=== PATIENT | male | born 1950 | race African-American/Black ===

== ENCOUNTER 2016-11-26 15:14 | Inpatient (IN) | payer MEDICARE, MEDICAID ==
[2016-11-25] MEDS: Metoprolol Tartrate 50mg tab ORAL SCH (20:54)
[~2016-11-26] VITALS: Ht 182.9 cm; Wt 86.2 kg
[2016-11-26 15:30] VITALS: BP 132/90
--- NOTE | 2016-11-26 15:38 | Emergency Room Report ---
History of Present Illness General Chief Complaint: Syncope Source: Patient, Medical Record, EMS, PMD Present Illness HPI 66YOM with ?syncope during PT at SNF in [place]. Patient allegedly stood up from sitting in wheelchair, then fell back into wheelchair, "hitting right elbow" on chair No LOC Didnt hit head Denies precipitating chest pain, SOB, palpitations, headache Feels well otherwise Per SNF, patient A&Ox2 at baseline. Is at baseline Multiple medical problems including COPD, CAD, pacemaker Scheduled for pacemaker "check" tomorrow Allergies: Coded Allergies: No Known Allergies (Unverified , 11/26/16) Patient History Past Medical History: other - see hpi Past Surgical History: pacemaker Pertinent Family History: none Social History: Denies: smoking, alcohol use, drug use Immunizations: UTD Reviewed Nursing Documentation: PMH: Agreed, PSxH: Agreed Nursing Documentation-PMH Past Medical History: No History, Except For Hx Cardiac Problems: Yes - AFIB Hx Hypertension: Yes Hx Asthma: No - LEFT HEARING LOSS Hx COPD: Yes Hx Diabetes: Yes Hx Gastrointestinal Problems: Yes - GERD Review of Systems All Other Systems: negative except mentioned in HPI Physical Exam Vital Signs Date Time Temp Pulse Resp B/P (MAP) Pulse Ox O2 Delivery O2 Flow Rate FiO2 11/26/16 15:04 97.2 83 20 150/125 98 Room Air Sp02 EP Interpretation: reviewed, normal General Appearance: normal inspection, well appearing, no apparent distress, alert, GCS 15, non-toxic, obese Head: normocephalic, atraumatic Eyes: bilateral eye PERRL, bilateral eye EOMI ENT: normal ENT inspection, hearing grossly normal, normal voice Neck: normal inspection, full range of motion, supple, no bony tend Respiratory: normal inspection, lungs clear, normal breath sounds, no respiratory distress, no retraction, no wheezing Cardiovascular #1: regular rate, rhythm, no edema Gastrointestinal: normal inspection, normal bowel sounds, non tender, soft, no guarding, no hernia Genitourinary: no CVA tenderness Musculoskeletal: normal inspection, back normal, normal range of motion, Chavo' s Sign negative, other - Full ROM of right shoulder/elbow/wrist/hand. No obvious trauma. Mild ttp to right elbow Neurologic: normal inspection, alert, oriented x3, responsive, drafter apprentice III-XII nml as tested, speech normal Psychiatric: normal inspection, judgement/insight normal, mood/affect normal Skin: normal inspection, normal color, no rash Medical Decision Making Medicare Attestation I Itzel Barton MD hereby attest that the medical record entry for date of service, 11/26/16 accurately reflects signatures/notations that I made in my capacity as MD when I treated/diagnosed the above listed Medicare beneficiary. I attest that this information is true, accurate and complete to the best of my knowledge. I understand that any falsification, omission, or concealment of material fact may subject me to administrative, civil, or criminal liability. This patient warrants hospital admission for extreme of age and has a condition that cannot be treated as outpatient. Diagnostic Impression: Primary Impression: Syncope Qualified Codes: R55 - Syncope and collapse Additional Impression: CKD (chronic kidney disease) Qualified Codes: N18.5 - Chronic kidney disease, stage 5 ER Course 66YOF with ?syncope during PT VSS. Afebrile Known atrial fib. Not in RVR CXR normal CT head negative Right elbow xray negative Labs significant only for serumCr elevaed. Known CKD Endorsed to Dr Barreto for syncope admit Tele bed 507pm EKG Diagnostic Results Rhythm: other - Atrial fib ST Segments: no acute changes ASA given to the pt in ED: No Rhythm Strip Diag. Results EP Interpretation: yes Rate: 84 Rhythm: NSR, no PVC's, no ectopy Chest X-Ray Diagnostic Results Chest X-Ray Diagnostic Results : Chest X-Ray Ordered: Yes # of Views/Limited/Complete: 1 View Indication: Other - syncope EP Interpretation: Yes Interpretation: no consolidation, no effusion, no pneumothorax, other - + cardiomegaly Impression: No acute disease Electronically Signed by: Dr Itzel Barton MD Last Vital Signs Date Time Temp Pulse Resp B/P (MAP) Pulse Ox O2 Delivery O2 Flow Rate FiO2 11/26/16 15:04 97.2 83 20 150/125 98 Room Air Disposition: ADMITTED INPATIENT Condition: Serious ITZEL BARTON M.D. Nov 26, 2016 15:38
--- NOTE | 2016-11-26 15:56 | Diagnostic Imaging Report ---
Indication: SYNCOPE Technique: One view of the chest Comparison: none Findings: The heart is enlarged. The lung bases are clear. There is a right chest unifocal pacemaker Impression: Cardiomegaly. No acute process
--- NOTE | 2016-11-26 15:56 | Diagnostic Imaging Report ---
Indications:PAIN Technique: Three or 4 views of the right elbow Comparison: None Findings:No acute fractures. No dislocations. No effusion Impression:Negative
[2016-11-26 16:11] LABS: MEAN CORPUSCULAR HEMOGLOBIN 32.2 PG (27.0-31.0); MEAN CORPUSCULAR HGB CONC 34.1 G/DL (32.0-36.0); MEAN CORPUSCULAR VOLUME 94 FL (80-99); MEAN PLATELET VOLUME 11.5 FL (6.5-10.1); PLATELET COUNT 106 K/UL (150-450); RED BLOOD COUNT 4.75 M/UL (4.70-6.10); RED CELL DISTRIBUTION WIDTH 13.8 % (11.6-14.8); WHITE BLOOD COUNT 5.8 K/UL (4.8-10.8)
[2016-11-26 16:47] LABS: ALANINE AMINOTRANSFERASE 33 U/L (12-78); ALBUMIN/GLOBULIN RATIO 0.8 (1.0-2.7); ANION GAP 8 mmol/L (5-15); ASPARTATE AMINO TRANSFERASE 12 U/L (15-37); CALCIUM 9.5 MG/DL (8.5-10.1); CARBON DIOXIDE 28 MMOL/L (21-32); CHLORIDE 99 MMOL/L (98-107); CKMB 1.8 NG/ML (0.0-3.6); CREATININE 2.5 MG/DL (0.55-1.30); GLOMERULAR FILTRATION RATE 31.5 mL/min (>60); POTASSIUM 4.5 MMOL/L (3.5-5.1); SODIUM 135 MMOL/L (136-145); TOTAL PROTEIN 6.7 G/DL (6.4-8.2)
--- NOTE | 2016-11-26 16:54 | Diagnostic Imaging Report ---
Indications: Altered mental status Technique: Spiral acquisitions obtained through the brain. Angled axial and coronal 5 x 5 mm slices were reconstructed. Total dose length product 132 mGycm. CTDI vol(s) 70 mGy. Dose reduction achieved using automated exposure control Comparison: None Findings: There is age-related enlargement of ventricles and extra axial CSF spaces. No acute intracranial hemorrhage or edema, mass effect, nor midline shift. There is some image degradation due to motion artifact. Intact calvarium. Visualized orbits and sinuses are unremarkable. Impression: Age-related volume loss. Negative for acute intracranial bleed or mass effect The CT scanner at [facility] is accredited by the [employer] and the scans are performed using protocols designed to limit radiation exposure to as low as reasonably achievable to attain images of sufficient resolution adequate for diagnostic evaluation.
[2016-11-26] MEDS ORDERED: NITROGLYCERIN0.4 MG SL (17:40)
[2016-11-26] MEDS ORDERED: ELIQUIS5 MG PO (17:40)
[2016-11-26] MEDS ORDERED: SENNA8.6 M2 PO (17:40)
[2016-11-26] MEDS ORDERED: AMLODIPINE BESY10 MG ORAL (17:40)
[2016-11-26] MEDS ORDERED: METOPROLOL TART25 MG ORAL (17:40)
[2016-11-26] MEDS ORDERED: COLACE100 MG ORAL (17:40)
[2016-11-26] MEDS ORDERED: ASPIR 8181 MG ORAL (17:40)
[2016-11-26] MEDS ORDERED: PREDNISONE20 MG ORAL (17:40)
[2016-11-26] MEDS ORDERED: LIPITOR20 MG ORAL (17:40)
[2016-11-26] MEDS ORDERED: JANUVIA25 MG ORAL (17:40)
[2016-11-26 18:42] VITALS: BP 142/95
[2016-11-26 18:44] LABS: ANISOCYTOSIS 1+; BAND NEUTROPHILS % (MANUAL) 0 % (0-8); BASOPHILS % (MANUAL) 0 % (0-2); EOSINOPHILS % (MANUAL) 0 % (0-3); LYMPHOCYTES % (MANUAL) 19 % (20-45); NEUTROPHILS % (MANUAL) 76 % (45-75); PLATELET ESTIMATE DECREASED; PLATELET MORPHOLOGY NORMAL; TOTAL CELLS COUNTED 100
[2016-11-26] MEDS ORDERED: Mylanta II UD 30ml ORAL PRN (23:45)
[2016-11-26] MEDS ORDERED: Morphine Sulfate 2mg/ml Inj IVP PRN (23:45)
[2016-11-26] MEDS ORDERED: Albuterol/Ipratropium 3ml neb HHN PRN (23:45)
[2016-11-26] MEDS ORDERED: LORazepam Inj 2mg/ml 1ml IV PRN (23:45)
[2016-11-26] MEDS ORDERED: Miralax 17gm pkt ORAL PRN (23:45)
[2016-11-26] MEDS ORDERED: Nitroglycerin Subl 0.4mg tab SL PRN (23:45)
[2016-11-27] VITALS (10 sets, daily range): BP systolic 127–155; BP diastolic 78–91
[2016-11-27] MEDS: NovoLOG Insulin Flexpen SUBQ SCH ×2 (07:10→12:02)
[2016-11-27 08:05] LABS: MEAN CORPUSCULAR HEMOGLOBIN 32.3 PG (27.0-31.0); MEAN CORPUSCULAR HGB CONC 34.4 G/DL (32.0-36.0); MEAN CORPUSCULAR VOLUME 94 FL (80-99); MEAN PLATELET VOLUME 10.3 FL (6.5-10.1); PLATELET COUNT 97 K/UL (150-450); RED BLOOD COUNT 4.69 M/UL (4.70-6.10); RED CELL DISTRIBUTION WIDTH 13.7 % (11.6-14.8); WHITE BLOOD COUNT 7.8 K/UL (4.8-10.8)
[2016-11-27 08:17] LABS: INR 1.1 (0.9-1.1); PROTHROMBIN TIME 11.7 SEC (9.30-11.50)
[2016-11-27 08:50] LABS: ALANINE AMINOTRANSFERASE 28 U/L (12-78); ALBUMIN/GLOBULIN RATIO 0.7 (1.0-2.7); ANION GAP 9 mmol/L (5-15); ASPARTATE AMINO TRANSFERASE 13 U/L (15-37); CALCIUM 9.4 MG/DL (8.5-10.1); CARBON DIOXIDE 28 MMOL/L (21-32); CHLORIDE 100 MMOL/L (98-107); CHOLESTEROL 363 MG/DL (< 200); CREATININE 2.3 MG/DL (0.55-1.30); GLOMERULAR FILTRATION RATE 34.7 mL/min (>60); POTASSIUM 4.3 MMOL/L (3.5-5.1); SODIUM 137 MMOL/L (136-145); THYROID STIMULATING HORMONE 0.579 uiU/mL (0.360-3.740); TOTAL PROTEIN 6.6 G/DL (6.4-8.2)
[2016-11-27 08:51] LABS: BILIRUBIN,DIRECT 0.2 MG/DL (0.0-0.3)
[2016-11-27] MEDS ORDERED: sitaGLIPtin 25mg tab ORAL SCH (09:00)
[2016-11-27] MEDS ORDERED: Atorvastatin 20mg tab ORAL SCH (09:00)
[2016-11-27] MEDS ORDERED: Heparin 5000 units/ml inj SUBQ SCH ×3 (09:00→21:00)
[2016-11-27 09:55] LABS: BAND NEUTROPHILS % (MANUAL) 0 % (0-8); BASOPHILS % (MANUAL) 0 % (0-2); EOSINOPHILS % (MANUAL) 0 % (0-3); LYMPHOCYTES % (MANUAL) 12 % (20-45); NEUTROPHILS % (MANUAL) 81 % (45-75); PLATELET ESTIMATE DECREASED; PLATELET MORPHOLOGY NORMAL; TOTAL CELLS COUNTED 100
--- NOTE | 2016-11-27 11:09 | General Progress Note ---
Progress Note Progress Note [id number] full note dictated JEN MICHELLE Nov 27, 2016 11:09
--- NOTE | 2016-11-27 12:24 | Neurology Progress Note ---
Objective Physical Exam Last Vital Signs Date Time Temp Pulse Resp B/P (MAP) Pulse Ox O2 Delivery O2 Flow Rate FiO2 11/27/16 11:22 97.7 72 20 155/87 97 Room Air 11/27/16 07:43 21 Laboratory Tests Test 11/26/16 15:45 11/26/16 15:47 11/27/16 07:10 Sodium Level 135 MMOL/L (136-145) L 137 MMOL/L (136-145) Potassium Level 4.5 MMOL/L (3.5-5.1) 4.3 MMOL/L (3.5-5.1) Chloride Level 99 MMOL/L (98-107) 100 MMOL/L (98-107) Carbon Dioxide Level 28 MMOL/L (21-32) 28 MMOL/L (21-32) Anion Gap 8 mmol/L (5-15) 9 mmol/L (5-15) Blood Urea Nitrogen 43 mg/dL (7-18) H 40 mg/dL (7-18) H Creatinine 2.5 MG/DL (0.55-1.30) H 2.3 MG/DL (0.55-1.30) H Estimat Glomerular Filtration Rate 31.5 mL/min (>60) 34.7 mL/min (>60) Glucose Level 215 MG/DL (74-106) H 191 MG/DL (74-106) H Calcium Level 9.5 MG/DL (8.5-10.1) 9.4 MG/DL (8.5-10.1) Total Bilirubin 1.0 MG/DL (0.2-1.0) 1.2 MG/DL (0.2-1.0) H Aspartate Amino Transf (AST/SGOT) 12 U/L (15-37) L 13 U/L (15-37) L Alanine Aminotransferase (ALT/SGPT) 33 U/L (12-78) 28 U/L (12-78) Alkaline Phosphatase 64 U/L (46-116) 59 U/L (46-116) Total Creatine Kinase 51 U/L (26-308) Creatine Kinase MB 1.8 NG/ML (0.0-3.6) Creatine Kinase MB Relative Index 3.5 Troponin I 0.016 ng/mL (0.000-0.056) Total Protein 6.7 G/DL (6.4-8.2) 6.6 G/DL (6.4-8.2) Albumin 2.9 G/DL (3.4-5.0) L 2.8 G/DL (3.4-5.0) L Globulin 3.8 g/dL 3.8 g/dL Albumin/Globulin Ratio 0.8 (1.0-2.7) L 0.7 (1.0-2.7) L White Blood Count 5.8 K/UL (4.8-10.8) 7.8 K/UL (4.8-10.8) Red Blood Count 4.75 M/UL (4.70-6.10) 4.69 M/UL (4.70-6.10) L Hemoglobin 15.3 G/DL (14.2-18.0) 15.2 G/DL (14.2-18.0) Hematocrit 44.7 % (42.0-52.0) 44.1 % (42.0-52.0) Mean Corpuscular Volume 94 FL (80-99) 94 FL (80-99) Mean Corpuscular Hemoglobin 32.2 PG (27.0-31.0) H 32.3 PG (27.0-31.0) H Mean Corpuscular Hemoglobin Concent 34.1 G/DL (32.0-36.0) 34.4 G/DL (32.0-36.0) Red Cell Distribution Width 13.8 % (11.6-14.8) 13.7 % (11.6-14.8) Platelet Count 106 K/UL (150-450) L 97 K/UL (150-450) L Mean Platelet Volume 11.5 FL (6.5-10.1) H 10.3 FL (6.5-10.1) H Neutrophils (%) (Auto) % (45.0-75.0) % (45.0-75.0) Lymphocytes (%) (Auto) % (20.0-45.0) % (20.0-45.0) Monocytes (%) (Auto) % (1.0-10.0) % (1.0-10.0) Eosinophils (%) (Auto) % (0.0-3.0) % (0.0-3.0) Basophils (%) (Auto) % (0.0-2.0) % (0.0-2.0) Differential Total Cells Counted 100 100 Neutrophils % (Manual) 76 % (45-75) H 81 % (45-75) H Lymphocytes % (Manual) 19 % (20-45) L 12 % (20-45) L Monocytes % (Manual) 5 % (1-10) 7 % (1-10) Eosinophils % (Manual) 0 % (0-3) 0 % (0-3) Basophils % (Manual) 0 % (0-2) 0 % (0-2) Band Neutrophils 0 % (0-8) 0 % (0-8) Platelet Estimate Decreased L Decreased L Platelet Morphology Normal Normal Anisocytosis 1+ Red Blood Cell Morphology Normal Prothrombin Time 11.7 SEC (9.30-11.50) H Prothromb Time International Ratio 1.1 (0.9-1.1) Activated Partial Thromboplast Time 29 SEC (23-33) Direct Bilirubin 0.2 MG/DL (0.0-0.3) Triglycerides Level 140 MG/DL (0-200) Cholesterol Level 363 MG/DL (< 200) H LDL Cholesterol 281 mg/dL (<100) H HDL Cholesterol 73 MG/DL (40-60) H Cholesterol/HDL Ratio 5.0 (3.3-4.4) H Thyroid Stimulating Hormone (TSH) 0.579 uiU/mL (0.360-3.740) Impression/Recommendations Recommendations # [id number] ДМИТРИЙ WEISS Nov 27, 2016 12:24
[2016-11-27] MEDS ORDERED: Amiodarone 900 MG in D5W 500ml 482 ML IV SCH (15:30)
--- NOTE | 2016-11-27 15:50 | Consultation ---
History of Present Illness General Date patient seen: Nov 26, 2016 Chief Complaint: Syncope Reason for Consultation: inpatient management Present Illness HPI 66 year old male with medical hx including COPD, CAD, pacemaker presented to ER with CC of syncope during PT at SNF Patient allegedly stood up from sitting in wheelchair, then fell back into wheelchair, "hitting right elbow" on chair Denies precipitating chest pain, SOB, palpitations, headache. He is admitted to telemetry for further work up. Allergies: Coded Allergies: No Known Allergies (Unverified , 11/26/16) Medication History Scheduled Amlodipine Besylate* (Amlodipine Besylate*), 10 MG ORAL DAILY, (Reported) Aspirin* (Aspir 81*), 81 MG ORAL DAILY, (Reported) Atorvastatin Calcium* (Lipitor*), 20 MG ORAL DAILY, (Reported) Docusate Sodium* (Colace*), 100 MG ORAL DAILY, (Reported) Metoprolol Tartrate* (Metoprolol Tartrate*), 25 MG ORAL DAILY, (Reported) Prednisone* (Prednisone*), 40 MG ORAL DAILY, (Reported) Sitagliptin* (Januvia*), 50 MG ORAL DAILY, (Reported) Miscellaneous Medications Apixaban (Eliquis), 5 MG PO, (Reported) Nitroglycerin (Nitroglycerin), 0.4 MG SL, (Reported) Sennosides (Senna), 8.6 MG PO, (Reported) Patient History Healthcare decision maker Resuscitation status Full Code Advanced Directive on File No Past Medical/Surgical History Past Medical/Surgical History: (1) Pacemaker (2) HTN (hypertension) (3) Atrial fibrillation Review of Systems All Other Systems: negative except mentioned in HPI Physical Exam General Appearance: WD/WN Lines, tubes and drains: peripheral HEENT: normocephalic, atraumatic Neck: non-tender, supple Respiratory/Chest: chest wall non-tender, normal breath sounds Breasts: no masses Cardiovascular/Chest: normal peripheral pulses Abdomen: normal bowel sounds Genitourinary/Rectal: normal genital exam, normal prostate exam Last 24 Hour Vital Signs Date Time Temp Pulse Resp B/P (MAP) Pulse Ox O2 Delivery O2 Flow Rate FiO2 11/27/16 12:00 116 11/27/16 11:22 97.7 72 20 155/87 97 Room Air 10/19/17 09:44 67 142/86 11/27/16 08:16 98.1 67 20 142/86 99 Room Air 11/27/16 08:00 120 11/27/16 07:43 77 16 Room Air 21 11/27/16 04:01 98.0 78 20 127/81 98 Room Air 11/27/16 04:00 81 11/27/16 00:00 98.0 68 20 145/80 98 Room Air 11/27/16 00:00 85 11/26/16 23:46 82 16 Room Air 21 11/26/16 19:50 97.2 87 13 142/95 98 Room Air 11/26/16 18:42 97.2 87 13 142/95 98 Room Air Intake and Output 11/27/16 11/28/16 19:00 07:00 Intake Total 200 ml Balance 200 ml Intake Oral 200 ml # Voids 1 Laboratory Tests Test 11/26/16 15:45 11/26/16 15:47 11/27/16 07:10 Sodium Level 135 MMOL/L (136-145) L 137 MMOL/L (136-145) Potassium Level 4.5 MMOL/L (3.5-5.1) 4.3 MMOL/L (3.5-5.1) Chloride Level 99 MMOL/L (98-107) 100 MMOL/L (98-107) Carbon Dioxide Level 28 MMOL/L (21-32) 28 MMOL/L (21-32) Anion Gap 8 mmol/L (5-15) 9 mmol/L (5-15) Blood Urea Nitrogen 43 mg/dL (7-18) H 40 mg/dL (7-18) H Creatinine 2.5 MG/DL (0.55-1.30) H 2.3 MG/DL (0.55-1.30) H Estimat Glomerular Filtration Rate 31.5 mL/min (>60) 34.7 mL/min (>60) Glucose Level 215 MG/DL (74-106) H 191 MG/DL (74-106) H Calcium Level 9.5 MG/DL (8.5-10.1) 9.4 MG/DL (8.5-10.1) Total Bilirubin 1.0 MG/DL (0.2-1.0) 1.2 MG/DL (0.2-1.0) H Aspartate Amino Transf (AST/SGOT) 12 U/L (15-37) L 13 U/L (15-37) L Alanine Aminotransferase (ALT/SGPT) 33 U/L (12-78) 28 U/L (12-78) Alkaline Phosphatase 64 U/L (46-116) 59 U/L (46-116) Total Creatine Kinase 51 U/L (26-308) Creatine Kinase MB 1.8 NG/ML (0.0-3.6) Creatine Kinase MB Relative Index 3.5 Troponin I 0.016 ng/mL (0.000-0.056) Total Protein 6.7 G/DL (6.4-8.2) 6.6 G/DL (6.4-8.2) Albumin 2.9 G/DL (3.4-5.0) L 2.8 G/DL (3.4-5.0) L Globulin 3.8 g/dL 3.8 g/dL Albumin/Globulin Ratio 0.8 (1.0-2.7) L 0.7 (1.0-2.7) L White Blood Count 5.8 K/UL (4.8-10.8) 7.8 K/UL (4.8-10.8) Red Blood Count 4.75 M/UL (4.70-6.10) 4.69 M/UL (4.70-6.10) L Hemoglobin 15.3 G/DL (14.2-18.0) 15.2 G/DL (14.2-18.0) Hematocrit 44.7 % (42.0-52.0) 44.1 % (42.0-52.0) Mean Corpuscular Volume 94 FL (80-99) 94 FL (80-99) Mean Corpuscular Hemoglobin 32.2 PG (27.0-31.0) H 32.3 PG (27.0-31.0) H Mean Corpuscular Hemoglobin Concent 34.1 G/DL (32.0-36.0) 34.4 G/DL (32.0-36.0) Red Cell Distribution Width 13.8 % (11.6-14.8) 13.7 % (11.6-14.8) Platelet Count 106 K/UL (150-450) L 97 K/UL (150-450) L Mean Platelet Volume 11.5 FL (6.5-10.1) H 10.3 FL (6.5-10.1) H Neutrophils (%) (Auto) % (45.0-75.0) % (45.0-75.0) Lymphocytes (%) (Auto) % (20.0-45.0) % (20.0-45.0) Monocytes (%) (Auto) % (1.0-10.0) % (1.0-10.0) Eosinophils (%) (Auto) % (0.0-3.0) % (0.0-3.0) Basophils (%) (Auto) % (0.0-2.0) % (0.0-2.0) Differential Total Cells Counted 100 100 Neutrophils % (Manual) 76 % (45-75) H 81 % (45-75) H Lymphocytes % (Manual) 19 % (20-45) L 12 % (20-45) L Monocytes % (Manual) 5 % (1-10) 7 % (1-10) Eosinophils % (Manual) 0 % (0-3) 0 % (0-3) Basophils % (Manual) 0 % (0-2) 0 % (0-2) Band Neutrophils 0 % (0-8) 0 % (0-8) Platelet Estimate Decreased L Decreased L Platelet Morphology Normal Normal Anisocytosis 1+ Red Blood Cell Morphology Normal Prothrombin Time 11.7 SEC (9.30-11.50) H Prothromb Time International Ratio 1.1 (0.9-1.1) Activated Partial Thromboplast Time 29 SEC (23-33) Direct Bilirubin 0.2 MG/DL (0.0-0.3) Triglycerides Level 140 MG/DL (0-200) Cholesterol Level 363 MG/DL (< 200) H LDL Cholesterol 281 mg/dL (<100) H HDL Cholesterol 73 MG/DL (40-60) H Cholesterol/HDL Ratio 5.0 (3.3-4.4) H Thyroid Stimulating Hormone (TSH) 0.579 uiU/mL (0.360-3.740) Height (Feet): 6 Height (Inches): 0.00 Weight (Pounds): 190 Medications Current Medications Medications (Trade) Dose Ordered Sig/Anahi Route PRN Reason Start Time Stop Time Status Last Admin Dose Admin Acetaminophen (Tylenol) 650 mg Q4H PRN ORAL fever 11/26/16 23:45 12/26/16 23:44 Al Hydroxide/Mg Hydroxide (Mylanta II) 30 ml Q6H PRN ORAL dyspepsia 11/26/16 23:45 12/26/16 23:44 Albuterol/ Ipratropium (DuoNeb 0.5-3(2.5)mg/3ml) 3 ml Q4H PRN HHN Shortness of Breath 11/26/16 23:45 12/01/16 23:44 Amiodarone HCl 900 mg/Dextrose 500 ml @ 0 mls/hr Q24H IV 11/27/16 15:30 11/28/16 15:29 Amlodipine Besylate (Norvasc) 10 mg DAILY ORAL 11/27/16 09:00 12/27/16 08:59 11/27/16 09:44 Atorvastatin Calcium (Lipitor) 20 mg DAILY ORAL 11/27/16 09:00 12/27/16 08:59 11/27/16 09:44 Clonidine HCl (Catapres) 0.1 mg Q4H PRN ORAL For High Blood Pressure 11/26/16 23:45 12/26/16 23:44 Dextrose (Dextrose 50%) STAT PRN IV Hypoglycemia 11/26/16 23:45 12/26/16 23:44 Heparin Sodium (Porcine) (Heparin 5000 units/ml) 5,000 units EVERY 12 HOURS SUBQ 11/27/16 21:00 12/27/16 20:59 Insulin Aspart (NovoLOG) BEFORE MEALS AND HS SUBQ 11/27/16 06:30 12/27/16 06:29 11/27/16 12:02 Lorazepam (Ativan 2mg/ml 1ml) 0.5 mg Q4H PRN IV For Anxiety 11/26/16 23:45 12/03/16 23:44 Morphine Sulfate (Morphine Sulfate) 1 mg Q4H PRN IVP For Pain 7-10 11/26/16 23:45 12/03/16 23:44 Nitroglycerin (Ntg) 0.4 mg Q5M X 3 DOSES PRN SL Prn Chest Pain 11/26/16 23:45 12/26/16 23:44 Ondansetron HCl (Zofran) 4 mg Q6H PRN IVP Nausea & Vomiting 11/26/16 23:45 12/26/16 23:44 Polyethylene Glycol (Miralax) 17 gm HSPRN PRN ORAL Constipation 11/26/16 23:45 12/26/16 23:44 Prednisone (predniSONE) 40 mg DAILY ORAL 11/27/16 09:00 12/27/16 08:59 11/27/16 09:44 Sitagliptin Phosphate (Januvia) 50 mg DAILY ORAL 11/27/16 09:00 12/27/16 08:59 11/27/16 09:44 Sodium Chloride 1,000 ml @ 50 mls/hr Q20H IV 11/27/16 11:15 12/27/16 11:14 11/27/16 11:46 Temazepam (Restoril) 15 mg HSPRN PRN ORAL Insomnia 11/26/16 23:45 12/03/16 23:44 Assessment/Plan Problem List: (1) Syncope ICD Codes: R55 - Syncope and collapse SNOMED: 086735562 Qualifiers: Qualified Codes: R55 - Syncope and collapse (2) CKD (chronic kidney disease) ICD Codes: N18.9 - Chronic kidney disease, unspecified SNOMED: 347064535 Qualifiers: Qualified Codes: N18.5 - Chronic kidney disease, stage 5 (3) Pacemaker ICD Codes: Z95.0 - Presence of cardiac pacemaker SNOMED: 361611826, [id number] (4) Atrial fibrillation ICD Codes: I48.91 - Unspecified atrial fibrillation SNOMED: 47299902 Assessment/Plan telemetry monitoring rate control sliding scale diabetic diet cardiology evaluation SATHYA MEIER Nov 27, 2016 15:50
--- NOTE | 2016-11-27 15:52 | Pulmonolgy Critical Care Note ---
Critical Care - Asmt/Plan Problems: (1) Atrial fibrillation (2) Syncope (3) HTN (hypertension) (4) Pacemaker (5) CKD (chronic kidney disease) Respiratory: monitor respiratory rate, adjust FIO2 Cardiac: continue to monitor HR/BP Renal: F/U I&O, check electrolytes Infectious Disease: check cultures Gastrointestinal: continue feedings/current rate Endocrine: monitor blood sugar Hematologic: monitor H/H, transfuse if hgb<8.5 Neurologic: PRN Ativan, PRN Morphine, keep patient comfortable Prophylaxis: Protonix Notes Reviewed: operating room registered nurse, cardio Discussed with: nurses, consultants, trimming caserapplication architect manager - Objective Last 24 Hour Vital Signs Date Time Temp Pulse Resp B/P (MAP) Pulse Ox O2 Delivery O2 Flow Rate FiO2 11/27/16 12:00 116 11/27/16 11:22 97.7 72 20 155/87 97 Room Air 11/27/16 09:44 67 142/86 11/27/16 08:16 98.1 67 20 142/86 99 Room Air 11/27/16 08:00 120 11/27/16 07:43 77 16 Room Air 21 11/27/16 04:01 98.0 78 20 127/81 98 Room Air 11/27/16 04:00 81 11/27/16 00:00 98.0 68 20 145/80 98 Room Air 11/27/16 00:00 85 11/26/16 23:46 82 16 Room Air 21 11/26/16 19:50 97.2 87 13 142/95 98 Room Air 11/26/16 18:42 97.2 87 13 142/95 98 Room Air Status: awake Condition: critical HEENT: atraumatic Lungs: clear Heart: HR/BP stable Abdomen: soft, non-tender Extremities: no C/C/E Accucheck: 278 Critical Care - Subjective ROS Limited/Unobtainable: No Interval Events: transferred to ICU b/o rapid heart rate. FI02: 21 I&O: Intake and Output 11/27/16 11/28/16 19:00 07:00 Intake Total 200 ml Balance 200 ml Intake Oral 200 ml # Voids 1 CXR: MITRA Labs: Laboratory Tests Test 11/27/16 07:10 White Blood Count 7.8 K/UL (4.8-10.8) Red Blood Count 4.69 M/UL (4.70-6.10) L Hemoglobin 15.2 G/DL (14.2-18.0) Hematocrit 44.1 % (42.0-52.0) Mean Corpuscular Volume 94 FL (80-99) Mean Corpuscular Hemoglobin 32.3 PG (27.0-31.0) H Mean Corpuscular Hemoglobin Concent 34.4 G/DL (32.0-36.0) Red Cell Distribution Width 13.7 % (11.6-14.8) Platelet Count 97 K/UL (150-450) L Mean Platelet Volume 10.3 FL (6.5-10.1) H Neutrophils (%) (Auto) % (45.0-75.0) Lymphocytes (%) (Auto) % (20.0-45.0) Monocytes (%) (Auto) % (1.0-10.0) Eosinophils (%) (Auto) % (0.0-3.0) Basophils (%) (Auto) % (0.0-2.0) Differential Total Cells Counted 100 Neutrophils % (Manual) 81 % (45-75) H Lymphocytes % (Manual) 12 % (20-45) L Monocytes % (Manual) 7 % (1-10) Eosinophils % (Manual) 0 % (0-3) Basophils % (Manual) 0 % (0-2) Band Neutrophils 0 % (0-8) Platelet Estimate Decreased L Platelet Morphology Normal Red Blood Cell Morphology Normal Prothrombin Time 11.7 SEC (9.30-11.50) H Prothromb Time International Ratio 1.1 (0.9-1.1) Activated Partial Thromboplast Time 29 SEC (23-33) Sodium Level 137 MMOL/L (136-145) Potassium Level 4.3 MMOL/L (3.5-5.1) Chloride Level 100 MMOL/L (98-107) Carbon Dioxide Level 28 MMOL/L (21-32) Anion Gap 9 mmol/L (5-15) Blood Urea Nitrogen 40 mg/dL (7-18) H Creatinine 2.3 MG/DL (0.55-1.30) H Estimat Glomerular Filtration Rate 34.7 mL/min (>60) Glucose Level 191 MG/DL (74-106) H Calcium Level 9.4 MG/DL (8.5-10.1) Total Bilirubin 1.2 MG/DL (0.2-1.0) H Direct Bilirubin 0.2 MG/DL (0.0-0.3) Aspartate Amino Transf (AST/SGOT) 13 U/L (15-37) L Alanine Aminotransferase (ALT/SGPT) 28 U/L (12-78) Alkaline Phosphatase 59 U/L (46-116) Total Protein 6.6 G/DL (6.4-8.2) Albumin 2.8 G/DL (3.4-5.0) L Globulin 3.8 g/dL Albumin/Globulin Ratio 0.7 (1.0-2.7) L Triglycerides Level 140 MG/DL (0-200) Cholesterol Level 363 MG/DL (< 200) H LDL Cholesterol 281 mg/dL (<100) H HDL Cholesterol 73 MG/DL (40-60) H Cholesterol/HDL Ratio 5.0 (3.3-4.4) H Thyroid Stimulating Hormone (TSH) 0.579 uiU/mL (0.360-3.740) SATHYA MEIER Nov 27, 2016 15:52
[2016-11-27] MEDS ORDERED: Morphine Sulfate 4mg/ml Inj IVP PRN ×2 (16:00→17:30)
[2016-11-27] MEDS ORDERED: Nitroglycerin Subl 0.4mg tab SL PRN (17:30)
[2016-11-27] MEDS ORDERED: Miralax 17gm pkt ORAL PRN (17:30)
[2016-11-27] MEDS ORDERED: Albuterol/Ipratropium 3ml neb HHN PRN (17:30)
[2016-11-27] MEDS ORDERED: Mylanta II UD 30ml ORAL PRN (17:30)
[2016-11-27] MEDS ORDERED: LORazepam Inj 2mg/ml 1ml IV PRN (17:30)
--- NOTE | 2016-11-27 17:45 | Consultation ---
DATE OF CONSULTATION: 11/27/2016 NEPHROLOGY CONSULTATION REFERRING PHYSICIAN: Pako Barreto M.D. REASON FOR CONSULTATION: Acute versus chronic renal failure. HISTORY OF PRESENT ILLNESS: The patient is a 66-year-old male with past medical history significant for a history of hypertension, history of COPD, history of pacemaker placement, history of dyslipidemia and history of hypertension, who was originally transferred from [facility] to [facility] after he had an episode of fall. Apparently, the patient was sitting on his wheelchair. He fell and hit his left elbow. He came to the ER with a diagnosis of syncopal episode. Upon arrival in the ER for evaluation, the patient was found to have been in atrial fibrillation with rapid ventricular response. The patient consequently was admitted in the hospital. I was called for management of renal disease and electrolyte imbalance. PAST MEDICAL HISTORY: 1. Per chart, the patient has a chronic kidney disease, the baseline creatinine is unknown. 2. History of pacemaker placement. 3. Hypertension. 4. History of atrial fibrillation. 5. History of GERD. 6. History of COPD. 7. History of osteoarthritis. 8. History of diabetes. PAST SURGICAL HISTORY: History of pacemaker placement. MEDICATIONS: 1. Zyprexa 7.5 mg p.o. daily. 2. Depakote 500 mg one tablet daily. 3. Amlodipine 10 mg p.o. daily. 4. Aspirin 81 mg p.o. daily. 5. Colace 100 mg p.o. daily. 6. Eliquis 5 mg p.o. daily. 7. Metoprolol 25 mg p.o. daily. 8. Prednisone 40 mg p.o. daily. 9. Lipitor 20 mg p.o. at bedtime. 10. Januvia 50 mg p.o. daily. 11. Tylenol 650 mg q.6 h. p.r.n. pain. 12. Nitroglycerin 0.4 p.r.n. chest pain. 13. Senna 8.6 mg daily. ALLERGIES: No known drug allergies. SOCIAL HISTORY: There is no current history of tobacco, alcohol or drug use. FAMILY HISTORY: Noncontributory. REVIEW OF SYSTEMS: GENERAL: He complained of generalized weakness. Denied any fever, any chills, or night sweats. HEAD AND NECK: Denies any dysphagia, odynophagia, blurry vision, headache, or neck stiffness. PULMONARY: Denies any shortness of breath. No cough or sputum. CARDIOVASCULAR: Denies any chest pain or palpitations. GASTROINTESTINAL: No nausea. No vomiting. GENITOURINARY: Denies any dysuria, frequency, or hematuria. PHYSICAL EXAMINATION: VITAL SIGNS: The patient has temperature of 97 degrees, blood pressure 160/100, pulse rate of 120, and respiratory rate of 18. HEAD AND NECK: No JVP. No LAD. No thyromegaly. Extraocular movement intact. Pupils are reactive to light and accommodation. LUNGS: Clear to auscultation. CARDIAC: Regular rate and rhythm. S1 and S2. No murmur. No rub. ABDOMEN: Soft, nontender, and nondistended. EXTREMITIES: Trace edema. No clubbing. No cyanosis. LABORATORY AND DIAGNOSTIC DATA: On admission, WBC count of 7.8, hemoglobin 15.2, hematocrit of 44, and platelet count of 97. Chemistry reveals sodium 137, potassium 4.3, chloride 100, bicarbonate 28, BUN of 40, creatinine of 2.3, and glucose of 191. Calcium of 9.4. Total bilirubin of 1.2. AST of 13 and ALT of 28. Total protein of 6.6. Albumin of 2.8. Cholesterol of 363. LDL of 283. There is no UA. ASSESSMENT: 1. Acute renal failure. The etiology of acute renal failure including acute tubular necrosis due to unstable hemodynamics. Rule out obstructive uropathy versus rhabdomyolysis as a result of falls. 2. 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 3. Atrial fibrillation with rapid ventricular response. 4. Severe dyslipidemia. 5. Low albumin. 6. Hypertension, which is uncontrolled at this time. 7. Diabetes. PLAN: For the patient, to obtain a random urine protein creatinine ratio to calculate the proteinuria. Check the urine sodium and creatinine to calculate fractional excretion of sodium. Ultrasound of the kidney to evaluate the kidney size and scan the bladder. I will check a hemoglobin A1c, recommended for this patient to be 6-7. Increase the Zocor to 80 mg based on the lipid profile. I would check a CK-MB. I would obtain a regular UA. Again, I would like to thank Dr. Barreto for allowing me to participate in the care of this patient. Nuvia Pelletier M.D. DR: BAYRON JOB#: [id number] CC:
--- NOTE | 2016-11-27 19:15 | Consultation ---
DATE OF CONSULTATION: 11/27/2016 NEUROLOGICAL CONSULTATION CONSULTING PHYSICIAN: Murray Chi M.D. REQUESTING PHYSICIAN: Pako Barreto D.O. HISTORY OF PRESENT ILLNESS: This is a [id number] man seen in neurological consultation to evaluate recurrent falls, now presenting with the episode when he apparently stood up from his wheelchair, lost balance, and fell down. He is unable to recall if he had any brief loss of consciousness. He fell. He injured his right elbow. He was brought to this facility for further assessment and treatment. On admission, he had a CT scan of the brain and it revealed age-related ventricles, but no evidence of acute intracranial abnormalities. X-ray of the elbow revealed no fracture, no dislocation. His chest x-ray, signs of cardiomegaly, pacemaker in place. Laboratory work included CBC study unremarkable except low platelets of 106,000. His coagulation panel with PT of 11.7. His chemistry panel is abnormal with elevated BUN of 43, creatinine 2.5, blood sugar 215, and sodium 135. Elevated cholesterol of 363 with LDL of 231 with normal TSH and troponin. Since admission until present, there was no further paroxysmal event. PAST MEDICAL HISTORY: The patient has a history of baseline mild dementia, history of atrial fibrillation, now on pacemaker, hypertension, history of chronic psychiatric disorder, schizoaffective with paranoia, depression and anxiety, decreased hearing on the right, history of GERD, thyrotoxicosis, diabetes type 2, COPD, and atherosclerotic heart disease. MEDICATIONS: His treatment on admission included amlodipine, Eliquis, aspirin, atorvastatin, metoprolol, [place], prednisone 40 mg daily, senna, and Januvia. ALLERGIES: None reported. SOCIAL HISTORY: Resident of nursing facility. He is single. Denies alcohol or drug abuse. FAMILY HISTORY: Unavailable. REVIEW OF SYSTEMS: The patient admits having tremors in his both upper extremities for several years. He admits having difficulties in ambulation. So he is using only at times walker, but predominantly sitting in a wheelchair, mild headaches, but no vertigo episodes. Slight hearing loss. Denies chest pain. denies palpitation. Denies abdominal pain or discomfort. No urine or bowel incontinence. PHYSICAL EXAMINATION: GENERAL: A well-developed, well-nourished man, found to be lying in bed, somewhat drowsy, but arousable. VITAL SIGNS: Included blood pressure 155/87, heart rate of 72, afebrile. HEENT: Head normocephalic. There is no evidence of trauma. Eyes, ears, and throat are clear. NECK: Supple. No meningeal signs. MUSCULOSKELETAL: No deformities noted. EXTREMITIES: Upper and lower extremities without clubbing, cyanosis, or edema. Peripheral pulses 1+ and symmetric. MENTAL STATUS: The patient is alert and oriented to his name, but stated his age is 61, now is [age]. He was able to follow simple commands. Response is delayed. Appears to be in depressed mood. CRANIAL NERVE II: Pupils both responding to light and accommodation. Extraocular movements full range. CRANIAL NERVE V: Normal corneal responses. CRANIAL NERVE VII: Slight facial asymmetry. CRANIAL NERVE VIII: Decreased hearing. CRANIAL NERVES IX THROUGH XII: Tongue is in the midline. MOTOR EXAMINATION: There is slight rigidity, both upper, but predominantly lower extremities. There is resting and action tremor of both hands and both lower extremities. Bradykinesia. Deep tendon reflexes depressed bilaterally. Plantar response is mute. No pathological responses noted. SENSORY EXAMINATION: Withdrawing to pin stimulation. GAIT: The patient was hesitant to sit or stand up, being afraid that he can fall down. IMPRESSION: 1. This 66-year-old man with an abnormal gait, generalized rigidity, action tremor, now presenting with recurrent mechanical falls, rule out syncope, rule out parkinsonian syndrome. 2. Cognitive loss, rule out vascular dementia. 3. Atrial fibrillation, on Eliquis. 4. Chronic obstructive pulmonary disease. 5. Renal insufficiency. 6. Diabetes type 2. 7. Atherosclerotic heart disease. 8. Hypertension. 9. History of thyrotoxicosis. RECOMMENDATION: 1. The patient to start on a Sinemet trial 25/100 mg half a tablet t.i.d. 2. Get PT/OT for mobility protocol assessment. 3. Continue with the current treatment, avoiding oversedation. 4. Reassess the need for high dose of prednisone. Thank you for allowing me to see this interesting patient in neurological consultation. Murray Chi M.D. DR: Gurdeep JOB#: [id number] CC:
--- NOTE | 2016-11-27 19:25 | Cardiology Progress Note ---
Assessment/Plan Assessment/Plan The patient is seen and examined, full consult note will be dictated. Objective Last 24 Hour Vital Signs Date Time Temp Pulse Resp B/P (MAP) Pulse Ox O2 Delivery O2 Flow Rate FiO2 11/27/16 19:00 97.8 89 14 132/78 100 Room Air 11/27/16 16:00 117 11/27/16 16:00 97.6 82 18 136/82 100 Room Air 11/27/16 12:00 116 11/27/16 11:22 97.7 72 20 155/87 97 Room Air 11/27/16 09:44 67 142/86 11/27/16 08:16 98.1 67 20 142/86 99 Room Air 11/27/16 08:00 120 11/27/16 07:43 77 16 Room Air 21 11/27/16 04:01 98.0 78 20 127/81 98 Room Air 11/27/16 04:00 81 11/27/16 00:00 98.0 68 20 145/80 98 Room Air 11/27/16 00:00 85 11/26/16 23:46 82 16 Room Air 21 11/26/16 19:50 97.2 87 13 142/95 98 Room Air Intake and Output 11/27/16 11/28/16 19:00 07:00 Intake Total 371 ml Balance 371 ml Intake Oral 320 ml IV Total 51 ml # Voids 2 # Bowel Movements 1 Laboratory Tests Test 11/27/16 07:10 White Blood Count 7.8 K/UL (4.8-10.8) Red Blood Count 4.69 M/UL (4.70-6.10) L Hemoglobin 15.2 G/DL (14.2-18.0) Hematocrit 44.1 % (42.0-52.0) Mean Corpuscular Volume 94 FL (80-99) Mean Corpuscular Hemoglobin 32.3 PG (27.0-31.0) H Mean Corpuscular Hemoglobin Concent 34.4 G/DL (32.0-36.0) Red Cell Distribution Width 13.7 % (11.6-14.8) Platelet Count 97 K/UL (150-450) L Mean Platelet Volume 10.3 FL (6.5-10.1) H Neutrophils (%) (Auto) % (45.0-75.0) Lymphocytes (%) (Auto) % (20.0-45.0) Monocytes (%) (Auto) % (1.0-10.0) Eosinophils (%) (Auto) % (0.0-3.0) Basophils (%) (Auto) % (0.0-2.0) Differential Total Cells Counted 100 Neutrophils % (Manual) 81 % (45-75) H Lymphocytes % (Manual) 12 % (20-45) L Monocytes % (Manual) 7 % (1-10) Eosinophils % (Manual) 0 % (0-3) Basophils % (Manual) 0 % (0-2) Band Neutrophils 0 % (0-8) Platelet Estimate Decreased L Platelet Morphology Normal Red Blood Cell Morphology Normal Prothrombin Time 11.7 SEC (9.30-11.50) H Prothromb Time International Ratio 1.1 (0.9-1.1) Activated Partial Thromboplast Time 29 SEC (23-33) Sodium Level 137 MMOL/L (136-145) Potassium Level 4.3 MMOL/L (3.5-5.1) Chloride Level 100 MMOL/L (98-107) Carbon Dioxide Level 28 MMOL/L (21-32) Anion Gap 9 mmol/L (5-15) Blood Urea Nitrogen 40 mg/dL (7-18) H Creatinine 2.3 MG/DL (0.55-1.30) H Estimat Glomerular Filtration Rate 34.7 mL/min (>60) Glucose Level 191 MG/DL (74-106) H Calcium Level 9.4 MG/DL (8.5-10.1) Total Bilirubin 1.2 MG/DL (0.2-1.0) H Direct Bilirubin 0.2 MG/DL (0.0-0.3) Aspartate Amino Transf (AST/SGOT) 13 U/L (15-37) L Alanine Aminotransferase (ALT/SGPT) 28 U/L (12-78) Alkaline Phosphatase 59 U/L (46-116) Total Protein 6.6 G/DL (6.4-8.2) Albumin 2.8 G/DL (3.4-5.0) L Globulin 3.8 g/dL Albumin/Globulin Ratio 0.7 (1.0-2.7) L Triglycerides Level 140 MG/DL (0-200) Cholesterol Level 363 MG/DL (< 200) H LDL Cholesterol 281 mg/dL (<100) H HDL Cholesterol 73 MG/DL (40-60) H Cholesterol/HDL Ratio 5.0 (3.3-4.4) H Thyroid Stimulating Hormone (TSH) 0.579 uiU/mL (0.360-3.740) EVAN GILES Nov 27, 2016 19:25
[2016-11-27] MEDS: Metoprolol Tartrate 50mg tab ORAL SCH (20:51)
[2016-11-27] MEDS ORDERED: NovoLOG Insulin Flexpen SUBQ SCH (21:00)
[2016-11-27] MEDS ORDERED: Digoxin 0.5mg/2ml Inj IVP ONE (22:00)
[2016-11-28] VITALS (11 sets, daily range): BP systolic 113–158; BP diastolic 67–104
--- NOTE | 2016-11-28 02:01 | Consultation ---
DATE OF CONSULTATION: 11/27/2016 HEMATOLOGY/ONCOLOGY CONSULTATION CONSULTING PHYSICIAN: Enrique Ferraro M.D. REQUESTING PHYSICIAN: Pako Barreto D.O. REASON FOR CONSULTATION: Evaluation of thrombocytopenia. IDENTIFICATION DATA: Dear Dr. Pako Barreto, The patient is a very pleasant 66-year-old male with a past medical history significant for hypertension, COPD, and pacemaker placement, transferred from senior care to [facility] for an episode of fall. He came to the ER and diagnosed with syncopal episode. Upon arrival to the ER, the patient was found to have atrial fibrillation with RVR. Cardiology Service was consulted for evaluation and treatment as well as Neurology Service, Dr. Murray Chi. A Hematology Service was consulted for evaluation of the patient's thrombocytopenia. PAST MEDICAL HISTORY: Dementia, atrial fibrillation, pacemaker, hypertension, history of chronic psychiatric disorder, GERD, thyrotoxicosis, diabetes mellitus type 2, COPD, and atherosclerotic heart disease. MEDICATIONS: Amlodipine, Elavil, Lipitor, metoprolol, [place], prednisone, and losartan. ALLERGIES: No known drug allergies. FAMILY HISTORY: Unavailable. SOCIAL HISTORY: He lives in a senior care. He is single. He denies any alcohol, illicit drug use, or tobacco. REVIEW OF SYSTEMS: CONSTITUTIONAL: The patient admits to tremors in both bilateral upper extremities. SKIN: No rashes, bumps, or itching. HEENT: No headache, hearing or vision changes. BREASTS: No lumps, pain, or discharge. PULMONARY: No cough, sputum, or shortness of breath. GASTROINTESTINAL: No nausea, vomiting, or diarrhea. GENITOURINARY: No dysuria, frequency, or urgency. MUSCULOSKELETAL: No joint swelling, muscle pain, or trauma. PHYSICAL EXAMINATION: GENERAL: The patient is in no acute distress. VITAL SIGNS: Temperature 98 degrees Fahrenheit, pulse of 82, respiratory rate 12, and blood pressure 134/87. PULMONARY: Decreased breath sounds. CARDIOVASCULAR: Regular rate. No S3 or S4. ABDOMEN: Soft, nontender, and nondistended. EXTREMITIES: There is 1+ edema. LABORATORY DATA: WBC 7.8, hemoglobin 13.2, and platelet count 97,000. INR 1.1. IMAGING: Head CT on 11/26/2016 shows age-related volume loss. ASSESSMENT AND RECOMMENDATIONS: 1. Thrombocytopenia potentially secondary to medications versus underlying infection. Continue to closely monitor. Medications have been reviewed. Also, hepatitis and HIV panel sent as well as ultrasound of the abdomen. 2. Anemia secondary to chronic disease. 3. Coagulopathy, it is mild, potentially secondary to decreased p.o. intake. 4. Hypertension. 5. Atrial fibrillation. 6. Syncope. 7. Chronic kidney disease. 8. Bilateral tremors of upper extremities. I appreciate the consultation. Enrique Ferraro M.D. DR: MARY CARMEN JOB#: [id number] CC:
[2016-11-28] MEDS ORDERED: Nitroglycerin Subl 0.4mg tab SL PRN (05:30)
[2016-11-28] MEDS ORDERED: Mylanta II UD 30ml ORAL PRN (05:30)
[2016-11-28] MEDS ORDERED: LORazepam Inj 2mg/ml 1ml IV PRN (05:30)
[2016-11-28] MEDS ORDERED: Albuterol/Ipratropium 3ml neb HHN PRN (05:30)
[2016-11-28] MEDS ORDERED: Morphine Sulfate 4mg/ml Inj IVP PRN (05:30)
[2016-11-28 05:32] LABS: MEAN CORPUSCULAR HEMOGLOBIN 32.7 PG (27.0-31.0); MEAN CORPUSCULAR HGB CONC 34.6 G/DL (32.0-36.0); MEAN CORPUSCULAR VOLUME 95 FL (80-99); MEAN PLATELET VOLUME 10.4 FL (6.5-10.1); PLATELET COUNT 92 K/UL (150-450); RED BLOOD COUNT 4.37 M/UL (4.70-6.10); RED CELL DISTRIBUTION WIDTH 13.9 % (11.6-14.8); WHITE BLOOD COUNT 7.3 K/UL (4.8-10.8)
[2016-11-28 05:56] LABS: ANION GAP 8 mmol/L (5-15); CALCIUM 9.8 MG/DL (8.5-10.1); CARBON DIOXIDE 28 MMOL/L (21-32); CHLORIDE 102 MMOL/L (98-107); CREATININE 2.4 MG/DL (0.55-1.30); POTASSIUM 4.1 MMOL/L (3.5-5.1); SODIUM 138 MMOL/L (136-145)
[2016-11-28] MEDS: NovoLOG Insulin Flexpen SUBQ SCH ×4 (07:10→21:06)
[2016-11-28] MEDS: Metoprolol Tartrate 50mg tab ORAL SCH ×2 (08:12→21:08)
[2016-11-28] MEDS: sitaGLIPtin 25mg tab ORAL SCH (08:12)
[2016-11-28] MEDS: Heparin 5000 units/ml inj SUBQ SCH ×2 (08:16→21:00)
--- NOTE | 2016-11-28 08:30 | History and Physical Report ---
DATE OF ADMISSION: 11/26/2016 TIME SEEN: 11/27/2016, 3 p.m. ATTENDING PHYSICIAN: Pako Barreto D.O. CONSULTANTS: 1. Nuvia Pelletier M.D. 2. Charlie Auguste M.D. 3. Murray Chi M.D. 4. Josee Guevara M.D. 5. Karen Pettit M.D. CHIEF COMPLAINT: Syncope, tachycardia, atrial fibrillation, and CKD. BRIEF HISTORY: The patient is a 66-year-old male from [place] , presented with the above-mentioned diagnoses. He was tachycardic, found to be atrial fibrillation, admitted to the telemetry for further care. Currently calm in bed, slightly confused, not talking much. PAST MEDICAL HISTORY: Includes CKD and encephalopathy. PAST SURGICAL HISTORY: Pacer. MEDICATIONS: Include heparin, amiodarone, Norvasc, Lipitor, prednisone, Januvia, DuoNeb, Tylenol, and morphine. ALLERGIES: Denies. SOCIAL HISTORY: No smoking. No alcohol. No intravenous drug use. FAMILY HISTORY: Noncontributory. REVIEW OF SYSTEMS: No chest pain or shortness of breath. No nausea, vomiting, or diarrhea. PHYSICAL EXAMINATION: GENERAL: Calm in bed, oriented x2, in no acute distress. VITAL SIGNS: Temperature is 97 degrees, pulse 116, respirations 20, and blood pressure 155/87. CARDIOVASCULAR: No murmur. LUNGS: Poor exchange. ABDOMEN: Bowel sounds positive. Nontender and nondistended. EXTREMITIES: No cyanosis, clubbing, or edema. LABORATORY AND DIAGNOSTIC DATA: Labs at this time show CBC with platelets of 97, otherwise, normal. BMP showed BUN and creatinine 40/2.3. Albumin 3.8. INR is 1.1. ASSESSMENT: 1. Syncope. 2. Tachycardia. 3. Atrial fibrillation. 4. Chronic kidney disease. 5. Encephalopathy. 6. Thrombocytopenia. 7. Malnutrition. PLAN: 1. Continue premedications. 2. OT, PT, and dietary followup. 3. Cardiology followup. 4. Nephrology followup. 5. CBC and BMP in the morning. 6. Dr. Pelletier, Dr. Auguste, Dr. Chi, Dr. Guevara, Dr. Pettit, and Dr. Ferraro to consult. Pako Barreto D.O. DR: GONZALO JOB#: [id number] CC:
[2016-11-28 08:52] LABS: BAND NEUTROPHILS % (MANUAL) 0 % (0-8); BASOPHILS % (MANUAL) 0 % (0-2); EOSINOPHILS % (MANUAL) 0 % (0-3); LYMPHOCYTES % (MANUAL) 15 % (20-45); NEUTROPHILS % (MANUAL) 79 % (45-75); PLATELET ESTIMATE DECREASED; PLATELET MORPHOLOGY NORMAL; TOTAL CELLS COUNTED 100
[2016-11-28] MEDS ORDERED: sitaGLIPtin 25mg tab ORAL SCH (09:00)
--- NOTE | 2016-11-28 09:09 | Infectious Diseases Prog Note ---
Assessment/Plan Problems: (1) Syncope Assessment & Plan: Rule-out underlying sepsis. Check UA and BCx. Hold off on empiric antibiotics. (2) Pacemaker (3) CKD (chronic kidney disease) Subjective Allergies: Coded Allergies: No Known Allergies (Unverified , 11/26/16) Objective Vital Signs Last 24 Hour Vital Signs Date Time Temp Pulse Resp B/P (MAP) Pulse Ox O2 Delivery O2 Flow Rate FiO2 11/28/16 08:13 160 155/104 11/28/16 08:12 160 155/104 11/28/16 08:00 97.1 114 20 145/101 98 Room Air 11/28/16 05:20 96.3 98 14 155/104 99 11/28/16 05:00 97.5 88 18 158/95 98 Room Air 11/28/16 04:00 97.5 85 18 158/95 99 Room Air 11/28/16 04:00 100 11/28/16 03:00 77 17 113/67 99 Room Air 11/28/16 02:00 102 16 130/92 100 Room Air 11/28/16 01:00 76 16 119/81 99 Nasal Cannula 2.0 11/28/16 00:00 64 11/28/16 00:00 97.8 89 15 119/81 99 Nasal Cannula 2.0 11/27/16 23:00 83 16 151/91 100 Nasal Cannula 2.0 11/27/16 22:21 94 11/27/16 22:00 85 15 135/81 100 Nasal Cannula 2.0 11/27/16 21:00 88 15 131/82 100 Nasal Cannula 2.0 11/27/16 20:51 102 127/88 11/27/16 20:00 86 11/27/16 20:00 97.9 86 18 127/88 100 Nasal Cannula 2.0 11/27/16 19:40 88 17 Room Air 11/27/16 19:00 97.8 89 14 132/78 100 Room Air 11/27/16 16:00 117 11/27/16 16:00 97.6 82 18 136/82 100 Room Air 11/27/16 12:00 116 11/27/16 11:22 97.7 72 20 155/87 97 Room Air 11/27/16 09:44 67 142/86 Height (Feet): 6 Height (Inches): 0.00 Weight (Pounds): 190 Laboratory Tests Test 11/27/16 21:05 11/28/16 05:15 Glucose Level 527 MG/DL (74-106) #*H 119 MG/DL (74-106) #H White Blood Count 7.3 K/UL (4.8-10.8) Red Blood Count 4.37 M/UL (4.70-6.10) L Hemoglobin 14.3 G/DL (14.2-18.0) Hematocrit 41.3 % (42.0-52.0) L Mean Corpuscular Volume 95 FL (80-99) Mean Corpuscular Hemoglobin 32.7 PG (27.0-31.0) H Mean Corpuscular Hemoglobin Concent 34.6 G/DL (32.0-36.0) Red Cell Distribution Width 13.9 % (11.6-14.8) Platelet Count 92 K/UL (150-450) L Mean Platelet Volume 10.4 FL (6.5-10.1) H Neutrophils (%) (Auto) % (45.0-75.0) Lymphocytes (%) (Auto) % (20.0-45.0) Monocytes (%) (Auto) % (1.0-10.0) Eosinophils (%) (Auto) % (0.0-3.0) Basophils (%) (Auto) % (0.0-2.0) Differential Total Cells Counted 100 Neutrophils % (Manual) 79 % (45-75) H Lymphocytes % (Manual) 15 % (20-45) L Monocytes % (Manual) 6 % (1-10) Eosinophils % (Manual) 0 % (0-3) Basophils % (Manual) 0 % (0-2) Band Neutrophils 0 % (0-8) Platelet Estimate Decreased L Platelet Morphology Normal Red Blood Cell Morphology Normal Sodium Level 138 MMOL/L (136-145) Potassium Level 4.1 MMOL/L (3.5-5.1) Chloride Level 102 MMOL/L (98-107) Carbon Dioxide Level 28 MMOL/L (21-32) Anion Gap 8 mmol/L (5-15) Blood Urea Nitrogen 41 mg/dL (7-18) H Creatinine 2.4 MG/DL (0.55-1.30) H Estimat Glomerular Filtration Rate 33.0 mL/min (>60) Calcium Level 9.8 MG/DL (8.5-10.1) Hepatitis A IgM Antibody Pending Hepatitis B Surface Antigen Pending Hepatitis B Core IgM Antibody Pending Hepatitis C Antibody Pending HIV (1&2) Antibody Rapid Negative (NEGATIVE) Current Medications Medications (Trade) Dose Ordered Sig/Anahi Route PRN Reason Start Time Stop Time Status Last Admin Dose Admin Acetaminophen (Tylenol) 650 mg Q4H PRN ORAL fever 11/28/16 05:30 12/26/16 17:29 Al Hydroxide/Mg Hydroxide (Mylanta II) 30 ml Q6H PRN ORAL dyspepsia 11/28/16 05:30 12/26/16 17:29 Albuterol/ Ipratropium (DuoNeb 0.5-3(2.5)mg/3ml) 3 ml Q4H PRN HHN Shortness of Breath 11/28/16 05:30 12/01/16 17:29 Amlodipine Besylate (Norvasc) 10 mg DAILY ORAL 11/28/16 09:00 12/27/16 08:59 11/28/16 08:13 Atorvastatin Calcium (Lipitor) 20 mg QHS ORAL 11/28/16 21:00 12/28/16 20:59 Clonidine HCl (Catapres) 0.1 mg Q4H PRN ORAL SBP > 160 11/28/16 05:30 12/26/16 17:29 Dextrose (Dextrose 50%) STAT PRN IV Hypoglycemia 11/28/16 17:30 12/26/16 17:29 Heparin Sodium (Porcine) (Heparin 5000 units/ml) 5,000 units EVERY 12 HOURS SUBQ 11/28/16 09:00 12/27/16 20:59 Insulin Aspart (NovoLOG) BEFORE MEALS AND HS SUBQ 11/28/16 06:30 12/27/16 06:29 11/28/16 07:10 Lorazepam (Ativan 2mg/ml 1ml) 0.5 mg Q4H PRN IV For Anxiety 11/28/16 05:30 12/03/16 17:29 Metoprolol Tartrate (Lopressor) 50 mg Q12HR ORAL 11/28/16 09:00 12/27/16 20:59 11/28/16 08:12 Morphine Sulfate (Morphine Sulfate) 1 mg Q4H PRN IVP For Pain 7-10 11/28/16 05:30 12/04/16 17:29 Nitroglycerin (Ntg) 0.4 mg Q5M X 3 DOSES PRN SL Prn Chest Pain 11/28/16 05:30 12/26/16 17:29 Ondansetron HCl (Zofran) 4 mg Q6H PRN IVP Nausea & Vomiting 11/28/16 05:30 12/26/16 17:29 Polyethylene Glycol (Miralax) 17 gm HSPRN PRN ORAL Constipation 11/28/16 17:30 12/26/16 17:29 Prednisone (predniSONE) 40 mg DAILY ORAL 11/28/16 09:00 12/27/16 08:59 11/28/16 08:14 Sitagliptin Phosphate (Januvia) 50 mg DAILY ORAL 11/28/16 09:00 12/27/16 08:59 11/28/16 08:12 Sodium Chloride 1,000 ml @ 50 mls/hr Q20H IV 11/28/16 05:30 12/27/16 17:29 11/28/16 06:44 Temazepam (Restoril) 15 mg HSPRN PRN ORAL Insomnia 11/28/16 17:30 12/03/16 17:29 MANNY RODRIGUEZ Nov 28, 2016 09:09
--- NOTE | 2016-11-28 11:24 | Nephrology Progress Note ---
Assessment/Plan Assessment 1. Acute renal failure. 2. 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 3. Atrial fibrillation with rapid ventricular response. 4. Severe dyslipidemia. 5. Low albumin. 6. Hypertension, which is uncontrolled at this time. 7. Diabetes. Plan plan to continue current meds monitoring renal function replace electrolyte as need it avoid nsaid fallow u with urine study fallow up with us of kidney Subjective Constitutional: Reports: no symptoms HEENT: Reports: no symptoms Genitourinary: Reports: no symptoms Neurologic/Psychiatric: Reports: no symptoms Subjective alert and awake no complaints Objective Objective Last 24 Hour Vital Signs Date Time Temp Pulse Resp B/P (MAP) Pulse Ox O2 Delivery O2 Flow Rate FiO2 11/28/16 08:13 160 155/104 11/28/16 08:12 160 155/104 11/28/16 08:10 113 18 Room Air 11/28/16 08:00 151 11/28/16 08:00 97.1 114 20 145/101 98 Room Air 11/28/16 05:20 96.3 98 14 155/104 99 11/28/16 05:00 97.5 88 18 158/95 98 Room Air 11/28/16 04:00 97.5 85 18 158/95 99 Room Air 11/28/16 04:00 100 11/28/16 03:00 77 17 113/67 99 Room Air 11/28/16 02:00 102 16 130/92 100 Room Air 11/28/16 01:00 76 16 119/81 99 Nasal Cannula 2.0 11/28/16 00:00 64 11/28/16 00:00 97.8 89 15 119/81 99 Nasal Cannula 2.0 11/27/16 23:00 83 16 151/91 100 Nasal Cannula 2.0 11/27/16 22:21 94 11/27/16 22:00 85 15 135/81 100 Nasal Cannula 2.0 11/27/16 21:00 88 15 131/82 100 Nasal Cannula 2.0 11/27/16 20:51 102 127/88 11/27/16 20:00 86 11/27/16 20:00 97.9 86 18 127/88 100 Nasal Cannula 2.0 11/27/16 19:40 88 17 Room Air 11/27/16 19:00 97.8 89 14 132/78 100 Room Air 11/27/16 16:00 117 11/27/16 16:00 97.6 82 18 136/82 100 Room Air 11/27/16 12:00 116 11/27/16 11:22 97.7 72 20 155/87 97 Room Air Laboratory Tests 11/27/16 21:05: Glucose Level 527#*H 11/28/16 05:15: Glucose Level 119#H, White Blood Count 7.3, Red Blood Count 4.37L, Hemoglobin 14.3, Hematocrit 41.3L, Mean Corpuscular Volume 95, Mean Corpuscular Hemoglobin 32.7H, Mean Corpuscular Hemoglobin Concent 34.6, Red Cell Distribution Width 13.9, Platelet Count 92L, Mean Platelet Volume 10.4H, Neutrophils (%) (Auto) , Lymphocytes (%) (Auto) , Monocytes (%) (Auto) , Eosinophils (%) (Auto) , Basophils (%) (Auto) , Differential Total Cells Counted 100, Neutrophils % ( Manual) 79H, Lymphocytes % (Manual) 15L, Monocytes % (Manual) 6, Eosinophils % ( Manual) 0, Basophils % (Manual) 0, Band Neutrophils 0, Platelet Estimate DecreasedL, Platelet Morphology Normal, Red Blood Cell Morphology Normal, Sodium Level 138, Potassium Level 4.1, Chloride Level 102, Carbon Dioxide Level 28, Anion Gap 8, Blood Urea Nitrogen 41H, Creatinine 2.4H, Estimat Glomerular Filtration Rate 33.0, Calcium Level 9.8, Hepatitis A IgM Antibody [Pending], Hepatitis B Surface Antigen [Pending], Hepatitis B Core IgM Antibody [Pending], Hepatitis C Antibody [Pending], HIV (1&2) Antibody Rapid Negative Height (Feet): 6 Height (Inches): 0.00 Weight (Pounds): 190 Genitourinary/Rectal: normal rectal tone Objective HEAD AND NECK: No JVP. No LAD. No thyromegaly. Extraocular movement intact. Pupils are reactive to light and accommodation. LUNGS: Clear to auscultation. CARDIAC: Regular rate and rhythm. S1 and S2. No murmur. No rub. ABDOMEN: Soft, nontender, and nondistended. EXTREMITIES: Trace edema. No clubbing. No cyanosis. JEN MICHELLE Nov 28, 2016 11:24
--- NOTE | 2016-11-28 13:25 | General Progress Note ---
Assessment/Plan Problem List: (1) CKD (chronic kidney disease) ICD Codes: N18.9 - Chronic kidney disease, unspecified SNOMED: 157683510 Qualifiers: Qualified Codes: N18.5 - Chronic kidney disease, stage 5 (2) Pacemaker ICD Codes: Z95.0 - Presence of cardiac pacemaker SNOMED: 537063546, 357997072 (3) Atrial fibrillation ICD Codes: I48.91 - Unspecified atrial fibrillation SNOMED: 84879581 (4) HTN (hypertension) ICD Codes: I10 - Essential (primary) hypertension SNOMED: 31358607 (5) Syncope ICD Codes: R55 - Syncope and collapse SNOMED: 434408791 Qualifiers: Qualified Codes: R55 - Syncope and collapse (6) Diabetes mellitus ICD Codes: E11.9 - Type 2 diabetes mellitus without complications SNOMED: 65259876 (7) Diabetic foot ulcer ICD Codes: E11.621 - Type 2 diabetes mellitus with foot ulcer; L97.509 - Non- pressure chronic ulcer of other part of unspecified foot with unspecified severity SNOMED: 40343343, 215438899 Status: stable, progressing, tolerating diet Assessment/Plan ot pt diet cardio f/u cbc bmp am Subjective Constitutional: Reports: weakness Allergies: Coded Allergies: No Known Allergies (Unverified , 11/26/16) All Systems: reviewed and negative except above Subjective calm in bed Objective Last 24 Hour Vital Signs Date Time Temp Pulse Resp B/P (MAP) Pulse Ox O2 Delivery O2 Flow Rate FiO2 11/28/16 12:07 98.8 66 20 139/80 96 Room Air 11/28/16 08:13 160 155/104 11/28/16 08:12 160 155/104 11/28/16 08:10 113 18 Room Air 11/28/16 08:00 151 11/28/16 08:00 97.1 114 20 145/101 98 Room Air 11/28/16 05:20 96.3 98 14 155/104 99 11/28/16 05:00 97.5 88 18 158/95 98 Room Air 11/28/16 04:00 97.5 85 18 158/95 99 Room Air 11/28/16 04:00 100 11/28/16 03:00 77 17 113/67 99 Room Air 11/28/16 02:00 102 16 130/92 100 Room Air 11/28/16 01:00 76 16 119/81 99 Nasal Cannula 2.0 11/28/16 00:00 64 11/28/16 00:00 97.8 89 15 119/81 99 Nasal Cannula 2.0 11/27/16 23:00 83 16 151/91 100 Nasal Cannula 2.0 11/27/16 22:21 94 11/27/16 22:00 85 15 135/81 100 Nasal Cannula 2.0 11/27/16 21:00 88 15 131/82 100 Nasal Cannula 2.0 11/27/16 20:51 102 127/88 11/27/16 20:00 86 11/27/16 20:00 97.9 86 18 127/88 100 Nasal Cannula 2.0 11/27/16 19:40 88 17 Room Air 11/27/16 19:00 97.8 89 14 132/78 100 Room Air 11/27/16 16:00 117 11/27/16 16:00 97.6 82 18 136/82 100 Room Air Intake and Output 11/28/16 11/29/16 19:00 07:00 Intake Total 240 ml Balance 240 ml Intake Oral 240 ml # Voids 1 Laboratory Tests 11/27/16 21:05: Glucose Level 527#*H 11/28/16 05:15: Glucose Level 119#H, White Blood Count 7.3, Red Blood Count 4.37L, Hemoglobin 14.3, Hematocrit 41.3L, Mean Corpuscular Volume 95, Mean Corpuscular Hemoglobin 32.7H, Mean Corpuscular Hemoglobin Concent 34.6, Red Cell Distribution Width 13.9, Platelet Count 92L, Mean Platelet Volume 10.4H, Neutrophils (%) (Auto) , Lymphocytes (%) (Auto) , Monocytes (%) (Auto) , Eosinophils (%) (Auto) , Basophils (%) (Auto) , Differential Total Cells Counted 100, Neutrophils % ( Manual) 79H, Lymphocytes % (Manual) 15L, Monocytes % (Manual) 6, Eosinophils % ( Manual) 0, Basophils % (Manual) 0, Band Neutrophils 0, Platelet Estimate DecreasedL, Platelet Morphology Normal, Red Blood Cell Morphology Normal, Sodium Level 138, Potassium Level 4.1, Chloride Level 102, Carbon Dioxide Level 28, Anion Gap 8, Blood Urea Nitrogen 41H, Creatinine 2.4H, Estimat Glomerular Filtration Rate 33.0, Calcium Level 9.8, Hepatitis A IgM Antibody [Pending], Hepatitis B Surface Antigen [Pending], Hepatitis B Core IgM Antibody [Pending], Hepatitis C Antibody [Pending], HIV (1&2) Antibody Rapid Negative Height (Feet): 6 Height (Inches): 0.00 Weight (Pounds): 190 General Appearance: lethargic EENT: normal ENT inspection Neck: normal alignment Cardiovascular: normal peripheral pulses, normal rate, regular rhythm Respiratory/Chest: chest wall non-tender, lungs clear, normal breath sounds Abdomen: normal bowel sounds, non tender, soft Extremities: normal inspection Edema: no edema noted Arm (L), no edema noted Arm (R), no edema noted Leg (L), no edema noted Leg (R), no edema noted Pedal (L), no edema noted Pedal (R), no edema noted Generalized Neurologic: motor weakness Skin: normal pigmentation, warm/dry CLARITA TEMPLETON Nov 28, 2016 13:25
--- NOTE | 2016-11-28 16:41 | Diagnostic Imaging Report ---
Indication: Abnormal renal function tests Technique: Grayscale and duplex images of the kidneys, retroperitoneum, and bladder were obtained. Comparison: Findings: Right kidney measures 10.6 cm in length. Left kidney measures 10.2 cm in length. Both kidneys demonstrate normal echogenicity. No hydronephrosis. There is a 12 mm left renal cyst. Normal inferior vena cava. Bladder is normal. Impression: Negative for hydronephrosis Incidental finding 12 mm left renal cyst.
--- NOTE | 2016-11-28 17:13 | General Progress Note ---
Assessment/Plan Assessment/Plan ASSESSMENT AND RECOMMENDATIONS: 1. Thrombocytopenia potentially secondary to medications versus underlying infection. Hep panel pending, hiv negative. abd us pending. 3. Coagulopathy, it is mild, potentially secondary to decreased p.o. intake. 4. Hypertension. 5. Atrial fibrillation. 6. Syncope. 7. Chronic kidney disease. 8. Bilateral tremors of upper extremities. Subjective ROS Limited/Unobtainable: Yes Allergies: Coded Allergies: No Known Allergies (Unverified , 11/26/16) Subjective sleepy Objective Last 24 Hour Vital Signs Date Time Temp Pulse Resp B/P (MAP) Pulse Ox O2 Delivery O2 Flow Rate FiO2 11/28/16 12:07 98.8 66 20 139/80 96 Room Air 11/28/16 12:00 76 11/28/16 08:13 160 155/104 11/28/16 08:12 160 155/104 11/28/16 08:10 113 18 Room Air 11/28/16 08:00 151 11/28/16 08:00 97.1 114 20 145/101 98 Room Air 11/28/16 05:20 96.3 98 14 155/104 99 11/28/16 05:00 97.5 88 18 158/95 98 Room Air 11/28/16 04:00 97.5 85 18 158/95 99 Room Air 11/28/16 04:00 100 11/28/16 03:00 77 17 113/67 99 Room Air 11/28/16 02:00 102 16 130/92 100 Room Air 11/28/16 01:00 76 16 119/81 99 Nasal Cannula 2.0 11/28/16 00:00 64 11/28/16 00:00 97.8 89 15 119/81 99 Nasal Cannula 2.0 11/27/16 23:00 83 16 151/91 100 Nasal Cannula 2.0 11/27/16 22:21 94 11/27/16 22:00 85 15 135/81 100 Nasal Cannula 2.0 11/27/16 21:00 88 15 131/82 100 Nasal Cannula 2.0 11/27/16 20:51 102 127/88 11/27/16 20:00 86 11/27/16 20:00 97.9 86 18 127/88 100 Nasal Cannula 2.0 11/27/16 19:40 88 17 Room Air 11/27/16 19:00 97.8 89 14 132/78 100 Room Air Intake and Output 11/28/16 11/29/16 19:00 07:00 Intake Total 480 ml Output Total 500 ml Balance -20 ml Intake Oral 480 ml Output Urine Total 500 ml # Voids 1 Laboratory Tests 11/27/16 21:05: Glucose Level 527#*H 11/28/16 05:15: Glucose Level 119#H, White Blood Count 7.3, Red Blood Count 4.37L, Hemoglobin 14.3, Hematocrit 41.3L, Mean Corpuscular Volume 95, Mean Corpuscular Hemoglobin 32.7H, Mean Corpuscular Hemoglobin Concent 34.6, Red Cell Distribution Width 13.9, Platelet Count 92L, Mean Platelet Volume 10.4H, Neutrophils (%) (Auto) , Lymphocytes (%) (Auto) , Monocytes (%) (Auto) , Eosinophils (%) (Auto) , Basophils (%) (Auto) , Differential Total Cells Counted 100, Neutrophils % ( Manual) 79H, Lymphocytes % (Manual) 15L, Monocytes % (Manual) 6, Eosinophils % ( Manual) 0, Basophils % (Manual) 0, Band Neutrophils 0, Platelet Estimate DecreasedL, Platelet Morphology Normal, Red Blood Cell Morphology Normal, Sodium Level 138, Potassium Level 4.1, Chloride Level 102, Carbon Dioxide Level 28, Anion Gap 8, Blood Urea Nitrogen 41H, Creatinine 2.4H, Estimat Glomerular Filtration Rate 33.0, Calcium Level 9.8, Hepatitis A IgM Antibody [Pending], Hepatitis B Surface Antigen [Pending], Hepatitis B Core IgM Antibody [Pending], Hepatitis C Antibody [Pending], HIV (1&2) Antibody Rapid Negative Height (Feet): 6 Height (Inches): 0.00 Weight (Pounds): 190 General Appearance: no apparent distress EENT: normal ENT inspection Neck: normal alignment Cardiovascular: regular rhythm Abdomen: tender 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
[2016-11-28] MEDS ORDERED: Amiodarone 900 MG in D5W 500ml 482 ML IV SCH (17:15)
[2016-11-28] MEDS ORDERED: Miralax 17gm pkt ORAL PRN (17:30)
[2016-11-28] MEDS ORDERED: Atorvastatin 20mg tab ORAL SCH (21:00)
[2016-11-28] MEDS: Atorvastatin 20mg tab ORAL SCH (21:08)
--- NOTE | 2016-11-28 23:47 | Cardiology Progress Note ---
Assessment/Plan Assessment/Plan 1. Permanent atrial fibrillation, continue rate control, anti-coag therapy. 2. Hx of SSS, s/p single chamber pacemaker implantation. 3. HTN. 4. DM 5. Hx of prior syncope. Subjective Subjective Atrial fibrillation at 98. Transferred back to telemetry. Objective Last 24 Hour Vital Signs Date Time Temp Pulse Resp B/P (MAP) Pulse Ox O2 Delivery O2 Flow Rate FiO2 11/28/16 21:08 98 155/101 11/28/16 20:00 97.3 20 155/101 88 Room Air 11/28/16 19:17 98 12 Room Air 11/28/16 16:00 67 11/28/16 16:00 97.7 80 20 119/76 97 Room Air 11/28/16 12:07 98.8 66 20 139/80 96 Room Air 11/28/16 12:00 76 11/28/16 08:13 160 155/104 11/28/16 08:12 160 155/104 11/28/16 08:10 113 18 Room Air 11/28/16 08:00 151 11/28/16 08:00 97.1 114 20 145/101 98 Room Air 11/28/16 05:20 96.3 98 14 155/104 99 11/28/16 05:00 97.5 88 18 158/95 98 Room Air 11/28/16 04:00 97.5 85 18 158/95 99 Room Air 11/28/16 04:00 100 11/28/16 03:00 77 17 113/67 99 Room Air 11/28/16 02:00 102 16 130/92 100 Room Air 11/28/16 01:00 76 16 119/81 99 Nasal Cannula 2.0 11/28/16 00:00 64 11/28/16 00:00 97.8 89 15 119/81 99 Nasal Cannula 2.0 Intake and Output 11/28/16 11/29/16 19:00 07:00 Intake Total 720 ml Output Total 900 ml Balance -180 ml Intake Oral 720 ml Output Urine Total 900 ml # Voids 1 2D Echo: EF 60%, Mod LVH, Mild LAE, Mild MR, RVSP 35 mmHg Laboratory Tests Test 11/28/16 05:15 White Blood Count 7.3 K/UL (4.8-10.8) Red Blood Count 4.37 M/UL (4.70-6.10) L Hemoglobin 14.3 G/DL (14.2-18.0) Hematocrit 41.3 % (42.0-52.0) L Mean Corpuscular Volume 95 FL (80-99) Mean Corpuscular Hemoglobin 32.7 PG (27.0-31.0) H Mean Corpuscular Hemoglobin Concent 34.6 G/DL (32.0-36.0) Red Cell Distribution Width 13.9 % (11.6-14.8) Platelet Count 92 K/UL (150-450) L Mean Platelet Volume 10.4 FL (6.5-10.1) H Neutrophils (%) (Auto) % (45.0-75.0) Lymphocytes (%) (Auto) % (20.0-45.0) Monocytes (%) (Auto) % (1.0-10.0) Eosinophils (%) (Auto) % (0.0-3.0) Basophils (%) (Auto) % (0.0-2.0) Differential Total Cells Counted 100 Neutrophils % (Manual) 79 % (45-75) H Lymphocytes % (Manual) 15 % (20-45) L Monocytes % (Manual) 6 % (1-10) Eosinophils % (Manual) 0 % (0-3) Basophils % (Manual) 0 % (0-2) Band Neutrophils 0 % (0-8) Platelet Estimate Decreased L Platelet Morphology Normal Red Blood Cell Morphology Normal Sodium Level 138 MMOL/L (136-145) Potassium Level 4.1 MMOL/L (3.5-5.1) Chloride Level 102 MMOL/L (98-107) Carbon Dioxide Level 28 MMOL/L (21-32) Anion Gap 8 mmol/L (5-15) Blood Urea Nitrogen 41 mg/dL (7-18) H Creatinine 2.4 MG/DL (0.55-1.30) H Estimat Glomerular Filtration Rate 33.0 mL/min (>60) Glucose Level 119 MG/DL (74-106) #H Calcium Level 9.8 MG/DL (8.5-10.1) Hepatitis A IgM Antibody Pending Hepatitis B Surface Antigen Pending Hepatitis B Core IgM Antibody Pending Hepatitis C Antibody Pending HIV (1&2) Antibody Rapid Negative (NEGATIVE) Objective HEENT: Atraumatic, normocephalic, Extraocular movement intact. Pupils are reactive to light and accommodation. NECK: JVD is negative, no carotid bruit, carotid upstroke 2+ B/L LUNGS: Clear to auscultation. CARDIAC: Regular rate and rhythm. S1 and S2. No murmur, gallops or rub. ABDOMEN: Soft, nontender, and nondistended, positive BS, no HSM. EXTREMITIES: Trace edema. No clubbing or cyanosis. EVAN GILES Nov 28, 2016 23:47
[2016-11-29] VITALS: BP 130/78
[2016-11-29 04:00] VITALS: BP 140/89
[2016-11-29] MEDS: NovoLOG Insulin Flexpen SUBQ SCH ×7 (06:51→21:31)
[2016-11-29 07:28] LABS: BASOPHILS % (AUTO) 1.4 % (0.0-2.0); LYMPHOCYTES % (AUTO) 12.4 % (20.0-45.0); MEAN CORPUSCULAR HEMOGLOBIN 32.3 PG (27.0-31.0); MEAN CORPUSCULAR HGB CONC 34.1 G/DL (32.0-36.0); MEAN CORPUSCULAR VOLUME 95 FL (80-99); MEAN PLATELET VOLUME 11.6 FL (6.5-10.1); NEUTROPHILS % (AUTO) 77.2 % (45.0-75.0); PLATELET COUNT 112 K/UL (150-450); RED CELL DISTRIBUTION WIDTH 13.9 % (11.6-14.8); WHITE BLOOD COUNT 8.3 K/UL (4.8-10.8)
[2016-11-29 07:48] LABS: ANION GAP 7 mmol/L (5-15); CALCIUM 9.3 MG/DL (8.5-10.1); CARBON DIOXIDE 30 MMOL/L (21-32); CHLORIDE 100 MMOL/L (98-107); CREATININE 2.5 MG/DL (0.55-1.30); GLOMERULAR FILTRATION RATE 31.5 mL/min (>60); POTASSIUM 4.3 MMOL/L (3.5-5.1); SODIUM 136 MMOL/L (136-145)
[2016-11-29 08:18] VITALS: BP 153/99
[2016-11-29] MEDS: Levemir Flexpen SUBQ SCH (09:00)
[2016-11-29] MEDS: sitaGLIPtin 25mg tab ORAL SCH (09:15)
[2016-11-29] MEDS: Metoprolol Tartrate 50mg tab ORAL SCH ×2 (09:15→21:32)
[2016-11-29] MEDS: Heparin 5000 units/ml inj SUBQ SCH ×2 (09:17→21:30)
[2016-11-29] MEDS ORDERED: 1/2 NS 1000ml IV ONE (09:30)
--- NOTE | 2016-11-29 11:35 | General Progress Note ---
Assessment/Plan Problem List: (1) CKD (chronic kidney disease) ICD Codes: N18.9 - Chronic kidney disease, unspecified SNOMED: 283292307 Qualifiers: Qualified Codes: N18.5 - Chronic kidney disease, stage 5 (2) Pacemaker ICD Codes: Z95.0 - Presence of cardiac pacemaker SNOMED: 323605476, 664939326 (3) Atrial fibrillation ICD Codes: I48.91 - Unspecified atrial fibrillation SNOMED: 99552826 (4) HTN (hypertension) ICD Codes: I10 - Essential (primary) hypertension SNOMED: 78985580 (5) Syncope ICD Codes: R55 - Syncope and collapse SNOMED: 079103534 Qualifiers: Qualified Codes: R55 - Syncope and collapse (6) Diabetes mellitus ICD Codes: E11.9 - Type 2 diabetes mellitus without complications SNOMED: 89516452 (7) Diabetic foot ulcer ICD Codes: E11.621 - Type 2 diabetes mellitus with foot ulcer; L97.509 - Non- pressure chronic ulcer of other part of unspecified foot with unspecified severity SNOMED: 50011084, 432661151 Status: stable, progressing, tolerating diet Assessment/Plan ot pt diet cardio f/u cbc bmp am dc plan Subjective Constitutional: Reports: weakness Allergies: Coded Allergies: No Known Allergies (Unverified , 11/26/16) All Systems: reviewed and negative except above Subjective calm in bed Objective Last 24 Hour Vital Signs Date Time Temp Pulse Resp B/P (MAP) Pulse Ox O2 Delivery O2 Flow Rate FiO2 11/29/16 09:16 76 153/99 11/29/16 09:15 76 153/99 11/29/16 08:18 98.4 76 18 153/99 99 Room Air 11/29/16 08:00 75 11/29/16 08:00 92 14 Room Air 11/29/16 04:00 97.2 69 20 140/89 98 Room Air 11/29/16 04:00 77 11/29/16 00:00 78 11/29/16 00:00 97.7 75 20 130/78 96 Room Air 11/28/16 21:08 98 155/101 11/28/16 20:00 74 11/28/16 20:00 97.3 20 155/101 88 Room Air 11/28/16 19:17 98 12 Room Air 11/28/16 16:00 67 11/28/16 16:00 97.7 80 20 119/76 97 Room Air 11/28/16 12:07 98.8 66 20 139/80 96 Room Air 11/28/16 12:00 76 Laboratory Tests 11/29/16 05:20: White Blood Count 8.3, Red Blood Count 4.60L, Hemoglobin 14.9, Hematocrit 43.6, Mean Corpuscular Volume 95, Mean Corpuscular Hemoglobin 32.3H, Mean Corpuscular Hemoglobin Concent 34.1, Red Cell Distribution Width 13.9, Platelet Count 112L, Mean Platelet Volume 11.6H, Neutrophils (%) (Auto) 77.2H, Lymphocytes (%) (Auto ) 12.4L, Monocytes (%) (Auto) 9.0, Eosinophils (%) (Auto) 0.0, Basophils (%) ( Auto) 1.4, Sodium Level 136, Potassium Level 4.3, Chloride Level 100, Carbon Dioxide Level 30, Anion Gap 7, Blood Urea Nitrogen 44H, Creatinine 2.5H, Estimat Glomerular Filtration Rate 31.5, Glucose Level 230#H, Hemoglobin A1c 11.6H, Calcium Level 9.3 Height (Feet): 6 Height (Inches): 0.00 Weight (Pounds): 190 General Appearance: lethargic EENT: normal ENT inspection Neck: normal alignment Cardiovascular: normal peripheral pulses, normal rate, regular rhythm Respiratory/Chest: chest wall non-tender, lungs clear, normal breath sounds Abdomen: normal bowel sounds, non tender, soft Extremities: normal inspection Edema: no edema noted Arm (L), no edema noted Arm (R), no edema noted Leg (L), no edema noted Leg (R), no edema noted Pedal (L), no edema noted Pedal (R), no edema noted Generalized Neurologic: motor weakness Skin: normal pigmentation, warm/dry CLARITA TEMPLETON Nov 29, 2016 11:34
[2016-11-29 12:00] VITALS: BP 158/83
[2016-11-29 16:00] VITALS: BP 136/88
--- NOTE | 2016-11-29 16:14 | Pulmonology Progress Note ---
Assessment/Plan Problems: (1) Atrial fibrillation (2) Syncope (3) CKD (chronic kidney disease) (4) Pacemaker Assessment/Plan rate control telemetry f/u electrolytes symptomatic treatment f/u cardio recommendations Subjective ROS Limited/Unobtainable: No Interval Events: late note for 11/28:no new complains Allergies: Coded Allergies: No Known Allergies (Unverified , 11/26/16) Objective Last 24 Hour Vital Signs Date Time Temp Pulse Resp B/P (MAP) Pulse Ox O2 Delivery O2 Flow Rate FiO2 11/29/16 12:00 97.9 70 20 158/83 99 Room Air 11/29/16 12:00 74 11/29/16 09:16 76 153/99 11/29/16 09:15 76 153/99 11/29/16 08:18 98.4 76 18 153/99 99 Room Air 11/29/16 08:00 75 11/29/16 08:00 92 14 Room Air 11/29/16 04:00 97.2 69 20 140/89 98 Room Air 11/29/16 04:00 77 11/29/16 00:00 78 11/29/16 00:00 97.7 75 20 130/78 96 Room Air 11/28/16 21:08 98 155/101 11/28/16 20:00 74 11/28/16 20:00 97.3 20 155/101 88 Room Air 11/28/16 19:17 98 12 Room Air Intake and Output 11/29/16 11/30/16 19:00 07:00 Intake Total 600 ml Output Total 900 ml Balance -300 ml Intake Oral 600 ml Output Urine Total 900 ml General Appearance: WD/WN, no acute distress HEENT: atraumatic Respiratory/Chest: chest wall non-tender, lungs clear Cardiovascular: normal peripheral pulses, normal rate Abdomen: normal bowel sounds, soft, non tender Genitourinary: normal external genitalia Skin: no rash 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 Complete Laboratory Tests 11/29/16 05:20: White Blood Count 8.3, Red Blood Count 4.60L, Hemoglobin 14.9, Hematocrit 43.6, Mean Corpuscular Volume 95, Mean Corpuscular Hemoglobin 32.3H, Mean Corpuscular Hemoglobin Concent 34.1, Red Cell Distribution Width 13.9, Platelet Count 112L, Mean Platelet Volume 11.6H, Neutrophils (%) (Auto) 77.2H, Lymphocytes (%) (Auto ) 12.4L, Monocytes (%) (Auto) 9.0, Eosinophils (%) (Auto) 0.0, Basophils (%) ( Auto) 1.4, Sodium Level 136, Potassium Level 4.3, Chloride Level 100, Carbon Dioxide Level 30, Anion Gap 7, Blood Urea Nitrogen 44H, Creatinine 2.5H, Estimat Glomerular Filtration Rate 31.5, Glucose Level 230#H, Hemoglobin A1c 11.6H, Calcium Level 9.3 Current Medications Medications (Trade) Dose Ordered Sig/Anahi Route PRN Reason Start Time Stop Time Status Last Admin Dose Admin Acetaminophen (Tylenol) 650 mg Q4H PRN ORAL fever 11/28/16 05:30 12/26/16 17:29 Al Hydroxide/Mg Hydroxide (Mylanta II) 30 ml Q6H PRN ORAL dyspepsia 11/28/16 05:30 12/26/16 17:29 Albuterol/ Ipratropium (DuoNeb 0.5-3(2.5)mg/3ml) 3 ml Q4H PRN HHN Shortness of Breath 11/28/16 05:30 12/01/16 17:29 Amlodipine Besylate (Norvasc) 10 mg DAILY ORAL 11/28/16 09:00 12/27/16 08:59 11/29/16 09:16 Atorvastatin Calcium (Lipitor) 20 mg QHS ORAL 11/28/16 21:00 12/28/16 20:59 11/28/16 21:08 Clonidine HCl (Catapres) 0.1 mg Q4H PRN ORAL SBP > 160 11/28/16 05:30 12/26/16 17:29 Dextrose (Dextrose 50%) STAT PRN IV Hypoglycemia 11/29/16 07:15 12/29/16 07:14 Heparin Sodium (Porcine) (Heparin 5000 units/ml) 5,000 units EVERY 12 HOURS SUBQ 11/28/16 09:00 12/27/16 20:59 11/29/16 09:17 Insulin Aspart (NovoLOG) BEFORE MEALS AND HS SUBQ 11/28/16 06:30 12/27/16 06:29 11/29/16 12:04 Insulin Aspart (NovoLOG) 5 units NOVOTIAC SUBQ 11/29/16 07:15 12/29/16 07:14 11/29/16 12:05 Insulin Detemir (Levemir) 15 units DAILY SUBQ 11/29/16 09:00 12/29/16 08:59 Lorazepam (Ativan 2mg/ml 1ml) 0.5 mg Q4H PRN IV For Anxiety 11/28/16 05:30 12/03/16 17:29 Memantine (Namenda) 5 mg BID ORAL 11/29/16 18:00 12/29/16 17:59 Metoprolol Tartrate (Lopressor) 50 mg Q12HR ORAL 11/28/16 09:00 12/27/16 20:59 11/29/16 09:15 Morphine Sulfate (Morphine Sulfate) 1 mg Q4H PRN IVP For Pain 7-10 11/28/16 05:30 12/04/16 17:29 Nitroglycerin (Ntg) 0.4 mg Q5M X 3 DOSES PRN SL Prn Chest Pain 11/28/16 05:30 12/26/16 17:29 Ondansetron HCl (Zofran) 4 mg Q6H PRN IVP Nausea & Vomiting 11/28/16 05:30 12/26/16 17:29 Polyethylene Glycol (Miralax) 17 gm HSPRN PRN ORAL Constipation 11/28/16 17:30 12/26/16 17:29 Prednisone (predniSONE) 40 mg DAILY ORAL 11/28/16 09:00 12/27/16 08:59 11/29/16 09:16 Sitagliptin Phosphate (Januvia) 50 mg DAILY ORAL 11/28/16 09:00 12/27/16 08:59 11/29/16 09:15 Sodium Chloride 1,000 ml @ 50 mls/hr Q20H IV 11/28/16 05:30 12/27/16 17:29 11/29/16 01:50 Temazepam (Restoril) 15 mg HSPRN PRN ORAL Insomnia 11/28/16 17:30 12/03/16 17:29 SATHYA MEIER Nov 29, 2016 16:14
--- NOTE | 2016-11-29 16:15 | Pulmonology Progress Note ---
Assessment/Plan Problems: (1) Atrial fibrillation (2) Syncope (3) CKD (chronic kidney disease) (4) Pacemaker Assessment/Plan rate control telemetry f/u electrolytes symptomatic treatment f/u cardio recommendations dvt prophylaxis Subjective ROS Limited/Unobtainable: No Constitutional: Reports: no symptoms HEENT: Repors: no symptoms Allergies: Coded Allergies: No Known Allergies (Unverified , 11/26/16) Objective Last 24 Hour Vital Signs Date Time Temp Pulse Resp B/P (MAP) Pulse Ox O2 Delivery O2 Flow Rate FiO2 11/29/16 12:00 97.9 70 20 158/83 99 Room Air 11/29/16 12:00 74 11/29/16 09:16 76 153/99 11/29/16 09:15 76 153/99 11/29/16 08:18 98.4 76 18 153/99 99 Room Air 11/29/16 08:00 75 11/29/16 08:00 92 14 Room Air 11/29/16 04:00 97.2 69 20 140/89 98 Room Air 11/29/16 04:00 77 11/29/16 00:00 78 11/29/16 00:00 97.7 75 20 130/78 96 Room Air 11/28/16 21:08 98 155/101 11/28/16 20:00 74 11/28/16 20:00 97.3 20 155/101 88 Room Air 11/28/16 19:17 98 12 Room Air Intake and Output 11/29/16 11/30/16 19:00 07:00 Intake Total 600 ml Output Total 900 ml Balance -300 ml Intake Oral 600 ml Output Urine Total 900 ml General Appearance: WD/WN, no acute distress HEENT: normocephalic Respiratory/Chest: chest wall non-tender, normal breath sounds Cardiovascular: normal peripheral pulses, normal rate Abdomen: no organomegaly Extremities: no cyanosis Neurologic/Psychiatric: 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 Complete Laboratory Tests 11/29/16 05:20: White Blood Count 8.3, Red Blood Count 4.60L, Hemoglobin 14.9, Hematocrit 43.6, Mean Corpuscular Volume 95, Mean Corpuscular Hemoglobin 32.3H, Mean Corpuscular Hemoglobin Concent 34.1, Red Cell Distribution Width 13.9, Platelet Count 112L, Mean Platelet Volume 11.6H, Neutrophils (%) (Auto) 77.2H, Lymphocytes (%) (Auto ) 12.4L, Monocytes (%) (Auto) 9.0, Eosinophils (%) (Auto) 0.0, Basophils (%) ( Auto) 1.4, Sodium Level 136, Potassium Level 4.3, Chloride Level 100, Carbon Dioxide Level 30, Anion Gap 7, Blood Urea Nitrogen 44H, Creatinine 2.5H, Estimat Glomerular Filtration Rate 31.5, Glucose Level 230#H, Hemoglobin A1c 11.6H, Calcium Level 9.3 Current Medications Medications (Trade) Dose Ordered Sig/Anahi Route PRN Reason Start Time Stop Time Status Last Admin Dose Admin Acetaminophen (Tylenol) 650 mg Q4H PRN ORAL fever 11/28/16 05:30 12/26/16 17:29 Al Hydroxide/Mg Hydroxide (Mylanta II) 30 ml Q6H PRN ORAL dyspepsia 11/28/16 05:30 12/26/16 17:29 Albuterol/ Ipratropium (DuoNeb 0.5-3(2.5)mg/3ml) 3 ml Q4H PRN HHN Shortness of Breath 11/28/16 05:30 12/01/16 17:29 Amlodipine Besylate (Norvasc) 10 mg DAILY ORAL 11/28/16 09:00 12/27/16 08:59 11/29/16 09:16 Atorvastatin Calcium (Lipitor) 20 mg QHS ORAL 11/28/16 21:00 12/28/16 20:59 11/28/16 21:08 Clonidine HCl (Catapres) 0.1 mg Q4H PRN ORAL SBP > 160 11/28/16 05:30 12/26/16 17:29 Dextrose (Dextrose 50%) STAT PRN IV Hypoglycemia 11/29/16 07:15 12/29/16 07:14 Heparin Sodium (Porcine) (Heparin 5000 units/ml) 5,000 units EVERY 12 HOURS SUBQ 11/28/16 09:00 12/27/16 20:59 11/29/16 09:17 Insulin Aspart (NovoLOG) BEFORE MEALS AND HS SUBQ 11/28/16 06:30 12/27/16 06:29 11/29/16 12:04 Insulin Aspart (NovoLOG) 5 units NOVOTIAC SUBQ 11/29/16 07:15 12/29/16 07:14 11/29/16 12:05 Insulin Detemir (Levemir) 15 units DAILY SUBQ 11/29/16 09:00 12/29/16 08:59 Lorazepam (Ativan 2mg/ml 1ml) 0.5 mg Q4H PRN IV For Anxiety 11/28/16 05:30 12/03/16 17:29 Memantine (Namenda) 5 mg BID ORAL 11/29/16 18:00 12/29/16 17:59 Metoprolol Tartrate (Lopressor) 50 mg Q12HR ORAL 11/28/16 09:00 12/27/16 20:59 11/29/16 09:15 Morphine Sulfate (Morphine Sulfate) 1 mg Q4H PRN IVP For Pain 7-10 11/28/16 05:30 12/04/16 17:29 Nitroglycerin (Ntg) 0.4 mg Q5M X 3 DOSES PRN SL Prn Chest Pain 11/28/16 05:30 12/26/16 17:29 Ondansetron HCl (Zofran) 4 mg Q6H PRN IVP Nausea & Vomiting 11/28/16 05:30 12/26/16 17:29 Polyethylene Glycol (Miralax) 17 gm HSPRN PRN ORAL Constipation 11/28/16 17:30 12/26/16 17:29 Prednisone (predniSONE) 40 mg DAILY ORAL 11/28/16 09:00 12/27/16 08:59 11/29/16 09:16 Sitagliptin Phosphate (Januvia) 50 mg DAILY ORAL 11/28/16 09:00 12/27/16 08:59 11/29/16 09:15 Sodium Chloride 1,000 ml @ 50 mls/hr Q20H IV 11/28/16 05:30 12/27/16 17:29 11/29/16 01:50 Temazepam (Restoril) 15 mg HSPRN PRN ORAL Insomnia 11/28/16 17:30 12/03/16 17:29 SATHYA MEIER Nov 29, 2016 16:15
[2016-11-29] MEDS: Memantine 5 MG TAB ORAL SCH (17:47)
[2016-11-29 20:05] VITALS: BP 144/86
--- NOTE | 2016-11-29 20:29 | Nephrology Progress Note ---
Assessment/Plan Assessment 1. Acute renal failure. 2. 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 3. Atrial fibrillation with rapid ventricular response. 4. Severe dyslipidemia. 5. Low albumin. 6. Hypertension, which is uncontrolled at this time. 7. Diabetes. Plan plan to continue current meds monitoring renal function replace electrolyte as need it avoid nsaid fallow u with urine study fallow up with us of kidney Subjective Constitutional: Reports: no symptoms HEENT: Reports: no symptoms Genitourinary: Reports: no symptoms Neurologic/Psychiatric: Reports: no symptoms Subjective alert and awake no complaints Objective Objective Last 24 Hour Vital Signs Date Time Temp Pulse Resp B/P (MAP) Pulse Ox O2 Delivery O2 Flow Rate FiO2 11/29/16 20:05 97.7 97 20 144/86 97 Room Air 11/29/16 16:00 86 11/29/16 16:00 98.5 76 18 136/88 97 Room Air 11/29/16 12:00 97.9 70 20 158/83 99 Room Air 11/29/16 12:00 74 11/29/16 09:16 76 153/99 11/29/16 09:15 76 153/99 11/29/16 08:18 98.4 76 18 153/99 99 Room Air 11/29/16 08:00 75 11/29/16 08:00 92 14 Room Air 11/29/16 04:00 97.2 69 20 140/89 98 Room Air 11/29/16 04:00 77 11/29/16 00:00 78 11/29/16 00:00 97.7 75 20 130/78 96 Room Air 11/28/16 21:08 98 155/101 Intake and Output 11/29/16 11/30/16 19:00 07:00 Intake Total 600 ml Output Total 900 ml Balance -300 ml Intake Oral 600 ml Output Urine Total 900 ml Laboratory Tests 11/29/16 05:20: White Blood Count 8.3, Red Blood Count 4.60L, Hemoglobin 14.9, Hematocrit 43.6, Mean Corpuscular Volume 95, Mean Corpuscular Hemoglobin 32.3H, Mean Corpuscular Hemoglobin Concent 34.1, Red Cell Distribution Width 13.9, Platelet Count 112L, Mean Platelet Volume 11.6H, Neutrophils (%) (Auto) 77.2H, Lymphocytes (%) (Auto ) 12.4L, Monocytes (%) (Auto) 9.0, Eosinophils (%) (Auto) 0.0, Basophils (%) ( Auto) 1.4, Sodium Level 136, Potassium Level 4.3, Chloride Level 100, Carbon Dioxide Level 30, Anion Gap 7, Blood Urea Nitrogen 44H, Creatinine 2.5H, Estimat Glomerular Filtration Rate 31.5, Glucose Level 230#H, Hemoglobin A1c 11.6H, Calcium Level 9.3 Height (Feet): 6 Height (Inches): 0.00 Weight (Pounds): 190 Objective HEAD AND NECK: No JVP. No LAD. No thyromegaly. Extraocular movement intact. Pupils are reactive to light and accommodation. LUNGS: Clear to auscultation. CARDIAC: Regular rate and rhythm. S1 and S2. No murmur. No rub. ABDOMEN: Soft, nontender, and nondistended. EXTREMITIES: Trace edema. No clubbing. No cyanosis. JEN MICHELLE Nov 29, 2016 20:29
[2016-11-29] MEDS: Atorvastatin 20mg tab ORAL SCH (21:26)
--- NOTE | 2016-11-29 22:57 | Infectious Diseases Prog Note ---
Assessment/Plan Problems: (1) Syncope Assessment & Plan: Rule-out underlying sepsis. Follow-up UA and BCx. Hold off on empiric antibiotics. (2) Pacemaker (3) CKD (chronic kidney disease) Subjective Allergies: Coded Allergies: No Known Allergies (Unverified , 11/26/16) Objective Vital Signs Last 24 Hour Vital Signs Date Time Temp Pulse Resp B/P (MAP) Pulse Ox O2 Delivery O2 Flow Rate FiO2 11/29/16 21:32 78 158/74 11/29/16 20:33 69 18 Room Air 11/29/16 20:05 97.7 97 20 144/86 97 Room Air 11/29/16 16:00 86 11/29/16 16:00 98.5 76 18 136/88 97 Room Air 11/29/16 12:00 97.9 70 20 158/83 99 Room Air 11/29/16 12:00 74 11/29/16 09:16 76 153/99 11/29/16 09:15 76 153/99 11/29/16 08:18 98.4 76 18 153/99 99 Room Air 11/29/16 08:00 75 11/29/16 08:00 92 14 Room Air 11/29/16 04:00 97.2 69 20 140/89 98 Room Air 11/29/16 04:00 77 11/29/16 00:00 78 11/29/16 00:00 97.7 75 20 130/78 96 Room Air Height (Feet): 6 Height (Inches): 0.00 Weight (Pounds): 190 Microbiology Date/Time Source Procedure Growth Status 11/27/16 02:41 Nasal Nares MRSA Culture - Final NO METHICILLIN RESISTANT STAPH AUREUS... Complete Laboratory Tests Test 11/29/16 05:20 White Blood Count 8.3 K/UL (4.8-10.8) Red Blood Count 4.60 M/UL (4.70-6.10) L Hemoglobin 14.9 G/DL (14.2-18.0) Hematocrit 43.6 % (42.0-52.0) Mean Corpuscular Volume 95 FL (80-99) Mean Corpuscular Hemoglobin 32.3 PG (27.0-31.0) H Mean Corpuscular Hemoglobin Concent 34.1 G/DL (32.0-36.0) Red Cell Distribution Width 13.9 % (11.6-14.8) Platelet Count 112 K/UL (150-450) L Mean Platelet Volume 11.6 FL (6.5-10.1) H Neutrophils (%) (Auto) 77.2 % (45.0-75.0) H Lymphocytes (%) (Auto) 12.4 % (20.0-45.0) L Monocytes (%) (Auto) 9.0 % (1.0-10.0) Eosinophils (%) (Auto) 0.0 % (0.0-3.0) Basophils (%) (Auto) 1.4 % (0.0-2.0) Sodium Level 136 MMOL/L (136-145) Potassium Level 4.3 MMOL/L (3.5-5.1) Chloride Level 100 MMOL/L (98-107) Carbon Dioxide Level 30 MMOL/L (21-32) Anion Gap 7 mmol/L (5-15) Blood Urea Nitrogen 44 mg/dL (7-18) H Creatinine 2.5 MG/DL (0.55-1.30) H Estimat Glomerular Filtration Rate 31.5 mL/min (>60) Glucose Level 230 MG/DL (74-106) #H Hemoglobin A1c 11.6 % (4.3-6.0) H Calcium Level 9.3 MG/DL (8.5-10.1) Current Medications Medications (Trade) Dose Ordered Sig/Anahi Route PRN Reason Start Time Stop Time Status Last Admin Dose Admin Acetaminophen (Tylenol) 650 mg Q4H PRN ORAL fever 11/28/16 05:30 12/26/16 17:29 Al Hydroxide/Mg Hydroxide (Mylanta II) 30 ml Q6H PRN ORAL dyspepsia 11/28/16 05:30 12/26/16 17:29 Albuterol/ Ipratropium (DuoNeb 0.5-3(2.5)mg/3ml) 3 ml Q4H PRN HHN Shortness of Breath 11/28/16 05:30 12/01/16 17:29 Amlodipine Besylate (Norvasc) 10 mg DAILY ORAL 11/28/16 09:00 12/27/16 08:59 11/29/16 09:16 Atorvastatin Calcium (Lipitor) 20 mg QHS ORAL 11/28/16 21:00 11/19/17 20:59 11/29/16 21:26 Clonidine HCl (Catapres) 0.1 mg Q4H PRN ORAL SBP > 160 11/28/16 05:30 12/26/16 17:29 Dextrose (Dextrose 50%) STAT PRN IV Hypoglycemia 11/29/16 07:15 12/29/16 07:14 Heparin Sodium (Porcine) (Heparin 5000 units/ml) 5,000 units EVERY 12 HOURS SUBQ 11/28/16 09:00 12/27/16 20:59 11/29/16 21:30 Insulin Aspart (NovoLOG) BEFORE MEALS AND HS SUBQ 11/28/16 06:30 12/27/16 06:29 11/29/16 21:31 Insulin Aspart (NovoLOG) 5 units NOVOTIAC SUBQ 11/29/16 07:15 12/29/16 07:14 11/29/16 17:00 Insulin Detemir (Levemir) 15 units DAILY SUBQ 11/29/16 09:00 12/29/16 08:59 Lorazepam (Ativan 2mg/ml 1ml) 0.5 mg Q4H PRN IV For Anxiety 11/28/16 05:30 12/03/16 17:29 Memantine (Namenda) 5 mg BID ORAL 11/29/16 18:00 12/29/16 17:59 11/29/16 17:47 Metoprolol Tartrate (Lopressor) 50 mg Q12HR ORAL 11/28/16 09:00 12/27/16 20:59 11/29/16 21:32 Morphine Sulfate (Morphine Sulfate) 1 mg Q4H PRN IVP For Pain 7-10 11/28/16 05:30 12/04/16 17:29 Nitroglycerin (Ntg) 0.4 mg Q5M X 3 DOSES PRN SL Prn Chest Pain 11/28/16 05:30 12/26/16 17:29 Ondansetron HCl (Zofran) 4 mg Q6H PRN IVP Nausea & Vomiting 11/28/16 05:30 12/26/16 17:29 Polyethylene Glycol (Miralax) 17 gm HSPRN PRN ORAL Constipation 11/28/16 17:30 12/26/16 17:29 Prednisone (predniSONE) 40 mg DAILY ORAL 11/28/16 09:00 12/27/16 08:59 11/29/16 09:16 Sitagliptin Phosphate (Januvia) 50 mg DAILY ORAL 11/28/16 09:00 12/27/16 08:59 11/29/16 09:15 Sodium Chloride 1,000 ml @ 50 mls/hr Q20H IV 11/28/16 05:30 12/27/16 17:29 11/29/16 21:38 Temazepam (Restoril) 15 mg HSPRN PRN ORAL Insomnia 11/28/16 17:30 12/03/16 17:29 MANNY RODRIGUEZ Nov 29, 2016 22:57
[2016-11-30] VITALS: BP 143/106
[2016-11-30 04:00] VITALS: BP 138/74
[2016-11-30] MEDS: NovoLOG Insulin Flexpen SUBQ SCH ×2 (06:38→06:40)
--- NOTE | 2016-11-30 07:45 | General Progress Note ---
Assessment/Plan Assessment/Plan ASSESSMENT AND RECOMMENDATIONS: 1. Thrombocytopenia potentially secondary to medications versus underlying infection. Hep panel negative, hiv negative --> abd us pending. no cirrhosis hsm noted 3. Coagulopathy, it is mild, potentially secondary to decreased p.o. intake. Currently stable 4. Hypertension. 5. Atrial fibrillation. 6. Syncope. 7. Chronic kidney disease. 8. Bilateral tremors of upper extremities. Subjective Date patient seen: Nov 29, 2016 Constitutional: Denies: no symptoms, chills, diaphoresis, fever, malaise, weakness, other HEENT: Denies: no symptoms, eye pain, blurred vision, tearing, double vision, ear pain, ear discharge, nose pain, nose congestion, throat pain, throat swelling, mouth pain, mouth swelling, other Cardiovascular: Denies: no symptoms, chest pain, edema, irregular heart rate, lightheadedness, palpitations, syncope, other Respiratory: Denies: no symptoms, cough, orthopnea, shortness of breath, SOB with excertion, SOB at rest, sputum, stridor, wheezing, other Gastrointestinal/Abdominal: Denies: no symptoms, abdomen distended, abdominal pain, black stools, tarry stools, blood in stool, constipated, diarrhea, difficulty swallowing, nausea, poor appetite, poor fluid intake, rectal bleeding , vomiting, other Genitourinary: Denies: no symptoms, burning, discharge, frequency, flank pain, hematuria, incontinence, pain, urgency, other Neurologic/Psychiatric: Denies: no symptoms, anxiety, depressed, emotional problems, headache, numbness, paresthesia, pre-existing deficit, seizure, tingling, tremors, weakness, other Endocrine: Denies: no symptoms, excessive sweating, flushing, intolerance to cold, intolerance to heat, increased hunger, increased thirst, increased urine, unexplained weight gain, unexplained weight loss, other Allergies: Coded Allergies: No Known Allergies (Unverified , 11/26/16) Subjective no f/c, counts stable Objective Last 24 Hour Vital Signs Date Time Temp Pulse Resp B/P (MAP) Pulse Ox O2 Delivery O2 Flow Rate FiO2 11/30/16 04:00 97.4 87 18 138/74 97 Room Air 2.0 21 11/30/16 04:00 84 11/30/16 00:00 77 11/30/16 00:00 97.2 84 18 143/106 97 Room Air 2.0 21 11/29/16 21:32 78 158/74 11/29/16 20:33 69 18 Room Air 11/29/16 20:05 97.7 97 20 144/86 97 Room Air 11/29/16 20:00 66 11/29/16 16:00 86 11/29/16 16:00 98.5 76 18 136/88 97 Room Air 11/29/16 12:00 97.9 70 20 158/83 99 Room Air 11/29/16 12:00 74 11/29/16 09:16 76 153/99 11/29/16 09:15 76 153/99 11/29/16 08:18 98.4 76 18 153/99 99 Room Air 11/29/16 08:00 75 11/29/16 08:00 92 14 Room Air Laboratory Tests 11/30/16 06:15: White Blood Count [Pending], Red Blood Count [Pending], Hemoglobin [Pending], Hematocrit [Pending], Mean Corpuscular Volume [Pending], Mean Corpuscular Hemoglobin [Pending], Mean Corpuscular Hemoglobin Concent [Pending], Red Cell Distribution Width [Pending], Platelet Count [Pending], Mean Platelet Volume [ Pending], Neutrophils (%) (Auto) [Pending], Lymphocytes (%) (Auto) [Pending], Monocytes (%) (Auto) [Pending], Eosinophils (%) (Auto) [Pending], Basophils (%) (Auto) [Pending], Sodium Level [Pending], Potassium Level [Pending], Chloride Level [Pending], Carbon Dioxide Level [Pending], Blood Urea Nitrogen [Pending], Creatinine [Pending], Estimat Glomerular Filtration Rate [Pending], Glucose Level [Pending], Calcium Level [Pending] Height (Feet): 6 Height (Inches): 0.00 Weight (Pounds): 190 General Appearance: no apparent distress EENT: TMs normal Neck: normal inspection Cardiovascular: regular rhythm Respiratory/Chest: no respiratory distress Abdomen: non tender Neurologic: no motor/sensory deficits Skin: normal pigmentation AARON HAYS Nov 30, 2016 07:45
[2016-11-30 07:55] LABS: BASOPHILS % (AUTO) 0.7 % (0.0-2.0); LYMPHOCYTES % (AUTO) 13.1 % (20.0-45.0); MEAN CORPUSCULAR HEMOGLOBIN 32.2 PG (27.0-31.0); MEAN CORPUSCULAR HGB CONC 34.2 G/DL (32.0-36.0); MEAN CORPUSCULAR VOLUME 94 FL (80-99); MEAN PLATELET VOLUME 11.1 FL (6.5-10.1); MONOCYTES % (AUTO) 9.2 % (1.0-10.0); NEUTROPHILS % (AUTO) 76.9 % (45.0-75.0); PLATELET COUNT 125 K/UL (150-450); RED BLOOD COUNT 4.86 M/UL (4.70-6.10); RED CELL DISTRIBUTION WIDTH 14.1 % (11.6-14.8); WHITE BLOOD COUNT 8.9 K/UL (4.8-10.8)
[2016-11-30 08:00] VITALS: BP 162/102
[2016-11-30 08:07] LABS: ANION GAP 6 mmol/L (5-15); CALCIUM 9.6 MG/DL (8.5-10.1); CARBON DIOXIDE 29 MMOL/L (21-32); CHLORIDE 102 MMOL/L (98-107); CREATININE 2.3 MG/DL (0.55-1.30); GLOMERULAR FILTRATION RATE 34.7 mL/min (>60); POTASSIUM 4.2 MMOL/L (3.5-5.1); SODIUM 137 MMOL/L (136-145)
[2016-11-30] MEDS: sitaGLIPtin 25mg tab ORAL SCH (09:00)
[2016-11-30] MEDS: Levemir Flexpen SUBQ SCH (09:00)
[2016-11-30] MEDS: Heparin 5000 units/ml inj SUBQ SCH (09:00)
[2016-11-30] MEDS: Metoprolol Tartrate 50mg tab ORAL SCH (09:00)
[2016-11-30] MEDS: Memantine 5 MG TAB ORAL SCH (09:00)
[2016-11-30] MEDS ORDERED: 1/2 NS 1000ml IV ONE (09:44)
--- NOTE | 2016-11-30 09:47 | Diagnostic Imaging Report ---
APPROVED REPORT CPT Code: 94247 Vascular Symptoms CVA/TIA: Doppler Spectral Velocity Analysis RightLeft BILATERAL: CCA/BULB - Imaging reveals irregular, minimal plaque in both carotid bulbs. arteries. The Doppler spectral flow analysis is within normal limits throughout the internal and external carotid arteries. VERTEBRAL- The right vertebral artery is patent, without evidence of stenosis or steal. VERTEBRAL- The left vertebral artery was not well visualized.
--- NOTE | 2016-11-30 09:52 | General Progress Note ---
Assessment/Plan Problem List: (1) CKD (chronic kidney disease) ICD Codes: N18.9 - Chronic kidney disease, unspecified SNOMED: 428690186 Qualifiers: Qualified Codes: N18.5 - Chronic kidney disease, stage 5 (2) Pacemaker ICD Codes: Z95.0 - Presence of cardiac pacemaker SNOMED: 802090227, 114635513 (3) Atrial fibrillation ICD Codes: I48.91 - Unspecified atrial fibrillation SNOMED: 46565071 (4) HTN (hypertension) ICD Codes: I10 - Essential (primary) hypertension SNOMED: 41888052 (5) Syncope ICD Codes: R55 - Syncope and collapse SNOMED: 547381940 Qualifiers: Qualified Codes: R55 - Syncope and collapse (6) Diabetes mellitus ICD Codes: E11.9 - Type 2 diabetes mellitus without complications SNOMED: 06075608 (7) Diabetic foot ulcer ICD Codes: E11.621 - Type 2 diabetes mellitus with foot ulcer; L97.509 - Non- pressure chronic ulcer of other part of unspecified foot with unspecified severity SNOMED: 67833741, 102157208 Status: stable, progressing, tolerating diet Assessment/Plan ot pt diet cardio f/u cbc bmp am dc plan Subjective Constitutional: Reports: weakness Allergies: Coded Allergies: No Known Allergies (Unverified , 11/26/16) All Systems: reviewed and negative except above Subjective calm in bed Objective Last 24 Hour Vital Signs Date Time Temp Pulse Resp B/P (MAP) Pulse Ox O2 Delivery O2 Flow Rate FiO2 11/30/16 08:00 96.4 82 20 162/102 96 Room Air 11/30/16 07:55 87 18 Room Air 11/30/16 04:00 97.4 87 18 138/74 97 Room Air 2.0 21 11/30/16 04:00 84 11/30/16 00:00 77 11/30/16 00:00 97.2 84 18 143/106 97 Room Air 2.0 21 11/29/16 21:32 78 158/74 11/29/16 20:33 69 18 Room Air 11/29/16 20:05 97.7 97 20 144/86 97 Room Air 11/29/16 20:00 66 11/29/16 16:00 86 11/29/16 16:00 98.5 76 18 136/88 97 Room Air 11/29/16 12:00 97.9 70 20 158/83 99 Room Air 11/29/16 12:00 74 Laboratory Tests 11/30/16 06:15: White Blood Count 8.9, Red Blood Count 4.86, Hemoglobin 15.6, Hematocrit 45.7, Mean Corpuscular Volume 94, Mean Corpuscular Hemoglobin 32.2H, Mean Corpuscular Hemoglobin Concent 34.2, Red Cell Distribution Width 14.1, Platelet Count 125L, Mean Platelet Volume 11.1H, Neutrophils (%) (Auto) 76.9H, Lymphocytes (%) (Auto ) 13.1L, Monocytes (%) (Auto) 9.2, Eosinophils (%) (Auto) 0.0, Basophils (%) ( Auto) 0.7, Sodium Level 137, Potassium Level 4.2, Chloride Level 102, Carbon Dioxide Level 29, Anion Gap 6, Blood Urea Nitrogen 39H, Creatinine 2.3H, Estimat Glomerular Filtration Rate 34.7, Glucose Level 176H, Calcium Level 9.6 Height (Feet): 6 Height (Inches): 0.00 Weight (Pounds): 190 General Appearance: lethargic EENT: normal ENT inspection Neck: normal alignment Cardiovascular: normal peripheral pulses, normal rate, regular rhythm Respiratory/Chest: chest wall non-tender, lungs clear, normal breath sounds Abdomen: normal bowel sounds, non tender, soft Extremities: normal inspection Edema: no edema noted Arm (L), no edema noted Arm (R), no edema noted Leg (L), no edema noted Leg (R), no edema noted Pedal (L), no edema noted Pedal (R), no edema noted Generalized Neurologic: motor weakness Skin: normal pigmentation, warm/dry CLARITA TEMPLETON Nov 30, 2016 09:52
--- NOTE | 2016-11-30 11:17 | Nephrology Progress Note ---
Assessment/Plan Assessment 1. Acute renal failure. improving 2. 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 3. Atrial fibrillation with rapid ventricular response. 4. Severe dyslipidemia. 5. Low albumin. 6. Hypertension, which is uncontrolled at this time. 7. Diabetes. Plan plan to continue current meds monitoring renal function replace electrolyte as need it avoid nsaid fallow u with urine study fallow up with us of kidney Subjective Constitutional: Reports: no symptoms HEENT: Reports: no symptoms Genitourinary: Reports: no symptoms Neurologic/Psychiatric: Reports: no symptoms Subjective alert and awake no complaints wants to go home Objective Objective Last 24 Hour Vital Signs Date Time Temp Pulse Resp B/P (MAP) Pulse Ox O2 Delivery O2 Flow Rate FiO2 11/30/16 08:00 96.4 82 20 162/102 96 Room Air 11/30/16 07:55 87 18 Room Air 11/30/16 04:00 97.4 87 18 138/74 97 Room Air 2.0 21 11/30/16 04:00 84 11/30/16 00:00 77 11/30/16 00:00 97.2 84 18 143/106 97 Room Air 2.0 21 11/29/16 21:32 78 158/74 11/29/16 20:33 69 18 Room Air 11/29/16 20:05 97.7 97 20 144/86 97 Room Air 11/29/16 20:00 66 11/29/16 16:00 86 11/29/16 16:00 98.5 76 18 136/88 97 Room Air 11/29/16 12:00 97.9 70 20 158/83 99 Room Air 11/29/16 12:00 74 Laboratory Tests 11/30/16 06:15: White Blood Count 8.9, Red Blood Count 4.86, Hemoglobin 15.6, Hematocrit 45.7, Mean Corpuscular Volume 94, Mean Corpuscular Hemoglobin 32.2H, Mean Corpuscular Hemoglobin Concent 34.2, Red Cell Distribution Width 14.1, Platelet Count 125L, Mean Platelet Volume 11.1H, Neutrophils (%) (Auto) 76.9H, Lymphocytes (%) (Auto ) 13.1L, Monocytes (%) (Auto) 9.2, Eosinophils (%) (Auto) 0.0, Basophils (%) ( Auto) 0.7, Sodium Level 137, Potassium Level 4.2, Chloride Level 102, Carbon Dioxide Level 29, Anion Gap 6, Blood Urea Nitrogen 39H, Creatinine 2.3H, Estimat Glomerular Filtration Rate 34.7, Glucose Level 176H, Calcium Level 9.6 Height (Feet): 6 Height (Inches): 0.00 Weight (Pounds): 190 Objective HEAD AND NECK: No JVP. No LAD. No thyromegaly. Extraocular movement intact. Pupils are reactive to light and accommodation. LUNGS: Clear to auscultation. CARDIAC: Regular rate and rhythm. S1 and S2. No murmur. No rub. ABDOMEN: Soft, nontender, and nondistended. EXTREMITIES: Trace edema. No clubbing. No cyanosis. JEN MICHELLE Nov 30, 2016 11:17
[2016-11-30 12:00] VITALS: BP 124/92
--- NOTE | 2016-11-30 20:44 | Cardiology Progress Note ---
Assessment/Plan Assessment/Plan 1. Permanent atrial fibrillation, continue rate control, anti-coag therapy. 2. Hx of SSS, s/p single chamber pacemaker implantation. 3. HTN. 4. DM 5. Hx of prior syncope. Subjective Subjective Atrial fibrillation at 81. No cardiac events. Objective Last 24 Hour Vital Signs Date Time Temp Pulse Resp B/P (MAP) Pulse Ox O2 Delivery O2 Flow Rate FiO2 11/30/16 12:00 98.6 81 18 124/92 97 Room Air 11/30/16 08:00 96.4 82 20 162/102 96 Room Air 11/30/16 07:55 87 18 Room Air 11/30/16 04:00 97.4 87 18 138/74 97 Room Air 2.0 21 11/30/16 04:00 84 11/30/16 00:00 77 11/30/16 00:00 97.2 84 18 143/106 97 Room Air 2.0 21 11/29/16 21:32 78 158/74 2D Echo: EF 60%, Mod LVH, Mild LAE, Mild MR, RVSP 35 mmHg Laboratory Tests Test 11/30/16 06:15 White Blood Count 8.9 K/UL (4.8-10.8) Red Blood Count 4.86 M/UL (4.70-6.10) Hemoglobin 15.6 G/DL (14.2-18.0) Hematocrit 45.7 % (42.0-52.0) Mean Corpuscular Volume 94 FL (80-99) Mean Corpuscular Hemoglobin 32.2 PG (27.0-31.0) H Mean Corpuscular Hemoglobin Concent 34.2 G/DL (32.0-36.0) Red Cell Distribution Width 14.1 % (11.6-14.8) Platelet Count 125 K/UL (150-450) L Mean Platelet Volume 11.1 FL (6.5-10.1) H Neutrophils (%) (Auto) 76.9 % (45.0-75.0) H Lymphocytes (%) (Auto) 13.1 % (20.0-45.0) L Monocytes (%) (Auto) 9.2 % (1.0-10.0) Eosinophils (%) (Auto) 0.0 % (0.0-3.0) Basophils (%) (Auto) 0.7 % (0.0-2.0) Sodium Level 137 MMOL/L (136-145) Potassium Level 4.2 MMOL/L (3.5-5.1) Chloride Level 102 MMOL/L (98-107) Carbon Dioxide Level 29 MMOL/L (21-32) Anion Gap 6 mmol/L (5-15) Blood Urea Nitrogen 39 mg/dL (7-18) H Creatinine 2.3 MG/DL (0.55-1.30) H Estimat Glomerular Filtration Rate 34.7 mL/min (>60) Glucose Level 176 MG/DL (74-106) H Calcium Level 9.6 MG/DL (8.5-10.1) Microbiology Date/Time Source Procedure Growth Status 11/28/16 14:00 Blood Blood Culture - Preliminary NO GROWTH AFTER 24 HOURS Resulted 11/28/16 13:55 Blood Blood Culture - Preliminary NO GROWTH AFTER 24 HOURS Resulted Objective HEENT: Atraumatic, normocephalic, Extraocular movement intact. Pupils are reactive to light and accommodation. NECK: JVD is negative, no carotid bruit, carotid upstroke 2+ B/L LUNGS: Clear to auscultation. CARDIAC: irregularly irregular rhythm. S1 and S2. No murmur, gallops or rub. ABDOMEN: Soft, nontender, and nondistended, positive BS, no HSM. EXTREMITIES: Trace edema. No clubbing or cyanosis. EVAN GILES Nov 30, 2016 20:44
--- NOTE | 2016-11-30 22:41 | General Progress Note ---
Assessment/Plan Assessment/Plan ASSESSMENT AND RECOMMENDATIONS: 1. Thrombocytopenia potentially secondary to medications versus underlying infection. Hep panel negative, hiv negative --> abd us pending. no cirrhosis hsm noted --> improved 3. Coagulopathy, it is mild, potentially secondary to decreased p.o. intake. Currently stable 4. Hypertension. 5. Atrial fibrillation. 6. Syncope. 7. Chronic kidney disease. 8. Bilateral tremors of upper extremities. Subjective Constitutional: Reports: no symptoms HEENT: Reports: no symptoms Cardiovascular: Reports: no symptoms Respiratory: Reports: no symptoms Gastrointestinal/Abdominal: Reports: no symptoms Genitourinary: Reports: no symptoms Neurologic/Psychiatric: Reports: no symptoms Endocrine: Reports: no symptoms Hematologic/Lymphatic: Reports: anemia Allergies: Coded Allergies: No Known Allergies (Unverified , 11/26/16) Subjective no f/c Objective Last 24 Hour Vital Signs Date Time Temp Pulse Resp B/P (MAP) Pulse Ox O2 Delivery O2 Flow Rate FiO2 11/30/16 12:00 98.6 81 18 124/92 97 Room Air 11/30/16 08:00 96.4 82 20 162/102 96 Room Air 11/30/16 07:55 87 18 Room Air 11/30/16 04:00 97.4 87 18 138/74 97 Room Air 2.0 21 11/30/16 04:00 84 11/30/16 00:00 77 11/30/16 00:00 97.2 84 18 143/106 97 Room Air 2.0 21 Laboratory Tests 11/30/16 06:15: White Blood Count 8.9, Red Blood Count 4.86, Hemoglobin 15.6, Hematocrit 45.7, Mean Corpuscular Volume 94, Mean Corpuscular Hemoglobin 32.2H, Mean Corpuscular Hemoglobin Concent 34.2, Red Cell Distribution Width 14.1, Platelet Count 125L, Mean Platelet Volume 11.1H, Neutrophils (%) (Auto) 76.9H, Lymphocytes (%) (Auto ) 13.1L, Monocytes (%) (Auto) 9.2, Eosinophils (%) (Auto) 0.0, Basophils (%) ( Auto) 0.7, Sodium Level 137, Potassium Level 4.2, Chloride Level 102, Carbon Dioxide Level 29, Anion Gap 6, Blood Urea Nitrogen 39H, Creatinine 2.3H, Estimat Glomerular Filtration Rate 34.7, Glucose Level 176H, Calcium Level 9.6 Height (Feet): 6 Height (Inches): 0.00 Weight (Pounds): 190 General Appearance: no apparent distress EENT: normal ENT inspection Neck: normal alignment Cardiovascular: no gallop/murmur Respiratory/Chest: no accessory muscle use Abdomen: no organomegaly, no mass Edema: mild edema AARON HAYS Nov 30, 2016 22:41
--- NOTE | 2016-12-01 04:15 | Consultation ---
DATE OF CONSULTATION: 11/27/2016 CARDIOLOGY CONSULTATION CONSULTING PHYSICIAN: Charlie Auguste M.D. REFERRING PHYSICIAN: Pako Barreto D.O. REASON FOR CONSULTATION: Management of atrial fibrillation. HISTORY OF PRESENT ILLNESS: The patient is a very unfortunate 66-year-old gentleman who had apparently a possible syncopal event during physical therapy at the [facility] in [place]. Apparently, the patient was standing up from a sitting position in his wheelchair and fell back into the wheelchair and hitting his right elbow on the chair. According to him, there was no loss of consciousness. He hit his head against the wheelchair and he did not have any chest pain, shortness of breath, or palpitations. He presents to the emergency department from the [facility] for evaluation and management of his condition. At the time of evaluation by [facility], he was found to be alert and oriented x2. It appears that the patient's baseline in mental status is somewhat diminished. On arrival to the emergency department, initial blood pressure was 150/125 mmHg with heart rate of 83. His 12-lead electrocardiogram was significant for atrial fibrillation with controlled ventricular response. Cardiology consultation was made at request of Dr. Barreto for management of atrial fibrillation. PAST MEDICAL HISTORY: 1. History of single chamber pacemaker implantation. 2. History of permanent atrial fibrillation. 3. History of left hearing loss. 4. History of hypertension. 5. History of chronic obstructive pulmonary disease. 6. History of diabetes mellitus. 7. History of gastrointestinal problems. PAST SURGICAL HISTORY: Single-chamber pacemaker implantation. ALLERGIES: No known drug allergies. MEDICATIONS: List of medications in the nursing facility include amlodipine 10 mg p.o. daily, Eliquis 5 mg p.o. twice daily, aspirin 81 mg p.o. daily, Lipitor 20 mg p.o. at bedtime, Colace 100 mg p.o. daily, metoprolol 25 mg p.o. daily, nitroglycerin 0.4 mg sublingual p.r.n. chest pain every 5 minutes, prednisone 40 mg p.o. daily, Senna 8.6 mg p.o. daily, and Januvia 50 mg p.o. daily. FAMILY HISTORY: No premature coronary artery disease in first-degree relatives. SOCIAL HISTORY: Denies any tobacco, alcohol, or illicit drug use. REVIEW OF SYSTEMS: HEENT: Denies any headache, diplopia, or blurred vision. CONSTITUTIONAL: Denies any fever, chills, night sweats, or weight loss. CARDIOVASCULAR: Denies any chest pain, shortness of breath, PND, orthopnea, leg swelling, palpitations, or loss of consciousness. PULMONARY: Denies any cough, hemoptysis, or wheezing. GASTROINTESTINAL: Denies any nausea, vomiting, diarrhea, constipation, abdominal pain, or GI bleed. GENITOURINARY: Denies any hematuria, dysuria, or incontinence. NEUROLOGIC: Denies any motor dysfunction, sensory deficit, or altered speech. A possible presyncopal event. MUSCULOSKELETAL: He is wheelchair bound. PHYSICAL EXAMINATION: VITAL SIGNS: At time of arrival to the emergency department, blood pressure was 150/125 mmHg, pulse of 83, respirations 20, temperature 97.3 degrees Fahrenheit, and O2 saturation 98% on room air. GENERAL: The patient is a very unfortunate 66-year-old gentleman, in no apparent respiratory distress. Alert and oriented x4. HEENT: Atraumatic and normocephalic. Anicteric. Pupils are equal, round, and reactive to light and accommodation. Extraocular muscles are intact. NECK: JVP is less than 5 cm. No carotid bruit. Carotid upstroke is 2+ bilaterally. CARDIOVASCULAR: Normal S1 and S2. Irregularly irregular rhythm. A 2/6 mid systolic murmur at left sternal border. PMI is at fourth intercostal space at the midclavicular line. LUNGS: Clear to auscultation bilaterally. ABDOMEN: Soft, nontender, and nondistended. No hepatosplenomegaly. Positive bowel sounds. EXTREMITIES: No evidence of edema, clubbing, or cyanosis. There was no obvious trauma over the upper or lower limb. LABORATORY AND DIAGNOSTIC DATA: A 12-lead electrocardiogram showed atrial fibrillation at a rate of [address] and T-wave abnormalities. Chest x-ray revealed no acute cardiopulmonary disease although, heart is enlarged. There is presence of a single-chamber pacemaker in the right pectoral area. CT of head showed age related volume loss. Negative for acute intracranial bleed or mass effect. Laboratory findings WBC is 5.8, hemoglobin 15.3, hematocrit of 44.7, and platelet counts was 106. Sodium 135, potassium 4.5, chloride 99, bicarbonate 28, BUN 43, creatinine 2.5, and glucose is 215. Calcium is 9.5. Troponin I less than 0.06. INR is 1.1. ASSESSMENT AND PLAN: The patient is a very unfortunate 66-year-old gentleman, who is seen in Cardiology consultation at request of Dr. Barreto. 1. Permanent atrial fibrillation. We will continue with rate control and anticoagulation therapy with Eliquis. The patient is rate controlled with metoprolol, which will be continued. A 2D echocardiography will be done to assess left ventricular systolic and diastolic function. 2. History of sick sinus syndrome status post single-chamber pacemaker implantation. Currently, the patient has permanent atrial fibrillation. 3. History of hypertension. We will continue to monitor blood pressure during this admission. 4. Diabetes mellitus. I will continue the patient on statins may not use aspirin as the patient is already on Eliquis. 5. Possible presyncope/syncope. We will continue to monitor the patient during this admission. We will ensure adequate hydration and Neurology evaluation. A carotid artery ultrasound will be done to rule out carotid artery obstruction. I would like to thank, Dr. Barreto, for allowing me to participate in the care of this patient. Charlie Auguste M.D. DR: PATSY JOB#: [id number] CC:
--- NOTE | 2016-12-01 10:31 | Consultation ---
DATE OF CONSULTATION: 11/29/2016 ENDOCRINOLOGY CONSULTATION CONSULTING PHYSICIAN: Conner Kamara M.D. REFERRING PHYSICIAN: Pako Barreto D.O. REASON FOR CONSULTATION: Diabetes management. HISTORY OF PRESENT ILLNESS: The patient is a 66-year-old male with past medical history of diabetes, hypertension, COPD, pacemaker placement, dyslipidemia, and hypertension, who resides in a [facility] facility, admitted to the hospital with syncope during PT at [facility] facility. The patient was admitted to the hospital with chronic arrhythmia, admitted to the ICU for amiodarone drip and then transferred out. Diabetes has been out of control. The patient is on prednisone, so therefore, Endocrinology was consulted and patient was noted to have hyperglycemia. The patient is also thrombocytopenic. PAST MEDICAL HISTORY: 1. Dementia. 2. Atrial fibrillation. 3. Pacemaker placement. 4. Hypertension. 5. Psychiatric illness, unsecured. 6. Thyroid disease. 7. Type 2 diabetes. 8. COPD. 9. Atherosclerotic heart disease. MEDICATIONS: Medications reviewed and reconciled. ALLERGIES TO MEDICATIONS: None. SOCIAL HISTORY: Lives in a [facility] facility. No smoking, alcohol, or drug abuse. FAMILY HISTORY: Noncontributory. REVIEW OF SYSTEMS: As per history of present illness. PHYSICAL EXAMINATION: VITAL SIGNS: Blood pressure is 130/82, pulse of 80, temperature 98.2, and respiratory rate 18. HEENT: Pupils are equal and reactive to light and accommodation. Sclerae are anicteric. NECK: No JVD. No thyromegaly. No bruits. LUNGS: Clear. HEART: Irregular. ABDOMEN: Positive bowel sounds. Soft. EXTREMITIES: No clubbing, cyanosis, or edema. LABORATORY DATA: Sodium 138, potassium 4.1, chloride 102, bicarbonate 28, BUN 41, creatinine 2.4, glucose of 119, TSH 0.5. DIAGNOSES: 1. Diabetes exacerbated by steroids. 2. History of thyroid disease. TSH is normal. There is no thyroid medication listed on the preadmission medications. 3. Thrombocytopenia. PLAN: 1. Start Levemir 15 units daily. 2. Start NovoLog 5 units before each meal. 3. Sliding scale insulin has been ordered. 4. Further adjustment according to blood glucose values. 5. The patient is euthyroid without any need of any thyroid medications. Thank you, Dr. Barreto, for the courtesy of this consultation. Conner Kamara M.D. DR: SACHIN JOB#: [id number] CC: ALYSIA
--- NOTE | 2016-12-01 10:31 | Consultation ---
DATE OF CONSULTATION: 11/29/2016 HISTORY: This is a 66-year-old male patient who came in complaints of . PAST MEDICAL HISTORY: . SOCIAL HISTORY: He lives alone. He is financially supported by [employer] and Medicare. ALLERGIES: No known drug allergies. SUBSTANCE ABUSE HISTORY: No history of drug or alcohol use. MENTAL STATUS EXAMINATION: This is a 66-year-old male with psychomotor retardation. Mood is depressed. Affect guarded and restricted. Thought process disorganized and illogical. PLAN: The patient was started on Namenda 5 mg twice a day to prevent any further decline in his cognition. Continued to be followed by Psychiatry throughout the hospital course. Chart reviewed and discussed with the staff. The patient was seen and assessed at the bedside. Karen Pettit M.D. DR: MARJORIE JOB#: [id number] CC:
--- NOTE | 2016-12-01 10:31 | Consultation ---
DATE OF CONSULTATION: 11/28/2016 PSYCHOTHERAPY CONSULTATION PROGRESS NOTE TREATING ATTENDING PHYSICIAN: Pako Barreto D.O. HISTORY OF PRESENT ILLNESS: The patient is a 66-year-old male patient with a history of syncope returned to the hospital due to syncope. The patient has a history of schizophrenia and confused, disorganization. Patient was also admitted due to atrial fibrillation and confusion . This clinician assessed the patient. He is confused, disorganized, and altered mental status. Thought process currently denies current condition. suicidal or homicidal thoughts of ideation for this patient. PAST MEDICAL HISTORY: History of encephalopathy and CKD. ALLERGIES: The patient has no known drug allergies. SUBSTANCE ABUSE HISTORY: There is no indication of alcohol use, illicit substance use, or smoking cigarettes. PSYCHIATRIC HISTORY: The patient has a history of paranoid schizophrenia. The patient has had treatment with psychotropic medications in the past. SOCIAL HISTORY: The patient is a 66-year-old male patient . Financially sustained through [email or web address]. MENTAL STATUS EXAMINATION: The patient is alert and oriented x2, person and place. Mood is disoriented. Affect is congruent. Thought process is disorganized. Thought content, confused. The patient has poor attention and concentration. Poor insight, judgment, and impulse control. DIAGNOSES: AXIS I Paranoid schizophrenia. AXIS II Deferred. AXIS III Per History and Physical. PLAN: This clinician assessed this patient. Assessed the patient's mental status. Provided the patient with reality orientation and supportive psychotherapy. Encouraging the patient to participate in treatment milieu. Continue with medication management and behavioral management. This clinician has reviewed the patient's chart and discussed the treatment with the treatment team . Arya Caceres PsyD. DR: JR JOB#: [id number] CC:
--- NOTE | 2016-12-01 12:14 | Cardiology Report ---
APPROVED REPORT EKG Measurement Heart [id number] Atrial fibrillation with a competing junctional pacemaker Anteroseptal infarct, age undetermined Abnormal ECG
--- NOTE | 2016-12-01 13:59 | Cardiology Report ---
APPROVED REPORT EXAM: Two-dimensional and M-mode echocardiogram with Doppler and color Doppler. INDICATION LV function M-Mode DIMENSIONS IVSd1.4 (0.7-1.1cm)Left Atrium (MM)3.2 (1.6-4.0cm) LVDd3.7 (3.5-5.6cm)Aortic Root3.5 (2.0-3.7cm) PWd1.2 (0.7-1.1cm)Aortic Cusp Exc.2.1 (1.5-2.0cm) LVDs2.3 (2.5-4.0cm) PWs2.2 cm Normal left ventricular chamber size, systolic function and wall motion. Left ventricular ejection fraction estimated to be 60 %. Moderate left ventricular hypertrophy. Anterior Echo-free space, may be due to pericardial fat or effusion. Mild left atrial enlargement. Right atrial size at upper limits of normal. Right ventricular chamber size is within normal limits. Focal aortic valve sclerosis with adequate cusp excursion. Thickened mitral valve leaflets with normal excursion. Mitral annulus and aortic root calcification. Pulmonic valve not well visualized. Normal tricuspid valve structure. IVC at normal size with physiologic collapse. Pacemaker wire present in the right side chambers. A color flow and spectral Doppler study was performed and revealed: Mild mitral regurgitation. Can not determine left ventricular diastolic function by mitral diastolic velocities due to atrial fibrillation. Mild tricuspid regurgitation. Tricuspid systolic velocities suggests peak right ventricular systolic pressure of 35 mmHg, consistent with borderline mild pulmonary hypertension.
--- NOTE | 2016-12-02 08:35 | Discharge Summary ---
Discharge Summary Hospital Course Date of Admission Nov 26, 2016 at 16:20 Date of Discharge Nov 30, 2016 at 13:45 Admitting Diagnosis SYNCOPE HPI Rafiq Cox is a 66 year old male who was admitted on Nov 26, 2016 at 16: 20 for Syncope Hospital Course dc summary #[id number] Discharge Condition Upon Discharge: stable Discharge Disposition Patient was discharged to SNF Discharge Diagnoses: Discharge Instructions Discharge Instructions Special Instructions I have been assigned to complete a D/C Summary on this account. I was not involved in the patient management Gerda Sanabria NP ([place]te[place]) Dec 02, 2016 08:35
--- NOTE | 2016-12-03 04:30 | Discharge Summary 2 SIG ---
DATE OF ADMISSION: 11/26/2016 DATE OF DISCHARGE: 11/30/2016 REASON FOR ADMISSION: 66-year-old male with a history of chronic obstructive pulmonary disease, coronary artery disease, pacemaker, and atrial fibrillation, presented to emergency department after syncopal episode during physical therapy at [facility]. The patient apparently stood up from sitting in the wheelchair and then fell back in the wheelchair hitting his right elbow. He denied precipitating chest pain, shortness of breath, palpitations, or headache. He was admitted for workup for syncope as well as acute renal failure on chronic kidney disease, atrial fibrillation, diabetes, and encephalopathy. HOSPITAL COURSE: The patient was admitted. Cardiology consult was requested along with Neurology consult. CT of the head revealed no acute intracranial pathology. No bleeding. No mass effect. Right elbow x-ray was negative for evidence of acute injury. Chest x-ray was negative. The patient was started on the IV hydration. Nephrology was consulted. Renal ultrasound revealed no hydronephrosis. Normal echogenicity of bilateral kidneys. The patient continuously demonstrated atrial fibrillation. Per yarn wrapper, permanent atrial fibrillation. The patient developed atrial fibrillation with rapid ventricular response and rate was controlled with beta-jammie and calcium channel jammie. Anticoagulation with Eliquis started. Rate was eventually controlled. The patient with a pacemaker secondary to history of sick sinus syndrome. After rate was controlled, the patient remained in the atrial fibrillation with a controlled rate. Lipid panel revealed elevated LDL- 281 and total cholesterol -363. Continue statin. Blood pressure was managed with a current medication regimen and was stable. Blood sugar was managed with the long acting Levemir and pre-meal insulin as per Endocrinology recommendation. Hemoglobin A1c -11.6, not at goal. The patient needs optimization of anti-glycemic regimen as outpatient. Troponin was negative. Echocardiogram revealed ejection fraction of 50%, moderate left ventricular hypertrophy, and right ventricular systolic pressure of 35 consistent with mild pulmonary hypertension. The patient remained hemodynamically stable. Neurologist seen and evaluated the patient. Per neurologist, the patient had abnormal gait, generalized rigidity, action tremor, and recurrent mechanical falls. Per Neurologist likely syncopal episode, questionable parkinsonian syndrome. The patient also had a cognitive loss, likely vascular dementia. He recommended IV fluids, and started trial of the Sinemet. CT head was negative for any evidence of acute intracranial pathology. The patient was working with physical and occupational therapists. Fall precautions were maintained. Oversedation was avoided. The patient was eventually stabilized. Syncope, if real, was likely vasovagal per neurologist, since no cardiac or neuro symptoms were found to account for it. Renal parameters and electrolytes were closely monitored, electrolytes replaced as needed. Econometrics Professor closely followed. Nephrotoxics were avoided. According to computer systems auditor, chronic kidney disease was likely due to the diabetic nephropathy versus hypertensive nephrosclerosis, while etiology of acute renal failure was likely acute tubular necrosis. Renal ultrasound revealed no evidence of hydronephrosis , normal echogenicity of kidneys bilaterally. Urinalysis was negative. Blood culture negative. Supplemental oxygen and pulmonary toilet provided as needed. Pulse oximetry remained stable on the room air. Chest x-ray revealed no acute cardiopulmonary pathology. Noted low platelet count. Hematology consulted. Hepatitis panel negative. HIV negative. Low platelets count was likely secondary to medication , improving. The lowest platelets count- 92,000, up to 125,000 on discharge. The patient was stable for transfer to the [facility] facility. FINAL DIAGNOSES: 1. Syncope, likely vasovagal 2. Acute renal failure on chronic kidney disease. 3. Possibly acuter tubular necrosis 4. Chronic kidney disease stage 5, likely secondary to diabetic nephropathy versus hypertensive nephrosclerosis. 5. Permanent atrial fibrillation. 6. Atrial fibrillation with rapid ventricular response. 7. Diabetes mellitus, out of control. 8. Pacemaker secondary to history of sick sinus syndrome. 9. Hypertension. 10. Dyslipidemia. 11. Thrombocytopenia. 12. Encephalopathy. DISCHARGE MEDICATIONS: List of medication was sent to admitting facility. DISCHARGE INSTRUCTIONS: The patient was discharged to [facility] facility. FOLLOWUP: Follow up with medical doctor at the facility. Pako Barreto D.O. I have been assigned to dictate discharge summary on this account and I was not involved in the patient's management. Gerda Packeryn N.P. DR: KELSEY JOB#: [id number] CC: ALYSIA
== END 2016-11-30 13:45 | DRG 682 ==
LOC: EDBD 15:14 → EMR 15:30 → 2E 16:20 → EDBEDREQ 19:02 → ICU 11-27 16:17 → 2E 11-28 05:01
DX: N17.0 Acute kidney failure with tubular necrosis (principal); G93.40 Encephalopathy, unspecified; E11.21 Type 2 diabetes mellitus with diabetic nephropathy; I12.0 Hypertensive chronic kidney disease with stage 5 chronic kidney disease or end stage renal disease; D68.9 Coagulation defect, unspecified; E11.621 Type 2 diabetes mellitus with foot ulcer; E11.22 Type 2 diabetes mellitus with diabetic chronic kidney disease; F20.0 Paranoid schizophrenia; D69.6 Thrombocytopenia, unspecified; J44.9 Chronic obstructive pulmonary disease, unspecified; R55 Syncope and collapse; Z95.0 Presence of cardiac pacemaker; E78.5 Hyperlipidemia, unspecified; N18.5 Chronic kidney disease, stage 5; K21.9 Gastro-esophageal reflux disease without esophagitis; I25.10 Atherosclerotic heart disease of native coronary artery without angina pectoris; F01.50 Vascular dementia, unspecified severity, without behavioral disturbance, psychotic disturbance, mood disturbance, and anxiety; I48.2 Chronic atrial fibrillation; E11.65 Type 2 diabetes mellitus with hyperglycemia; Z91.81 History of falling; Z79.01 Long term (current) use of anticoagulants; M19.90 Unspecified osteoarthritis, unspecified site; R26.9 Unspecified abnormalities of gait and mobility; R25.1 Tremor, unspecified
CPT/HCPCS: 36415; 70450; 71010; 76775; 80048; 80053; 80061; 82248; 82550; 82553; 82947; 82962; 83036; 84443; 84484; 85007; 85025; 85610; 85730; 86703; 86705; 86709; 86803; 87040; 87081; 87340; 93005; 93306; 93880; 94664; 99285; J0282; J1815; S5561

== ENCOUNTER 2017-02-11 14:02 | Inpatient (IN) | payer MEDICARE, MEDICAID ==
[~2017-02-11] VITALS: Ht 177.8 cm; Wt 102.5 kg
[~2017-02-11 14:02] MED LIST: AMLODIPINE BESY10 MG ORAL; ASPIR 8181 MG ORAL; COLACE100 MG ORAL; ELIQUIS5 MG PO; JANUVIA25 MG ORAL; LIPITOR20 MG ORAL; METOPROLOL TART25 MG ORAL; NITROGLYCERIN0.4 MG SL; PREDNISONE20 MG ORAL; SENNA8.6 M2 PO
--- NOTE | 2017-02-11 14:46 | Emergency Room Report ---
History of Present Illness General Source: Patient, EMS Present Illness HPI 66-year-old male, coming from [facility], COPD on 24-hour oxygen, 2 L,, dementia, COPD, hypertension, diabetes, presenting with left toe ulcer/ infection. Patient is oriented x2, not able to provide history, EMS states that he started treatment for the toe 4 days ago, not getting better, suprapubic toe to the second toe. Became very dark/black Patient currently only complaining of pain to toe. No other complaints Allergies: Coded Allergies: No Known Allergies (Unverified , 11/26/16) Patient History Past Medical History: see triage record Past Surgical History: none Pertinent Family History: none Reviewed Nursing Documentation: PMH: Agreed, PSxH: Agreed Nursing Documentation-PMH Hx Cardiac Problems: Yes - AFIB Hx Hypertension: Yes Hx Asthma: No - LEFT HEARING LOSS Hx COPD: Yes Hx Diabetes: Yes Hx Cancer: No Hx Gastrointestinal Problems: Yes - GERD Hx Neurological Problems: No Review of Systems All Other Systems: negative except mentioned in HPI Physical Exam Sp02 EP Interpretation: reviewed, normal General Appearance: other - tired middle aged male, nontoxic Head: normocephalic, atraumatic Eyes: bilateral eye normal inspection, bilateral eye PERRL, bilateral eye EOMI ENT: normal ENT inspection, normal pharynx, normal voice, moist mucus membranes Neck: normal inspection, full range of motion, supple Respiratory: normal inspection, lungs clear, normal breath sounds, no respiratory distress, no retraction, no wheezing, speaking full sentences, chest symmetrical Cardiovascular #1: no edema, normal capillary refill, tachycardia, irregularly irregular Cardiovascular #2: 2+ radial (R), 2+ radial (L) Gastrointestinal: normal inspection, non tender, soft, non-distended, no guarding Genitourinary: no CVA tenderness Musculoskeletal: other - Left the toe, with dark discoloration, 3 x 3 mm ulcer in the medial aspect, no current purulent drainage, also left second toe, discoloration with 2 cm ulceration. No purulent drainage Neurologic: other - aox3, confused, moving spont Psychiatric: normal inspection, judgement/insight normal, memory normal Skin: normal inspection, normal color, no rash, warm/dry, well hydrated, normal turgor Procedures Critical Care Time Critical Care Time 40 minutes of CC time 66-year-old male, left toe infection, in atrial fibrillation with RVR VS: Tachycardic Airway patent. Not hypoxic. PLAN: IV access, labs, lactate, troponin, Blood/Urine Cx, Abx, IVF Anticipate admission to Tele vs. KATY CC time also includes review of labs, review of EMR, discussion with family and paperwork from SNF, d/w hospitalist CC could include dosing of pressors, additional Abx CC time does not include procedures Medical Decision Making Diagnostic Impression: Primary Impression: Diabetic foot ulcers Additional Impressions: Atrial fibrillation Gangrenous toe ER Course 66-year-old male, with left toe ulceration DDX: Diabetic ulcer, osteomyelitis, cellulitis Plan: Obtain labs, ua, EKG, CXR Left foot x-ray Antibiotics ER course: Patient found to be in atrial fibrillation, rate about 120-140s cardizem given +gangrene of toes - podiatry eval'ed patient vancomycin given / zosyn given IVF given Disposition: Patient is to be admitted to telemetry D/W hospitalist Dr Barreto Please note that this Emergency Department Report was dictated using [employer] of collections technology software, occasionally this can lead to erroneous entry secondary to interpretation by the dictation equipment. EKG Diagnostic Results EP Interpretation: Yes Rate: Tachycardic Rhythm: Atrial fibrillation ST Segments: No acute changes , PVCs ASA given to patient: No Rhythm Strip EP Interpretation: Yes Rate: 120 Rhythm: Atrial fibrillation Chest X-ray CXR: Ordered: Yes 1 view Indication: Pain EP interpretation: Yes Interpretation: Cardiomegaly, mild pulmonary vascular infiltrate, pacemaker noted in right-sided chest Impression: Cardiomegaly, mild pulmonary vascular infiltrate, pacemaker noted in right-sided chest Electronically signed by Kaveh Lucero MD Xray: Left foot Complete Indication: Pain EP Interpretation: Yes Findings: No acute fractures. No dislocations. Bones are osteoporotic. The joint spaces are preserved. There are vascular calcifications. There is a small plantar spur. Impression: No acute bony traumA Osteoporosis Degenerative changes Electronically signed by Kaveh Lucero MD Laboratory Tests Test 02/11/17 14:30 02/11/17 18:10 White Blood Count 9.7 K/UL (4.8-10.8) Red Blood Count 3.55 M/UL (4.70-6.10) L Hemoglobin 11.2 G/DL (14.2-18.0) L Hematocrit 36.3 % (42.0-52.0) L Mean Corpuscular Volume 102 FL (80-99) H Mean Corpuscular Hemoglobin 31.5 PG (27.0-31.0) H Mean Corpuscular Hemoglobin Concent 30.9 G/DL (32.0-36.0) L Red Cell Distribution Width 13.9 % (11.6-14.8) Platelet Count 134 K/UL (150-450) L Mean Platelet Volume 7.3 FL (6.5-10.1) Neutrophils (%) (Auto) 89.4 % (45.0-75.0) H Lymphocytes (%) (Auto) 5.9 % (20.0-45.0) L Monocytes (%) (Auto) 4.3 % (1.0-10.0) Eosinophils (%) (Auto) 0.0 % (0.0-3.0) Basophils (%) (Auto) 0.4 % (0.0-2.0) Sodium Level 140 MMOL/L (136-145) Potassium Level 4.4 MMOL/L (3.5-5.1) Chloride Level 104 MMOL/L (98-107) Carbon Dioxide Level 27 MMOL/L (21-32) Anion Gap 9 mmol/L (5-15) Blood Urea Nitrogen 36 mg/dL (7-18) H Creatinine 2.3 MG/DL (0.55-1.30) H Estimate Glomerular Filtration Rate 34.7 mL/min (>60) Glucose Level 354 MG/DL (74-106) H Lactic Acid Level 2.30 mmol/L (0.66-2.22) H Calcium Level 8.2 MG/DL (8.5-10.1) L Total Bilirubin 0.6 MG/DL (0.2-1.0) Aspartate Amino Transferase (AST) 16 U/L (15-37) Alanine Aminotransferase (ALT) 20 U/L (12-78) Alkaline Phosphatase 85 U/L (46-116) Total Protein 6.7 G/DL (6.4-8.2) Albumin 2.3 G/DL (3.4-5.0) L Globulin 4.4 g/dL Albumin/Globulin Ratio 0.5 (1.0-2.7) L Urine Color Yellow Urine Appearance Clear Urine pH 5 (4.5-8.0) Urine Specific [place] 1.020 (1.005-1.035) Urine Protein 3+ (NEGATIVE) H Urine Glucose (UA) 4+ (NEGATIVE) H Urine Ketones 1+ (NEGATIVE) H Urine Occult Blood 2+ (NEGATIVE) H Urine Nitrite Negative (NEGATIVE) Urine Bilirubin Negative (NEGATIVE) Urine Urobilinogen Normal MG/DL (0.0-1.0) Urine Leukocyte Esterase Negative (NEGATIVE) Urine RBC 2-4 /HPF (0 - 0) H Urine WBC 0-2 /HPF (0 - 0) Urine Squamous Epithelial Cells None /LPF (NONE/OCC) Urine Bacteria Occasional /HPF (NONE) Disposition: ADMITTED INPATIENT Condition: Serious Kaveh Lucero M.D. Feb 11, 2017 14:46
[2017-02-11] MEDS ORDERED: Vancomycin 1.5gm/D5W 250ml 250 ML IVPB ONE (15:00)
[2017-02-11 15:06] VITALS: BP 130/80
[2017-02-11 15:16] LABS: HEMATOCRIT 36.3 % (42.0-52.0); HEMOGLOBIN 11.2 G/DL (14.2-18.0); MEAN CORPUSCULAR VOLUME 102 FL (80-99); PLATELET COUNT 134 K/UL (150-450); RED BLOOD COUNT 3.55 M/UL (4.70-6.10); RED CELL DISTRIBUTION WIDTH 13.9 % (11.6-14.8); WHITE BLOOD COUNT 9.7 K/UL (4.8-10.8)
[2017-02-11 15:18] LABS: BASOPHILS % (AUTO) 0.4 % (0.0-2.0); LYMPHOCYTES % (AUTO) 5.9 % (20.0-45.0); MONOCYTES % (AUTO) 4.3 % (1.0-10.0); NEUTROPHILS % (AUTO) 89.4 % (45.0-75.0)
[2017-02-11 15:25] LABS: ANION GAP 9 mmol/L (5-15); BLOOD UREA NITROGEN 36 mg/dL (7-18); CALCIUM 8.2 MG/DL (8.5-10.1); CARBON DIOXIDE 27 MMOL/L (21-32); CHLORIDE 104 MMOL/L (98-107); CREATININE 2.3 MG/DL (0.55-1.30); POTASSIUM 4.4 MMOL/L (3.5-5.1); SODIUM 140 MMOL/L (136-145)
[2017-02-11 15:30] VITALS: BP 114/76
[2017-02-11 15:30] LABS: ALANINE AMINOTRANSFERASE 20 U/L (12-78); ALBUMIN 2.3 G/DL (3.4-5.0); ALBUMIN/GLOBULIN RATIO 0.5 (1.0-2.7); ALKALINE PHOSPHATASE 85 U/L (46-116); ASPARTATE AMINO TRANSFERASE 16 U/L (15-37); BILIRUBIN,TOTAL 0.6 MG/DL (0.2-1.0)
--- NOTE | 2017-02-11 15:41 | Diagnostic Imaging Report ---
Indication: Pain/trauma Technique: 3 views left foot Comparison: none Findings: No acute fractures. No dislocations. Bones are osteoporotic. The joint spaces are preserved. There are vascular calcifications. There is a small plantar spur. Impression: No acute bony trauma Osteoporosis Degenerative changes
--- NOTE | 2017-02-11 15:42 | Diagnostic Imaging Report ---
Indication: Shortness of breath Technique: One view of the chest Comparison: 11/26/2016 Findings: The heart remains enlarged. There is questionable mild interstitial congestion. No focal airspace consolidation or effusions. Right chest unifocal pacemaker again demonstrated Impression: Cardiomegaly Equivocal minimal interstitial congestion-correlate with clinical findings
[2017-02-11 16:30] VITALS: BP 119/82
[2017-02-11] MEDS ORDERED: dilTIAZem HCl 25mg/5ml Inj IVP ONE ×4 (17:15→22:45)
[2017-02-11] MEDS ORDERED: Miralax 17gm pkt ORAL PRN (17:30)
[2017-02-11] MEDS ORDERED: Albuterol/Ipratropium 3ml neb HHN PRN (17:30)
[2017-02-11] MEDS ORDERED: Nitroglycerin Subl 0.4mg tab SL PRN (17:30)
[2017-02-11] MEDS ORDERED: Morphine Sulfate 2mg/ml Inj IVP PRN (17:30)
--- NOTE | 2017-02-11 17:59 | Consultation ---
Consult Note Assessment/Plan A/ 1) Gangrene left foot 2) PAD 3) DM foot ulcer 4) DM P/ 1) X-rays reviewed and no gas noted. 2) Cont Vanco/Zosyn 3) STAT arterial duplex bilateral LE. Recommend vascular consult. 4) Will follow Thank you Kasi Ibanez DPM Feb 11, 2017 17:59
[2017-02-11] MEDS ORDERED: Piperacillin/Tazobactam 3.375 GM in NS 55 ML IV ONE (18:15)
[2017-02-11 18:20] LABS: APPEARANCE,URINE CLEAR; BILIRUBIN, URINE NEGATIVE (NEGATIVE); GLUCOSE, URINE (UA) 4+ (NEGATIVE); KETONES,URINE 1+ (NEGATIVE); LEUKOCYTE ESTERASE ,URINE NEGATIVE (NEGATIVE); NITRITE,URINE NEGATIVE (NEGATIVE); PH,URINE 5 (4.5-8.0); PROTEIN,URINE 3+ (NEGATIVE); UROBILINOGEN,URINE NORMAL MG/DL (0.0-1.0)
[2017-02-11 18:21] LABS: COLOR,URINE YELLOW
[2017-02-11 18:30] VITALS: BP 101/72
[2017-02-11] MEDS ORDERED: Zosyn 3.375gm inj ONE (18:41)
--- NOTE | 2017-02-11 18:45 | Consultation ---
DATE OF CONSULTATION: 02/11/2017 CONSULTING PHYSICIAN: Kasi Perea D.P.M. REQUESTING PHYSICIAN: Pako Barreto D.O. REASON FOR CONSULTATION: Diabetic foot ulcer, nonhealing. HISTORY OF PRESENT ILLNESS: The patient is a 66-year-old male who was admitted to [facility] on 02/11/2017 for ulcer of the left foot. The patient states that his condition started about a week ago. He has difficulty providing history, but denies any fevers, chills, nausea or vomiting. He states that he lives at home, although the medical record shows that he came from [place] post acute. PAST MEDICAL HISTORY: Significant for COPD, dementia, hypertension, diabetes mellitus, and nonhealing left toe ulceration. MEDICATIONS: Per MAR include vancomycin and Zosyn. ALLERGIES: No known drug allergies. SOCIAL HISTORY: The patient resides in a senior living facility. FAMILY HISTORY: Noncontributory. REVIEW OF SYSTEMS: Unobtainable due to patient's current state and his level of dementia. PHYSICAL EXAMINATION: VITAL SIGNS: Temperature is 98.5 degrees, pulse is 124, respiration rate 16, blood pressure is 114/76 and he is saturating 98% on two liters of nasal cannula. EXTREMITIES: Lower extremity physical exam, vascular, nonpalpable pedal pulses noted bilaterally. Left foot is cold to touch. Right foot is warm. There is no edema noted. There is no cyanosis noted of the left hallux and second toe. No cyanosis is noted on the right. DERMATOLOGICAL: There is ulcerations noted on the lower left hallux and left second toe. No purulence or drainage is noted from these sites. No malodor is noted. No bone or tendon is exposed. Remaining dermatological exam is unremarkable. MUSCULOSKELETAL: No gross deformities are noted. NEUROLOGICAL: Protective thresholds intact. LABORATORY AND DIAGNOSTIC DATA: Lower extremity imaging, foot x-ray taken in the emergency room on this admission shows no acute bony trauma. No gas is noted. BUN is 36, creatinine is 2.3 and glucose is 354. Albumin is 2.3. Lactic acid is 2.30. White blood cell count is 9.7, hemoglobin and hematocrit of 11.2 and 36.3, and platelet count is 134. ASSESSMENT: 1. Gangrene left foot. 2. Peripheral arterial disease. 3. Diabetic foot ulcer. 4. Diabetes mellitus, uncontrolled. PLAN: 1. X-rays of the left foot were reviewed and reveal no gas. 2. Discussed the case with Dr. Lucero and the emergency room will continue vancomycin and Zosyn. 3. We will order a stat arterial duplex of bilateral lower extremities. I also recommend a Vascular consult. 4. We will follow. Thank you for the courtesy of this consultation. Kasi Perea D.P.M. DR: BEBO JOB#: [id number] CC:
[2017-02-11] MEDS ORDERED: Digoxin 0.5mg/2ml Inj IVP ONE (20:15)
[2017-02-11] MEDS ORDERED: dilTIAZem HCl 125mg/25ml Inj IVPB ONE (21:20)
[2017-02-11] MEDS ORDERED: dilTIAZem HCl 60mg tab ORAL ONE (22:00)
[2017-02-11] MEDS ORDERED: dilTIAZem HCl 30mg tab ONE (22:12)
[2017-02-11] MEDS ORDERED: LORazepam Inj 2mg/ml 1ml ONE (22:39)
--- NOTE | 2017-02-11 22:41 | Consultation ---
History of Present Illness General Date patient seen: Feb 10, 2017 Chief Complaint: General Complaint Present Illness HPI 66-year-old male wit hx of COPD on oxygen, 2 L,, dementia, hypertension, diabetes, presenting with left toe ulcer/infection. Patient is oriented x2, not able to provide history, EMS states that he started treatment for the toe 4 days ago, not getting better, suprapubic toe to the second toe. Pt had a rapid Afib was started on cardizem and admitted to telemetry. Allergies: Coded Allergies: No Known Allergies (Unverified , 11/26/16) Medication History Scheduled Amlodipine Besylate* (Amlodipine Besylate*), 10 MG ORAL DAILY, (Reported) Atorvastatin Calcium* (Lipitor*), 20 MG ORAL DAILY, (Reported) Clonidine Hcl (Clonidine Hcl), 0.1 MG PO EVERY 6 HOURS, (Reported) Divalproex Sodium* (Depakote Er*), 500 MG ORAL EVERY 12 HOURS, (Reported) Docusate Sodium* (Colace*), 100 MG ORAL DAILY, (Reported) Insulin Aspart (Novolog), UNITS SUBQ AC+HS, (Reported) Lorazepam* (Ativan*), 1 MG ORAL EVERY 6 HOURS, (Reported) Memantine Hcl* (Namenda*), 5 MG ORAL TWICE A DAY, (Reported) Metoprolol Tartrate* (Metoprolol Tartrate*), 50 MG ORAL EVERY 12 HOURS, ( Reported) Olanzapine (Zyprexa), 7.5 MG ORAL DAILY, (Reported) Prednisone* (Prednisone*), 40 MG ORAL DAILY, (Reported) [Sitagliptin*], 100 MG PO DAILY, (Reported) Scheduled PRN Acetaminophen* (Acetaminophen 325MG Tablet*), 650 MG ORAL Q6H PRN for Fever/ Headache/Mild Pain, (Reported) Ipratropium/Albuterol Sulfate (DuoNeb 0.5-3(2.5)mg/3ml), 3 ML HHN EVERY 4 HOURS PRN for Shortness of Breath, (Reported) Polyethylene Glycol 3350* (Miralax*), 17 GM ORAL QHS PRN for Constipation, ( Reported) [mylanta], 30 ML ORAL Q6HR PRN for To Patient Comfort, (Reported) Discontinued Medications Apixaban (Eliquis), 5 MG PO, (Reported) Discontinued Reason: MD discontinued med Aspirin* (Aspir 81*), 81 MG ORAL DAILY, (Reported) Discontinued Reason: MD discontinued med Metoprolol Tartrate* (Metoprolol Tartrate*), 25 MG ORAL DAILY, (Reported) Discontinued Reason: Prescription changed Nitroglycerin (Nitroglycerin), 0.4 MG SL, (Reported) Discontinued Reason: MD discontinued med Sennosides (Senna), 8.6 MG PO, (Reported) Discontinued Reason: MD discontinued med Sitagliptin* (Januvia*), 50 MG ORAL DAILY, (Reported) Discontinued Reason: Prescription changed Patient History Healthcare decision maker Resuscitation status Advanced Directive on File Past Medical/Surgical History Past Medical/Surgical History: (1) Diabetic foot ulcers (2) Gangrenous toe (3) Diabetes mellitus (4) HTN (hypertension) Review of Systems Constitutional: Reports: no symptoms Eye: Reports: no symptoms ENT: Reports: no symptoms Physical Exam General Appearance: WD/WN Lines, tubes and drains: peripheral, PICC HEENT: normocephalic, anicteric Neck: normal alignment Respiratory/Chest: chest wall non-tender, lungs clear Abdomen: normal bowel sounds, non tender Genitourinary/Rectal: normal genital exam Extremities: other - cold feet Last 24 Hour Vital Signs Date Time Temp Pulse Resp B/P (MAP) Pulse Ox O2 Delivery O2 Flow Rate FiO2 02/11/17 22:15 140 153/101 02/11/17 22:06 140 153/101 02/11/17 21:15 140 96/63 02/11/17 20:15 140 02/11/17 19:14 125 96/63 02/11/17 18:30 98.2 120 21 101/72 96 Nasal Cannula 2.0 02/11/17 17:49 144 133/101 02/11/17 17:37 98.5 02/11/17 16:30 98.6 133 20 119/82 98 Nasal Cannula 2.0 02/11/17 15:30 124 16 114/76 98 02/11/17 15:06 98.0 120 16 130/80 98 Nasal Cannula 2.0 02/11/17 14:59 97.9 120 16 130/80 98 Nasal Cannula Laboratory Tests Test 02/11/17 14:30 02/11/17 18:10 White Blood Count 9.7 K/UL (4.8-10.8) Red Blood Count 3.55 M/UL (4.70-6.10) L Hemoglobin 11.2 G/DL (14.2-18.0) L Hematocrit 36.3 % (42.0-52.0) L Mean Corpuscular Volume 102 FL (80-99) H Mean Corpuscular Hemoglobin 31.5 PG (27.0-31.0) H Mean Corpuscular Hemoglobin Concent 30.9 G/DL (32.0-36.0) L Red Cell Distribution Width 13.9 % (11.6-14.8) Platelet Count 134 K/UL (150-450) L Mean Platelet Volume 7.3 FL (6.5-10.1) Neutrophils (%) (Auto) 89.4 % (45.0-75.0) H Lymphocytes (%) (Auto) 5.9 % (20.0-45.0) L Monocytes (%) (Auto) 4.3 % (1.0-10.0) Eosinophils (%) (Auto) 0.0 % (0.0-3.0) Basophils (%) (Auto) 0.4 % (0.0-2.0) Sodium Level 140 MMOL/L (136-145) Potassium Level 4.4 MMOL/L (3.5-5.1) Chloride Level 104 MMOL/L (98-107) Carbon Dioxide Level 27 MMOL/L (21-32) Anion Gap 9 mmol/L (5-15) Blood Urea Nitrogen 36 mg/dL (7-18) H Creatinine 2.3 MG/DL (0.55-1.30) H Estimat Glomerular Filtration Rate 34.7 mL/min (>60) Glucose Level 354 MG/DL (74-106) H Lactic Acid Level 2.30 mmol/L (0.66-2.22) H Calcium Level 8.2 MG/DL (8.5-10.1) L Total Bilirubin 0.6 MG/DL (0.2-1.0) Aspartate Amino Transf (AST/SGOT) 16 U/L (15-37) Alanine Aminotransferase (ALT/SGPT) 20 U/L (12-78) Alkaline Phosphatase 85 U/L (46-116) Total Protein 6.7 G/DL (6.4-8.2) Albumin 2.3 G/DL (3.4-5.0) L Globulin 4.4 g/dL Albumin/Globulin Ratio 0.5 (1.0-2.7) L Urine Color Yellow Urine Appearance Clear Urine pH 5 (4.5-8.0) Urine Specific [place] 1.020 (1.005-1.035) Urine Protein 3+ (NEGATIVE) H Urine Glucose (UA) 4+ (NEGATIVE) H Urine Ketones 1+ (NEGATIVE) H Urine Occult Blood 2+ (NEGATIVE) H Urine Nitrite Negative (NEGATIVE) Urine Bilirubin Negative (NEGATIVE) Urine Urobilinogen Normal MG/DL (0.0-1.0) Urine Leukocyte Esterase Negative (NEGATIVE) Urine RBC 2-4 /HPF (0 - 0) H Urine WBC 0-2 /HPF (0 - 0) Urine Squamous Epithelial Cells None /LPF (NONE/OCC) Urine Bacteria Occasional /HPF (NONE) Height (Feet): 5 Height (Inches): 10.00 Weight (Pounds): 190 Medications Current Medications Medications (Trade) Dose Ordered Sig/Anahi Route PRN Reason Start Time Stop Time Status Last Admin Dose Admin Acetaminophen (Tylenol) 650 mg Q4H PRN ORAL fever (temp>100.5F) 02/11/17 17:30 03/13/17 17:29 Albuterol/ Ipratropium (Albuterol/ Ipratropium) 3 ml Q4H PRN HHN Shortness of Breath 02/11/17 17:30 02/16/17 17:29 Amlodipine Besylate (Norvasc) 10 mg DAILY ORAL 02/12/17 09:00 03/14/17 08:59 Aspirin (Ecotrin) 81 mg DAILY ORAL 02/12/17 09:00 03/14/17 08:59 Atorvastatin Calcium (Lipitor) 20 mg DAILY ORAL 02/12/17 09:00 03/14/17 08:59 UNV Cefepime HCl 2 gm/ Dextrose 110 ml @ 220 mls/hr EVERY 12 HOURS IV 02/11/17 21:00 02/18/17 20:59 UNV Dextrose (Dextrose 50%) STAT PRN IV Hypoglycemia 02/11/17 17:30 03/13/17 17:29 Diltiazem HCl (Cardizem) 30 mg ONCE ONCE IVP 02/11/17 22:45 02/11/17 22:46 Heparin Sodium (Porcine) (Heparin 5000 units/ml) 5,000 units EVERY 12 HOURS SUBQ 02/11/17 22:00 03/13/17 21:59 Metoprolol Tartrate (Lopressor) 25 mg DAILY ORAL 02/12/17 09:00 03/14/17 08:59 UNV Morphine Sulfate (Morphine Sulfate) 2 mg Q4H PRN IVP Moderate Pain (Pain Scale 4-6) 02/11/17 17:30 02/18/17 17:29 Nitroglycerin (Ntg) 0.4 mg Q5M PRN SL Prn Chest Pain 02/11/17 17:30 03/13/17 17:29 Ondansetron HCl (Zofran) 4 mg Q6H PRN IVP Nausea & Vomiting 02/11/17 17:30 03/13/17 17:29 Polyethylene Glycol (Miralax) 17 gm DAILYPRN PRN ORAL Constipation 02/11/17 17:30 03/13/17 17:29 Sitagliptin Phosphate (Januvia) 50 mg DAILY ORAL 02/12/17 09:00 03/14/17 08:59 UNV Temazepam (Restoril) 15 mg HSPRN PRN ORAL Insomnia 02/11/17 17:30 02/18/17 17:29 Vancomycin HCl (Vanco rx to dose) 1 ea DAILY PRN MISC PER RX PROTOCOL 02/11/17 22:00 03/13/17 21:59 Assessment/Plan Problem List: (1) Gangrenous toe ICD Codes: I96 - Gangrene, not elsewhere classified SNOMED: 605835787 (2) Rapid atrial fibrillation ICD Codes: I48.91 - Unspecified atrial fibrillation SNOMED: 789559275 (3) HTN (hypertension) ICD Codes: I10 - Essential (primary) hypertension SNOMED: 55085904 (4) Diabetes mellitus ICD Codes: E11.9 - Type 2 diabetes mellitus without complications SNOMED: 00879652 (5) Pacemaker ICD Codes: Z95.0 - Presence of cardiac pacemaker SNOMED: 125203989, 168780316 (6) Diabetic foot ulcers ICD Codes: E11.621 - Type 2 diabetes mellitus with foot ulcer; L97.509 - Non- pressure chronic ulcer of other part of unspecified foot with unspecified severity SNOMED: 498955609, 05436298 Assessment/Plan titrate Cardizem wound care IV abx check cultures respiratory treatment SATHYA MEIER Feb 11, 2017 22:41
[2017-02-11] MEDS ORDERED: dilTIAZem HCl 50mg/10ml Inj IVP ONE (22:44)
[2017-02-11 23:13] VITALS: BP 138/99
[2017-02-11] MEDS ORDERED: Cefepime 2gm ONE (23:54)
[2017-02-12] VITALS: BP 134/73
[2017-02-12] MEDS: Cefepime HCl 2 GM in D5W 110 ML IV SCH ×3 (00:02→21:05)
[2017-02-12] MEDS: Heparin 5000 units/ml inj SUBQ SCH ×2 (00:05→09:00)
[2017-02-12] MEDS ORDERED: Vancomycin 1 GM in D5W 275 ML IV SCH (00:30)
[2017-02-12] MEDS ORDERED: CLONIDINE HCL0.1 MG PO (01:03)
[2017-02-12] MEDS ORDERED: MIRALAX17 G2 ORAL (01:03)
[2017-02-12] MEDS ORDERED: ZYPREXA7.5 MG ORAL (01:03)
[2017-02-12] MEDS ORDERED: DUONEB 0.5-3(2.53 ML HHN (01:03)
[2017-02-12] MEDS ORDERED: NAMENDA5 MG ORAL (01:03)
[2017-02-12] MEDS ORDERED: DEPAKOTE ER500 MG ORAL (01:03)
[2017-02-12] MEDS ORDERED: ATIVAN1 MG ORAL (01:03)
[2017-02-12] MEDS ORDERED: NOVOLOG100 UNIT/5 SUBQ (01:03)
[2017-02-12] MEDS ORDERED: mylanta ORAL (01:03)
[2017-02-12] MEDS ORDERED: ACETAMINOPHEN325 M1 ORAL (01:03)
[2017-02-12] MEDS ORDERED: SITAGLIPTIN PO (01:04)
[2017-02-12] MEDS ORDERED: METOPROLOL TART50 M1 ORAL (01:04)
[2017-02-12 04:00] VITALS: BP 141/103
[2017-02-12 07:36] LABS: HEMATOCRIT 35.5 % (42.0-52.0); MEAN CORPUSCULAR VOLUME 102 FL (80-99); PLATELET COUNT 137 K/UL (150-450); RED BLOOD COUNT 3.47 M/UL (4.70-6.10); RED CELL DISTRIBUTION WIDTH 13.6 % (11.6-14.8); WHITE BLOOD COUNT 10.5 K/UL (4.8-10.8)
[2017-02-12] MEDS ORDERED: dilTIAZem HCl 25mg/5ml Inj IVP PRN (07:45)
[2017-02-12 08:00] VITALS: BP 151/105
[2017-02-12 08:18] LABS: ALANINE AMINOTRANSFERASE 23 U/L (12-78); ALBUMIN 2.6 G/DL (3.4-5.0); ALBUMIN/GLOBULIN RATIO 0.6 (1.0-2.7); ALKALINE PHOSPHATASE 89 U/L (46-116); ANION GAP 11 mmol/L (5-15); ASPARTATE AMINO TRANSFERASE 14 U/L (15-37); BILIRUBIN,TOTAL 0.8 MG/DL (0.2-1.0); BLOOD UREA NITROGEN 38 mg/dL (7-18); CALCIUM 8.5 MG/DL (8.5-10.1); CARBON DIOXIDE 26 MMOL/L (21-32); CHLORIDE 104 MMOL/L (98-107); CREATININE 2.2 MG/DL (0.55-1.30); SODIUM 141 MMOL/L (136-145)
[2017-02-12] MEDS ORDERED: Metoprolol 25mg tab ORAL SCH (09:00)
[2017-02-12] MEDS ORDERED: dilTIAZem HCl 60mg tab ORAL SCH (09:15)
[2017-02-12] MEDS ORDERED: Heparin 25,000u/D5W 500ml 500 ML IV SCH (09:15)
--- NOTE | 2017-02-12 09:43 | Consultation ---
Consult Note Consult Note Asked to eval for renal failure 66-year-old male, [place], COPD on 24-hour oxygen, 2 L,, dementia, COPD, hypertension, diabetes, presenting with left toe ulcer/ infection. Patient is oriented x2, not able to provide history, EMS states that he started treatment for the toe 4 days ago, not getting better, suprapubic toe to the second toe. Became very dark/black Patient currently only complaining of pain to toe. No other complaints Hx Cardiac Problems: Yes - AFIB Hx Hypertension: Yes Hx Asthma: No - LEFT HEARING LOSS Hx COPD: Yes Hx Diabetes: Yes Hx Gastrointestinal Problems: Yes - GERD examined- data reviewed poor historian Assessment/Plan Renal failure - Likely chronic with superimposed acute Hypo Albuminemia Anemia DM, Nephropathy Diabetic foot ulcer / gang toes Atrial fibrillation Urine studies keep BP and BS and HR in check monitor renal parameters anemia falk avoid nephrotoxics per orders BHAVANI VACA Feb 12, 2017 09:43
[2017-02-12] MEDS: Aspirin EC 81mg tab ORAL SCH (09:51)
[2017-02-12] MEDS: sitaGLIPtin 25mg tab ORAL SCH (09:51)
[2017-02-12] MEDS: NovoLOG Insulin Flexpen SUBQ SCH ×4 (09:58→21:20)
[2017-02-12 10:21] LABS: HEMOGLOBIN 11.3 G/DL (14.2-18.0); MEAN CORPUSCULAR VOLUME 102 FL (80-99); PLATELET COUNT 129 K/UL (150-450); RED BLOOD COUNT 3.53 M/UL (4.70-6.10); RED CELL DISTRIBUTION WIDTH 13.7 % (11.6-14.8); WHITE BLOOD COUNT 9.3 K/UL (4.8-10.8)
[2017-02-12] MEDS: Heparin 25,000u/D5W 500ml 500 ML IV SCH ×2 (11:33→19:19)
[2017-02-12 12:00] VITALS: BP 142/89
[2017-02-12] MEDS ORDERED: Metoprolol Tartrate 12.5mg TAB ORAL ONE (13:30)
[2017-02-12] MEDS ORDERED: guaiFENesin w/Codeine 5ml Liq ud ORAL PRN (14:30)
[2017-02-12] MEDS ORDERED: Metoprolol 5mg/5ml Inj IVP ONE (15:00)
--- NOTE | 2017-02-12 15:02 | Cardiology Progress Note ---
Assessment/Plan Assessment/Plan cardizm iv and po bb dc betaagonist inhler check tft echo serial enzymes abx anticoagulation of note neg trop depsite tachy overnite is a god sign agianst myocardial ischemia [id number] Objective Last 24 Hour Vital Signs Date Time Temp Pulse Resp B/P (MAP) Pulse Ox O2 Delivery O2 Flow Rate FiO2 02/12/17 11:02 103 24 Nasal Cannula 3.0 32 02/12/17 09:51 138 151/105 02/12/17 08:00 142 02/12/17 08:00 97.7 137 20 151/105 95 Room Air 02/12/17 04:00 128 02/12/17 04:00 97.5 99 20 141/103 96 Room Air 02/12/17 00:00 97.0 73 20 134/73 98 Room Air 02/12/17 00:00 140 02/11/17 23:49 98.2 120 21 138/99 96 Nasal Cannula 2.0 111 02/11/17 23:13 98.2 111 21 138/99 96 Nasal Cannula 2.0 02/11/17 22:50 140 153/101 02/11/17 22:15 140 153/101 02/11/17 22:06 140 153/101 02/11/17 21:15 140 96/63 02/11/17 20:15 140 02/11/17 19:14 125 96/63 02/11/17 18:30 98.2 120 21 101/72 96 Nasal Cannula 2.0 02/11/17 17:49 144 133/101 02/11/17 17:37 98.5 02/11/17 16:30 98.6 133 20 119/82 98 Nasal Cannula 2.0 02/11/17 15:30 124 16 114/76 98 02/11/17 15:06 98.0 120 16 130/80 98 Nasal Cannula 2.0 Intake and Output 02/11/17 02/12/17 19:00 07:00 Intake Total 230 ml Balance 230 ml Intake Oral 120 ml IV Total 110 ml # Voids 1 2 Laboratory Tests Test 02/11/17 18:10 02/12/17 05:00 02/12/17 10:00 Urine Color Yellow Urine Appearance Clear Urine pH 5 (4.5-8.0) Urine Specific [place] 1.020 (1.005-1.035) Urine Protein 3+ (NEGATIVE) H Urine Glucose (UA) 4+ (NEGATIVE) H Urine Ketones 1+ (NEGATIVE) H Urine Occult Blood 2+ (NEGATIVE) H Urine Nitrite Negative (NEGATIVE) Urine Bilirubin Negative (NEGATIVE) Urine Urobilinogen Normal MG/DL (0.0-1.0) Urine Leukocyte Esterase Negative (NEGATIVE) Urine RBC 2-4 /HPF (0 - 0) H Urine WBC 0-2 /HPF (0 - 0) Urine Squamous Epithelial Cells None /LPF (NONE/OCC) Urine Bacteria Occasional /HPF (NONE) White Blood Count 10.5 K/UL (4.8-10.8) 9.3 K/UL (4.8-10.8) Red Blood Count 3.47 M/UL (4.70-6.10) L 3.53 M/UL (4.70-6.10) L Hemoglobin 12.0 G/DL (14.2-18.0) L 11.3 G/DL (14.2-18.0) L Hematocrit 35.5 % (42.0-52.0) L 36.0 % (42.0-52.0) L Mean Corpuscular Volume 102 FL (80-99) H 102 FL (80-99) H Mean Corpuscular Hemoglobin 34.6 PG (27.0-31.0) H 32.0 PG (27.0-31.0) H Mean Corpuscular Hemoglobin Concent 33.8 G/DL (32.0-36.0) 31.3 G/DL (32.0-36.0) L Red Cell Distribution Width 13.6 % (11.6-14.8) 13.7 % (11.6-14.8) Platelet Count 137 K/UL (150-450) L 129 K/UL (150-450) L Mean Platelet Volume 7.4 FL (6.5-10.1) 7.3 FL (6.5-10.1) Neutrophils (%) (Auto) % (45.0-75.0) % (45.0-75.0) Lymphocytes (%) (Auto) % (20.0-45.0) % (20.0-45.0) Monocytes (%) (Auto) % (1.0-10.0) % (1.0-10.0) Eosinophils (%) (Auto) % (0.0-3.0) % (0.0-3.0) Basophils (%) (Auto) % (0.0-2.0) % (0.0-2.0) Differential Total Cells Counted 100 100 Neutrophils % (Manual) 91 % (45-75) H 80 % (45-75) H Lymphocytes % (Manual) 3 % (20-45) L 11 % (20-45) L Monocytes % (Manual) 6 % (1-10) 9 % (1-10) Eosinophils % (Manual) 0 % (0-3) 0 % (0-3) Basophils % (Manual) 0 % (0-2) 0 % (0-2) Band Neutrophils 0 % (0-8) 0 % (0-8) Platelet Estimate Decreased L Decreased L Platelet Morphology Normal Normal Macrocytosis 1+ 1+ Sodium Level 141 MMOL/L (136-145) Potassium Level 4.0 MMOL/L (3.5-5.1) Chloride Level 104 MMOL/L (98-107) Carbon Dioxide Level 26 MMOL/L (21-32) Anion Gap 11 mmol/L (5-15) Blood Urea Nitrogen 38 mg/dL (7-18) H Creatinine 2.2 MG/DL (0.55-1.30) H Estimat Glomerular Filtration Rate 36.5 mL/min (>60) Glucose Level 324 MG/DL (74-106) H Calcium Level 8.5 MG/DL (8.5-10.1) Total Bilirubin 0.8 MG/DL (0.2-1.0) Aspartate Amino Transf (AST/SGOT) 14 U/L (15-37) L Alanine Aminotransferase (ALT/SGPT) 23 U/L (12-78) Alkaline Phosphatase 89 U/L (46-116) Total Protein 7.3 G/DL (6.4-8.2) Albumin 2.6 G/DL (3.4-5.0) L Globulin 4.7 g/dL Albumin/Globulin Ratio 0.6 (1.0-2.7) L Random Vancomycin Level 9.9 ug/mL Activated Partial Thromboplast Time 29 SEC (23-33) Troponin I 0.027 ng/mL (0.000-0.056) BOBBY BURNETTE Feb 12, 2017 15:02
[2017-02-12] MEDS: Metoprolol 5mg/5ml Inj IVP SCH ×3 (15:39→16:05)
[2017-02-12] MEDS: dilTIAZem HCl 60mg tab ORAL SCH ×2 (15:39→21:40)
[2017-02-12] MEDS: Docusate 100mg cap ORAL SCH ×2 (15:39→21:05)
[2017-02-12 16:00] VITALS: BP 139/109
--- NOTE | 2017-02-12 16:13 | Pulmonology Progress Note ---
Assessment/Plan Problems: (1) Gangrenous toe (2) Rapid atrial fibrillation (3) HTN (hypertension) (4) Diabetes mellitus (5) Pacemaker (6) Diabetic foot ulcers Assessment/Plan heart rate better continue abx respiratory treatment titrate fio2 awaiting surgical evalution Subjective ROS Limited/Unobtainable: No Constitutional: Reports: no symptoms HEENT: Repors: no symptoms Allergies: Coded Allergies: No Known Allergies (Unverified , 11/26/16) Objective Last 24 Hour Vital Signs Date Time Temp Pulse Resp B/P (MAP) Pulse Ox O2 Delivery O2 Flow Rate FiO2 02/12/17 15:53 138 142/89 02/12/17 15:39 148 142/89 02/12/17 15:39 148 142/89 02/12/17 12:00 97.9 110 20 142/89 94 Room Air 02/12/17 11:02 103 24 Nasal Cannula 3.0 32 02/12/17 09:51 138 151/105 02/12/17 08:00 142 02/12/17 08:00 97.7 137 20 151/105 95 Room Air 02/12/17 04:00 128 02/12/17 04:00 97.5 99 20 141/103 96 Room Air 02/12/17 00:00 97.0 73 20 134/73 98 Room Air 02/12/17 00:00 140 02/11/17 23:49 98.2 120 21 138/99 96 Nasal Cannula 2.0 111 02/11/17 23:13 98.2 111 21 138/99 96 Nasal Cannula 2.0 02/11/17 22:50 140 153/101 02/11/17 22:15 140 153/101 02/11/17 22:06 140 153/101 02/11/17 21:15 140 96/63 02/11/17 20:15 140 02/11/17 19:14 125 96/63 02/11/17 18:30 98.2 120 21 101/72 96 Nasal Cannula 2.0 02/11/17 17:49 144 133/101 02/11/17 17:37 98.5 02/11/17 16:30 98.6 133 20 119/82 98 Nasal Cannula 2.0 Intake and Output 02/11/17 02/12/17 19:00 07:00 Intake Total 230 ml Balance 230 ml Intake Oral 120 ml IV Total 110 ml # Voids 1 2 Objective General Appearance: WD/WN Lines, tubes and drains: peripheral, PICC HEENT: normocephalic, anicteric Neck: normal alignment Respiratory/Chest: chest wall non-tender, lungs clear Abdomen: normal bowel sounds, non tender Genitourinary/Rectal: normal genital exam Extremities: other - cold feet Laboratory Tests 02/11/17 18:10: Urine Color Yellow, Urine Appearance Clear, Urine pH 5, Urine Specific [place] 1.020, Urine Protein 3+H, Urine Glucose (UA) 4+H, Urine Ketones 1+H, Urine Occult Blood 2+H, Urine Nitrite Negative, Urine Bilirubin Negative, Urine Urobilinogen Normal, Urine Leukocyte Esterase Negative, Urine RBC 2-4H, Urine WBC 0-2, Urine Squamous Epithelial Cells None, Urine Bacteria Occasional 02/12/17 05:00: White Blood Count 10.5, Red Blood Count 3.47L, Hemoglobin 12.0L, Hematocrit 35.5L, Mean Corpuscular Volume 102H, Mean Corpuscular Hemoglobin 34.6H, Mean Corpuscular Hemoglobin Concent 33.8, Red Cell Distribution Width 13.6, Platelet Count 137L, Mean Platelet Volume 7.4, Neutrophils (%) (Auto) , Lymphocytes (%) ( Auto) , Monocytes (%) (Auto) , Eosinophils (%) (Auto) , Basophils (%) (Auto) , Differential Total Cells Counted 100, Neutrophils % (Manual) 91H, Lymphocytes % (Manual) 3L, Monocytes % (Manual) 6, Eosinophils % (Manual) 0, Basophils % ( Manual) 0, Band Neutrophils 0, Platelet Estimate DecreasedL, Platelet Morphology Normal, Macrocytosis 1+, Sodium Level 141, Potassium Level 4.0, Chloride Level 104, Carbon Dioxide Level 26, Anion Gap 11, Blood Urea Nitrogen 38H, Creatinine 2.2H, Estimat Glomerular Filtration Rate 36.5, Glucose Level 324H, Calcium Level 8.5, Total Bilirubin 0.8, Aspartate Amino Transf (AST/SGOT) 14L, Alanine Aminotransferase (ALT/SGPT) 23, Alkaline Phosphatase 89, Total Protein 7.3, Albumin 2.6L, Globulin 4.7, Albumin/Globulin Ratio 0.6L, Random Vancomycin Level 9.9 02/12/17 10:00: White Blood Count 9.3, Red Blood Count 3.53L, Hemoglobin 11.3L, Hematocrit 36.0L , Mean Corpuscular Volume 102H, Mean Corpuscular Hemoglobin 32.0H, Mean Corpuscular Hemoglobin Concent 31.3L, Red Cell Distribution Width 13.7, Platelet Count 129L, Mean Platelet Volume 7.3, Neutrophils (%) (Auto) , Lymphocytes (%) (Auto) , Monocytes (%) (Auto) , Eosinophils (%) (Auto) , Basophils (%) (Auto) , Differential Total Cells Counted 100, Neutrophils % ( Manual) 80H, Lymphocytes % (Manual) 11L, Monocytes % (Manual) 9, Eosinophils % ( Manual) 0, Basophils % (Manual) 0, Band Neutrophils 0, Platelet Estimate DecreasedL, Platelet Morphology Normal, Macrocytosis 1+, Activated Partial Thromboplast Time 29, Troponin I 0.027 Current Medications Medications (Trade) Dose Ordered Sig/Anahi Route PRN Reason Start Time Stop Time Status Last Admin Dose Admin Acetaminophen (Tylenol) 650 mg Q4H PRN ORAL fever (temp>100.5F) 02/11/17 17:30 03/13/17 17:29 Albuterol/ Ipratropium (Albuterol/ Ipratropium) 3 ml Q4H PRN HHN Shortness of Breath 02/11/17 17:30 02/16/17 17:29 Aspirin (Ecotrin) 81 mg DAILY ORAL 02/12/17 09:00 03/14/17 08:59 02/12/17 09:51 Atorvastatin Calcium (Lipitor) 20 mg BEDTIME ORAL 02/12/17 21:00 03/14/17 20:59 Cefepime HCl 2 gm/ Dextrose 110 ml @ 220 mls/hr EVERY 12 HOURS IV 02/11/17 21:00 02/18/17 20:59 02/12/17 09:51 Dextrose (Dextrose 50%) STAT PRN IV Hypoglycemia 02/12/17 07:15 03/14/17 07:14 Diltiazem HCl (Cardizem) 20 mg Q1H PRN IVP HR > 120 02/12/17 07:45 03/14/17 07:44 Diltiazem HCl (Cardizem) 90 mg Q8HR ORAL 02/12/17 14:00 03/14/17 09:14 02/12/17 15:39 Divalproex Sodium (Depakote ER) 500 mg EVERY 12 HOURS ORAL 02/12/17 21:00 03/14/17 20:59 Docusate Sodium (Colace) 100 mg TID ORAL 02/12/17 13:45 03/14/17 13:44 02/12/17 15:39 Guaifenesin/ Codeine Phosphate (Robitussin with codeine) 5 ml Q6H PRN ORAL For Cough 02/12/17 14:30 03/14/17 14:29 Heparin Sodium/ Dextrose 500 ml @ 37.26 mls/ hr adjust per protocol IV 02/12/17 10:30 03/14/17 10:29 02/12/17 11:33 Insulin Aspart (NovoLOG) BEFORE MEALS AND HS SUBQ 02/12/17 07:15 03/14/17 07:14 02/12/17 09:58 Linezolid (Zyvox) 600 mg Q12HR@0600,1800 ORAL 02/12/17 15:00 02/17/17 14:59 Metoprolol Tartrate (Lopressor) 5 mg Q5MIN X 3 IVP 02/12/17 15:00 02/12/17 15:53 Metoprolol Tartrate (Lopressor) 50 mg Q12HR ORAL 02/12/17 21:00 03/14/17 20:59 Morphine Sulfate (Morphine Sulfate) 2 mg Q4H PRN IVP Moderate Pain (Pain Scale 4-6) 02/11/17 17:30 02/18/17 17:29 Nitroglycerin (Ntg) 0.4 mg Q5M PRN SL Prn Chest Pain 02/11/17 17:30 03/13/17 17:29 Ondansetron HCl (Zofran) 4 mg Q6H PRN IVP Nausea & Vomiting 02/11/17 17:30 03/13/17 17:29 Polyethylene Glycol (Miralax) 17 gm DAILYPRN PRN ORAL Constipation 02/11/17 17:30 03/13/17 17:29 Sitagliptin Phosphate (Januvia) 50 mg DAILY ORAL 02/12/17 09:00 03/14/17 08:59 02/12/17 09:51 Temazepam (Restoril) 15 mg HSPRN PRN ORAL Insomnia 02/11/17 17:30 02/18/17 17:29 SATHYA MEIER Feb 12, 2017 16:13
--- NOTE | 2017-02-12 16:30 | Consultation ---
DATE OF CONSULTATION: 02/12/2017 INFECTIOUS DISEASES CONSULTATION CONSULTING PHYSICIAN: Lis Diaz M.D. REFERRING PHYSICIAN: Pako Barreto D.O. This consultation has been done on behalf of Dr. Jose Arroyo. REASON FOR CONSULTATION: Left foot ulcer and cellulitis. HISTORY OF PRESENTING ILLNESS: This is a 66-year-old gentleman with history of hypertension, COPD, dementia, and diabetes who came in with a left foot nonhealing ulcer. An Infectious Diseases consultation has been obtained for left foot ulcer and cellulitis. PAST MEDICAL HISTORY: 1. History of COPD. 2. Dementia. 3. Hypertension. 4. Diabetes. 5. Nonhealing left toe ulcers. MEDICATIONS: As an inpatient, the patient is on atorvastatin, metoprolol, heparin, diltiazem, aspirin, Januvia, IV vancomycin, cefepime, nitroglycerin, Restoril, Zofran, MiraLAX, morphine, Tylenol, ipratropium and albuterol. ALLERGIES: No known drug allergies. SOCIAL HISTORY: He is a resident of a nursing home facility. Rest of the history is unknown. FAMILY HISTORY: Unknown. REVIEW OF SYSTEMS: Unable to obtain currently. PHYSICAL EXAMINATION: VITAL SIGNS: Temperature of 97.7, T-max of 98.6, pulse of 103, respiratory rate 24, blood pressure 151/105, and O2 saturation of 95%. HEENT: Pupils equally reactive to light and accommodation. Mouth appears clean without thrush. NECK: Supple. No adenopathy. No JVD. CARDIOVASCULAR: Regular rate and rhythm. No murmurs. LUNGS: Clear to auscultation bilaterally. No crackles. No wheezes. ABDOMEN: Soft and nontender. No organomegaly. EXTREMITIES: No cyanosis, no clubbing, and no edema. Left foot first and second toe ulcers noted with erythema of the dorsum of the foot. LABORATORY AND DIAGNOSTIC DATA: White count 9.3, hemoglobin 11.3, hematocrit 36, MCV 102, and platelet count of 129. Sodium 141, potassium 4, chloride 104, bicarbonate 26, BUN 38, creatinine 2.2, and glucose 324. Calcium 8.5. Total bilirubin 0.8. AST 14, ALT 23, and alkaline phosphatase 89. Troponin 0.027. Total protein 7.3. Albumin 2.6. UA showing 0 to 2 white cells. Left foot x-ray showing no acute bony trauma. Osteoporosis noted. Chest x-ray showing interstitial congestion. ASSESSMENT: 1. This is a 66-year-old gentleman with history of diabetes and hypertension who comes in with left toe ulcers and left foot cellulitis with the concern regarding underlying osteomyelitis. 2. Renal failure. 3. Diabetes. 4. Hypertension. PLAN: 1. Discontinue vancomycin. 2. Continue cefepime. 3. We will start the patient on linezolid. 4. We will order wound cultures from the left foot. 5. We will order an MRI of the left foot. 6. Plan as per Vascular Surgery. I would like to thank Dr. Pako Barreto for this consultation. Lis Diaz M.D. DR: AMANUEL JOB#: [id number] CC: Pako Barreto D.O.
--- NOTE | 2017-02-12 18:18 | Wound Care Consultation ---
Wound Assessment Wound Assessment : Wound Number: 1 Wound Present on Admission: Yes New Wound: No Status Change of Wound: No Wound Location Body Site Modif: left Wound Location Body Site: foot Wound Type: other - gangrene Ama Test: Does not Ama Wound Thickness: Full Thickness Wound Drainage Amount: None Wound Drainage Odor: None/Absent Tissue Surrounding Wound: Indurated Wound Comment #1 Left foot gangrene, under the care of institutional aide Dr Perea. Recommendation -Please f/u with recommendation and treatment order from NGHIA ESQUIVEL RN Feb 12, 2017 18:18
[2017-02-12 20:00] VITALS: BP 146/111
--- NOTE | 2017-02-12 20:30 | Consultation ---
DATE OF CONSULTATION: 02/12/2017 CARDIOLOGY CONSULTATION CONSULTING PHYSICIAN: Matheus Laws M.D. REFERRING PHYSICIAN: Pako Barreto D.O. REASON FOR REFERRAL: Tachycardia and atrial fibrillation. HISTORY OF PRESENT ILLNESS: This is an elderly gentleman, who is seen in cardiac consultation at the request of Dr. Barreto. The patient apparently is admitted to the hospital with the gangrene and possibly requiring amputation and was noted to be tachycardic. Therefore, this consultation was requested. The patient is somewhat of a poor historian, but is able to provide information. The patient denies any chest pain at the present time. He has shortness of breath intermittently, but not at the present time. There is no PND or orthopnea. I does not really feel palpitations and does not have any dizziness or lightheadedness. PAST MEDICAL HISTORY: Positive for history of recent hospitalization in November of 2016 here with history of syncope, felt to be likely vasovagal, history acute on chronic renal failure, acute tubular necrosis, chronic kidney disease stage 5, secondary to diabetic nephropathy versus hypertensive nephrosclerosis, permanent atrial fibrillation, tachycardia, diabetes mellitus out of control, pacemaker secondary to sick sinus syndrome, history of hypertension, hyperlipidemia, thrombocytopenia, and encephalopathy. His pacemaker is apparently a single-chamber. He has previously been on Eliquis for his atrial fibrillation and his rate control with metoprolol was apparently adequate previously. He has history of systemic hypertension and diabetes mellitus as well. The chart indicates history of chronic obstructive pulmonary disease as well, but not completely clear. ALLERGIES: None per records. SOCIAL HISTORY: He lives in a convalescent facility. No smoking or alcohol or drug use at this time. REVIEW OF SYSTEMS: GASTROINTESTINAL: Denies any nausea or vomiting. No diarrhea or constipation. GENITOURINARY: Denies any discomfort on urination. PULMONARY SYSTEM: He does have cough occasionally. CONSTITUTIONAL: No fevers, chills, or night sweats. NEUROLOGIC: He denies. PHYSICAL EXAMINATION: GENERAL: Shows to be elderly gentleman, in no respiratory distress, although appears somewhat confused. NECK: Supple. No jugular venous distention. LUNGS: Relatively clear to auscultation and percussion. CARDIAC: Irregularly irregular. Tachycardic. No heaves or thrills noted. ABDOMEN: Soft and nontender. Positive bowel sounds. EXTREMITIES: He has no edema distally. NEUROLOGICAL: He is awake, responsive, communicative, but not oriented. LABORATORY AND DIAGNOSTIC DATA: White count of 9.2 with hemoglobin 11.3 and a platelet count of 129,000. His sodium is 141, potassium 4.0, chloride 104, bicarb 26, BUN 38, creatinine of 2.2, and a glucose of 324. His lactic acid was 2.3 at the time of admission. His troponin was 0.027 that was at 10 o'clock this morning despite the fact that he had been tachycardiac throughout the night. His albumin is 2.6. Coagulations were not done. PTT of 28. Urinalysis shows 2 to 4 RBCs and 0 to 2 WBCs. He did have a x-ray done of his chest that shows cardiomegaly equivocal and minimal interstitial congestive changes. A duplex study of upper extremity shows minimal plaque in both carotid bulbs. Doppler flow velocity is within normal limits throughout the internal and external carotid arteries and renal artery. Vertebral artery on the right is patent. The left was not fully visualized. His electrocardiogram shows atrial fibrillation with ventricular response to be rapid in the 130s and some nonspecific T-wave changes, otherwise unremarkable. Of note, he had an echocardiogram in November of last year that showed ejection fraction of 60%. No other significant pathology was noted at that time. X-rays of his foot showed osteoporosis and no acute bony trauma. ASSESSMENT: 1. Tachycardia. 2. Atrial fibrillation, permanent. 3. History of sick sinus syndrome, status post single-chamber permanent pacemaker implantation. 4. History of hypertension. 5. Diabetes mellitus. 6. Gangrene, left foot. 7. Peripheral vascular disease. 8. Diabetic foot ulcers. PLAN: Dr. Barreto, this patient was seen in cardiac consultation. The patient has had permanent atrial fibrillation. I have started him back on anticoagulation at the present time because of his gangrene and because of his atrial fibrillation. The etiology of the gangrene in the foot is not yet clear to me. He apparently has been on Eliquis at some point previously, but not known to me if prior to admission he had been on anticoagulation. Nevertheless, that will be continued if problem with heart rate controlled. I would discontinue the use of Norvasc and start him on some Cardizem, short-acting four times a day. The beta-blockers were administered. Discontinue the use of beta-agonist inhalers if possible. Intravenous beta-blockers will be administered if the patient continues to be tachycardic despite the Cardizem. Beta-blockers really have not been initiated as ordered earlier. Cardiac enzymes were negative. Repeat set will be ordered. An echocardiogram will be ordered as well. Anticoagulation for stroke prevention and of course for the gangrene, was already initiated as mentioned. Further recommendations depending on the results of his response to the above. Matheus Laws M.D. DR: ABIEL JOB#: [id number] CC:
--- NOTE | 2017-02-12 20:30 | History and Physical Report ---
DATE OF ADMISSION: 02/11/2017 TIME SEEN: 02/12/2017 at 2 p.m. ATTENDING PHYSICIAN: Pako Barreto D.O. CONSULTANTS: 1. Josee Guevara M.D. 2. Dr. Sevilla. 3. Kasi Perea D.P.M. 4. Matheus Laws M.D. 5. Davin Hensley M.D. 6. Karen Pettit M.D. 7. Murray Chi M.D. CHIEF COMPLAINT: Left toe ulcer, atrial fibrillation, weakness, and tremor. BRIEF HISTORY: The patient is a 66-year-old male from [facility], presented with foot wound that is getting worse, diagnosed with left toe ulcer and also atrial fibrillation, admitted to [facility] for further care. Currently confused in bed, not talking much. PAST MEDICAL HISTORY: Includes encephalopathy, hypertension, asthma, and diabetes. PAST SURGICAL HISTORY: Unknown. MEDICATIONS: Include Lipitor, Lopressor, Depakote, Zyvox, Robitussin, Cardizem, Colace, NovoLog, Cardizem, and Ecotrin. ALLERGIES: Denies. SOCIAL HISTORY: Unable to obtain. REVIEW OF SYSTEMS: Unavailable. PHYSICAL EXAMINATION: GENERAL: Calm in bed and nonverbal. VITAL SIGNS: Temperature is 97, pulse 103, respirations 24, and blood pressure 151/105. CARDIOVASCULAR: No murmur. LUNGS: Poor air exchange. ABDOMEN: Bowel sounds positive, distant. EXTREMITIES: No cyanosis, clubbing, or edema. Left toe, disheveled. Some wound noted, possible gangrene. Wound dressing clean and dry. NEUROLOGIC: The patient is unable to be assessed. The patient moves all extremities, but slightly weak. LABORATORY DATA: Labs at this time show hemoglobin 11.3 and platelet 129,000, otherwise, CBC is normal. BUN and creatinine are 30/2.2. Glucose 324. PTT is 29. Urinalysis 4+ glucose, otherwise, normal. ASSESSMENT: 1. Left toe ulcer. 2. Anemia. 3. Renal insufficiency. 4. Atrial fibrillation. 5. Encephalopathy. 6. Hypertension. 7. Asthma. 8. Diabetes. 9. Weakness. 10. Tremor. PLAN: 1. Continue premedications. 2. Wound care. 3. Antibiotics per Infectious Disease. 4. Blood pressure and blood sugar control. 5. Dietary followup. 6. Pain control. 7. Dr. Guevara, Dr. Sevilla, Dr. Perea, Dr. Laws, Dr. Hensley, Dr. Pettit, Dr. Chi, and Dr. Pelletier to consult. We will continue to follow this patient medically. Pako Barreto D.O. DR: DEREK JOB#: [id number] CC:
[2017-02-12] MEDS ORDERED: Metoprolol Tartrate 50mg tab ORAL SCH (21:00)
[2017-02-12] MEDS ORDERED: Metoprolol Tartrate 12.5mg TAB ORAL SCH (21:00)
[2017-02-12] MEDS: Depakote ER 500mg tab ORAL SCH (21:04)
[2017-02-12] MEDS: Metoprolol Tartrate 50mg tab ORAL SCH (21:04)
--- NOTE | 2017-02-12 23:30 | Consultation ---
DATE OF CONSULTATION: 02/12/2017 VASCULAR SURGERY CONSULTATION SURGEON: Davin Hensley M.D. REQUESTING PHYSICIAN: 1. Kasi Perea M.D. 2. Pako Barreto D.O. REASON FOR EVALUATION: Left toe gangrene and ischemia. HISTORY PRESENT ILLNESS: This is a 66-year-old male who was admitted through the emergency room with left toe infected gangrene. The patient is a poor historian, has dementia, disoriented, resides in the [facility]. Vascular Surgery is consulted for further evaluation. PAST MEDICAL HISTORY: As above. Per reviewing of records, he has extensive history of dementia, COPD, hypertension, diabetes mellitus, and peripheral vascular arterial occlusive disease. MEDICATIONS: See attached MAR. ALLERGIES: None known drug allergies. SOCIAL HISTORY: [facility] facility. Otherwise, unknown history of smoking, drugs or alcohol abuse. FAMILY HISTORY: Unobtainable due to altered mental status. PHYSICAL EXAMINATION: VITAL SIGNS: The patient is afebrile at 98, heart rate is 130, blood pressure 120/70, respirations 16, and 98% on 2 liters. GENERAL: He is alert, but confused, disoriented to time, person, and place. He has palpable radial pulses. LUNGS: Clear to auscultation. HEART: He has tachycardia. ABDOMEN: Soft and nontender. EXTREMITIES: He has a weakly palpable femoral pulses. Absent popliteal pulses. Absent pedal pulses bilaterally. He has an area of skin stasis dermatitis. He has left first toe gangrene with necrosis. LABORATORY AND DIAGNOSTIC DATA: Laboratory revealed BUN of 36, creatinine 2.3, and glucose 364. Albumin 2.3. WBC is 9.7, hemoglobin 11.2, and platelet count 134. IMPRESSION: Ischemic gangrenous infected left first toe with significant multi-level bilateral calcific arterial occlusive disease. Dementia, COPD, HTN, Tacchyarrythmia, Diabetes mellitus with renal failure RECOMMENDATIONS: Abx per ID Cardiology eval re his arrhythmia and anticoagulation Podiatry for infected toe and need for open amputation Once medically cleared optimized; will need selective left leg angiogram to assess for limb salvage revascularization d/w pt's nurse at length at bedside d/w PMD and podiatry Davin Licha Hensley DR: FOREST JOB#: [id number] CC: ALYSIA
[2017-02-13] VITALS: BP 151/100
[2017-02-13] MEDS ORDERED: Heparin 25,000u/D5W 500ml 500 ML IV SCH (01:45)
[2017-02-13 04:00] VITALS: BP 146/112
[2017-02-13] MEDS: dilTIAZem HCl 60mg tab ORAL SCH ×4 (05:24→23:52)
[2017-02-13] MEDS: NovoLOG Insulin Flexpen SUBQ SCH ×4 (06:43→21:31)
[2017-02-13 08:00] VITALS: BP 132/83
[2017-02-13 08:36] LABS: BASOPHILS % (AUTO) 0.8 % (0.0-2.0); EOSINOPHILS % (AUTO) 0.5 % (0.0-3.0); HEMATOCRIT 39.6 % (42.0-52.0); HEMOGLOBIN 12.8 G/DL (14.2-18.0); LYMPHOCYTES % (AUTO) 12.3 % (20.0-45.0); MEAN CORPUSCULAR VOLUME 100 FL (80-99); MONOCYTES % (AUTO) 5.5 % (1.0-10.0); NEUTROPHILS % (AUTO) 80.9 % (45.0-75.0); PLATELET COUNT 162 K/UL (150-450); RED BLOOD COUNT 3.96 M/UL (4.70-6.10); RED CELL DISTRIBUTION WIDTH 13.8 % (11.6-14.8); WHITE BLOOD COUNT 8.9 K/UL (4.8-10.8)
[2017-02-13] MEDS: Metoprolol Tartrate 50mg tab ORAL SCH ×2 (09:00→09:40)
[2017-02-13] MEDS ORDERED: Metoprolol 25mg tab ORAL SCH (09:00)
[2017-02-13 09:31] LABS: ALANINE AMINOTRANSFERASE 20 U/L (12-78); ALBUMIN 2.2 G/DL (3.4-5.0); ALBUMIN/GLOBULIN RATIO 0.4 (1.0-2.7); ALKALINE PHOSPHATASE 82 U/L (46-116); ANION GAP 9 mmol/L (5-15); ASPARTATE AMINO TRANSFERASE 19 U/L (15-37); BILIRUBIN,TOTAL 0.9 MG/DL (0.2-1.0); BLOOD UREA NITROGEN 26 mg/dL (7-18); CALCIUM 8.2 MG/DL (8.5-10.1); CARBON DIOXIDE 28 MMOL/L (21-32); CHLORIDE 104 MMOL/L (98-107); CHOLESTEROL 164 MG/DL (< 200); CREATINE KINASE 62 U/L (26-308); CREATININE 2.1 MG/DL (0.55-1.30); FERRITIN 1404 NG/ML (8-388); GAMMA GLUTAMYL TRANSPEPTIDASE 108 U/L (5-85); HDL CHOLESTEROL 56 MG/DL (40-60); PHOSPHORUS 2.8 MG/DL (2.5-4.9); POTASSIUM 3.2 MMOL/L (3.5-5.1); SODIUM 141 MMOL/L (136-145); TRIGLYCERIDES 86 MG/DL (30-150)
[2017-02-13] MEDS: Depakote ER 500mg tab ORAL SCH ×2 (10:01→21:24)
[2017-02-13] MEDS: Metoprolol 25mg tab ORAL SCH ×2 (10:01→21:28)
[2017-02-13] MEDS: Docusate 100mg cap ORAL SCH ×3 (10:01→17:06)
[2017-02-13] MEDS: sitaGLIPtin 25mg tab ORAL SCH (10:02)
[2017-02-13] MEDS: Aspirin EC 81mg tab ORAL SCH (10:02)
[2017-02-13] MEDS: Cefepime HCl 2 GM in D5W 110 ML IV SCH ×2 (10:10→21:23)
[2017-02-13 10:30] LABS: % IRON SATURATION 20 % (15-50); IRON 29 ug/dL (50-175); TOTAL IRON BINDING CAPACITY 146 ug/dL (250-450)
[2017-02-13] MEDS: Heparin 25,000u/D5W 500ml 500 ML IV SCH ×2 (11:21→18:23)
[2017-02-13 12:00] VITALS: BP 135/66
--- NOTE | 2017-02-13 12:31 | Infectious Diseases Prog Note ---
Assessment/Plan Assessment/Plan A: left foot cellulitis/ gangrene DM PVD CKD Atrial fibrillation, permanent anemia P: Continue Zyvox & Cefepime Will f/u cultures Subjective ROS Limited/Unobtainable: Yes Constitutional: Reports: fever, other - Fnxx=[id number] Musculoskeletal: Reports: pain, other - in left foot Allergies: Coded Allergies: No Known Allergies (Unverified , 11/26/16) Objective Vital Signs Last 24 Hour Vital Signs Date Time Temp Pulse Resp B/P (MAP) Pulse Ox O2 Delivery O2 Flow Rate FiO2 02/13/17 11:28 148 132/83 02/13/17 10:01 143 132/83 02/13/17 08:00 97.0 102 20 132/83 95 Nasal Cannula 2.0 02/13/17 08:00 136 02/13/17 07:06 112 20 Nasal Cannula 3.0 32 02/13/17 07:06 Nasal Cannula 2.0 28 02/13/17 07:06 97 Nasal Cannula 2.0 28 02/13/17 05:30 98.5 02/13/17 05:24 130 122/99 02/13/17 04:00 101.8 114 18 146/112 95 02/13/17 04:00 Nasal Cannula 2.0 02/13/17 04:00 136 02/13/17 01:57 99.9 02/13/17 00:00 112 02/13/17 00:00 Nasal Cannula 2.0 02/13/17 00:00 100.8 107 22 151/100 93 02/12/17 21:40 142 142/89 02/12/17 21:08 95 Nasal Cannula 3.0 32 02/12/17 21:08 Nasal Cannula 3.0 32 02/12/17 21:07 142 20 Nasal Cannula 3.0 32 02/12/17 21:04 142 142/89 02/12/17 20:00 132 02/12/17 20:00 Nasal Cannula 2.0 02/12/17 20:00 98.2 125 18 146/111 93 02/12/17 16:05 142 142/89 02/12/17 16:00 135 02/12/17 16:00 98.2 108 20 139/109 95 Room Air 02/12/17 15:53 138 142/89 02/12/17 15:39 148 142/89 02/12/17 15:39 148 142/89 Height (Feet): 5 Height (Inches): 10.00 Weight (Pounds): 225 General Appearance: no acute distress HEENT: mucous membranes moist Respiratory/Chest: lungs clear Cardiovascular: tachycardia, pacemaker/AICD Abdomen: soft, non tender Extremities: no edema, other Skin: ulcers, other - left foot first & second toes Microbiology Date/Time Source Procedure Growth Status 02/11/17 14:45 Blood Blood Culture - Preliminary NO GROWTH AFTER 24 HOURS Resulted 02/11/17 14:30 Blood Blood Culture - Preliminary NO GROWTH AFTER 24 HOURS Resulted 02/12/17 00:00 Wound Gram Stain - Final Resulted 02/12/17 00:00 Wound Culture - Preliminary Gram Negative Bacillus 1 Resulted Laboratory Tests Test 02/12/17 17:28 02/13/17 01:00 02/13/17 02:00 02/13/17 08:10 Activated Partial Thromboplast Time 127 SEC (23-33) H 97 SEC (23-33) H > 150 SEC (23-33) *H Urine Eosinophils None seen Urine Random Sodium 127 MEQ/L (20-110) H White Blood Count 8.9 K/UL (4.8-10.8) Red Blood Count 3.96 M/UL (4.70-6.10) L Hemoglobin 12.8 G/DL (14.2-18.0) L Hematocrit 39.6 % (42.0-52.0) L Mean Corpuscular Volume 100 FL (80-99) H Mean Corpuscular Hemoglobin 32.3 PG (27.0-31.0) H Mean Corpuscular Hemoglobin Concent 32.3 G/DL (32.0-36.0) Red Cell Distribution Width 13.8 % (11.6-14.8) Platelet Count 162 K/UL (150-450) Mean Platelet Volume 7.8 FL (6.5-10.1) Neutrophils (%) (Auto) 80.9 % (45.0-75.0) H Lymphocytes (%) (Auto) 12.3 % (20.0-45.0) L Monocytes (%) (Auto) 5.5 % (1.0-10.0) Eosinophils (%) (Auto) 0.5 % (0.0-3.0) Basophils (%) (Auto) 0.8 % (0.0-2.0) Sodium Level 141 MMOL/L (136-145) Potassium Level 3.2 MMOL/L (3.5-5.1) L Chloride Level 104 MMOL/L (98-107) Carbon Dioxide Level 28 MMOL/L (21-32) Anion Gap 9 mmol/L (5-15) Blood Urea Nitrogen 26 mg/dL (7-18) H Creatinine 2.1 MG/DL (0.55-1.30) H Estimat Glomerular Filtration Rate 38.5 mL/min (>60) Glucose Level 135 MG/DL (74-106) #H Hemoglobin A1c 8.2 % (4.3-6.0) H Uric Acid 8.1 MG/DL (2.6-7.2) H Calcium Level 8.2 MG/DL (8.5-10.1) L Phosphorus Level 2.8 MG/DL (2.5-4.9) Magnesium Level 1.6 MG/DL (1.8-2.4) L Iron Level 29 ug/dL (50-175) L Total Iron Binding Capacity 146 ug/dL (250-450) L Percent Iron Saturation 20 % (15-50) Unsaturated Iron Binding 117 ug/dL (112-346) Ferritin 1404 NG/ML (8-388) H Total Bilirubin 0.9 MG/DL (0.2-1.0) Gamma Glutamyl Transpeptidase 108 U/L (5-85) H Aspartate Amino Transf (AST/SGOT) 19 U/L (15-37) Alanine Aminotransferase (ALT/SGPT) 20 U/L (12-78) Alkaline Phosphatase 82 U/L (46-116) Total Creatine Kinase 62 U/L (26-308) Troponin I 0.056 ng/mL (0.000-0.056) C-Reactive Protein, Quantitative 12.3 mg/dL (0.00-0.90) H Pro-B-Type Natriuretic Peptide 5149 pg/mL (0-125) H Total Protein 7.1 G/DL (6.4-8.2) Albumin 2.2 G/DL (3.4-5.0) L Globulin 4.9 g/dL Albumin/Globulin Ratio 0.4 (1.0-2.7) L Triglycerides Level 86 MG/DL (30-150) Cholesterol Level 164 MG/DL (< 200) LDL Cholesterol 97 mg/dL (<100) HDL Cholesterol 56 MG/DL (40-60) Cholesterol/HDL Ratio 2.9 (3.3-4.4) L Vitamin B12 Level 1900 PG/ML (193-986) H Folate 11.7 NG/ML (8.6-58.9) Thyroid Stimulating Hormone (TSH) 0.663 uiU/mL (0.358-3.740) Current Medications Medications (Trade) Dose Ordered Sig/Anahi Route PRN Reason Start Time Stop Time Status Last Admin Dose Admin Acetaminophen (Tylenol) 650 mg Q4H PRN ORAL fever (temp>100.5F) 02/11/17 17:30 03/13/17 17:29 02/13/17 00:58 Albuterol/ Ipratropium (Albuterol/ Ipratropium) 3 ml Q4H PRN HHN Shortness of Breath 02/11/17 17:30 02/16/17 17:29 Aspirin (Ecotrin) 81 mg DAILY ORAL 02/12/17 09:00 03/14/17 08:59 02/13/17 10:02 Atorvastatin Calcium (Lipitor) 20 mg BEDTIME ORAL 02/12/17 21:00 03/14/17 20:59 02/12/17 21:04 Cefepime HCl 2 gm/ Dextrose 110 ml @ 220 mls/hr EVERY 12 HOURS IV 02/11/17 21:00 02/18/17 20:59 02/13/17 10:10 Dextrose (Dextrose 50%) STAT PRN IV Hypoglycemia 02/12/17 07:15 03/14/17 07:14 Diltiazem HCl (Cardizem) 20 mg Q1H PRN IVP HR > 120 02/12/17 07:45 03/14/17 07:44 Diltiazem HCl (Cardizem) 90 mg Q6HR ORAL 02/13/17 11:00 03/15/17 10:59 02/13/17 11:28 Divalproex Sodium (Depakote ER) 500 mg EVERY 12 HOURS ORAL 02/12/17 21:00 03/14/17 20:59 02/13/17 10:01 Docusate Sodium (Colace) 100 mg TID ORAL 02/12/17 13:45 03/14/17 13:44 02/13/17 10:01 Guaifenesin/ Codeine Phosphate (Robitussin with codeine) 5 ml Q6H PRN ORAL For Cough 02/12/17 14:30 03/14/17 14:29 02/12/17 16:04 Heparin Sodium/ Dextrose 500 ml @ 18.36 mls/ hr adjust per protocol IV 02/13/17 10:20 03/15/17 10:19 02/13/17 11:21 Insulin Aspart (NovoLOG) BEFORE MEALS AND HS SUBQ 02/12/17 07:15 03/14/17 07:14 02/13/17 06:43 Linezolid (Zyvox) 600 mg Q12HR@0600,1800 ORAL 02/12/17 15:00 02/17/17 14:59 02/13/17 05:28 Metoprolol Tartrate (Lopressor) 75 mg Q12HR ORAL 02/13/17 09:45 03/15/17 09:44 02/13/17 10:01 Morphine Sulfate (Morphine Sulfate) 2 mg Q4H PRN IVP Moderate Pain (Pain Scale 4-6) 02/11/17 17:30 02/18/17 17:29 Nitroglycerin (Ntg) 0.4 mg Q5M PRN SL Prn Chest Pain 02/11/17 17:30 03/13/17 17:29 Ondansetron HCl (Zofran) 4 mg Q6H PRN IVP Nausea & Vomiting 02/11/17 17:30 03/13/17 17:29 Polyethylene Glycol (Miralax) 17 gm DAILYPRN PRN ORAL Constipation 02/11/17 17:30 03/13/17 17:29 Sitagliptin Phosphate (Januvia) 50 mg DAILY ORAL 02/12/17 09:00 03/14/17 08:59 02/13/17 10:02 Temazepam (Restoril) 15 mg HSPRN PRN ORAL Insomnia 02/11/17 17:30 02/18/17 17:29 MARYLIN WOOD Feb 13, 2017 12:31
--- NOTE | 2017-02-13 13:43 | Nephrology Progress Note ---
Assessment/Plan Problem List: (1) Diabetic foot ulcer (2) Atrial fibrillation (3) Pacemaker (4) Acute on chronic renal failure (5) Diabetic nephropathy Assessment Renal failure - Likely chronic with superimposed acute Hypo Albuminemia Anemia DM, Nephropathy Diabetic foot ulcer / gang toes Atrial fibrillation Plan Urine studies K and Mag supplement keep BP and BS and HR in check monitor renal parameters anemia falk avoid nephrotoxics per orders Subjective ROS Limited/Unobtainable: No Constitutional: Reports: malaise Objective Objective Last 24 Hour Vital Signs Date Time Temp Pulse Resp B/P (MAP) Pulse Ox O2 Delivery O2 Flow Rate FiO2 02/13/17 12:00 97.5 111 20 135/66 97 Nasal Cannula 2.0 02/13/17 12:00 119 02/13/17 11:28 148 132/83 02/13/17 10:01 143 132/83 02/13/17 08:00 97.0 102 20 132/83 95 Nasal Cannula 2.0 02/13/17 08:00 136 02/13/17 07:06 112 20 Nasal Cannula 3.0 32 02/13/17 07:06 Nasal Cannula 2.0 28 02/13/17 07:06 97 Nasal Cannula 2.0 28 02/13/17 05:30 98.5 02/13/17 05:24 130 122/99 02/13/17 04:00 101.8 114 18 146/112 95 02/13/17 04:00 Nasal Cannula 2.0 02/13/17 04:00 136 02/13/17 01:57 99.9 02/13/17 00:00 112 02/13/17 00:00 Nasal Cannula 2.0 02/13/17 00:00 100.8 107 22 151/100 93 02/12/17 21:40 142 142/89 02/12/17 21:08 95 Nasal Cannula 3.0 32 02/12/17 21:08 Nasal Cannula 3.0 32 02/12/17 21:07 142 20 Nasal Cannula 3.0 32 02/12/17 21:04 142 142/89 02/12/17 20:00 132 02/12/17 20:00 Nasal Cannula 2.0 02/12/17 20:00 98.2 125 18 146/111 93 02/12/17 16:05 142 142/89 02/12/17 16:00 135 02/12/17 16:00 98.2 108 20 139/109 95 Room Air 02/12/17 15:53 138 142/89 02/12/17 15:39 148 142/89 02/12/17 15:39 148 142/89 Intake and Output 02/12/17 02/13/17 19:00 07:00 Intake Total 730.82 ml 563.27 ml Output Total 250 ml 1500 ml Balance 480.82 ml -936.73 ml Intake Oral 360 ml 120 ml IV Total 370.82 ml 443.27 ml Output Urine Total 250 ml 1500 ml # Voids 3 # Bowel Movements 1 Laboratory Tests 02/12/17 17:28: Activated Partial Thromboplast Time 127H 02/13/17 01:00: Activated Partial Thromboplast Time 97H 02/13/17 02:00: Urine Eosinophils None seen, Urine Random Sodium 127H 02/13/17 08:10: Activated Partial Thromboplast Time > 150*H, White Blood Count 8.9, Red Blood Count 3.96L, Hemoglobin 12.8L, Hematocrit 39.6L, Mean Corpuscular Volume 100H, Mean Corpuscular Hemoglobin 32.3H, Mean Corpuscular Hemoglobin Concent 32.3, Red Cell Distribution Width 13.8, Platelet Count 162, Mean Platelet Volume 7.8, Neutrophils (%) (Auto) 80.9H, Lymphocytes (%) (Auto) 12.3L, Monocytes (%) (Auto ) 5.5, Eosinophils (%) (Auto) 0.5, Basophils (%) (Auto) 0.8, Sodium Level 141, Potassium Level 3.2L, Chloride Level 104, Carbon Dioxide Level 28, Anion Gap 9, Blood Urea Nitrogen 26H, Creatinine 2.1H, Estimat Glomerular Filtration Rate 38.5, Glucose Level 135#H, Hemoglobin A1c 8.2H, Uric Acid 8.1H, Calcium Level 8.2L, Phosphorus Level 2.8, Magnesium Level 1.6L, Iron Level 29L, Total Iron Binding Capacity 146L, Percent Iron Saturation 20, Unsaturated Iron Binding 117 , Ferritin 1404H, Total Bilirubin 0.9, Gamma Glutamyl Transpeptidase 108H, Aspartate Amino Transf (AST/SGOT) 19, Alanine Aminotransferase (ALT/SGPT) 20, Alkaline Phosphatase 82, Total Creatine Kinase 62, Troponin I 0.056, C-Reactive Protein, Quantitative 12.3H, Pro-B-Type Natriuretic Peptide 5149H, Total Protein 7.1, Albumin 2.2L, Globulin 4.9, Albumin/Globulin Ratio 0.4L, Triglycerides Level 86, Cholesterol Level 164, LDL Cholesterol 97, HDL Cholesterol 56, Cholesterol/HDL Ratio 2.9L, Vitamin B12 Level 1900H, Folate 11.7 , Thyroid Stimulating Hormone (TSH) 0.663 Height (Feet): 5 Height (Inches): 10.00 Weight (Pounds): 225 General Appearance: no apparent distress Cardiovascular: arrhythmia Respiratory/Chest: decreased breath sounds Abdomen: distended BHAVANI VACA Feb 13, 2017 13:43
--- NOTE | 2017-02-13 14:38 | General Progress Note ---
Assessment/Plan Problem List: (1) HTN (hypertension) ICD Codes: I10 - Essential (primary) hypertension SNOMED: 21612738 (2) Diabetes mellitus ICD Codes: E11.9 - Type 2 diabetes mellitus without complications SNOMED: 23890848 (3) Diabetic foot ulcers ICD Codes: E11.621 - Type 2 diabetes mellitus with foot ulcer; L97.509 - Non- pressure chronic ulcer of other part of unspecified foot with unspecified severity SNOMED: 637156573, 79702421 (4) Atrial fibrillation ICD Codes: I48.91 - Unspecified atrial fibrillation SNOMED: 21497619 (5) Gangrenous toe ICD Codes: I96 - Gangrene, not elsewhere classified SNOMED: 524032461 (6) Rapid atrial fibrillation ICD Codes: I48.91 - Unspecified atrial fibrillation SNOMED: 260062800 (7) Acute on chronic renal failure ICD Codes: N17.9 - Acute kidney failure, unspecified; N18.9 - Chronic kidney disease, unspecified SNOMED: 917260418 Status: stable, progressing, tolerating diet Assessment/Plan ot pt diet wound care cardio f/u cbc bmp am Subjective Constitutional: Reports: weakness Allergies: Coded Allergies: No Known Allergies (Unverified , 11/26/16) All Systems: reviewed and negative except above Subjective sleepy confused Objective Last 24 Hour Vital Signs Date Time Temp Pulse Resp B/P (MAP) Pulse Ox O2 Delivery O2 Flow Rate FiO2 02/13/17 12:00 97.5 111 20 135/66 97 Nasal Cannula 2.0 02/13/17 12:00 119 02/13/17 11:28 148 132/83 02/13/17 10:01 143 132/83 02/13/17 08:00 97.0 102 20 132/83 95 Nasal Cannula 2.0 02/13/17 08:00 136 02/13/17 07:06 112 20 Nasal Cannula 3.0 32 02/13/17 07:06 Nasal Cannula 2.0 28 02/13/17 07:06 97 Nasal Cannula 2.0 28 02/13/17 05:30 98.5 02/13/17 05:24 130 122/99 02/13/17 04:00 101.8 114 18 146/112 95 02/13/17 04:00 Nasal Cannula 2.0 02/13/17 04:00 136 02/13/17 01:57 99.9 02/13/17 00:00 112 02/13/17 00:00 Nasal Cannula 2.0 02/13/17 00:00 100.8 107 22 151/100 93 02/12/17 21:40 142 142/89 02/12/17 21:08 95 Nasal Cannula 3.0 32 02/12/17 21:08 Nasal Cannula 3.0 32 02/12/17 21:07 142 20 Nasal Cannula 3.0 32 02/12/17 21:04 142 142/89 02/12/17 20:00 132 02/12/17 20:00 Nasal Cannula 2.0 02/12/17 20:00 98.2 125 18 146/111 93 02/12/17 16:05 142 142/89 02/12/17 16:00 135 02/12/17 16:00 98.2 108 20 139/109 95 Room Air 02/12/17 15:53 138 142/89 02/12/17 15:39 148 142/89 02/12/17 15:39 148 142/89 Intake and Output 02/12/17 02/13/17 19:00 07:00 Intake Total 730.82 ml 563.27 ml Output Total 250 ml 1500 ml Balance 480.82 ml -936.73 ml Intake Oral 360 ml 120 ml IV Total 370.82 ml 443.27 ml Output Urine Total 250 ml 1500 ml # Voids 3 # Bowel Movements 1 Laboratory Tests 02/12/17 17:28: Activated Partial Thromboplast Time 127H 02/13/17 01:00: Activated Partial Thromboplast Time 97H 02/13/17 02:00: Urine Eosinophils None seen, Urine Random Sodium 127H 02/13/17 08:10: Activated Partial Thromboplast Time > 150*H, White Blood Count 8.9, Red Blood Count 3.96L, Hemoglobin 12.8L, Hematocrit 39.6L, Mean Corpuscular Volume 100H, Mean Corpuscular Hemoglobin 32.3H, Mean Corpuscular Hemoglobin Concent 32.3, Red Cell Distribution Width 13.8, Platelet Count 162, Mean Platelet Volume 7.8, Neutrophils (%) (Auto) 80.9H, Lymphocytes (%) (Auto) 12.3L, Monocytes (%) (Auto ) 5.5, Eosinophils (%) (Auto) 0.5, Basophils (%) (Auto) 0.8, Sodium Level 141, Potassium Level 3.2L, Chloride Level 104, Carbon Dioxide Level 28, Anion Gap 9, Blood Urea Nitrogen 26H, Creatinine 2.1H, Estimat Glomerular Filtration Rate 38.5, Glucose Level 135#H, Hemoglobin A1c 8.2H, Uric Acid 8.1H, Calcium Level 8.2L, Phosphorus Level 2.8, Magnesium Level 1.6L, Iron Level 29L, Total Iron Binding Capacity 146L, Percent Iron Saturation 20, Unsaturated Iron Binding 117 , Ferritin 1404H, Total Bilirubin 0.9, Gamma Glutamyl Transpeptidase 108H, Aspartate Amino Transf (AST/SGOT) 19, Alanine Aminotransferase (ALT/SGPT) 20, Alkaline Phosphatase 82, Total Creatine Kinase 62, Troponin I 0.056, C-Reactive Protein, Quantitative 12.3H, Pro-B-Type Natriuretic Peptide 5149H, Total Protein 7.1, Albumin 2.2L, Globulin 4.9, Albumin/Globulin Ratio 0.4L, Triglycerides Level 86, Cholesterol Level 164, LDL Cholesterol 97, HDL Cholesterol 56, Cholesterol/HDL Ratio 2.9L, Vitamin B12 Level 1900H, Folate 11.7 , Thyroid Stimulating Hormone (TSH) 0.663 Height (Feet): 5 Height (Inches): 10.00 Weight (Pounds): 225 General Appearance: lethargic EENT: normal ENT inspection Neck: normal alignment Cardiovascular: normal peripheral pulses, normal rate, regular rhythm Respiratory/Chest: chest wall non-tender, lungs clear, normal breath sounds Abdomen: normal bowel sounds, non tender, soft Extremities: normal inspection Edema: no edema noted Arm (L), no edema noted Arm (R), no edema noted Leg (L), no edema noted Leg (R), no edema noted Pedal (L), no edema noted Pedal (R), no edema noted Generalized Neurologic: motor weakness Skin: normal pigmentation, warm/dry CLARITA TEMPLETON Feb 13, 2017 14:38
[2017-02-13 15:49] VITALS: BP 134/102
--- NOTE | 2017-02-13 16:14 | Pulmonology Progress Note ---
Assessment/Plan Problems: (1) Gangrenous toe (2) Rapid atrial fibrillation (3) HTN (hypertension) (4) Diabetes mellitus (5) Pacemaker (6) Diabetic foot ulcers Assessment/Plan heart rate better continue abx respiratory treatment titrate fio2 awaiting surgical evalution psych evaluation. Subjective Interval Events: agitated at times, better now Allergies: Coded Allergies: No Known Allergies (Unverified , 11/26/16) Objective Last 24 Hour Vital Signs Date Time Temp Pulse Resp B/P (MAP) Pulse Ox O2 Delivery O2 Flow Rate FiO2 02/13/17 15:49 98.6 117 22 134/102 96 02/13/17 12:00 97.5 111 20 135/66 97 Nasal Cannula 2.0 02/13/17 12:00 119 02/13/17 11:28 148 132/83 02/13/17 10:01 143 132/83 02/13/17 08:00 97.0 102 20 132/83 95 Nasal Cannula 2.0 02/13/17 08:00 136 02/13/17 07:06 112 20 Nasal Cannula 3.0 32 02/13/17 07:06 Nasal Cannula 2.0 28 02/13/17 07:06 97 Nasal Cannula 2.0 28 02/13/17 05:30 98.5 02/13/17 05:24 130 122/99 02/13/17 04:00 101.8 114 18 146/112 95 02/13/17 04:00 Nasal Cannula 2.0 02/13/17 04:00 136 02/13/17 01:57 99.9 02/13/17 00:00 112 02/13/17 00:00 Nasal Cannula 2.0 02/13/17 00:00 100.8 107 22 151/100 93 02/12/17 21:40 142 142/89 02/12/17 21:08 95 Nasal Cannula 3.0 32 02/12/17 21:08 Nasal Cannula 3.0 32 02/12/17 21:07 142 20 Nasal Cannula 3.0 32 02/12/17 21:04 142 142/89 02/12/17 20:00 132 02/12/17 20:00 Nasal Cannula 2.0 02/12/17 20:00 98.2 125 18 146/111 93 Intake and Output 02/12/17 02/13/17 19:00 07:00 Intake Total 730.82 ml 563.27 ml Output Total 250 ml 1500 ml Balance 480.82 ml -936.73 ml Intake Oral 360 ml 120 ml IV Total 370.82 ml 443.27 ml Output Urine Total 250 ml 1500 ml # Voids 3 # Bowel Movements 1 Objective General Appearance: WD/WN Lines, tubes and drains: peripheral, PICC HEENT: normocephalic, anicteric Neck: normal alignment Respiratory/Chest: chest wall non-tender, lungs clear Abdomen: normal bowel sounds, non tender Genitourinary/Rectal: normal genital exam Extremities: other - cold feet Microbiology Date/Time Source Procedure Growth Status 02/11/17 14:45 Blood Blood Culture - Preliminary NO GROWTH AFTER 24 HOURS Resulted 02/11/17 14:30 Blood Blood Culture - Preliminary NO GROWTH AFTER 24 HOURS Resulted 02/12/17 00:00 Wound Gram Stain - Final Resulted 02/12/17 00:00 Wound Culture - Preliminary Gram Negative Bacillus 1 Resulted Laboratory Tests 02/12/17 17:28: Activated Partial Thromboplast Time 127H 02/13/17 01:00: Activated Partial Thromboplast Time 97H 02/13/17 02:00: Urine Eosinophils None seen, Urine Random Sodium 127H 02/13/17 08:10: Activated Partial Thromboplast Time > 150*H, White Blood Count 8.9, Red Blood Count 3.96L, Hemoglobin 12.8L, Hematocrit 39.6L, Mean Corpuscular Volume 100H, Mean Corpuscular Hemoglobin 32.3H, Mean Corpuscular Hemoglobin Concent 32.3, Red Cell Distribution Width 13.8, Platelet Count 162, Mean Platelet Volume 7.8, Neutrophils (%) (Auto) 80.9H, Lymphocytes (%) (Auto) 12.3L, Monocytes (%) (Auto ) 5.5, Eosinophils (%) (Auto) 0.5, Basophils (%) (Auto) 0.8, Sodium Level 141, Potassium Level 3.2L, Chloride Level 104, Carbon Dioxide Level 28, Anion Gap 9, Blood Urea Nitrogen 26H, Creatinine 2.1H, Estimat Glomerular Filtration Rate 38.5, Glucose Level 135#H, Hemoglobin A1c 8.2H, Uric Acid 8.1H, Calcium Level 8.2L, Phosphorus Level 2.8, Magnesium Level 1.6L, Iron Level 29L, Total Iron Binding Capacity 146L, Percent Iron Saturation 20, Unsaturated Iron Binding 117 , Ferritin 1404H, Total Bilirubin 0.9, Gamma Glutamyl Transpeptidase 108H, Aspartate Amino Transf (AST/SGOT) 19, Alanine Aminotransferase (ALT/SGPT) 20, Alkaline Phosphatase 82, Total Creatine Kinase 62, Troponin I 0.056, C-Reactive Protein, Quantitative 12.3H, Pro-B-Type Natriuretic Peptide 5149H, Total Protein 7.1, Albumin 2.2L, Globulin 4.9, Albumin/Globulin Ratio 0.4L, Triglycerides Level 86, Cholesterol Level 164, LDL Cholesterol 97, HDL Cholesterol 56, Cholesterol/HDL Ratio 2.9L, Vitamin B12 Level 1900H, Folate 11.7 , Thyroid Stimulating Hormone (TSH) 0.663 Current Medications Medications (Trade) Dose Ordered Sig/Anahi Route PRN Reason Start Time Stop Time Status Last Admin Dose Admin Acetaminophen (Tylenol) 650 mg Q4H PRN ORAL fever (temp>100.5F) 02/11/17 17:30 03/13/17 17:29 02/13/17 00:58 Albuterol/ Ipratropium (Albuterol/ Ipratropium) 3 ml Q4H PRN HHN Shortness of Breath 02/11/17 17:30 02/16/17 17:29 Aspirin (Ecotrin) 81 mg DAILY ORAL 02/12/17 09:00 03/14/17 08:59 02/13/17 10:02 Atorvastatin Calcium (Lipitor) 20 mg BEDTIME ORAL 02/12/17 21:00 03/14/17 20:59 02/12/17 21:04 Cefepime HCl 2 gm/ Dextrose 110 ml @ 220 mls/hr EVERY 12 HOURS IV 02/11/17 21:00 02/18/17 20:59 02/13/17 10:10 Dextrose (Dextrose 50%) STAT PRN IV Hypoglycemia 02/12/17 07:15 03/14/17 07:14 Diltiazem HCl (Cardizem) 20 mg Q1H PRN IVP HR > 120 02/12/17 07:45 03/14/17 07:44 Diltiazem HCl (Cardizem) 90 mg Q6HR ORAL 02/13/17 11:00 03/15/17 10:59 02/13/17 11:28 Divalproex Sodium (Depakote ER) 500 mg EVERY 12 HOURS ORAL 02/12/17 21:00 03/14/17 20:59 02/13/17 10:01 Docusate Sodium (Colace) 100 mg TID ORAL 02/12/17 13:45 03/14/17 13:44 02/13/17 10:01 Guaifenesin/ Codeine Phosphate (Robitussin with codeine) 5 ml Q6H PRN ORAL For Cough 02/12/17 14:30 03/14/17 14:29 02/12/17 16:04 Heparin Sodium/ Dextrose 500 ml @ 18.36 mls/ hr adjust per protocol IV 02/13/17 10:20 03/15/17 10:19 02/13/17 11:21 Insulin Aspart (NovoLOG) BEFORE MEALS AND HS SUBQ 02/12/17 07:15 03/14/17 07:14 02/13/17 06:43 Linezolid (Zyvox) 600 mg Q12HR@0600,1800 ORAL 02/12/17 15:00 02/17/17 14:59 02/13/17 05:28 Magnesium Sulfate 100 ml @ 100 mls/hr Q1H IVPB 02/13/17 14:30 02/13/17 16:29 02/13/17 15:38 Metoprolol Tartrate (Lopressor) 75 mg Q12HR ORAL 02/13/17 09:45 03/15/17 09:44 02/13/17 10:01 Morphine Sulfate (Morphine Sulfate) 2 mg Q4H PRN IVP Moderate Pain (Pain Scale 4-6) 02/11/17 17:30 02/18/17 17:29 Nitroglycerin (Ntg) 0.4 mg Q5M PRN SL Prn Chest Pain 02/11/17 17:30 03/13/17 17:29 Ondansetron HCl (Zofran) 4 mg Q6H PRN IVP Nausea & Vomiting 02/11/17 17:30 03/13/17 17:29 Polyethylene Glycol (Miralax) 17 gm DAILYPRN PRN ORAL Constipation 02/11/17 17:30 03/13/17 17:29 Potassium Chloride (K-Dur) 40 meq DAILY ORAL 02/13/17 14:30 2/4/18 14:29 02/13/17 15:38 Sitagliptin Phosphate (Januvia) 50 mg DAILY ORAL 02/12/17 09:00 03/14/17 08:59 02/13/17 10:02 Temazepam (Restoril) 15 mg HSPRN PRN ORAL Insomnia 02/11/17 17:30 02/18/17 17:29 SATHYA MEIER Feb 13, 2017 16:14
--- NOTE | 2017-02-13 18:06 | Cardiology Progress Note ---
Assessment/Plan Assessment/Plan 1. Tachycardia. 2. Atrial fibrillation, permanent. 3. History of sick sinus syndrome, status post single-chamber permanent pacemaker implantation. 4. History of hypertension. 5. Diabetes mellitus. 6. Gangrene, left foot. 7. Peripheral vascular disease. 8. Diabetic foot ulcers. hr still elevated specially when agitated bb and cardizem both increased he will need further increase as well he buck a pacemaker so nathalie should not be a problem will consider interrogation of pacer tomorrow Subjective ROS Limited/Unobtainable: Yes Objective Last 24 Hour Vital Signs Date Time Temp Pulse Resp B/P (MAP) Pulse Ox O2 Delivery O2 Flow Rate FiO2 02/13/17 17:06 117 134/102 02/13/17 16:00 98 02/13/17 15:49 98.6 117 22 134/102 96 02/13/17 12:00 97.5 111 20 135/66 97 Nasal Cannula 2.0 02/13/17 12:00 119 02/13/17 11:28 148 132/83 02/13/17 10:01 143 132/83 02/13/17 08:00 97.0 102 20 132/83 95 Nasal Cannula 2.0 02/13/17 08:00 136 02/13/17 07:06 112 20 Nasal Cannula 3.0 32 02/13/17 07:06 Nasal Cannula 2.0 28 02/13/17 07:06 97 Nasal Cannula 2.0 28 02/13/17 05:30 98.5 02/13/17 05:24 130 122/99 02/13/17 04:00 101.8 114 18 146/112 95 02/13/17 04:00 Nasal Cannula 2.0 02/13/17 04:00 136 02/13/17 01:57 99.9 02/13/17 00:00 112 02/13/17 00:00 Nasal Cannula 2.0 02/13/17 00:00 100.8 107 22 151/100 93 02/12/17 21:40 142 142/89 02/12/17 21:08 95 Nasal Cannula 3.0 32 02/12/17 21:08 Nasal Cannula 3.0 32 02/12/17 21:07 142 20 Nasal Cannula 3.0 32 02/12/17 21:04 142 142/89 02/12/17 20:00 132 02/12/17 20:00 Nasal Cannula 2.0 02/12/17 20:00 98.2 125 18 146/111 93 General Appearance: no apparent distress Neck: supple Cardiovascular: irregularly irregular Respiratory/Chest: chest wall non-tender, lungs clear Abdomen: normal bowel sounds, non tender, soft Extremities: no swelling Intake and Output 02/12/17 02/13/17 19:00 07:00 Intake Total 730.82 ml 563.27 ml Output Total 250 ml 1500 ml Balance 480.82 ml -936.73 ml Intake Oral 360 ml 120 ml IV Total 370.82 ml 443.27 ml Output Urine Total 250 ml 1500 ml # Voids 3 # Bowel Movements 1 Laboratory Tests Test 02/13/17 01:00 02/13/17 02:00 02/13/17 08:10 02/13/17 17:15 Activated Partial Thromboplast Time 97 SEC (23-33) H > 150 SEC (23-33) *H 63 SEC (23-33) H Urine Eosinophils None seen Urine Random Sodium 127 MEQ/L (20-110) H White Blood Count 8.9 K/UL (4.8-10.8) Red Blood Count 3.96 M/UL (4.70-6.10) L Hemoglobin 12.8 G/DL (14.2-18.0) L Hematocrit 39.6 % (42.0-52.0) L Mean Corpuscular Volume 100 FL (80-99) H Mean Corpuscular Hemoglobin 32.3 PG (27.0-31.0) H Mean Corpuscular Hemoglobin Concent 32.3 G/DL (32.0-36.0) Red Cell Distribution Width 13.8 % (11.6-14.8) Platelet Count 162 K/UL (150-450) Mean Platelet Volume 7.8 FL (6.5-10.1) Neutrophils (%) (Auto) 80.9 % (45.0-75.0) H Lymphocytes (%) (Auto) 12.3 % (20.0-45.0) L Monocytes (%) (Auto) 5.5 % (1.0-10.0) Eosinophils (%) (Auto) 0.5 % (0.0-3.0) Basophils (%) (Auto) 0.8 % (0.0-2.0) Sodium Level 141 MMOL/L (136-145) Potassium Level 3.2 MMOL/L (3.5-5.1) L Chloride Level 104 MMOL/L (98-107) Carbon Dioxide Level 28 MMOL/L (21-32) Anion Gap 9 mmol/L (5-15) Blood Urea Nitrogen 26 mg/dL (7-18) H Creatinine 2.1 MG/DL (0.55-1.30) H Estimat Glomerular Filtration Rate 38.5 mL/min (>60) Glucose Level 135 MG/DL (74-106) #H Hemoglobin A1c 8.2 % (4.3-6.0) H Uric Acid 8.1 MG/DL (2.6-7.2) H Calcium Level 8.2 MG/DL (8.5-10.1) L Phosphorus Level 2.8 MG/DL (2.5-4.9) Magnesium Level 1.6 MG/DL (1.8-2.4) L Iron Level 29 ug/dL (50-175) L Total Iron Binding Capacity 146 ug/dL (250-450) L Percent Iron Saturation 20 % (15-50) Unsaturated Iron Binding 117 ug/dL (112-346) Ferritin 1404 NG/ML (8-388) H Total Bilirubin 0.9 MG/DL (0.2-1.0) Gamma Glutamyl Transpeptidase 108 U/L (5-85) H Aspartate Amino Transf (AST/SGOT) 19 U/L (15-37) Alanine Aminotransferase (ALT/SGPT) 20 U/L (12-78) Alkaline Phosphatase 82 U/L (46-116) Total Creatine Kinase 62 U/L (26-308) Troponin I 0.056 ng/mL (0.000-0.056) C-Reactive Protein, Quantitative 12.3 mg/dL (0.00-0.90) H Pro-B-Type Natriuretic Peptide 5149 pg/mL (0-125) H Total Protein 7.1 G/DL (6.4-8.2) Albumin 2.2 G/DL (3.4-5.0) L Globulin 4.9 g/dL Albumin/Globulin Ratio 0.4 (1.0-2.7) L Triglycerides Level 86 MG/DL (30-150) Cholesterol Level 164 MG/DL (< 200) LDL Cholesterol 97 mg/dL (<100) HDL Cholesterol 56 MG/DL (40-60) Cholesterol/HDL Ratio 2.9 (3.3-4.4) L Vitamin B12 Level 1900 PG/ML (193-986) H Folate 11.7 NG/ML (8.6-58.9) Thyroid Stimulating Hormone (TSH) 0.663 uiU/mL (0.358-3.740) Microbiology Date/Time Source Procedure Growth Status 02/11/17 14:45 Blood Blood Culture - Preliminary NO GROWTH AFTER 24 HOURS Resulted 02/11/17 14:30 Blood Blood Culture - Preliminary NO GROWTH AFTER 24 HOURS Resulted 02/12/17 00:00 Wound Gram Stain - Final Resulted 02/12/17 00:00 Wound Culture - Preliminary Gram Negative Bacillus 1 Resulted BOBBY BURNETTE Feb 13, 2017 18:06
[2017-02-13] MEDS ORDERED: Heparin 5000 units/ml inj IV ONE (18:30)
--- NOTE | 2017-02-13 19:05 | Consultation ---
History of Present Illness General Date patient seen: Feb 12, 2017 Chief Complaint: General Complaint Present Illness HPI 66-year-old male who was admitted through the emergency room with left toe infected gangrene. The patient is a poor historian, has dementia, disoriented, and is agitated. the pt is not following staff direction. has waxing and waning of consciousness. the pt was unable to answer any questions. Allergies: Coded Allergies: No Known Allergies (Unverified , 11/26/16) Medication History Scheduled Amlodipine Besylate* (Amlodipine Besylate*), 10 MG ORAL DAILY, (Reported) Atorvastatin Calcium* (Lipitor*), 20 MG ORAL DAILY, (Reported) Clonidine Hcl (Clonidine Hcl), 0.1 MG PO EVERY 6 HOURS, (Reported) Divalproex Sodium* (Depakote Er*), 500 MG ORAL EVERY 12 HOURS, (Reported) Docusate Sodium* (Colace*), 100 MG ORAL DAILY, (Reported) Insulin Aspart (Novolog), UNITS SUBQ AC+HS, (Reported) Lorazepam* (Ativan*), 1 MG ORAL EVERY 6 HOURS, (Reported) Memantine Hcl* (Namenda*), 5 MG ORAL TWICE A DAY, (Reported) Metoprolol Tartrate* (Metoprolol Tartrate*), 50 MG ORAL EVERY 12 HOURS, ( Reported) Olanzapine (Zyprexa), 7.5 MG ORAL DAILY, (Reported) Prednisone* (Prednisone*), 40 MG ORAL DAILY, (Reported) [Sitagliptin*], 100 MG PO DAILY, (Reported) Scheduled PRN Acetaminophen* (Acetaminophen 325MG Tablet*), 650 MG ORAL Q6H PRN for Fever/ Headache/Mild Pain, (Reported) Ipratropium/Albuterol Sulfate (DuoNeb 0.5-3(2.5)mg/3ml), 3 ML HHN EVERY 4 HOURS PRN for Shortness of Breath, (Reported) Polyethylene Glycol 3350* (Miralax*), 17 GM ORAL QHS PRN for Constipation, ( Reported) [mylanta], 30 ML ORAL Q6HR PRN for To Patient Comfort, (Reported) Discontinued Medications Apixaban (Eliquis), 5 MG PO, (Reported) Discontinued Reason: MD discontinued med Aspirin* (Aspir 81*), 81 MG ORAL DAILY, (Reported) Discontinued Reason: MD discontinued med Metoprolol Tartrate* (Metoprolol Tartrate*), 25 MG ORAL DAILY, (Reported) Discontinued Reason: Prescription changed Nitroglycerin (Nitroglycerin), 0.4 MG SL, (Reported) Discontinued Reason: MD discontinued med Sennosides (Senna), 8.6 MG PO, (Reported) Discontinued Reason: MD discontinued med Sitagliptin* (Januvia*), 50 MG ORAL DAILY, (Reported) Discontinued Reason: Prescription changed Patient History Limited by: medical condition History Provided By: Patient, Medical Record, PMD Healthcare decision maker Resuscitation status Full Code Advanced Directive on File Yes Past Medical/Surgical History Past Medical/Surgical History: (1) Gangrenous toe (2) Atrial fibrillation (3) Diabetic foot ulcers (4) Diabetes mellitus (5) HTN (hypertension) (6) Pacemaker (7) Rapid atrial fibrillation (8) Diabetic foot ulcer (9) Acute on chronic renal failure (10) Diabetic nephropathy Review of Systems Psychiatric: Reports: prior hx, anxiety, depressed feelings, emotional problems , hallucinations Physical Exam General Appearance: no apparent distress, alert, confused, agitated, overweight Neurologic: alert, responsive, disoriented, depressed affect Last 24 Hour Vital Signs Date Time Temp Pulse Resp B/P (MAP) Pulse Ox O2 Delivery O2 Flow Rate FiO2 02/13/17 17:06 117 134/102 02/13/17 16:00 98 02/13/17 15:49 98.6 117 22 134/102 96 02/13/17 12:00 97.5 111 20 135/66 97 Nasal Cannula 2.0 02/13/17 12:00 119 02/13/17 11:28 148 132/83 02/13/17 10:01 143 132/83 02/13/17 08:00 97.0 102 20 132/83 95 Nasal Cannula 2.0 02/13/17 08:00 136 02/13/17 07:06 112 20 Nasal Cannula 3.0 32 02/13/17 07:06 Nasal Cannula 2.0 28 02/13/17 07:06 97 Nasal Cannula 2.0 28 02/13/17 05:30 98.5 02/13/17 05:24 130 122/99 02/13/17 04:00 101.8 114 18 146/112 95 02/13/17 04:00 Nasal Cannula 2.0 02/13/17 04:00 136 02/13/17 01:57 99.9 02/13/17 00:00 112 02/13/17 00:00 Nasal Cannula 2.0 02/13/17 00:00 100.8 107 22 151/100 93 02/12/17 21:40 142 142/89 02/12/17 21:08 95 Nasal Cannula 3.0 32 02/12/17 21:08 Nasal Cannula 3.0 32 02/12/17 21:07 142 20 Nasal Cannula 3.0 32 02/12/17 21:04 142 142/89 02/12/17 20:00 132 02/12/17 20:00 Nasal Cannula 2.0 02/12/17 20:00 98.2 125 18 146/111 93 Intake and Output 02/12/17 02/13/17 19:00 07:00 Intake Total 730.82 ml 563.27 ml Output Total 250 ml 1500 ml Balance 480.82 ml -936.73 ml Intake Oral 360 ml 120 ml IV Total 370.82 ml 443.27 ml Output Urine Total 250 ml 1500 ml # Voids 3 # Bowel Movements 1 Laboratory Tests Test 02/13/17 01:00 02/13/17 02:00 02/13/17 08:10 02/13/17 17:15 Activated Partial Thromboplast Time 97 SEC (23-33) H > 150 SEC (23-33) *H 63 SEC (23-33) H Urine Eosinophils None seen Urine Random Sodium 127 MEQ/L (20-110) H White Blood Count 8.9 K/UL (4.8-10.8) Red Blood Count 3.96 M/UL (4.70-6.10) L Hemoglobin 12.8 G/DL (14.2-18.0) L Hematocrit 39.6 % (42.0-52.0) L Mean Corpuscular Volume 100 FL (80-99) H Mean Corpuscular Hemoglobin 32.3 PG (27.0-31.0) H Mean Corpuscular Hemoglobin Concent 32.3 G/DL (32.0-36.0) Red Cell Distribution Width 13.8 % (11.6-14.8) Platelet Count 162 K/UL (150-450) Mean Platelet Volume 7.8 FL (6.5-10.1) Neutrophils (%) (Auto) 80.9 % (45.0-75.0) H Lymphocytes (%) (Auto) 12.3 % (20.0-45.0) L Monocytes (%) (Auto) 5.5 % (1.0-10.0) Eosinophils (%) (Auto) 0.5 % (0.0-3.0) Basophils (%) (Auto) 0.8 % (0.0-2.0) Sodium Level 141 MMOL/L (136-145) Potassium Level 3.2 MMOL/L (3.5-5.1) L Chloride Level 104 MMOL/L (98-107) Carbon Dioxide Level 28 MMOL/L (21-32) Anion Gap 9 mmol/L (5-15) Blood Urea Nitrogen 26 mg/dL (7-18) H Creatinine 2.1 MG/DL (0.55-1.30) H Estimat Glomerular Filtration Rate 38.5 mL/min (>60) Glucose Level 135 MG/DL (74-106) #H Hemoglobin A1c 8.2 % (4.3-6.0) H Uric Acid 8.1 MG/DL (2.6-7.2) H Calcium Level 8.2 MG/DL (8.5-10.1) L Phosphorus Level 2.8 MG/DL (2.5-4.9) Magnesium Level 1.6 MG/DL (1.8-2.4) L Iron Level 29 ug/dL (50-175) L Total Iron Binding Capacity 146 ug/dL (250-450) L Percent Iron Saturation 20 % (15-50) Unsaturated Iron Binding 117 ug/dL (112-346) Ferritin 1404 NG/ML (8-388) H Total Bilirubin 0.9 MG/DL (0.2-1.0) Gamma Glutamyl Transpeptidase 108 U/L (5-85) H Aspartate Amino Transf (AST/SGOT) 19 U/L (15-37) Alanine Aminotransferase (ALT/SGPT) 20 U/L (12-78) Alkaline Phosphatase 82 U/L (46-116) Total Creatine Kinase 62 U/L (26-308) Troponin I 0.056 ng/mL (0.000-0.056) C-Reactive Protein, Quantitative 12.3 mg/dL (0.00-0.90) H Pro-B-Type Natriuretic Peptide 5149 pg/mL (0-125) H Total Protein 7.1 G/DL (6.4-8.2) Albumin 2.2 G/DL (3.4-5.0) L Globulin 4.9 g/dL Albumin/Globulin Ratio 0.4 (1.0-2.7) L Triglycerides Level 86 MG/DL (30-150) Cholesterol Level 164 MG/DL (< 200) LDL Cholesterol 97 mg/dL (<100) HDL Cholesterol 56 MG/DL (40-60) Cholesterol/HDL Ratio 2.9 (3.3-4.4) L Vitamin B12 Level 1900 PG/ML (193-986) H Folate 11.7 NG/ML (8.6-58.9) Thyroid Stimulating Hormone (TSH) 0.663 uiU/mL (0.358-3.740) Height (Feet): 5 Height (Inches): 10.00 Weight (Pounds): 225 Medications Current Medications Medications (Trade) Dose Ordered Sig/Anahi Route PRN Reason Start Time Stop Time Status Last Admin Dose Admin Acetaminophen (Tylenol) 650 mg Q4H PRN ORAL fever (temp>100.5F) 02/11/17 17:30 03/13/17 17:29 02/13/17 00:58 Albuterol/ Ipratropium (Albuterol/ Ipratropium) 3 ml Q4H PRN HHN Shortness of Breath 02/11/17 17:30 02/16/17 17:29 Aspirin (Ecotrin) 81 mg DAILY ORAL 02/12/17 09:00 03/14/17 08:59 02/13/17 10:02 Atorvastatin Calcium (Lipitor) 20 mg BEDTIME ORAL 02/12/17 21:00 03/14/17 20:59 02/12/17 21:04 Cefepime HCl 2 gm/ Dextrose 110 ml @ 220 mls/hr EVERY 12 HOURS IV 02/11/17 21:00 02/18/17 20:59 02/13/17 10:10 Dextrose (Dextrose 50%) STAT PRN IV Hypoglycemia 02/12/17 07:15 03/14/17 07:14 Diltiazem HCl (Cardizem) 20 mg Q1H PRN IVP HR > 120 02/12/17 07:45 03/14/17 07:44 Diltiazem HCl (Cardizem) 90 mg Q6HR ORAL 02/13/17 11:00 03/15/17 10:59 02/13/17 17:06 Divalproex Sodium (Depakote ER) 500 mg EVERY 12 HOURS ORAL 02/12/17 21:00 03/14/17 20:59 02/13/17 10:01 Docusate Sodium (Colace) 100 mg TID ORAL 02/12/17 13:45 03/14/17 13:44 02/13/17 17:06 Guaifenesin/ Codeine Phosphate (Robitussin with codeine) 5 ml Q6H PRN ORAL For Cough 02/12/17 14:30 03/14/17 14:29 02/12/17 16:04 Haloperidol (Haldol) 5 mg Q6H PRN ORAL Agitation 02/13/17 17:15 03/15/17 17:14 Heparin Sodium/ Dextrose 500 ml @ 22.44 mls/ hr adjust per protocol IV 02/13/17 10:20 03/15/17 10:19 02/13/17 18:23 Insulin Aspart (NovoLOG) BEFORE MEALS AND HS SUBQ 02/12/17 07:15 03/14/17 07:14 02/13/17 17:00 Linezolid (Zyvox) 600 mg Q12HR@0600,1800 ORAL 02/12/17 15:00 02/17/17 14:59 02/13/17 17:06 Metoprolol Tartrate (Lopressor) 75 mg Q12HR ORAL 02/13/17 09:45 03/15/17 09:44 02/13/17 10:01 Morphine Sulfate (Morphine Sulfate) 2 mg Q4H PRN IVP Moderate Pain (Pain Scale 4-6) 02/11/17 17:30 02/18/17 17:29 Nitroglycerin (Ntg) 0.4 mg Q5M PRN SL Prn Chest Pain 02/11/17 17:30 03/13/17 17:29 Ondansetron HCl (Zofran) 4 mg Q6H PRN IVP Nausea & Vomiting 02/11/17 17:30 03/13/17 17:29 Polyethylene Glycol (Miralax) 17 gm DAILYPRN PRN ORAL Constipation 02/11/17 17:30 03/13/17 17:29 Potassium Chloride (K-Dur) 40 meq DAILY ORAL 02/13/17 14:30 03/15/17 14:29 02/13/17 15:38 Sitagliptin Phosphate (Januvia) 50 mg DAILY ORAL 02/12/17 09:00 03/14/17 08:59 02/13/17 10:02 Temazepam (Restoril) 15 mg HSPRN PRN ORAL Insomnia 02/11/17 17:30 02/18/17 17:29 Assessment/Plan Status: not improved, unchanged Assessment/Plan encephalopathy agitation risperdal 2mg qhs [id number] q6hr Seth Shetty M.D. Feb 13, 2017 19:05
--- NOTE | 2017-02-13 19:09 | General Progress Note ---
Assessment/Plan Status: not improved, unchanged Assessment/Plan encephalopthay agitation risperdal 2mg qhs haldol q6hr prn Subjective Date patient seen: Feb 13, 2017 Neurologic/Psychiatric: Reports: anxiety, depressed, emotional problems Allergies: Coded Allergies: No Known Allergies (Unverified , 11/26/16) Objective Last 24 Hour Vital Signs Date Time Temp Pulse Resp B/P (MAP) Pulse Ox O2 Delivery O2 Flow Rate FiO2 02/13/17 17:06 117 134/102 02/13/17 16:00 98 02/13/17 15:49 98.6 117 22 134/102 96 02/13/17 12:00 97.5 111 20 135/66 97 Nasal Cannula 2.0 02/13/17 12:00 119 02/13/17 11:28 148 132/83 02/13/17 10:01 143 132/83 02/13/17 08:00 97.0 102 20 132/83 95 Nasal Cannula 2.0 02/13/17 08:00 136 02/13/17 07:06 112 20 Nasal Cannula 3.0 32 02/13/17 07:06 Nasal Cannula 2.0 28 02/13/17 07:06 97 Nasal Cannula 2.0 28 02/13/17 05:30 98.5 02/13/17 05:24 130 122/99 02/13/17 04:00 101.8 114 18 146/112 95 02/13/17 04:00 Nasal Cannula 2.0 02/13/17 04:00 136 02/13/17 01:57 99.9 02/13/17 00:00 112 02/13/17 00:00 Nasal Cannula 2.0 02/13/17 00:00 100.8 107 22 151/100 93 02/12/17 21:40 142 142/89 02/12/17 21:08 95 Nasal Cannula 3.0 32 02/12/17 21:08 Nasal Cannula 3.0 32 02/12/17 21:07 142 20 Nasal Cannula 3.0 32 02/12/17 21:04 142 142/89 02/12/17 20:00 132 02/12/17 20:00 Nasal Cannula 2.0 02/12/17 20:00 98.2 125 18 146/111 93 Intake and Output 02/12/17 02/13/17 19:00 07:00 Intake Total 730.82 ml 563.27 ml Output Total 250 ml 1500 ml Balance 480.82 ml -936.73 ml Intake Oral 360 ml 120 ml IV Total 370.82 ml 443.27 ml Output Urine Total 250 ml 1500 ml # Voids 3 # Bowel Movements 1 Laboratory Tests 02/13/17 01:00: Activated Partial Thromboplast Time 97H 02/13/17 02:00: Urine Eosinophils None seen, Urine Random Sodium 127H 02/13/17 08:10: Activated Partial Thromboplast Time > 150*H, White Blood Count 8.9, Red Blood Count 3.96L, Hemoglobin 12.8L, Hematocrit 39.6L, Mean Corpuscular Volume 100H, Mean Corpuscular Hemoglobin 32.3H, Mean Corpuscular Hemoglobin Concent 32.3, Red Cell Distribution Width 13.8, Platelet Count 162, Mean Platelet Volume 7.8, Neutrophils (%) (Auto) 80.9H, Lymphocytes (%) (Auto) 12.3L, Monocytes (%) (Auto ) 5.5, Eosinophils (%) (Auto) 0.5, Basophils (%) (Auto) 0.8, Sodium Level 141, Potassium Level 3.2L, Chloride Level 104, Carbon Dioxide Level 28, Anion Gap 9, Blood Urea Nitrogen 26H, Creatinine 2.1H, Estimat Glomerular Filtration Rate 38.5, Glucose Level 135#H, Hemoglobin A1c 8.2H, Uric Acid 8.1H, Calcium Level 8.2L, Phosphorus Level 2.8, Magnesium Level 1.6L, Iron Level 29L, Total Iron Binding Capacity 146L, Percent Iron Saturation 20, Unsaturated Iron Binding 117 , Ferritin 1404H, Total Bilirubin 0.9, Gamma Glutamyl Transpeptidase 108H, Aspartate Amino Transf (AST/SGOT) 19, Alanine Aminotransferase (ALT/SGPT) 20, Alkaline Phosphatase 82, Total Creatine Kinase 62, Troponin I 0.056, C-Reactive Protein, Quantitative 12.3H, Pro-B-Type Natriuretic Peptide 5149H, Total Protein 7.1, Albumin 2.2L, Globulin 4.9, Albumin/Globulin Ratio 0.4L, Triglycerides Level 86, Cholesterol Level 164, LDL Cholesterol 97, HDL Cholesterol 56, Cholesterol/HDL Ratio 2.9L, Vitamin B12 Level 1900H, Folate 11.7 , Thyroid Stimulating Hormone (TSH) 0.663 1/5/18 17:15: Activated Partial Thromboplast Time 63H Height (Feet): 5 Height (Inches): 10.00 Weight (Pounds): 225 General Appearance: no apparent distress, alert, confused, agitated Neurologic: alert, responsive, disoriented, depressed affect Seth Shetty M.D. Feb 13, 2017 19:09
[2017-02-13 20:00] VITALS: BP 111/71
[2017-02-14] VITALS (7 sets, daily range): BP systolic 113–172; BP diastolic 58–86
[2017-02-14] MEDS: Heparin 25,000u/D5W 500ml 500 ML IV SCH ×2 (02:48→03:53)
[2017-02-14] MEDS: dilTIAZem HCl 60mg tab ORAL SCH ×3 (06:22→18:10)
[2017-02-14] MEDS: NovoLOG Insulin Flexpen SUBQ SCH ×5 (06:24→21:41)
[2017-02-14 07:45] LABS: BASOPHILS % (AUTO) 0.3 % (0.0-2.0); EOSINOPHILS % (AUTO) 0.9 % (0.0-3.0); HEMATOCRIT 33.8 % (42.0-52.0); LYMPHOCYTES % (AUTO) 12.1 % (20.0-45.0); MEAN CORPUSCULAR VOLUME 100 FL (80-99); MONOCYTES % (AUTO) 7.7 % (1.0-10.0); PLATELET COUNT 114 K/UL (150-450); RED BLOOD COUNT 3.37 M/UL (4.70-6.10); RED CELL DISTRIBUTION WIDTH 13.3 % (11.6-14.8); WHITE BLOOD COUNT 6.5 K/UL (4.8-10.8)
[2017-02-14 07:54] LABS: ANION GAP 8 mmol/L (5-15); BLOOD UREA NITROGEN 24 mg/dL (7-18); CALCIUM 7.8 MG/DL (8.5-10.1); CARBON DIOXIDE 28 MMOL/L (21-32); CHLORIDE 105 MMOL/L (98-107); POTASSIUM 2.8 MMOL/L (3.5-5.1); SODIUM 141 MMOL/L (136-145)
[2017-02-14] MEDS: sitaGLIPtin 25mg tab ORAL SCH (08:50)
[2017-02-14] MEDS: Memantine 5 MG TAB ORAL SCH ×2 (08:50→18:09)
[2017-02-14] MEDS: Depakote ER 500mg tab ORAL SCH ×2 (08:50→21:16)
[2017-02-14] MEDS: Aspirin EC 81mg tab ORAL SCH (08:50)
[2017-02-14] MEDS: Metoprolol 25mg tab ORAL SCH ×2 (08:50→21:17)
[2017-02-14] MEDS: Docusate 100mg cap ORAL SCH ×3 (08:50→18:10)
[2017-02-14] MEDS: Cefepime HCl 2 GM in D5W 110 ML IV SCH ×2 (08:51→21:16)
--- NOTE | 2017-02-14 09:15 | General Progress Note ---
Assessment/Plan Problem List: (1) HTN (hypertension) ICD Codes: I10 - Essential (primary) hypertension SNOMED: 80370117 (2) Diabetes mellitus ICD Codes: E11.9 - Type 2 diabetes mellitus without complications SNOMED: 09376245 (3) Diabetic foot ulcers ICD Codes: E11.621 - Type 2 diabetes mellitus with foot ulcer; L97.509 - Non- pressure chronic ulcer of other part of unspecified foot with unspecified severity SNOMED: 045811583, 53371488 (4) Atrial fibrillation ICD Codes: I48.91 - Unspecified atrial fibrillation SNOMED: 40736629 (5) Gangrenous toe ICD Codes: I96 - Gangrene, not elsewhere classified SNOMED: 711997116 (6) Rapid atrial fibrillation ICD Codes: I48.91 - Unspecified atrial fibrillation SNOMED: 769009461 (7) Acute on chronic renal failure ICD Codes: N17.9 - Acute kidney failure, unspecified; N18.9 - Chronic kidney disease, unspecified SNOMED: 946518209 Status: unchanged Assessment/Plan ot pt diet wound care cardio f/u cbc bmp am new snf when stable Subjective Constitutional: Reports: weakness Allergies: Coded Allergies: No Known Allergies (Unverified , 11/26/16) All Systems: reviewed and negative except above Subjective sleepy o2nc confused Objective Last 24 Hour Vital Signs Date Time Temp Pulse Resp B/P (MAP) Pulse Ox O2 Delivery O2 Flow Rate FiO2 02/14/17 08:50 74 113/74 02/14/17 08:00 97.7 87 20 113/74 97 Nasal Cannula 02/14/17 07:34 99.4 83 19 172/82 91 02/14/17 06:22 111 147/86 02/14/17 04:00 111 02/14/17 04:00 98.2 88 18 147/86 96 02/14/17 00:00 83 02/14/17 00:00 97.7 88 20 113/58 97 02/13/17 23:52 92 111/71 02/13/17 21:28 92 111/71 02/13/17 20:00 82 02/13/17 20:00 97.5 57 20 111/71 98 02/13/17 19:00 96 Nasal Cannula 2.0 28 02/13/17 19:00 105 20 Nasal Cannula 3.0 32 02/13/17 19:00 Nasal Cannula 2.0 28 02/13/17 17:06 117 134/102 02/13/17 16:00 98 02/13/17 15:49 98.6 117 22 134/102 96 02/13/17 12:00 97.5 111 20 135/66 97 Nasal Cannula 2.0 02/13/17 12:00 119 02/13/17 11:28 148 132/83 02/13/17 10:01 143 132/83 Intake and Output 02/13/17 02/14/17 19:00 07:00 Intake Total 737.75 ml Output Total 500 ml Balance 737.75 ml -500 ml Intake Oral 215 ml IV Total 522.75 ml Output Urine Total 500 ml Laboratory Tests 02/13/17 17:15: Activated Partial Thromboplast Time 63H 02/14/17 00:48: Activated Partial Thromboplast Time 103H 02/14/17 06:35: White Blood Count 6.5, Red Blood Count 3.37L, Hemoglobin 11.0L, Hematocrit 33.8L , Mean Corpuscular Volume 100H, Mean Corpuscular Hemoglobin 32.7H, Mean Corpuscular Hemoglobin Concent 32.7, Red Cell Distribution Width 13.3, Platelet Count 114L, Mean Platelet Volume 7.7, Neutrophils (%) (Auto) 79.0H, Lymphocytes (%) (Auto) 12.1L, Monocytes (%) (Auto) 7.7, Eosinophils (%) (Auto) 0.9, Basophils (%) (Auto) 0.3, Sodium Level 141, Potassium Level 2.8L, Chloride Level 105, Carbon Dioxide Level 28, Anion Gap 8, Blood Urea Nitrogen 24H, Creatinine 2.0H, Estimat Glomerular Filtration Rate 40.7, Glucose Level 161H, Calcium Level 7.8L 02/14/17 07:45: Activated Partial Thromboplast Time 96H Height (Feet): 5 Height (Inches): 10.00 Weight (Pounds): 224 General Appearance: lethargic, confused EENT: normal ENT inspection Neck: normal alignment Cardiovascular: normal peripheral pulses, normal rate, regular rhythm Respiratory/Chest: chest wall non-tender, lungs clear, normal breath sounds Abdomen: normal bowel sounds, non tender, soft Extremities: normal inspection Edema: no edema noted Arm (L), no edema noted Arm (R), no edema noted Leg (L), no edema noted Leg (R), no edema noted Pedal (L), no edema noted Pedal (R), no edema noted Generalized Neurologic: motor weakness Skin: normal pigmentation, warm/dry CLARITA TEMPLETON Feb 14, 2017 09:15
[2017-02-14] MEDS ORDERED: Heparin 25,000u/D5W 500ml 500 ML IV SCH ×2 (09:30→16:30)
--- NOTE | 2017-02-14 10:05 | Podiatric Progress Note ---
Assessment/Plan Patient Rafiq Cox is a 66 year old male who was admitted on Feb 11, 2017 at 19:02 with Problems: Assessment/Plan A/ 1) Gangrene left foot 2) PAD - critical legs bilateral 3) DM foot ulcer 4) DM P/ 1) Cont Zyvox/Cefipime 2) Arterial duplex bilateral LE reviewed and vasc recs appreciated 3) Cont local wound care as ordered 4) No pedal surgery planned 2/2 to CLI. Will await additional vasc recs once patient is medically stable 5) Cont heel protectors. D/W nursing staff. 6) Will follow Subjective Allergies: Coded Allergies: No Known Allergies (Unverified , 11/26/16) Subjective Patient more alert. Objective Exam Last 24 Hour Vital Signs Date Time Temp Pulse Resp B/P (MAP) Pulse Ox O2 Delivery O2 Flow Rate FiO2 02/14/17 09:58 Nasal Cannula 3.0 32 02/14/17 09:58 84 20 Nasal Cannula 3.0 32 02/14/17 09:58 98 Nasal Cannula 3.0 32 02/14/17 08:50 74 113/74 02/14/17 08:00 97.7 87 20 113/74 97 Nasal Cannula 02/14/17 07:34 99.4 83 19 172/82 91 02/14/17 06:22 111 147/86 02/14/17 04:00 111 02/14/17 04:00 98.2 88 18 147/86 96 02/14/17 00:00 83 02/14/17 00:00 97.7 88 20 113/58 97 02/13/17 23:52 92 111/71 02/13/17 21:28 92 111/71 02/13/17 20:00 82 02/13/17 20:00 97.5 57 20 111/71 98 02/13/17 19:00 96 Nasal Cannula 2.0 28 02/13/17 19:00 105 20 Nasal Cannula 3.0 32 02/13/17 19:00 Nasal Cannula 2.0 28 02/13/17 17:06 117 134/102 02/13/17 16:00 98 02/13/17 15:49 98.6 117 22 134/102 96 02/13/17 12:00 97.5 111 20 135/66 97 Nasal Cannula 2.0 02/13/17 12:00 119 02/13/17 11:28 148 132/83 02/13/17 10:01 143 132/83 Laboratory Tests Test 02/13/17 17:15 02/14/17 00:48 02/14/17 06:35 02/14/17 07:45 Activated Partial Thromboplast Time 63 SEC (23-33) H 103 SEC (23-33) H 96 SEC (23-33) H White Blood Count 6.5 K/UL (4.8-10.8) Red Blood Count 3.37 M/UL (4.70-6.10) L Hemoglobin 11.0 G/DL (14.2-18.0) L Hematocrit 33.8 % (42.0-52.0) L Mean Corpuscular Volume 100 FL (80-99) H Mean Corpuscular Hemoglobin 32.7 PG (27.0-31.0) H Mean Corpuscular Hemoglobin Concent 32.7 G/DL (32.0-36.0) Red Cell Distribution Width 13.3 % (11.6-14.8) Platelet Count 114 K/UL (150-450) L Mean Platelet Volume 7.7 FL (6.5-10.1) Neutrophils (%) (Auto) 79.0 % (45.0-75.0) H Lymphocytes (%) (Auto) 12.1 % (20.0-45.0) L Monocytes (%) (Auto) 7.7 % (1.0-10.0) Eosinophils (%) (Auto) 0.9 % (0.0-3.0) Basophils (%) (Auto) 0.3 % (0.0-2.0) Sodium Level 141 MMOL/L (136-145) Potassium Level 2.8 MMOL/L (3.5-5.1) L Chloride Level 105 MMOL/L (98-107) Carbon Dioxide Level 28 MMOL/L (21-32) Anion Gap 8 mmol/L (5-15) Blood Urea Nitrogen 24 mg/dL (7-18) H Creatinine 2.0 MG/DL (0.55-1.30) H Estimat Glomerular Filtration Rate 40.7 mL/min (>60) Glucose Level 161 MG/DL (74-106) H Calcium Level 7.8 MG/DL (8.5-10.1) L Microbiology Date/Time Source Procedure Growth Status 02/11/17 14:45 Blood Blood Culture - Preliminary NO GROWTH AFTER 24 HOURS Resulted 02/12/17 00:00 Wound Gram Stain - Final Resulted 02/12/17 00:00 Wound Culture - Preliminary [place] Species Staphylococcus Aureus Resulted 02/11/17 18:00 Rectum VRE Culture - Final NO VANCOMYCIN RESISTANT ENTEROCOCCUS ... Complete Dermatological Wound Assessment : Exudate Amount: None Dermatological Narrative Dry gangrenous changes to left hallux and left 2nd toe Left foot warm, toes cool Right foot unremarkable Kasi Perea DPYuriy Feb 14, 2017 10:04
--- NOTE | 2017-02-14 12:34 | Nephrology Progress Note ---
Assessment/Plan Problem List: (1) Diabetic foot ulcer (2) Atrial fibrillation (3) Pacemaker (4) Acute on chronic renal failure (5) Diabetic nephropathy Assessment low K today Renal failure - Likely chronic with superimposed acute Hypo Albuminemia Anemia DM, Nephropathy Diabetic foot ulcer / gang toes Atrial fibrillation Plan Urine studies K and Mag supplement keep BP and BS and HR in check monitor renal parameters anemia falk avoid nephrotoxics per orders Subjective ROS Limited/Unobtainable: No Constitutional: Reports: malaise Objective Objective Last 24 Hour Vital Signs Date Time Temp Pulse Resp B/P (MAP) Pulse Ox O2 Delivery O2 Flow Rate FiO2 02/14/17 12:22 98 134/78 02/14/17 09:58 Nasal Cannula 3.0 32 02/14/17 09:58 84 20 Nasal Cannula 3.0 32 02/14/17 09:58 98 Nasal Cannula 3.0 32 02/14/17 08:50 74 113/74 02/14/17 08:00 97.7 87 20 113/74 97 Nasal Cannula 02/14/17 06:22 111 147/86 02/14/17 04:00 111 02/14/17 04:00 98.2 88 18 147/86 96 02/14/17 00:00 83 02/14/17 00:00 97.7 88 20 113/58 97 02/13/17 23:52 92 111/71 02/13/17 21:28 92 111/71 02/13/17 20:00 82 02/13/17 20:00 97.5 57 20 111/71 98 02/13/17 19:00 96 Nasal Cannula 2.0 28 02/13/17 19:00 105 20 Nasal Cannula 3.0 32 02/13/17 19:00 Nasal Cannula 2.0 28 02/13/17 17:06 117 134/102 02/13/17 16:00 98 02/13/17 15:49 98.6 117 22 134/102 96 Intake and Output 02/13/17 02/14/17 19:00 07:00 Intake Total 737.75 ml Output Total 500 ml Balance 737.75 ml -500 ml Intake Oral 215 ml IV Total 522.75 ml Output Urine Total 500 ml Laboratory Tests 02/13/17 17:15: Activated Partial Thromboplast Time 63H 02/14/17 00:48: Activated Partial Thromboplast Time 103H 02/14/17 06:35: White Blood Count 6.5, Red Blood Count 3.37L, Hemoglobin 11.0L, Hematocrit 33.8L , Mean Corpuscular Volume 100H, Mean Corpuscular Hemoglobin 32.7H, Mean Corpuscular Hemoglobin Concent 32.7, Red Cell Distribution Width 13.3, Platelet Count 114L, Mean Platelet Volume 7.7, Neutrophils (%) (Auto) 79.0H, Lymphocytes (%) (Auto) 12.1L, Monocytes (%) (Auto) 7.7, Eosinophils (%) (Auto) 0.9, Basophils (%) (Auto) 0.3, Sodium Level 141, Potassium Level 2.8L, Chloride Level 105, Carbon Dioxide Level 28, Anion Gap 8, Blood Urea Nitrogen 24H, Creatinine 2.0H, Estimat Glomerular Filtration Rate 40.7, Glucose Level 161H, Calcium Level 7.8L, Phosphorus Level 2.8, Magnesium Level 2.1 02/14/17 07:45: Activated Partial Thromboplast Time 96H 02/14/17 10:30: Urine Eosinophils None seen Height (Feet): 5 Height (Inches): 10.00 Weight (Pounds): 224 General Appearance: no apparent distress Cardiovascular: arrhythmia Respiratory/Chest: decreased breath sounds Abdomen: soft Objective no change BHAVANI VACA Feb 14, 2017 12:34
--- NOTE | 2017-02-14 15:42 | Pulmonology Progress Note ---
Assessment/Plan Assessment/Plan ASSESSMENT gangrene left foot diabetic foot ulcer Ischemic gangrenous infected L great toe severe PAD with bilateral limbs critical ischemia AF with RVR HTN DM OOC pacemaker ARF on CKD 2 to diabetic nephropathy e/lyte imbalance ( hypo K, ypo Mg) Anemia Encephalopathy urinary retention PLAN OF CARE Heparin gtt Arterial Duplex with evidence of critical ischemia BLE follow up with vas surgeon further recommendations L foot X ray no evidence of acute trauma Sleeve Maker eval appreciated per podiatry - No pedal surgery planned 2/2 to critical limb ischemia wound care heel protectors . BS control, with Januvia and SS of insulin , HgbA1c -8.2- not at goal Rate control with BB and CCB, overall controlled a/coagulation with heparin lipid panel ok BP management with BB and CCB, optimize as needed Renal US, monitor renal parameters, lytes, avoid nephrotoxic replace lytes as needed nephro follows Abx ID follows Wound cx + Staph aureus, [place], sens pending, bl cx prel negative Psych follows, optimized psych med regimen bladder scan revealed urinary retention > 300 ml nursing unable to place Gonzalez urology consult pending dr Church case discussed and evaluated by supervising physician Subjective Allergies: Coded Allergies: No Known Allergies (Unverified , 11/26/16) Subjective denies chest pain, SOB remains in A fib, interm tachy on 3L O2 via NC pulse ox stable Objective Last 24 Hour Vital Signs Date Time Temp Pulse Resp B/P (MAP) Pulse Ox O2 Delivery O2 Flow Rate FiO2 02/14/17 12:22 98 134/78 02/14/17 12:00 97.5 98 20 134/78 99 02/14/17 09:58 Nasal Cannula 3.0 32 02/14/17 09:58 84 20 Nasal Cannula 3.0 32 02/14/17 09:58 98 Nasal Cannula 3.0 32 02/14/17 08:50 74 113/74 02/14/17 08:00 97.7 87 20 113/74 97 Nasal Cannula 02/14/17 06:22 111 147/86 02/14/17 04:00 111 02/14/17 04:00 98.2 88 18 147/86 96 02/14/17 00:00 83 02/14/17 00:00 97.7 88 20 113/58 97 02/13/17 23:52 92 111/71 02/13/17 21:28 92 111/71 02/13/17 20:00 82 02/13/17 20:00 97.5 57 20 111/71 98 02/13/17 19:00 96 Nasal Cannula 2.0 28 02/13/17 19:00 105 20 Nasal Cannula 3.0 32 02/13/17 19:00 Nasal Cannula 2.0 28 02/13/17 17:06 117 134/102 02/13/17 16:00 98 02/13/17 15:49 98.6 117 22 134/102 96 Intake and Output 02/13/17 02/14/17 19:00 07:00 Intake Total 737.75 ml Output Total 500 ml Balance 737.75 ml -500 ml Intake Oral 215 ml IV Total 522.75 ml Output Urine Total 500 ml General Appearance: no acute distress HEENT: normocephalic, atraumatic Respiratory/Chest: lungs clear, no respiratory distress Cardiovascular: irregularly irregular - A fib on tele, interm tachy Abdomen: normal bowel sounds, soft, non tender Extremities: no edema Skin: other - L foot diabetic ulcer with gangrenous L great toe, dressing C/D/I Neurologic/Psychiatric: alert Microbiology Date/Time Source Procedure Growth Status 02/12/17 00:00 Wound Gram Stain - Final Resulted 02/12/17 00:00 Wound Culture - Preliminary [place] Species Staphylococcus Aureus Resulted 02/11/17 18:00 Nasal Nares MRSA Culture - Final NO METHICILLIN RESISTANT STAPH AUREUS... Complete 02/11/17 18:00 Rectum VRE Culture - Final NO VANCOMYCIN RESISTANT ENTEROCOCCUS ... Complete Laboratory Tests 02/13/17 17:15: Activated Partial Thromboplast Time 63H 02/14/17 00:48: Activated Partial Thromboplast Time 103H 02/14/17 06:35: White Blood Count 6.5, Red Blood Count 3.37L, Hemoglobin 11.0L, Hematocrit 33.8L , Mean Corpuscular Volume 100H, Mean Corpuscular Hemoglobin 32.7H, Mean Corpuscular Hemoglobin Concent 32.7, Red Cell Distribution Width 13.3, Platelet Count 114L, Mean Platelet Volume 7.7, Neutrophils (%) (Auto) 79.0H, Lymphocytes (%) (Auto) 12.1L, Monocytes (%) (Auto) 7.7, Eosinophils (%) (Auto) 0.9, Basophils (%) (Auto) 0.3, Sodium Level 141, Potassium Level 2.8L, Chloride Level 105, Carbon Dioxide Level 28, Anion Gap 8, Blood Urea Nitrogen 24H, Creatinine 2.0H, Estimat Glomerular Filtration Rate 40.7, Glucose Level 161H, Calcium Level 7.8L, Phosphorus Level 2.8, Magnesium Level 2.1 02/14/17 07:45: Activated Partial Thromboplast Time 96H 02/14/17 10:30: Urine Eosinophils None seen Current Medications Medications (Trade) Dose Ordered Sig/Anahi Route PRN Reason Start Time Stop Time Status Last Admin Dose Admin Acetaminophen (Tylenol) 650 mg Q4H PRN ORAL fever (temp>100.5F) 02/11/17 17:30 03/13/17 17:29 02/13/17 00:58 Albuterol/ Ipratropium (Albuterol/ Ipratropium) 3 ml Q4H PRN HHN Shortness of Breath 02/11/17 17:30 02/16/17 17:29 Aspirin (Ecotrin) 81 mg DAILY ORAL 02/12/17 09:00 03/14/17 08:59 02/14/17 08:50 Atorvastatin Calcium (Lipitor) 20 mg BEDTIME ORAL 02/12/17 21:00 03/14/17 20:59 02/13/17 21:24 Cefepime HCl 2 gm/ Dextrose 110 ml @ 220 mls/hr EVERY 12 HOURS IV 02/11/17 21:00 02/18/17 20:59 02/14/17 08:51 Dextrose (Dextrose 50%) STAT PRN IV Hypoglycemia 02/12/17 07:15 03/14/17 07:14 Diltiazem HCl (Cardizem) 20 mg Q1H PRN IVP HR > 120 02/12/17 07:45 03/14/17 07:44 Diltiazem HCl (Cardizem) 90 mg Q6HR ORAL 02/13/17 11:00 03/15/17 10:59 02/14/17 12:22 Divalproex Sodium (Depakote ER) 500 mg EVERY 12 HOURS ORAL 02/12/17 21:00 03/14/17 20:59 02/14/17 08:50 Docusate Sodium (Colace) 100 mg TID ORAL 02/12/17 13:45 03/14/17 13:44 02/14/17 12:17 Guaifenesin/ Codeine Phosphate (Robitussin with codeine) 5 ml Q6H PRN ORAL For Cough 02/12/17 14:30 03/14/17 14:29 02/12/17 16:04 Haloperidol (Haldol) 5 mg Q6H PRN ORAL Agitation 02/13/17 17:15 03/15/17 17:14 02/14/17 04:20 Heparin Sodium/ Dextrose 500 ml @ 14.28 mls/ hr adjust per protocol IV 02/14/17 09:30 03/16/17 09:29 02/14/17 09:33 Insulin Aspart (NovoLOG) BEFORE MEALS AND HS SUBQ 02/12/17 07:15 03/14/17 07:14 02/14/17 10:38 Linezolid (Zyvox) 600 mg Q12HR@0600,1800 ORAL 02/12/17 15:00 02/17/17 14:59 02/14/17 06:21 Memantine (Namenda) 5 mg BID ORAL 02/14/17 09:00 03/16/17 08:59 02/14/17 08:50 Metoprolol Tartrate (Lopressor) 75 mg Q12HR ORAL 02/13/17 09:45 03/15/17 09:44 02/14/17 08:50 Morphine Sulfate (Morphine Sulfate) 2 mg Q4H PRN IVP Moderate Pain (Pain Scale 4-6) 02/11/17 17:30 02/18/17 17:29 02/14/17 04:19 Nitroglycerin (Ntg) 0.4 mg Q5M PRN SL Prn Chest Pain 02/11/17 17:30 03/13/17 17:29 Ondansetron HCl (Zofran) 4 mg Q6H PRN IVP Nausea & Vomiting 02/11/17 17:30 03/13/17 17:29 Polyethylene Glycol (Miralax) 17 gm DAILYPRN PRN ORAL Constipation 02/11/17 17:30 03/13/17 17:29 Potassium Chloride (K-Dur) 40 meq TWICE A DAY ORAL 02/14/17 10:30 03/16/17 10:29 02/14/17 10:48 Risperidone (RisperDAL) 2 mg BEDTIME ORAL 02/13/17 21:00 03/15/17 20:59 02/13/17 21:24 Sitagliptin Phosphate (Januvia) 50 mg DAILY ORAL 02/12/17 09:00 03/14/17 08:59 02/14/17 08:50 Temazepam (Restoril) 15 mg HSPRN PRN ORAL Insomnia 02/11/17 17:30 02/18/17 17:29 Daniele ([facility])Gerda NP Feb 14, 2017 15:42
[2017-02-14] MEDS ORDERED: Albuterol/Ipratropium 3ml neb HHN PRN (15:45)
--- NOTE | 2017-02-14 15:59 | Cardiology Progress Note ---
Assessment/Plan Assessment/Plan 1. Tachycardia. 2. Atrial fibrillation, permanent. 3. History of sick sinus syndrome, status post single-chamber permanent pacemaker implantation. 4. History of hypertension. 5. Diabetes mellitus. 6. Gangrene, left foot. 7. Peripheral vascular disease. 8. Diabetic foot ulcers. hr now better bb and cardizem he has a pacemaker so nathalie should not be a problem anticoag if vascualr srugery needed will order ischemia eval Subjective ROS Limited/Unobtainable: Yes Objective Last 24 Hour Vital Signs Date Time Temp Pulse Resp B/P (MAP) Pulse Ox O2 Delivery O2 Flow Rate FiO2 02/14/17 12:22 98 134/78 02/14/17 12:00 97.5 98 20 134/78 99 02/14/17 09:58 Nasal Cannula 3.0 32 02/14/17 09:58 84 20 Nasal Cannula 3.0 32 02/14/17 09:58 98 Nasal Cannula 3.0 32 02/14/17 08:50 74 113/74 02/14/17 08:00 97.7 87 20 113/74 97 Nasal Cannula 02/14/17 06:22 111 147/86 02/14/17 04:00 111 02/14/17 04:00 98.2 88 18 147/86 96 02/14/17 00:00 83 02/14/17 00:00 97.7 88 20 113/58 97 02/13/17 23:52 92 111/71 02/13/17 21:28 92 111/71 02/13/17 20:00 82 02/13/17 20:00 97.5 57 20 111/71 98 02/13/17 19:00 96 Nasal Cannula 2.0 28 02/13/17 19:00 105 20 Nasal Cannula 3.0 32 02/13/17 19:00 Nasal Cannula 2.0 28 02/13/17 17:06 117 134/102 02/13/17 16:00 98 General Appearance: no apparent distress, other Neck: supple Cardiovascular: irregularly irregular Respiratory/Chest: rhonchi - bilaterally Abdomen: normal bowel sounds, non tender, soft Extremities: no swelling Intake and Output 02/13/17 02/14/17 19:00 07:00 Intake Total 737.75 ml Output Total 500 ml Balance 737.75 ml -500 ml Intake Oral 215 ml IV Total 522.75 ml Output Urine Total 500 ml Laboratory Tests Test 02/13/17 17:15 02/14/17 00:48 02/14/17 06:35 02/14/17 07:45 Activated Partial Thromboplast Time 63 SEC (23-33) H 103 SEC (23-33) H 96 SEC (23-33) H White Blood Count 6.5 K/UL (4.8-10.8) Red Blood Count 3.37 M/UL (4.70-6.10) L Hemoglobin 11.0 G/DL (14.2-18.0) L Hematocrit 33.8 % (42.0-52.0) L Mean Corpuscular Volume 100 FL (80-99) H Mean Corpuscular Hemoglobin 32.7 PG (27.0-31.0) H Mean Corpuscular Hemoglobin Concent 32.7 G/DL (32.0-36.0) Red Cell Distribution Width 13.3 % (11.6-14.8) Platelet Count 114 K/UL (150-450) L Mean Platelet Volume 7.7 FL (6.5-10.1) Neutrophils (%) (Auto) 79.0 % (45.0-75.0) H Lymphocytes (%) (Auto) 12.1 % (20.0-45.0) L Monocytes (%) (Auto) 7.7 % (1.0-10.0) Eosinophils (%) (Auto) 0.9 % (0.0-3.0) Basophils (%) (Auto) 0.3 % (0.0-2.0) Sodium Level 141 MMOL/L (136-145) Potassium Level 2.8 MMOL/L (3.5-5.1) L Chloride Level 105 MMOL/L (98-107) Carbon Dioxide Level 28 MMOL/L (21-32) Anion Gap 8 mmol/L (5-15) Blood Urea Nitrogen 24 mg/dL (7-18) H Creatinine 2.0 MG/DL (0.55-1.30) H Estimat Glomerular Filtration Rate 40.7 mL/min (>60) Glucose Level 161 MG/DL (74-106) H Calcium Level 7.8 MG/DL (8.5-10.1) L Phosphorus Level 2.8 MG/DL (2.5-4.9) Magnesium Level 2.1 MG/DL (1.8-2.4) Test 02/14/17 10:30 02/14/17 15:18 Urine Eosinophils None seen Activated Partial Thromboplast Time Pending Microbiology Date/Time Source Procedure Growth Status 02/12/17 00:00 Wound Gram Stain - Final Resulted 02/12/17 00:00 Wound Culture - Preliminary [place] Species Staphylococcus Aureus Resulted 02/11/17 18:00 Nasal Nares MRSA Culture - Final NO METHICILLIN RESISTANT STAPH AUREUS... Complete 02/11/17 18:00 Rectum VRE Culture - Final NO VANCOMYCIN RESISTANT ENTEROCOCCUS ... Complete BOBBY BURNETTE Feb 14, 2017 15:59
[2017-02-14] MEDS ORDERED: Heparin 5000 units/ml inj IV ONE (16:30)
[2017-02-14] MEDS ORDERED: NS 275ml ONE (22:43)
[2017-02-14] MEDS ORDERED: Tubing IV Secondary IV ONE (22:43)
--- NOTE | 2017-02-14 23:14 | Consultation ---
History of Present Illness General Date patient seen: Feb 14, 2017 Time patient seen: 16:30 Chief Complaint: General Complaint Referring physician: Magdalena Reason for Consultation: urinary retention Present Illness HPI 66 yo male admitted for diabetic toe ulcer and management. Urine output was ok until yesterday. Patient is not very conversive right now. Nurses failed catheter placement twice. No urinary history per records. Allergies: Coded Allergies: No Known Allergies (Unverified , 11/26/16) Medication History Scheduled Amlodipine Besylate* (Amlodipine Besylate*), 10 MG ORAL DAILY, (Reported) Atorvastatin Calcium* (Lipitor*), 20 MG ORAL DAILY, (Reported) Clonidine Hcl (Clonidine Hcl), 0.1 MG PO EVERY 6 HOURS, (Reported) Divalproex Sodium* (Depakote Er*), 500 MG ORAL EVERY 12 HOURS, (Reported) Docusate Sodium* (Colace*), 100 MG ORAL DAILY, (Reported) Insulin Aspart (Novolog), UNITS SUBQ AC+HS, (Reported) Lorazepam* (Ativan*), 1 MG ORAL EVERY 6 HOURS, (Reported) Memantine Hcl* (Namenda*), 5 MG ORAL TWICE A DAY, (Reported) Metoprolol Tartrate* (Metoprolol Tartrate*), 50 MG ORAL EVERY 12 HOURS, ( Reported) Olanzapine (Zyprexa), 7.5 MG ORAL DAILY, (Reported) Prednisone* (Prednisone*), 40 MG ORAL DAILY, (Reported) [Sitagliptin*], 100 MG PO DAILY, (Reported) Scheduled PRN Acetaminophen* (Acetaminophen 325MG Tablet*), 650 MG ORAL Q6H PRN for Fever/ Headache/Mild Pain, (Reported) Ipratropium/Albuterol Sulfate (DuoNeb 0.5-3(2.5)mg/3ml), 3 ML HHN EVERY 4 HOURS PRN for Shortness of Breath, (Reported) Polyethylene Glycol 3350* (Miralax*), 17 GM ORAL QHS PRN for Constipation, ( Reported) [mylanta], 30 ML ORAL Q6HR PRN for To Patient Comfort, (Reported) Discontinued Medications Apixaban (Eliquis), 5 MG PO, (Reported) Discontinued Reason: MD discontinued med Aspirin* (Aspir 81*), 81 MG ORAL DAILY, (Reported) Discontinued Reason: MD discontinued med Metoprolol Tartrate* (Metoprolol Tartrate*), 25 MG ORAL DAILY, (Reported) Discontinued Reason: Prescription changed Nitroglycerin (Nitroglycerin), 0.4 MG SL, (Reported) Discontinued Reason: MD discontinued med Sennosides (Senna), 8.6 MG PO, (Reported) Discontinued Reason: MD discontinued med Sitagliptin* (Januvia*), 50 MG ORAL DAILY, (Reported) Discontinued Reason: Prescription changed Patient History Limited by: medical condition History Provided By: Medical Record Healthcare decision maker Resuscitation status Full Code Advanced Directive on File Yes Past Medical/Surgical History Past Medical/Surgical History: (1) HTN (hypertension) (2) Diabetes mellitus Review of Systems Constitutional: Denies: no symptoms, see HPI, chills, sweats, fever, malaise, weakness, other All Other Systems: negative except mentioned in HPI Physical Exam General Appearance: no apparent distress HEENT: atraumatic Neck: non-tender Respiratory/Chest: lungs clear Cardiovascular/Chest: normal rate Abdomen: soft Neurologic: alert Last 24 Hour Vital Signs Date Time Temp Pulse Resp B/P (MAP) Pulse Ox O2 Delivery O2 Flow Rate FiO2 02/14/17 21:17 97 130/78 02/14/17 20:36 98.2 97 20 130/78 97 Nasal Cannula 02/14/17 20:11 93 Nasal Cannula 3.0 32 02/14/17 20:11 Nasal Cannula 3.0 32 02/14/17 20:11 93 Nasal Cannula 3.0 32 02/14/17 20:10 122 20 Nasal Cannula 3.0 32 02/14/17 18:10 93 133/63 02/14/17 16:20 98.1 93 20 133/63 96 Nasal Cannula 02/14/17 16:00 98 02/14/17 12:22 98 134/78 02/14/17 12:00 97.5 98 20 134/78 99 02/14/17 12:00 94 02/14/17 09:58 Nasal Cannula 3.0 32 02/14/17 09:58 84 20 Nasal Cannula 3.0 32 02/14/17 09:58 98 Nasal Cannula 3.0 32 02/14/17 08:50 74 113/74 02/14/17 08:00 97.7 87 20 113/74 97 Nasal Cannula 02/14/17 08:00 91 02/14/17 06:22 111 147/86 02/14/17 04:00 111 02/14/17 04:00 98.2 88 18 147/86 96 02/14/17 00:00 83 02/14/17 00:00 97.7 88 20 113/58 97 02/13/17 23:52 92 111/71 Intake and Output 02/13/17 02/14/17 19:00 07:00 Intake Total 737.75 ml Output Total 500 ml Balance 737.75 ml -500 ml Intake Oral 215 ml IV Total 522.75 ml Output Urine Total 500 ml Laboratory Tests Test 02/14/17 00:48 02/14/17 06:35 02/14/17 07:45 02/14/17 10:30 Activated Partial Thromboplast Time 103 SEC (23-33) H 96 SEC (23-33) H White Blood Count 6.5 K/UL (4.8-10.8) Red Blood Count 3.37 M/UL (4.70-6.10) L Hemoglobin 11.0 G/DL (14.2-18.0) L Hematocrit 33.8 % (42.0-52.0) L Mean Corpuscular Volume 100 FL (80-99) H Mean Corpuscular Hemoglobin 32.7 PG (27.0-31.0) H Mean Corpuscular Hemoglobin Concent 32.7 G/DL (32.0-36.0) Red Cell Distribution Width 13.3 % (11.6-14.8) Platelet Count 114 K/UL (150-450) L Mean Platelet Volume 7.7 FL (6.5-10.1) Neutrophils (%) (Auto) 79.0 % (45.0-75.0) H Lymphocytes (%) (Auto) 12.1 % (20.0-45.0) L Monocytes (%) (Auto) 7.7 % (1.0-10.0) Eosinophils (%) (Auto) 0.9 % (0.0-3.0) Basophils (%) (Auto) 0.3 % (0.0-2.0) Sodium Level 141 MMOL/L (136-145) Potassium Level 2.8 MMOL/L (3.5-5.1) L Chloride Level 105 MMOL/L (98-107) Carbon Dioxide Level 28 MMOL/L (21-32) Anion Gap 8 mmol/L (5-15) Blood Urea Nitrogen 24 mg/dL (7-18) H Creatinine 2.0 MG/DL (0.55-1.30) H Estimat Glomerular Filtration Rate 40.7 mL/min (>60) Glucose Level 161 MG/DL (74-106) H Calcium Level 7.8 MG/DL (8.5-10.1) L Phosphorus Level 2.8 MG/DL (2.5-4.9) Magnesium Level 2.1 MG/DL (1.8-2.4) Urine Eosinophils None seen Test 02/14/17 15:18 Activated Partial Thromboplast Time 57 SEC (23-33) H Height (Feet): 5 Height (Inches): 10.00 Weight (Pounds): 224 Medications Current Medications Medications (Trade) Dose Ordered Sig/Anahi Route PRN Reason Start Time Stop Time Status Last Admin Dose Admin Acetaminophen (Tylenol) 650 mg Q4H PRN ORAL fever (temp>100.5F) 02/11/17 17:30 03/13/17 17:29 02/13/17 00:58 Albuterol/ Ipratropium (Albuterol/ Ipratropium) 3 ml Q4H PRN HHN Shortness of Breath 02/14/17 15:45 02/19/17 15:44 Aspirin (Ecotrin) 81 mg DAILY ORAL 02/12/17 09:00 03/14/17 08:59 02/14/17 08:50 Atorvastatin Calcium (Lipitor) 20 mg BEDTIME ORAL 02/12/17 21:00 03/14/17 20:59 02/14/17 21:16 Cefepime HCl 2 gm/ Dextrose 110 ml @ 220 mls/hr EVERY 12 HOURS IV 02/11/17 21:00 02/18/17 20:59 02/14/17 21:16 Dextrose (Dextrose 50%) STAT PRN IV Hypoglycemia 02/12/17 07:15 03/14/17 07:14 Diltiazem HCl (Cardizem) 20 mg Q1H PRN IVP HR > 120 02/12/17 07:45 03/14/17 07:44 Diltiazem HCl (Cardizem) 90 mg Q6HR ORAL 02/13/17 11:00 03/15/17 10:59 02/14/17 18:10 Divalproex Sodium (Depakote ER) 500 mg EVERY 12 HOURS ORAL 02/12/17 21:00 03/14/17 20:59 02/14/17 21:16 Docusate Sodium (Colace) 100 mg TID ORAL 02/12/17 13:45 03/14/17 13:44 02/14/17 18:10 Guaifenesin/ Codeine Phosphate (Robitussin with codeine) 5 ml Q6H PRN ORAL For Cough 02/12/17 14:30 03/14/17 14:29 02/12/17 16:04 Haloperidol (Haldol) 5 mg Q6H PRN ORAL Agitation 02/13/17 17:15 03/15/17 17:14 02/14/17 04:20 Heparin Sodium/ Dextrose 500 ml @ 18.36 mls/ hr adjust per protocol IV 02/14/17 16:30 03/16/17 16:29 02/14/17 16:35 Insulin Aspart (NovoLOG) BEFORE MEALS AND HS SUBQ 02/12/17 07:15 03/14/17 07:14 02/14/17 21:41 Linezolid (Zyvox) 600 mg Q12HR@0600,1800 ORAL 02/12/17 15:00 02/17/17 14:59 02/14/17 18:10 Memantine (Namenda) 5 mg BID ORAL 02/14/17 09:00 03/16/17 08:59 02/14/17 18:09 Metoprolol Tartrate (Lopressor) 75 mg Q12HR ORAL 02/13/17 09:45 03/15/17 09:44 02/14/17 21:17 Morphine Sulfate (Morphine Sulfate) 2 mg Q4H PRN IVP Moderate Pain (Pain Scale 4-6) 02/11/17 17:30 02/18/17 17:29 02/14/17 04:19 Nitroglycerin (Ntg) 0.4 mg Q5M PRN SL Prn Chest Pain 02/11/17 17:30 03/13/17 17:29 Ondansetron HCl (Zofran) 4 mg Q6H PRN IVP Nausea & Vomiting 02/11/17 17:30 03/13/17 17:29 Polyethylene Glycol (Miralax) 17 gm DAILYPRN PRN ORAL Constipation 02/11/17 17:30 03/13/17 17:29 Potassium Chloride (K-Dur) 40 meq TWICE A DAY ORAL 02/14/17 10:30 03/16/17 10:29 02/14/17 18:10 Risperidone (RisperDAL) 2 mg BEDTIME ORAL 02/13/17 21:00 03/15/17 20:59 02/14/17 21:17 Sitagliptin Phosphate (Januvia) 50 mg DAILY ORAL 02/12/17 09:00 03/14/17 08:59 02/14/17 08:50 Temazepam (Restoril) 15 mg HSPRN PRN ORAL Insomnia 02/11/17 17:30 02/18/17 17:29 Objective Narrative Catheter placement: under sterile conditions 16 norwegian coude catheter placed. clear yellow urine drained. Assessment/Plan Status: stable Assessment/Plan Catheter placed. Urethra was tight. Recommend management per renal/primary team. 1. catheter placed, do not remove until patient is more awake and ready for discharge. Ranjit Vasquez M.D. Feb 14, 2017 23:14
--- NOTE | 2017-02-15 | Consultation ---
DATE OF CONSULTATION: 02/13/2017 PSYCHOTHERAPY CONSULTATION PROGRESS NOTE CONSULTING PHYSICIAN: Arya Caceres M.D. TREATING ATTENDING PHYSICIAN: Pako Barreto D.O. HISTORY OF PRESENT ILLNESS: This patient is a 66-year-old male patient from [facility]. The patient is brought into the hospital for a left toe ulcer, atrial fibrillation, and weakness. The patient has a history of schizophrenia. The patient has been very helpless, hopeless, weak, and confused. For these reasons, he was referred for psychotherapeutic services. Upon assessment, the patient is very withdrawn, keeping to himself, disorganized, confused. There is no indication of auditory or visual hallucinations. There is no indications of suicidal or homicidal thoughts of ideation for this patient. The patient is disheveled and weak at this time. Remains confused and disorganized. No viable plan for his self-care. Has been depressed and hopeless. PAST MEDICAL HISTORY: Includes history of hypertension, asthma, encephalopathy, diabetes. ALLERGIES: The patient has no known drug allergies. SUBSTANCE ABUSE HISTORY: There is no indication of alcohol use, illicit substance use, or smoking cigarettes. PSYCHIATRIC HISTORY: The patient has a history of schizophrenia. The patient has been treated with psychotropic medications in the past. SOCIAL HISTORY: The patient is a 66-year-old male patient from [facility]. Financially sustained through [facility]. He is a single male patient. MENTAL STATUS EXAMINATION: The patient is alert and oriented to person. Mood is depressed. Affect blunted. Thought process, disorganized. Thought content, confused. He has poor attention and concentration. Poor insight, judgment, and impulse control. There is no indication of suicidal or homicidal thought of ideation. DIAGNOSIS: Schizophrenia, paranoid type. PLAN: This clinician assessed the patient, assessed the patient's mental status. Provide the patient with reality orientation, provided the patient with supportive psychotherapy, addressing the patient's weakness, hopelessness, and depression. Encouraging the patient to participate in treatment milieu. Continue behavioral management. This clinician has reviewed the patient's chart and discussed the treatment with nursing staff. Arya Caceres PsyD. : Shweta JOB#: [id number] CC:
[2017-02-15] MEDS: dilTIAZem HCl 60mg tab ORAL SCH ×4 (00:17→17:14)
[2017-02-15 00:44] VITALS: BP 130/81
[2017-02-15] MEDS: Heparin 25,000u/D5W 500ml 500 ML IV SCH ×2 (01:30→08:50)
[2017-02-15 04:36] VITALS: BP 151/82
[2017-02-15] MEDS: NovoLOG Insulin Flexpen SUBQ SCH ×4 (06:42→21:54)
[2017-02-15 08:00] VITALS: BP_SYST 130; BP_SYST 146; BP_DIAS 63; BP_DIAS 86
--- NOTE | 2017-02-15 08:35 | General Progress Note ---
Assessment/Plan Problem List: (1) HTN (hypertension) ICD Codes: I10 - Essential (primary) hypertension SNOMED: 41799273 (2) Diabetes mellitus ICD Codes: E11.9 - Type 2 diabetes mellitus without complications SNOMED: 77995398 (3) Diabetic foot ulcers ICD Codes: E11.621 - Type 2 diabetes mellitus with foot ulcer; L97.509 - Non- pressure chronic ulcer of other part of unspecified foot with unspecified severity SNOMED: 284620007, 75696912 (4) Atrial fibrillation ICD Codes: I48.91 - Unspecified atrial fibrillation SNOMED: 35867304 (5) Gangrenous toe ICD Codes: I96 - Gangrene, not elsewhere classified SNOMED: 554854122 (6) Rapid atrial fibrillation ICD Codes: I48.91 - Unspecified atrial fibrillation SNOMED: 496104083 (7) Acute on chronic renal failure ICD Codes: N17.9 - Acute kidney failure, unspecified; N18.9 - Chronic kidney disease, unspecified SNOMED: 554222208 Status: unchanged Assessment/Plan ot pt diet wound care cardio f/u cbc bmp am pending angio w vasc Subjective Constitutional: Reports: weakness Allergies: Coded Allergies: No Known Allergies (Unverified , 11/26/16) All Systems: reviewed and negative except above Subjective sleepy o2nc confused Objective Last 24 Hour Vital Signs Date Time Temp Pulse Resp B/P (MAP) Pulse Ox O2 Delivery O2 Flow Rate FiO2 02/15/17 07:57 Nasal Cannula 2.0 28 02/15/17 07:57 56 20 Nasal Cannula 2.0 28 02/15/17 07:57 95 Nasal Cannula 2.0 28 02/15/17 06:32 113 151/82 02/15/17 04:36 98.1 113 20 151/82 96 Nasal Cannula 02/15/17 04:00 99 02/15/17 00:44 98.2 81 20 130/81 96 Nasal Cannula 02/15/17 00:17 81 130/81 02/15/17 00:00 101 02/14/17 21:17 97 130/78 02/14/17 20:36 98.2 97 20 130/78 97 Nasal Cannula 02/14/17 20:11 93 Nasal Cannula 3.0 32 02/14/17 20:11 Nasal Cannula 3.0 32 02/14/17 20:11 93 Nasal Cannula 3.0 32 02/14/17 20:10 122 20 Nasal Cannula 3.0 32 02/14/17 20:00 96 02/14/17 18:10 93 133/63 02/14/17 16:20 98.1 93 20 133/63 96 Nasal Cannula 02/14/17 16:00 98 02/14/17 12:22 98 134/78 02/14/17 12:00 97.5 98 20 134/78 99 02/14/17 12:00 94 02/14/17 09:58 Nasal Cannula 3.0 32 02/14/17 09:58 84 20 Nasal Cannula 3.0 32 02/14/17 09:58 98 Nasal Cannula 3.0 32 02/14/17 08:50 74 113/74 Intake and Output 02/14/17 02/15/17 19:00 07:00 Intake Total 481.03 ml 182.55 ml Output Total 500 ml 600 ml Balance -18.97 ml -417.45 ml Intake Oral 120 ml IV Total 361.03 ml 182.55 ml Output Urine Total 500 ml 600 ml Laboratory Tests 02/14/17 10:30: Urine Eosinophils None seen 02/14/17 15:18: Activated Partial Thromboplast Time 57H 02/14/17 23:16: Activated Partial Thromboplast Time 97H 02/15/17 07:40: Activated Partial Thromboplast Time 54H Height (Feet): 5 Height (Inches): 10.00 Weight (Pounds): 227 General Appearance: lethargic, confused EENT: normal ENT inspection Neck: normal alignment Cardiovascular: normal peripheral pulses, normal rate, regular rhythm Respiratory/Chest: chest wall non-tender, lungs clear, normal breath sounds Abdomen: normal bowel sounds, non tender, soft Extremities: normal inspection Edema: no edema noted Arm (L), no edema noted Arm (R), no edema noted Leg (L), no edema noted Leg (R), no edema noted Pedal (L), no edema noted Pedal (R), no edema noted Generalized Neurologic: motor weakness Skin: normal pigmentation, warm/dry CLARITA TEMPLETON Feb 15, 2017 08:35
[2017-02-15] MEDS: sitaGLIPtin 25mg tab ORAL SCH (08:44)
[2017-02-15] MEDS: Aspirin EC 81mg tab ORAL SCH (08:44)
[2017-02-15] MEDS: Depakote ER 500mg tab ORAL SCH ×2 (08:45→21:00)
[2017-02-15] MEDS: Metoprolol 25mg tab ORAL SCH (08:45)
[2017-02-15] MEDS ORDERED: Heparin 5000 units/ml inj IV ONE (08:45)
[2017-02-15] MEDS: Docusate 100mg cap ORAL SCH ×3 (08:46→17:12)
[2017-02-15] MEDS: Memantine 5 MG TAB ORAL SCH ×2 (08:46→17:13)
[2017-02-15] MEDS: Cefepime HCl 2 GM in D5W 110 ML IV SCH ×2 (09:20→21:49)
--- NOTE | 2017-02-15 09:56 | Nephrology Progress Note ---
Assessment/Plan Problem List: (1) Diabetic foot ulcer (2) Atrial fibrillation (3) Pacemaker (4) Acute on chronic renal failure Assessment: + urinary retention (5) Diabetic nephropathy Assessment no labs today yet Renal failure - Likely chronic with superimposed acute Hypo Albuminemia Anemia DM, Nephropathy Diabetic foot ulcer / gang toes Atrial fibrillation Plan Urine studies K and Mag supplement keep BP and BS and HR in check monitor renal parameters anemia falk avoid nephrotoxics per orders Subjective ROS Limited/Unobtainable: No Constitutional: Reports: malaise Objective Objective Last 24 Hour Vital Signs Date Time Temp Pulse Resp B/P (MAP) Pulse Ox O2 Delivery O2 Flow Rate FiO2 02/15/17 08:45 91 130/63 02/15/17 07:57 Nasal Cannula 2.0 28 02/15/17 07:57 56 20 Nasal Cannula 2.0 28 02/15/17 07:57 95 Nasal Cannula 2.0 28 02/15/17 06:32 113 151/82 02/15/17 04:36 98.1 113 20 151/82 96 Nasal Cannula 02/15/17 04:00 99 02/15/17 00:44 98.2 81 20 130/81 96 Nasal Cannula 02/15/17 00:17 81 130/81 02/15/17 00:00 101 02/14/17 21:17 97 130/78 02/14/17 20:36 98.2 97 20 130/78 97 Nasal Cannula 02/14/17 20:11 93 Nasal Cannula 3.0 32 02/14/17 20:11 Nasal Cannula 3.0 32 02/14/17 20:11 93 Nasal Cannula 3.0 32 02/14/17 20:10 122 20 Nasal Cannula 3.0 32 02/14/17 20:00 96 02/14/17 18:10 93 133/63 02/14/17 16:20 98.1 93 20 133/63 96 Nasal Cannula 02/14/17 16:00 98 02/14/17 12:22 98 134/78 02/14/17 12:00 97.5 98 20 134/78 99 02/14/17 12:00 94 02/14/17 09:58 Nasal Cannula 3.0 32 02/14/17 09:58 84 20 Nasal Cannula 3.0 32 02/14/17 09:58 98 Nasal Cannula 3.0 32 Intake and Output 02/14/17 02/15/17 19:00 07:00 Intake Total 481.03 ml 182.55 ml Output Total 500 ml 600 ml Balance -18.97 ml -417.45 ml Intake Oral 120 ml IV Total 361.03 ml 182.55 ml Output Urine Total 500 ml 600 ml Laboratory Tests 02/14/17 10:30: Urine Eosinophils None seen 02/14/17 15:18: Activated Partial Thromboplast Time 57H 02/14/17 23:16: Activated Partial Thromboplast Time 97H 02/15/17 07:40: Activated Partial Thromboplast Time 54H 02/15/17 09:15: White Blood Count [Pending], Red Blood Count [Pending], Hemoglobin [Pending], Hematocrit [Pending], Mean Corpuscular Volume [Pending], Mean Corpuscular Hemoglobin [Pending], Mean Corpuscular Hemoglobin Concent [Pending], Red Cell Distribution Width [Pending], Platelet Count [Pending], Mean Platelet Volume [ Pending], Neutrophils (%) (Auto) [Pending], Lymphocytes (%) (Auto) [Pending], Monocytes (%) (Auto) [Pending], Eosinophils (%) (Auto) [Pending], Basophils (%) (Auto) [Pending], Sodium Level [Pending], Potassium Level [Pending], Chloride Level [Pending], Carbon Dioxide Level [Pending], Blood Urea Nitrogen [Pending], Creatinine [Pending], Estimat Glomerular Filtration Rate [Pending], Glucose Level [Pending], Calcium Level [Pending] Height (Feet): 5 Height (Inches): 10.00 Weight (Pounds): 227 General Appearance: no apparent distress Objective no change BHAVANI VACA Feb 15, 2017 09:56
[2017-02-15 09:59] LABS: BASOPHILS % (AUTO) 0.6 % (0.0-2.0); EOSINOPHILS % (AUTO) 0.5 % (0.0-3.0); HEMATOCRIT 38.2 % (42.0-52.0); HEMOGLOBIN 12.6 G/DL (14.2-18.0); LYMPHOCYTES % (AUTO) 12.4 % (20.0-45.0); MEAN CORPUSCULAR VOLUME 101 FL (80-99); NEUTROPHILS % (AUTO) 78.5 % (45.0-75.0); PLATELET COUNT 125 K/UL (150-450); RED BLOOD COUNT 3.79 M/UL (4.70-6.10); RED CELL DISTRIBUTION WIDTH 13.3 % (11.6-14.8)
[2017-02-15 10:34] LABS: ANION GAP 9 mmol/L (5-15); BLOOD UREA NITROGEN 22 mg/dL (7-18); CALCIUM 7.9 MG/DL (8.5-10.1); CARBON DIOXIDE 25 MMOL/L (21-32); CHLORIDE 106 MMOL/L (98-107); POTASSIUM 3.8 MMOL/L (3.5-5.1); SODIUM 140 MMOL/L (136-145)
[2017-02-15 12:00] VITALS: BP 132/78
--- NOTE | 2017-02-15 13:14 | Infectious Diseases Prog Note ---
Assessment/Plan Assessment/Plan A: left foot cellulitis/ gangrene DM PVD CKD Atrial fibrillation, permanent anemia Paranoid schizophrenia P: Continue Cefepime, discontinue Zyvox Subjective ROS Limited/Unobtainable: Yes Allergies: Coded Allergies: No Known Allergies (Unverified , 11/26/16) Objective Vital Signs Last 24 Hour Vital Signs Date Time Temp Pulse Resp B/P (MAP) Pulse Ox O2 Delivery O2 Flow Rate FiO2 02/15/17 12:39 78 132/78 02/15/17 11:21 108 02/15/17 08:45 91 130/63 02/15/17 08:00 97.6 77 20 146/86 100 Nasal Cannula 02/15/17 07:57 Nasal Cannula 2.0 28 02/15/17 07:57 56 20 Nasal Cannula 2.0 28 02/15/17 07:57 95 Nasal Cannula 2.0 28 02/15/17 06:32 113 151/82 02/15/17 04:36 98.1 113 20 151/82 96 Nasal Cannula 02/15/17 04:00 99 02/15/17 00:44 98.2 81 20 130/81 96 Nasal Cannula 02/15/17 00:17 81 130/81 02/15/17 00:00 101 02/14/17 21:17 97 130/78 02/14/17 20:36 98.2 97 20 130/78 97 Nasal Cannula 02/14/17 20:11 93 Nasal Cannula 3.0 32 02/14/17 20:11 Nasal Cannula 3.0 32 02/14/17 20:11 93 Nasal Cannula 3.0 32 02/14/17 20:10 122 20 Nasal Cannula 3.0 32 02/14/17 20:00 96 02/14/17 18:10 93 133/63 02/14/17 16:20 98.1 93 20 133/63 96 Nasal Cannula 02/14/17 16:00 98 Height (Feet): 5 Height (Inches): 10.00 Weight (Pounds): 227 General Appearance: no acute distress HEENT: mucous membranes moist Respiratory/Chest: lungs clear, other - O2 by nasal cannula Cardiovascular: normal rate Abdomen: soft, non tender Extremities: other - edema of legs Skin: ulcers, other - left foot Neurologic/Psychiatric: responsive Laboratory Tests Test 02/14/17 15:18 02/14/17 23:16 02/15/17 07:40 02/15/17 09:15 Activated Partial Thromboplast Time 57 SEC (23-33) H 97 SEC (23-33) H 54 SEC (23-33) H White Blood Count 9.0 K/UL (4.8-10.8) Red Blood Count 3.79 M/UL (4.70-6.10) L Hemoglobin 12.6 G/DL (14.2-18.0) L Hematocrit 38.2 % (42.0-52.0) L Mean Corpuscular Volume 101 FL (80-99) H Mean Corpuscular Hemoglobin 33.2 PG (27.0-31.0) H Mean Corpuscular Hemoglobin Concent 33.0 G/DL (32.0-36.0) Red Cell Distribution Width 13.3 % (11.6-14.8) Platelet Count 125 K/UL (150-450) L Mean Platelet Volume 7.2 FL (6.5-10.1) Neutrophils (%) (Auto) 78.5 % (45.0-75.0) H Lymphocytes (%) (Auto) 12.4 % (20.0-45.0) L Monocytes (%) (Auto) 8.0 % (1.0-10.0) Eosinophils (%) (Auto) 0.5 % (0.0-3.0) Basophils (%) (Auto) 0.6 % (0.0-2.0) Sodium Level 140 MMOL/L (136-145) Potassium Level 3.8 MMOL/L (3.5-5.1) Chloride Level 106 MMOL/L (98-107) Carbon Dioxide Level 25 MMOL/L (21-32) Anion Gap 9 mmol/L (5-15) Blood Urea Nitrogen 22 mg/dL (7-18) H Creatinine 2.0 MG/DL (0.55-1.30) H Estimat Glomerular Filtration Rate 40.7 mL/min (>60) Glucose Level 195 MG/DL (74-106) H Calcium Level 7.9 MG/DL (8.5-10.1) L Current Medications Medications (Trade) Dose Ordered Sig/Anahi Route PRN Reason Start Time Stop Time Status Last Admin Dose Admin Acetaminophen (Tylenol) 650 mg Q4H PRN ORAL fever (temp>100.5F) 02/11/17 17:30 03/13/17 17:29 02/13/17 00:58 Albuterol/ Ipratropium (Albuterol/ Ipratropium) 3 ml Q4H PRN HHN Shortness of Breath 02/14/17 15:45 02/19/17 15:44 Aspirin (Ecotrin) 81 mg DAILY ORAL 02/12/17 09:00 03/14/17 08:59 02/15/17 08:44 Atorvastatin Calcium (Lipitor) 20 mg BEDTIME ORAL 02/12/17 21:00 03/14/17 20:59 02/14/17 21:16 Cefepime HCl 2 gm/ Dextrose 110 ml @ 220 mls/hr EVERY 12 HOURS IV 02/11/17 21:00 02/18/17 20:59 02/15/17 09:20 Dextrose (Dextrose 50%) STAT PRN IV Hypoglycemia 02/12/17 07:15 03/14/17 07:14 Diltiazem HCl (Cardizem) 20 mg Q1H PRN IVP HR > 120 02/12/17 07:45 03/14/17 07:44 Diltiazem HCl (Cardizem) 90 mg Q6HR ORAL 02/13/17 11:00 03/15/17 10:59 02/15/17 12:39 Divalproex Sodium (Depakote ER) 500 mg EVERY 12 HOURS ORAL 02/12/17 21:00 03/14/17 20:59 02/15/17 08:45 Docusate Sodium (Colace) 100 mg TID ORAL 02/12/17 13:45 03/14/17 13:44 02/15/17 12:39 Guaifenesin/ Codeine Phosphate (Robitussin with codeine) 5 ml Q6H PRN ORAL For Cough 02/12/17 14:30 03/14/17 14:29 02/12/17 16:04 Haloperidol (Haldol) 5 mg Q6H PRN ORAL Agitation 02/13/17 17:15 03/15/17 17:14 02/14/17 04:20 Heparin Sodium/ Dextrose 500 ml @ 18.36 mls/ hr adjust per protocol IV 02/15/17 00:30 03/16/17 16:29 02/15/17 08:50 Insulin Aspart (NovoLOG) BEFORE MEALS AND HS SUBQ 02/12/17 07:15 03/14/17 07:14 02/15/17 12:37 Linezolid (Zyvox) 600 mg Q12HR@0600,1800 ORAL 02/12/17 15:00 02/17/17 14:59 02/15/17 06:30 Memantine (Namenda) 5 mg BID ORAL 02/14/17 09:00 03/16/17 08:59 02/15/17 08:46 Metoprolol Tartrate (Lopressor) 75 mg Q12HR ORAL 02/13/17 09:45 03/15/17 09:44 02/15/17 08:45 Morphine Sulfate (Morphine Sulfate) 2 mg Q4H PRN IVP Moderate Pain (Pain Scale 4-6) 02/11/17 17:30 02/18/17 17:29 02/14/17 04:19 Nitroglycerin (Ntg) 0.4 mg Q5M PRN SL Prn Chest Pain 02/11/17 17:30 03/13/17 17:29 Ondansetron HCl (Zofran) 4 mg Q6H PRN IVP Nausea & Vomiting 02/11/17 17:30 03/13/17 17:29 Polyethylene Glycol (Miralax) 17 gm DAILYPRN PRN ORAL Constipation 02/11/17 17:30 03/13/17 17:29 Potassium Chloride (K-Dur) 40 meq TWICE A DAY ORAL 02/14/17 10:30 03/16/17 10:29 02/15/17 08:46 Risperidone (RisperDAL) 2 mg BEDTIME ORAL 02/13/17 21:00 03/15/17 20:59 02/14/17 21:17 Sitagliptin Phosphate (Januvia) 50 mg DAILY ORAL 02/12/17 09:00 03/14/17 08:59 02/15/17 08:44 Temazepam (Restoril) 15 mg HSPRN PRN ORAL Insomnia 02/11/17 17:30 02/18/17 17:29 MARYLIN WOOD Feb 15, 2017 13:14
--- NOTE | 2017-02-15 14:13 | Pulmonology Progress Note ---
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 BS control, with Januvia and SS of insulin , HgbA1c -8.2- not at goal Rate control with BB and CCB, overall controlled a/coagulation with heparin lipid panel ok BP management with BB and CCB, optimize as needed Renal US, monitor renal parameters, lytes, avoid nephrotoxic replace lytes as needed nephro follows Abx ID follows Wound cx + Staph aureus, [place], sens pending, bl cx prel negative Psych follows, optimized psych med regimen bladder scan revealed urinary retention > 300 ml nursing was unable to place Gonzalez urology consult appreciated, Gonzalez in case discussed and evaluated by supervising physician Subjective Allergies: Coded Allergies: No Known Allergies (Unverified , 11/26/16) Subjective denies chest pain, SOB remains in A fib, interm tachy on 3L O2 via NC pulse ox stable Objective Last 24 Hour Vital Signs Date Time Temp Pulse Resp B/P (MAP) Pulse Ox O2 Delivery O2 Flow Rate FiO2 02/15/17 12:39 78 132/78 02/15/17 11:21 108 02/15/17 08:45 91 130/63 02/15/17 08:00 97.6 77 20 146/86 100 Nasal Cannula 02/15/17 07:57 Nasal Cannula 2.0 28 02/15/17 07:57 56 20 Nasal Cannula 2.0 28 02/15/17 07:57 95 Nasal Cannula 2.0 28 02/15/17 06:32 113 151/82 02/15/17 04:36 98.1 113 20 151/82 96 Nasal Cannula 02/15/17 04:00 99 02/15/17 00:44 98.2 81 20 130/81 96 Nasal Cannula 02/15/17 00:17 81 130/81 02/15/17 00:00 101 02/14/17 21:17 97 130/78 02/14/17 20:36 98.2 97 20 130/78 97 Nasal Cannula 02/14/17 20:11 93 Nasal Cannula 3.0 32 02/14/17 20:11 Nasal Cannula 3.0 32 02/14/17 20:11 93 Nasal Cannula 3.0 32 02/14/17 20:10 122 20 Nasal Cannula 3.0 32 02/14/17 20:00 96 02/14/17 18:10 93 133/63 02/14/17 16:20 98.1 93 20 133/63 96 Nasal Cannula 02/14/17 16:00 98 Intake and Output 02/14/17 02/15/17 19:00 07:00 Intake Total 481.03 ml 182.55 ml Output Total 500 ml 600 ml Balance -18.97 ml -417.45 ml Intake Oral 120 ml IV Total 361.03 ml 182.55 ml Output Urine Total 500 ml 600 ml Objective General Appearance: no acute distress HEENT: normocephalic, atraumatic Respiratory/Chest: lungs clear, no respiratory distress Cardiovascular: irregularly irregular - A fib on tele, interm tachy Abdomen: normal bowel sounds, soft, non tender Extremities: no edema Skin: other - L foot diabetic ulcer with gangrenous L great toe, dressing C/D/I Neurologic/Psychiatric: alert Laboratory Tests 02/14/17 15:18: Activated Partial Thromboplast Time 57H 02/14/17 23:16: Activated Partial Thromboplast Time 97H 02/15/17 07:40: Activated Partial Thromboplast Time 54H 02/15/17 09:15: White Blood Count 9.0, Red Blood Count 3.79L, Hemoglobin 12.6L, Hematocrit 38.2L , Mean Corpuscular Volume 101H, Mean Corpuscular Hemoglobin 33.2H, Mean Corpuscular Hemoglobin Concent 33.0, Red Cell Distribution Width 13.3, Platelet Count 125L, Mean Platelet Volume 7.2, Neutrophils (%) (Auto) 78.5H, Lymphocytes (%) (Auto) 12.4L, Monocytes (%) (Auto) 8.0, Eosinophils (%) (Auto) 0.5, Basophils (%) (Auto) 0.6, Sodium Level 140, Potassium Level 3.8, Chloride Level 106, Carbon Dioxide Level 25, Anion Gap 9, Blood Urea Nitrogen 22H, Creatinine 2.0H, Estimat Glomerular Filtration Rate 40.7, Glucose Level 195H, Calcium Level 7.9L Current Medications Medications (Trade) Dose Ordered Sig/Anahi Route PRN Reason Start Time Stop Time Status Last Admin Dose Admin Acetaminophen (Tylenol) 650 mg Q4H PRN ORAL fever (temp>100.5F) 02/11/17 17:30 03/13/17 17:29 02/13/17 00:58 Albuterol/ Ipratropium (Albuterol/ Ipratropium) 3 ml Q4H PRN HHN Shortness of Breath 02/14/17 15:45 02/19/17 15:44 Aspirin (Ecotrin) 81 mg DAILY ORAL 02/12/17 09:00 03/14/17 08:59 02/15/17 08:44 Atorvastatin Calcium (Lipitor) 20 mg BEDTIME ORAL 02/12/17 21:00 03/14/17 20:59 02/14/17 21:16 Cefepime HCl 2 gm/ Dextrose 110 ml @ 220 mls/hr EVERY 12 HOURS IV 02/11/17 21:00 02/18/17 20:59 02/15/17 09:20 Dextrose (Dextrose 50%) STAT PRN IV Hypoglycemia 02/12/17 07:15 03/14/17 07:14 Diltiazem HCl (Cardizem) 20 mg Q1H PRN IVP HR > 120 02/12/17 07:45 03/14/17 07:44 Diltiazem HCl (Cardizem) 90 mg Q6HR ORAL 02/13/17 11:00 03/15/17 10:59 02/15/17 12:39 Divalproex Sodium (Depakote ER) 500 mg EVERY 12 HOURS ORAL 02/12/17 21:00 03/14/17 20:59 02/15/17 08:45 Docusate Sodium (Colace) 100 mg TID ORAL 02/12/17 13:45 03/14/17 13:44 02/15/17 12:39 Guaifenesin/ Codeine Phosphate (Robitussin with codeine) 5 ml Q6H PRN ORAL For Cough 02/12/17 14:30 03/14/17 14:29 02/12/17 16:04 Haloperidol (Haldol) 5 mg Q6H PRN ORAL Agitation 02/13/17 17:15 03/15/17 17:14 02/14/17 04:20 Heparin Sodium/ Dextrose 500 ml @ 18.36 mls/ hr adjust per protocol IV 02/15/17 00:30 03/16/17 16:29 02/15/17 08:50 Insulin Aspart (NovoLOG) BEFORE MEALS AND HS SUBQ 02/12/17 07:15 03/14/17 07:14 02/15/17 12:37 Memantine (Namenda) 5 mg BID ORAL 02/14/17 09:00 03/16/17 08:59 02/15/17 08:46 Metoprolol Tartrate (Lopressor) 75 mg Q12HR ORAL 02/13/17 09:45 03/15/17 09:44 02/15/17 08:45 Morphine Sulfate (Morphine Sulfate) 2 mg Q4H PRN IVP Moderate Pain (Pain Scale 4-6) 02/11/17 17:30 02/18/17 17:29 02/14/17 04:19 Nitroglycerin (Ntg) 0.4 mg Q5M PRN SL Prn Chest Pain 02/11/17 17:30 03/13/17 17:29 Ondansetron HCl (Zofran) 4 mg Q6H PRN IVP Nausea & Vomiting 02/11/17 17:30 03/13/17 17:29 Polyethylene Glycol (Miralax) 17 gm DAILYPRN PRN ORAL Constipation 02/11/17 17:30 03/13/17 17:29 Potassium Chloride (K-Dur) 40 meq TWICE A DAY ORAL 02/14/17 10:30 03/16/17 10:29 02/15/17 08:46 Risperidone (RisperDAL) 2 mg BEDTIME ORAL 02/13/17 21:00 03/15/17 20:59 02/14/17 21:17 Sitagliptin Phosphate (Januvia) 50 mg DAILY ORAL 02/12/17 09:00 03/14/17 08:59 02/15/17 08:44 Temazepam (Restoril) 15 mg HSPRN PRN ORAL Insomnia 02/11/17 17:30 02/18/17 17:29 Gerda Sanabria NP ([facility]anchtein) Feb 15, 2017 14:13
--- NOTE | 2017-02-15 14:30 | Cardiology Progress Note ---
Assessment/Plan Assessment/Plan 1. Tachycardia. 2. Atrial fibrillation, permanent. 3. History of sick sinus syndrome, status post single-chamber permanent pacemaker implantation. 4. History of hypertension. 5. Diabetes mellitus. 6. Gangrene, left foot. 7. Peripheral vascular disease. 8. Diabetic foot ulcers. hr now better bb and cardizem he has a pacemaker so nathalie should not be a problem anticoag if vascular surgery needed will order ischemia eval but for precut vascular procedure should be fien Subjective ROS Limited/Unobtainable: Yes Objective Last 24 Hour Vital Signs Date Time Temp Pulse Resp B/P (MAP) Pulse Ox O2 Delivery O2 Flow Rate FiO2 02/15/17 12:39 78 132/78 02/15/17 11:21 108 02/15/17 08:45 91 130/63 02/15/17 08:00 97.6 77 20 146/86 100 Nasal Cannula 02/15/17 07:57 Nasal Cannula 2.0 28 02/15/17 07:57 56 20 Nasal Cannula 2.0 28 02/15/17 07:57 95 Nasal Cannula 2.0 28 02/15/17 06:32 113 151/82 02/15/17 04:36 98.1 113 20 151/82 96 Nasal Cannula 02/15/17 04:00 99 02/15/17 00:44 98.2 81 20 130/81 96 Nasal Cannula 02/15/17 00:17 81 130/81 02/15/17 00:00 101 02/14/17 21:17 97 130/78 02/14/17 20:36 98.2 97 20 130/78 97 Nasal Cannula 02/14/17 20:11 93 Nasal Cannula 3.0 32 02/14/17 20:11 Nasal Cannula 3.0 32 02/14/17 20:11 93 Nasal Cannula 3.0 32 02/14/17 20:10 122 20 Nasal Cannula 3.0 32 02/14/17 20:00 96 02/14/17 18:10 93 133/63 02/14/17 16:20 98.1 93 20 133/63 96 Nasal Cannula 02/14/17 16:00 98 General Appearance: obese Cardiovascular: irregularly irregular Extremities: no swelling Intake and Output 02/14/17 02/15/17 19:00 07:00 Intake Total 481.03 ml 182.55 ml Output Total 500 ml 600 ml Balance -18.97 ml -417.45 ml Intake Oral 120 ml IV Total 361.03 ml 182.55 ml Output Urine Total 500 ml 600 ml Laboratory Tests Test 02/14/17 15:18 02/14/17 23:16 02/15/17 07:40 02/15/17 09:15 Activated Partial Thromboplast Time 57 SEC (23-33) H 97 SEC (23-33) H 54 SEC (23-33) H White Blood Count 9.0 K/UL (4.8-10.8) Red Blood Count 3.79 M/UL (4.70-6.10) L Hemoglobin 12.6 G/DL (14.2-18.0) L Hematocrit 38.2 % (42.0-52.0) L Mean Corpuscular Volume 101 FL (80-99) H Mean Corpuscular Hemoglobin 33.2 PG (27.0-31.0) H Mean Corpuscular Hemoglobin Concent 33.0 G/DL (32.0-36.0) Red Cell Distribution Width 13.3 % (11.6-14.8) Platelet Count 125 K/UL (150-450) L Mean Platelet Volume 7.2 FL (6.5-10.1) Neutrophils (%) (Auto) 78.5 % (45.0-75.0) H Lymphocytes (%) (Auto) 12.4 % (20.0-45.0) L Monocytes (%) (Auto) 8.0 % (1.0-10.0) Eosinophils (%) (Auto) 0.5 % (0.0-3.0) Basophils (%) (Auto) 0.6 % (0.0-2.0) Sodium Level 140 MMOL/L (136-145) Potassium Level 3.8 MMOL/L (3.5-5.1) Chloride Level 106 MMOL/L (98-107) Carbon Dioxide Level 25 MMOL/L (21-32) Anion Gap 9 mmol/L (5-15) Blood Urea Nitrogen 22 mg/dL (7-18) H Creatinine 2.0 MG/DL (0.55-1.30) H Estimat Glomerular Filtration Rate 40.7 mL/min (>60) Glucose Level 195 MG/DL (74-106) H Calcium Level 7.9 MG/DL (8.5-10.1) BOBBY SANCHEZ Feb 15, 2017 14:30
--- NOTE | 2017-02-15 14:35 | General Progress Note ---
Assessment/Plan Status: stable Assessment/Plan encephalopthay agitation risperdal 2mg qhs haldol q6hr prn Subjective Date patient seen: Feb 14, 2017 Neurologic/Psychiatric: Reports: anxiety, depressed, emotional problems Allergies: Coded Allergies: No Known Allergies (Unverified , 11/26/16) Subjective the pt was calm during my eval but has episodes of agitation Objective Last 24 Hour Vital Signs Date Time Temp Pulse Resp B/P (MAP) Pulse Ox O2 Delivery O2 Flow Rate FiO2 02/15/17 12:39 78 132/78 02/15/17 11:21 108 02/15/17 08:45 91 130/63 02/15/17 08:00 97.6 77 20 146/86 100 Nasal Cannula 02/15/17 07:57 Nasal Cannula 2.0 28 02/15/17 07:57 56 20 Nasal Cannula 2.0 28 02/15/17 07:57 95 Nasal Cannula 2.0 28 02/15/17 06:32 113 151/82 02/15/17 04:36 98.1 113 20 151/82 96 Nasal Cannula 02/15/17 04:00 99 02/15/17 00:44 98.2 81 20 130/81 96 Nasal Cannula 02/15/17 00:17 81 130/81 02/15/17 00:00 101 02/14/17 21:17 97 130/78 02/14/17 20:36 98.2 97 20 130/78 97 Nasal Cannula 02/14/17 20:11 93 Nasal Cannula 3.0 32 02/14/17 20:11 Nasal Cannula 3.0 32 02/14/17 20:11 93 Nasal Cannula 3.0 32 02/14/17 20:10 122 20 Nasal Cannula 3.0 32 02/14/17 20:00 96 02/14/17 18:10 93 133/63 02/14/17 16:20 98.1 93 20 133/63 96 Nasal Cannula 02/14/17 16:00 98 Intake and Output 02/14/17 02/15/17 19:00 07:00 Intake Total 481.03 ml 182.55 ml Output Total 500 ml 600 ml Balance -18.97 ml -417.45 ml Intake Oral 120 ml IV Total 361.03 ml 182.55 ml Output Urine Total 500 ml 600 ml Laboratory Tests 02/14/17 15:18: Activated Partial Thromboplast Time 57H 02/14/17 23:16: Activated Partial Thromboplast Time 97H 02/15/17 07:40: Activated Partial Thromboplast Time 54H 02/15/17 09:15: White Blood Count 9.0, Red Blood Count 3.79L, Hemoglobin 12.6L, Hematocrit 38.2L , Mean Corpuscular Volume 101H, Mean Corpuscular Hemoglobin 33.2H, Mean Corpuscular Hemoglobin Concent 33.0, Red Cell Distribution Width 13.3, Platelet Count 125L, Mean Platelet Volume 7.2, Neutrophils (%) (Auto) 78.5H, Lymphocytes (%) (Auto) 12.4L, Monocytes (%) (Auto) 8.0, Eosinophils (%) (Auto) 0.5, Basophils (%) (Auto) 0.6, Sodium Level 140, Potassium Level 3.8, Chloride Level 106, Carbon Dioxide Level 25, Anion Gap 9, Blood Urea Nitrogen 22H, Creatinine 2.0H, Estimat Glomerular Filtration Rate 40.7, Glucose Level 195H, Calcium Level 7.9L Height (Feet): 5 Height (Inches): 10.00 Weight (Pounds): 227 General Appearance: no apparent distress, alert, confused, agitated, overweight Seth Shetty M.D. Feb 15, 2017 14:34
[2017-02-15 16:00] VITALS: BP 135/96
[2017-02-15 20:29] VITALS: BP 149/82
--- NOTE | 2017-02-15 21:00 | Progress Note ---
DATE: 02/15/2017 SUBJECTIVE: The patient is a 66-year-old male with diabetic foot ulcer. The patient also has atrial fibrillation, weakness, and tremors. The patient has diagnosis of schizoaffective, bipolar type. Mood lability worsened by the progression of his medical illness. MENTAL STATUS EXAMINATION: A 66-year-old male with psychomotor agitation. Mood is irritable and agitated. Affect guarded and restricted. Thought process disorganized and illogical. Denies any suicidal or homicidal thoughts. Insight and judgment is poor. DIAGNOSIS: Schizoaffective, bipolar type. PLAN: Treat him with Risperdal 2 mg at bedtime and Depakote 500 mg q.12 hours. He will continue to be followed by Psychiatry throughout his hospital course. Seen and assessed at bedside. Chart reviewed and discussed with staff. Karen Pettit M.D. DR: Veronica JOB#: [id number] CC:
[2017-02-15 21:47] LABS: ALANINE AMINOTRANSFERASE 15 U/L (12-78); ALBUMIN 1.9 G/DL (3.4-5.0); ALKALINE PHOSPHATASE 126 U/L (46-116); ASPARTATE AMINO TRANSFERASE 19 U/L (15-37); BILIRUBIN,DIRECT 0.2 MG/DL (0.0-0.3); BILIRUBIN,TOTAL 0.7 MG/DL (0.2-1.0); PHOSPHORUS 2.5 MG/DL (2.5-4.9)
--- NOTE | 2017-02-15 21:47 | General Progress Note ---
Progress Note Progress Note All noted For selective left leg angio with minimal contrast and percutaneous revascularization on 7am at [facility] ( [facility])--- d/w pmd & podiatry BRIAN SOUSA Feb 15, 2017 21:47
[2017-02-16] VITALS: BP 124/79
[2017-02-16] MEDS: dilTIAZem HCl 60mg tab ORAL SCH ×5 (00:31→23:58)
[2017-02-16 04:11] VITALS: BP 162/70
[2017-02-16 05:30] LABS: BASOPHILS % (AUTO) 0.8 % (0.0-2.0); EOSINOPHILS % (AUTO) 0.3 % (0.0-3.0); HEMATOCRIT 34.9 % (42.0-52.0); HEMOGLOBIN 11.5 G/DL (14.2-18.0); LYMPHOCYTES % (AUTO) 12.2 % (20.0-45.0); MEAN CORPUSCULAR VOLUME 99 FL (80-99); MONOCYTES % (AUTO) 7.5 % (1.0-10.0); NEUTROPHILS % (AUTO) 79.2 % (45.0-75.0); PLATELET COUNT 111 K/UL (150-450); RED CELL DISTRIBUTION WIDTH 13.4 % (11.6-14.8); WHITE BLOOD COUNT 10.2 K/UL (4.8-10.8)
[2017-02-16 05:51] LABS: ALANINE AMINOTRANSFERASE 16 U/L (12-78); ALBUMIN 1.6 G/DL (3.4-5.0); ALBUMIN/GLOBULIN RATIO 0.3 (1.0-2.7); ALKALINE PHOSPHATASE 114 U/L (46-116); ANION GAP 8 mmol/L (5-15); ASPARTATE AMINO TRANSFERASE 15 U/L (15-37); BILIRUBIN,TOTAL 0.7 MG/DL (0.2-1.0); BLOOD UREA NITROGEN 19 mg/dL (7-18); CARBON DIOXIDE 25 MMOL/L (21-32); CHLORIDE 106 MMOL/L (98-107); CREATININE 2.1 MG/DL (0.55-1.30); PHOSPHORUS 2.4 MG/DL (2.5-4.9); SODIUM 139 MMOL/L (136-145)
[2017-02-16] MEDS ORDERED: Heparin 5000 units/ml inj IV ONE ×3 (06:30→14:30)
[2017-02-16] MEDS: Heparin 25,000u/D5W 500ml 500 ML IV SCH (06:33)
[2017-02-16] MEDS: NovoLOG Insulin Flexpen SUBQ SCH ×4 (06:37→22:33)
[2017-02-16] MEDS ORDERED: Heparin 25,000u/D5W 500ml 500 ML IV SCH ×2 (07:15→14:45)
[2017-02-16 08:00] VITALS: BP 118/84
--- NOTE | 2017-02-16 08:30 | Consultation ---
DATE OF CONSULTATION: 02/14/2017 NOTE: Document contains blank. CONSULTING PHYSICIAN: Karen Pettit M.D. HISTORY OF PRESENT ILLNESS: This is a 66-year-old male patient. The patient is admitted to the hospital over at [facility]. He came in for a left toe ulceration, atrial fibrillation, weakness, and tremor, transferred from [facility]. This is my patient from [facility]. I have treated this patient at his long term in the past. He does have significant decline in cognition, and he appears to be confused and disorganized as well. On interview, his cognition has declined below baseline. The reason why he was admitted was because of left toe ulcer, atrial fibrillation, and his foot was getting worse, but because of his decline in cognition and disorganized thought process, there was daily psychiatric consultation requested by the attending physician to evaluate this patient daily and consult on this patient daily for psych consult to prevent any further decline in his cognition. MEDICAL HISTORY: He has a history of hypertension, asthma, and diabetes. He has a left foot wound. ALLERGIES: No known drug allergies. SOCIAL HISTORY: Lives in [facility]. Financially supported by [employer] and Medicare. PSYCHIATRIC HISTORY: He has been followed by [facility] or over at his long term at [facility]. He has been treated multiple times with us. SUBSTANCE ABUSE HISTORY: No history of any drug or alcohol use. MENTAL STATUS EXAMINATION: This is a 66-year-old male. Appearance disheveled. Attitude irritable and agitated. Affect is flat. Thought process is disorganized and illogical. Attention span is poor. Orientation x2. Speech is of low volume and slurred. Thought process disorganized. Thought content, paranoid delusions. Insight and judgment is poor. A 0 out of 3 word recall after 5-minute delay, so poor memory. Insight and judgment is poor. DIAGNOSIS: Paranoid schizophrenia, rule out dementia with psychosis. PLAN: My plans for this patient are to treat him with Risperdal. We will continue him on Risperdal, but also because of his decline in cognition, I am also going to add Namenda at a dose of 5 mg twice a day to prevent any decline in his cognition. He will continue to be followed by Psychiatry throughout his hospital course. Chart reviewed and discussed with staff. Seen and assessed at bedside. Karen Pettit M.D. DR: RAHUL JOB#: [id number] CC:
[2017-02-16] MEDS: Cefepime HCl 2 GM in D5W 110 ML IV SCH ×2 (08:55→21:00)
[2017-02-16] MEDS: Aspirin EC 81mg tab ORAL SCH (08:56)
[2017-02-16] MEDS: Docusate 100mg cap ORAL SCH ×3 (08:56→17:32)
[2017-02-16] MEDS: Depakote ER 500mg tab ORAL SCH ×2 (08:57→21:00)
[2017-02-16] MEDS: Memantine 5 MG TAB ORAL SCH ×2 (08:57→17:32)
[2017-02-16] MEDS: sitaGLIPtin 25mg tab ORAL SCH (08:57)
--- NOTE | 2017-02-16 09:12 | Podiatric Progress Note ---
Assessment/Plan Patient Rafiq Cox is a 66 year old male who was admitted on Feb 11, 2017 at 19:02 with Problems: Assessment/Plan A/ 1) Gangrene left foot 2) PAD - critical legs bilateral 3) DM foot ulcer 4) DM P/ 1) Cont Cefipime 2) Vasc plans noted, angio this 3) Cont local wound care as ordered 4) No pedal surgery planned 2/2 to CLI. Will await vasc procedure. 5) Cont heel protectors. 6) Will follow Subjective Allergies: Coded Allergies: No Known Allergies (Unverified , 11/26/16) Subjective Patient is comfortable Objective Exam Last 24 Hour Vital Signs Date Time Temp Pulse Resp B/P (MAP) Pulse Ox O2 Delivery O2 Flow Rate FiO2 02/16/17 08:56 78 149/72 02/16/17 06:31 80 162/70 02/16/17 04:11 97.0 80 18 162/70 92 02/16/17 04:00 96 02/16/17 00:31 84 124/79 02/16/17 00:00 87 02/16/17 00:00 98.0 84 20 124/79 94 02/15/17 21:48 64 149/82 02/15/17 20:29 98.0 64 20 149/82 94 02/15/17 20:00 102 02/15/17 19:10 95 Nasal Cannula 2.0 28 02/15/17 19:10 Nasal Cannula 2.0 28 02/15/17 19:10 75 20 Nasal Cannula 2.0 28 02/15/17 17:14 98 135/96 02/15/17 16:00 117 02/15/17 16:00 97.9 80 19 135/96 98 Nasal Cannula 02/15/17 12:39 78 132/78 02/15/17 12:00 91 02/15/17 12:00 97.2 78 20 132/78 99 Nasal Cannula Laboratory Tests Test 02/15/17 09:15 02/15/17 14:45 02/16/17 04:40 White Blood Count 9.0 K/UL (4.8-10.8) 10.2 K/UL (4.8-10.8) Red Blood Count 3.79 M/UL (4.70-6.10) L 3.50 M/UL (4.70-6.10) L Hemoglobin 12.6 G/DL (14.2-18.0) L 11.5 G/DL (14.2-18.0) L Hematocrit 38.2 % (42.0-52.0) L 34.9 % (42.0-52.0) L Mean Corpuscular Volume 101 FL (80-99) H 99 FL (80-99) Mean Corpuscular Hemoglobin 33.2 PG (27.0-31.0) H 32.7 PG (27.0-31.0) H Mean Corpuscular Hemoglobin Concent 33.0 G/DL (32.0-36.0) 32.9 G/DL (32.0-36.0) Red Cell Distribution Width 13.3 % (11.6-14.8) 13.4 % (11.6-14.8) Platelet Count 125 K/UL (150-450) L 111 K/UL (150-450) L Mean Platelet Volume 7.2 FL (6.5-10.1) 7.2 FL (6.5-10.1) Neutrophils (%) (Auto) 78.5 % (45.0-75.0) H 79.2 % (45.0-75.0) H Lymphocytes (%) (Auto) 12.4 % (20.0-45.0) L 12.2 % (20.0-45.0) L Monocytes (%) (Auto) 8.0 % (1.0-10.0) 7.5 % (1.0-10.0) Eosinophils (%) (Auto) 0.5 % (0.0-3.0) 0.3 % (0.0-3.0) Basophils (%) (Auto) 0.6 % (0.0-2.0) 0.8 % (0.0-2.0) Sodium Level 140 MMOL/L (136-145) 139 MMOL/L (136-145) Potassium Level 3.8 MMOL/L (3.5-5.1) 4.0 MMOL/L (3.5-5.1) Chloride Level 106 MMOL/L (98-107) 106 MMOL/L (98-107) Carbon Dioxide Level 25 MMOL/L (21-32) 25 MMOL/L (21-32) Anion Gap 9 mmol/L (5-15) 8 mmol/L (5-15) Blood Urea Nitrogen 22 mg/dL (7-18) H 19 mg/dL (7-18) H Creatinine 2.0 MG/DL (0.55-1.30) H 2.1 MG/DL (0.55-1.30) H Estimat Glomerular Filtration Rate 40.7 mL/min (>60) 38.5 mL/min (>60) Glucose Level 195 MG/DL (74-106) H 214 MG/DL (74-106) H Calcium Level 7.9 MG/DL (8.5-10.1) L 8.0 MG/DL (8.5-10.1) L Phosphorus Level 2.5 MG/DL (2.5-4.9) 2.4 MG/DL (2.5-4.9) L Magnesium Level 1.7 MG/DL (1.8-2.4) L 1.6 MG/DL (1.8-2.4) L Total Bilirubin 0.7 MG/DL (0.2-1.0) 0.7 MG/DL (0.2-1.0) Direct Bilirubin 0.2 MG/DL (0.0-0.3) Aspartate Amino Transf (AST/SGOT) 19 U/L (15-37) 15 U/L (15-37) Alanine Aminotransferase (ALT/SGPT) 15 U/L (12-78) 16 U/L (12-78) Alkaline Phosphatase 126 U/L (46-116) H 114 U/L (46-116) Total Protein 6.0 G/DL (6.4-8.2) L 6.6 G/DL (6.4-8.2) Albumin 1.9 G/DL (3.4-5.0) L 1.6 G/DL (3.4-5.0) L Activated Partial Thromboplast Time 73 SEC (23-33) H 63 SEC (23-33) H Uric Acid 6.8 MG/DL (2.6-7.2) Globulin 5.0 g/dL Albumin/Globulin Ratio 0.3 (1.0-2.7) L Microbiology Date/Time Source Procedure Growth Status 02/11/17 14:45 Blood Blood Culture - Preliminary NO GROWTH AFTER 4 DAYS Resulted 02/12/17 00:00 Wound Gram Stain - Final Resulted 02/12/17 00:00 Wound Culture - Preliminary [place] Species Staphylococcus Aureus Resulted 02/11/17 18:00 Nasal Nares MRSA Culture - Final NO METHICILLIN RESISTANT STAPH AUREUS... Complete 02/11/17 18:00 Rectum VRE Culture - Final NO VANCOMYCIN RESISTANT ENTEROCOCCUS ... Complete Dermatological Wound Assessment : Exudate Amount: None Dermatological Narrative exam unchaged since 02/14/2017 visit. Gangrene is dry left hallux and left 2nd toe. Kasi Perea DPYuriy Feb 16, 2017 09:12
--- NOTE | 2017-02-16 10:35 | Nephrology Progress Note ---
Assessment/Plan Problem List: (1) Diabetic foot ulcer (2) Atrial fibrillation (3) Pacemaker (4) Acute on chronic renal failure Assessment: + urinary retention (5) Diabetic nephropathy Assessment Renal failure - Likely chronic with superimposed acute Hypo Albuminemia Anemia DM, Nephropathy Diabetic foot ulcer / gang toes Atrial fibrillation Plan K and Mag supplement keep BP and BS and HR in check monitor renal parameters anemia falk avoid nephrotoxics per orders Subjective ROS Limited/Unobtainable: No Constitutional: Reports: malaise Objective Objective Last 24 Hour Vital Signs Date Time Temp Pulse Resp B/P (MAP) Pulse Ox O2 Delivery O2 Flow Rate FiO2 02/16/17 08:56 78 149/72 02/16/17 08:00 97.5 78 20 118/84 93 02/16/17 07:30 93 Nasal Cannula 2.0 28 02/16/17 07:30 86 20 Nasal Cannula 2.0 28 02/16/17 07:30 Nasal Cannula 2.0 28 02/16/17 06:31 80 162/70 02/16/17 04:11 97.0 80 18 162/70 92 02/16/17 04:00 96 02/16/17 00:31 84 124/79 02/16/17 00:00 87 02/16/17 00:00 98.0 84 20 124/79 94 02/15/17 21:48 64 149/82 02/15/17 20:29 98.0 64 20 149/82 94 02/15/17 20:00 102 02/15/17 19:10 95 Nasal Cannula 2.0 28 02/15/17 19:10 Nasal Cannula 2.0 28 02/15/17 19:10 75 20 Nasal Cannula 2.0 28 02/15/17 17:14 98 135/96 02/15/17 16:00 117 02/15/17 16:00 97.9 80 19 135/96 98 Nasal Cannula 02/15/17 12:39 78 132/78 02/15/17 12:00 91 02/15/17 12:00 97.2 78 20 132/78 99 Nasal Cannula Intake and Output 02/15/17 02/16/17 19:00 07:00 Intake Total 1049.52 ml Output Total 750 ml 250 ml Balance 299.52 ml -250 ml Intake Oral 650 ml IV Total 399.52 ml Output Urine Total 750 ml 250 ml Laboratory Tests 02/15/17 14:45: Activated Partial Thromboplast Time 73H 02/16/17 04:40: Activated Partial Thromboplast Time 63H, White Blood Count 10.2, Red Blood Count 3.50L, Hemoglobin 11.5L, Hematocrit 34.9L, Mean Corpuscular Volume 99, Mean Corpuscular Hemoglobin 32.7H, Mean Corpuscular Hemoglobin Concent 32.9, Red Cell Distribution Width 13.4, Platelet Count 111L, Mean Platelet Volume 7.2 , Neutrophils (%) (Auto) 79.2H, Lymphocytes (%) (Auto) 12.2L, Monocytes (%) ( Auto) 7.5, Eosinophils (%) (Auto) 0.3, Basophils (%) (Auto) 0.8, Sodium Level 139, Potassium Level 4.0, Chloride Level 106, Carbon Dioxide Level 25, Anion Gap 8, Blood Urea Nitrogen 19H, Creatinine 2.1H, Estimat Glomerular Filtration Rate 38.5, Glucose Level 214H, Uric Acid 6.8, Calcium Level 8.0L, Phosphorus Level 2.4L, Magnesium Level 1.6L, Total Bilirubin 0.7, Aspartate Amino Transf ( AST/SGOT) 15, Alanine Aminotransferase (ALT/SGPT) 16, Alkaline Phosphatase 114, Total Protein 6.6, Albumin 1.6L, Globulin 5.0, Albumin/Globulin Ratio 0.3L Height (Feet): 5 Height (Inches): 10.00 Weight (Pounds): 230 General Appearance: no apparent distress Cardiovascular: normal rate Respiratory/Chest: decreased breath sounds Abdomen: soft, other - obese Genitourinary/Rectal: other - gaffney Objective no change BHAVANI VACA Feb 16, 2017 10:35
[2017-02-16] MEDS ORDERED: Phospha 250 Neutral tab ORAL ONE (11:30)
[2017-02-16 12:00] VITALS: BP 143/68
--- NOTE | 2017-02-16 14:43 | General Progress Note ---
Assessment/Plan Problem List: (1) HTN (hypertension) ICD Codes: I10 - Essential (primary) hypertension SNOMED: 93094158 (2) Diabetes mellitus ICD Codes: E11.9 - Type 2 diabetes mellitus without complications SNOMED: 57799148 (3) Diabetic foot ulcers ICD Codes: E11.621 - Type 2 diabetes mellitus with foot ulcer; L97.509 - Non- pressure chronic ulcer of other part of unspecified foot with unspecified severity SNOMED: 967116759, 07209912 (4) Atrial fibrillation ICD Codes: I48.91 - Unspecified atrial fibrillation SNOMED: 93724070 (5) Gangrenous toe ICD Codes: I96 - Gangrene, not elsewhere classified SNOMED: 892468284 (6) Rapid atrial fibrillation ICD Codes: I48.91 - Unspecified atrial fibrillation SNOMED: 327628984 (7) Acute on chronic renal failure ICD Codes: N17.9 - Acute kidney failure, unspecified; N18.9 - Chronic kidney disease, unspecified SNOMED: 304883903 Status: stable, progressing, tolerating diet Assessment/Plan ot pt diet wound care cardio f/u cbc bmp am pending angio w vasc Subjective Constitutional: Reports: weakness Allergies: Coded Allergies: No Known Allergies (Unverified , 11/26/16) All Systems: reviewed and negative except above Subjective sleepy o2nc confused Objective Last 24 Hour Vital Signs Date Time Temp Pulse Resp B/P (MAP) Pulse Ox O2 Delivery O2 Flow Rate FiO2 02/16/17 12:18 99 166/112 02/16/17 12:00 97.2 95 18 143/68 96 02/16/17 08:56 78 149/72 02/16/17 08:00 111 02/16/17 08:00 97.5 78 20 118/84 93 02/16/17 07:30 93 Nasal Cannula 2.0 28 02/16/17 07:30 86 20 Nasal Cannula 2.0 28 02/16/17 07:30 Nasal Cannula 2.0 28 02/16/17 06:31 80 162/70 02/16/17 04:11 97.0 80 18 162/70 92 02/16/17 04:00 96 02/16/17 00:31 84 124/79 02/16/17 00:00 87 02/16/17 00:00 98.0 84 20 124/79 94 02/15/17 21:48 64 149/82 02/15/17 20:29 98.0 64 20 149/82 94 02/15/17 20:00 102 02/15/17 19:10 95 Nasal Cannula 2.0 28 02/15/17 19:10 Nasal Cannula 2.0 28 02/15/17 19:10 75 20 Nasal Cannula 2.0 28 02/15/17 17:14 98 135/96 02/15/17 16:00 117 02/15/17 16:00 97.9 80 19 135/96 98 Nasal Cannula Intake and Output 02/15/17 02/16/17 19:00 07:00 Intake Total 1049.52 ml Output Total 750 ml 250 ml Balance 299.52 ml -250 ml Intake Oral 650 ml IV Total 399.52 ml Output Urine Total 750 ml 250 ml Laboratory Tests 02/15/17 14:45: Activated Partial Thromboplast Time 73H 02/16/17 04:40: Activated Partial Thromboplast Time 63H, White Blood Count 10.2, Red Blood Count 3.50L, Hemoglobin 11.5L, Hematocrit 34.9L, Mean Corpuscular Volume 99, Mean Corpuscular Hemoglobin 32.7H, Mean Corpuscular Hemoglobin Concent 32.9, Red Cell Distribution Width 13.4, Platelet Count 111L, Mean Platelet Volume 7.2 , Neutrophils (%) (Auto) 79.2H, Lymphocytes (%) (Auto) 12.2L, Monocytes (%) ( Auto) 7.5, Eosinophils (%) (Auto) 0.3, Basophils (%) (Auto) 0.8, Sodium Level 139, Potassium Level 4.0, Chloride Level 106, Carbon Dioxide Level 25, Anion Gap 8, Blood Urea Nitrogen 19H, Creatinine 2.1H, Estimat Glomerular Filtration Rate 38.5, Glucose Level 214H, Uric Acid 6.8, Calcium Level 8.0L, Phosphorus Level 2.4L, Magnesium Level 1.6L, Total Bilirubin 0.7, Aspartate Amino Transf ( AST/SGOT) 15, Alanine Aminotransferase (ALT/SGPT) 16, Alkaline Phosphatase 114, Total Protein 6.6, Albumin 1.6L, Globulin 5.0, Albumin/Globulin Ratio 0.3L 02/16/17 13:00: Activated Partial Thromboplast Time 42H Height (Feet): 5 Height (Inches): 10.00 Weight (Pounds): 230 General Appearance: lethargic, confused EENT: normal ENT inspection Neck: normal alignment Cardiovascular: normal peripheral pulses, normal rate, regular rhythm Respiratory/Chest: chest wall non-tender, lungs clear, normal breath sounds Abdomen: normal bowel sounds, non tender, soft Extremities: normal inspection Edema: no edema noted Arm (L), no edema noted Arm (R), no edema noted Leg (L), no edema noted Leg (R), no edema noted Pedal (L), no edema noted Pedal (R), no edema noted Generalized Skin: normal pigmentation, warm/dry CLARITA TEMPLETON Feb 16, 2017 14:43
--- NOTE | 2017-02-16 15:37 | Pulmonology Progress Note ---
Assessment/Plan Problems: (1) Gangrenous toe (2) Rapid atrial fibrillation (3) HTN (hypertension) (4) Diabetes mellitus (5) Pacemaker (6) Diabetic foot ulcers Assessment/Plan heart rate better continue abx respiratory treatment titrate fio2 awaiting transfer to [facility] for vascular studies. on heparin drip Subjective ROS Limited/Unobtainable: No Interval Events: comfortable Allergies: Coded Allergies: No Known Allergies (Unverified , 11/26/16) Objective Last 24 Hour Vital Signs Date Time Temp Pulse Resp B/P (MAP) Pulse Ox O2 Delivery O2 Flow Rate FiO2 02/16/17 12:18 99 166/112 02/16/17 12:00 97.2 95 18 143/68 96 02/16/17 08:56 78 149/72 02/16/17 08:00 111 02/16/17 08:00 97.5 78 20 118/84 93 02/16/17 07:30 93 Nasal Cannula 2.0 28 02/16/17 07:30 86 20 Nasal Cannula 2.0 28 02/16/17 07:30 Nasal Cannula 2.0 28 02/16/17 06:31 80 162/70 02/16/17 04:11 97.0 80 18 162/70 92 02/16/17 04:00 96 02/16/17 00:31 84 124/79 02/16/17 00:00 87 02/16/17 00:00 98.0 84 20 124/79 94 02/15/17 21:48 64 149/82 02/15/17 20:29 98.0 64 20 149/82 94 02/15/17 20:00 102 02/15/17 19:10 95 Nasal Cannula 2.0 28 02/15/17 19:10 Nasal Cannula 2.0 28 02/15/17 19:10 75 20 Nasal Cannula 2.0 28 02/15/17 17:14 98 135/96 02/15/17 16:00 117 02/15/17 16:00 97.9 80 19 135/96 98 Nasal Cannula Intake and Output 02/15/17 02/16/17 19:00 07:00 Intake Total 1049.52 ml Output Total 750 ml 250 ml Balance 299.52 ml -250 ml Intake Oral 650 ml IV Total 399.52 ml Output Urine Total 750 ml 250 ml Objective General Appearance: WD/WN Lines, tubes and drains: peripheral, PICC HEENT: normocephalic, anicteric Neck: normal alignment Respiratory/Chest: chest wall non-tender, lungs clear Abdomen: normal bowel sounds, non tender Genitourinary/Rectal: normal genital exam Extremities: other - cold feet Laboratory Tests 02/16/17 04:40: White Blood Count 10.2, Red Blood Count 3.50L, Hemoglobin 11.5L, Hematocrit 34.9L, Mean Corpuscular Volume 99, Mean Corpuscular Hemoglobin 32.7H, Mean Corpuscular Hemoglobin Concent 32.9, Red Cell Distribution Width 13.4, Platelet Count 111L, Mean Platelet Volume 7.2, Neutrophils (%) (Auto) 79.2H, Lymphocytes (%) (Auto) 12.2L, Monocytes (%) (Auto) 7.5, Eosinophils (%) (Auto) 0.3, Basophils (%) (Auto) 0.8, Activated Partial Thromboplast Time 63H, Sodium Level 139, Potassium Level 4.0, Chloride Level 106, Carbon Dioxide Level 25, Anion Gap 8, Blood Urea Nitrogen 19H, Creatinine 2.1H, Estimat Glomerular Filtration Rate 38.5, Glucose Level 214H, Uric Acid 6.8, Calcium Level 8.0L, Phosphorus Level 2.4L, Magnesium Level 1.6L, Total Bilirubin 0.7, Aspartate Amino Transf ( AST/SGOT) 15, Alanine Aminotransferase (ALT/SGPT) 16, Alkaline Phosphatase 114, Total Protein 6.6, Albumin 1.6L, Globulin 5.0, Albumin/Globulin Ratio 0.3L 02/16/17 13:00: Activated Partial Thromboplast Time 42H Current Medications Medications (Trade) Dose Ordered Sig/Anahi Route PRN Reason Start Time Stop Time Status Last Admin Dose Admin Acetaminophen (Tylenol) 650 mg Q4H PRN ORAL fever (temp>100.5F) 02/11/17 17:30 03/13/17 17:29 02/13/17 00:58 Albuterol/ Ipratropium (Albuterol/ Ipratropium) 3 ml Q4H PRN HHN Shortness of Breath 02/14/17 15:45 02/19/17 15:44 Aspirin (Ecotrin) 81 mg DAILY ORAL 02/12/17 09:00 03/14/17 08:59 02/16/17 08:56 Atorvastatin Calcium (Lipitor) 20 mg BEDTIME ORAL 02/12/17 21:00 03/14/17 20:59 02/15/17 21:47 Cefepime HCl 2 gm/ Dextrose 110 ml @ 220 mls/hr EVERY 12 HOURS IV 02/11/17 21:00 02/18/17 20:59 02/16/17 08:55 Dextrose (Dextrose 50%) STAT PRN IV Hypoglycemia 02/12/17 07:15 03/14/17 07:14 Diltiazem HCl (Cardizem) 20 mg Q1H PRN IVP HR > 120 02/12/17 07:45 03/14/17 07:44 Diltiazem HCl (Cardizem) 90 mg Q6HR ORAL 02/13/17 11:00 03/15/17 10:59 02/16/17 12:18 Divalproex Sodium (Depakote ER) 500 mg EVERY 12 HOURS ORAL 02/12/17 21:00 03/14/17 20:59 02/16/17 08:57 Docusate Sodium (Colace) 100 mg TID ORAL 02/12/17 13:45 03/14/17 13:44 02/16/17 12:11 Guaifenesin/ Codeine Phosphate (Robitussin with codeine) 5 ml Q6H PRN ORAL For Cough 02/12/17 14:30 03/14/17 14:29 02/12/17 16:04 Haloperidol (Haldol) 5 mg Q6H PRN ORAL Agitation 02/13/17 17:15 03/15/17 17:14 02/14/17 04:20 Heparin Sodium/ Dextrose 500 ml @ 30.6 mls/hr adjust per protocol IV 02/16/17 14:45 03/16/17 16:29 02/16/17 14:38 Insulin Aspart (NovoLOG) BEFORE MEALS AND HS SUBQ 02/12/17 07:15 03/14/17 07:14 02/16/17 12:20 Memantine (Namenda) 5 mg BID ORAL 02/14/17 09:00 03/16/17 08:59 02/16/17 08:57 Metoprolol Tartrate (Lopressor) 100 mg Q12HR ORAL 02/15/17 21:00 03/17/17 20:59 02/16/17 08:56 Morphine Sulfate (Morphine Sulfate) 2 mg Q4H PRN IVP Moderate Pain (Pain Scale 4-6) 02/11/17 17:30 02/18/17 17:29 02/14/17 04:19 Nitroglycerin (Ntg) 0.4 mg Q5M PRN SL Prn Chest Pain 02/11/17 17:30 03/13/17 17:29 Ondansetron HCl (Zofran) 4 mg Q6H PRN IVP Nausea & Vomiting 02/11/17 17:30 03/13/17 17:29 Polyethylene Glycol (Miralax) 17 gm DAILYPRN PRN ORAL Constipation 02/11/17 17:30 03/13/17 17:29 Potassium Chloride (K-Dur) 40 meq TWICE A DAY ORAL 02/14/17 10:30 03/16/17 10:29 02/16/17 08:57 Risperidone (RisperDAL) 2 mg BEDTIME ORAL 02/13/17 21:00 03/15/17 20:59 02/15/17 21:46 Sitagliptin Phosphate (Januvia) 50 mg DAILY ORAL 02/12/17 09:00 03/14/17 08:59 02/16/17 08:57 Temazepam (Restoril) 15 mg HSPRN PRN ORAL Insomnia 02/11/17 17:30 02/18/17 17:29 SATHYA MEIER Feb 16, 2017 15:37
[2017-02-16 16:00] VITALS: BP 136/70
[2017-02-16 20:00] VITALS: BP 133/78
--- NOTE | 2017-02-16 20:28 | Cardiology Progress Note ---
Assessment/Plan Assessment/Plan 1. Tachycardia. 2. Atrial fibrillation, permanent. 3. History of sick sinus syndrome, status post single-chamber permanent pacemaker implantation. 4. History of hypertension. 5. Diabetes mellitus. 6. Gangrene, left foot. 7. Peripheral vascular disease. 8. Diabetic foot ulcers. hr now better bb and cardizem in crease bb furtehr he has a pacemaker so nathalie should not be a problem anticoag if vascular surgery needed will order ischemia eval but for precut vascular procedure should be fine Subjective Cardiovascular: Denies: chest pain, lightheadedness Respiratory: Denies: shortness of breath Gastrointestinal/Abdominal: Denies: abdominal pain Objective Last 24 Hour Vital Signs Date Time Temp Pulse Resp B/P (MAP) Pulse Ox O2 Delivery O2 Flow Rate FiO2 02/16/17 17:33 112 136/70 02/16/17 16:00 97.9 105 20 136/70 91 02/16/17 16:00 112 02/16/17 12:18 99 166/112 02/16/17 12:00 105 02/16/17 12:00 97.2 95 18 143/68 96 02/16/17 08:56 78 149/72 02/16/17 08:00 111 02/16/17 08:00 97.5 78 20 118/84 93 02/16/17 07:30 93 Nasal Cannula 2.0 28 02/16/17 07:30 86 20 Nasal Cannula 2.0 28 02/16/17 07:30 Nasal Cannula 2.0 28 02/16/17 06:31 80 162/70 02/16/17 04:11 97.0 80 18 162/70 92 02/16/17 04:00 96 02/16/17 00:31 84 124/79 02/16/17 00:00 87 02/16/17 00:00 98.0 84 20 124/79 94 02/15/17 21:48 64 149/82 02/15/17 20:29 98.0 64 20 149/82 94 General Appearance: lethargic Neck: supple Cardiovascular: irregularly irregular Respiratory/Chest: rhonchi - bilaterally Abdomen: normal bowel sounds, non tender, soft Extremities: trace edema Intake and Output 02/15/17 02/16/17 19:00 07:00 Intake Total 1049.52 ml Output Total 750 ml 250 ml Balance 299.52 ml -250 ml Intake Oral 650 ml IV Total 399.52 ml Output Urine Total 750 ml 250 ml Laboratory Tests Test 02/16/17 04:40 02/16/17 13:00 White Blood Count 10.2 K/UL (4.8-10.8) Red Blood Count 3.50 M/UL (4.70-6.10) L Hemoglobin 11.5 G/DL (14.2-18.0) L Hematocrit 34.9 % (42.0-52.0) L Mean Corpuscular Volume 99 FL (80-99) Mean Corpuscular Hemoglobin 32.7 PG (27.0-31.0) H Mean Corpuscular Hemoglobin Concent 32.9 G/DL (32.0-36.0) Red Cell Distribution Width 13.4 % (11.6-14.8) Platelet Count 111 K/UL (150-450) L Mean Platelet Volume 7.2 FL (6.5-10.1) Neutrophils (%) (Auto) 79.2 % (45.0-75.0) H Lymphocytes (%) (Auto) 12.2 % (20.0-45.0) L Monocytes (%) (Auto) 7.5 % (1.0-10.0) Eosinophils (%) (Auto) 0.3 % (0.0-3.0) Basophils (%) (Auto) 0.8 % (0.0-2.0) Activated Partial Thromboplast Time 63 SEC (23-33) H 42 SEC (23-33) H Sodium Level 139 MMOL/L (136-145) Potassium Level 4.0 MMOL/L (3.5-5.1) Chloride Level 106 MMOL/L (98-107) Carbon Dioxide Level 25 MMOL/L (21-32) Anion Gap 8 mmol/L (5-15) Blood Urea Nitrogen 19 mg/dL (7-18) H Creatinine 2.1 MG/DL (0.55-1.30) H Estimat Glomerular Filtration Rate 38.5 mL/min (>60) Glucose Level 214 MG/DL (74-106) H Uric Acid 6.8 MG/DL (2.6-7.2) Calcium Level 8.0 MG/DL (8.5-10.1) L Phosphorus Level 2.4 MG/DL (2.5-4.9) L Magnesium Level 1.6 MG/DL (1.8-2.4) L Total Bilirubin 0.7 MG/DL (0.2-1.0) Aspartate Amino Transf (AST/SGOT) 15 U/L (15-37) Alanine Aminotransferase (ALT/SGPT) 16 U/L (12-78) Alkaline Phosphatase 114 U/L (46-116) Total Protein 6.6 G/DL (6.4-8.2) Albumin 1.6 G/DL (3.4-5.0) L Globulin 5.0 g/dL Albumin/Globulin Ratio 0.3 (1.0-2.7) L BOBBY BURNETTE Feb 16, 2017 20:28
[2017-02-16] MEDS: Metoprolol 25mg tab ORAL SCH (21:00)
[2017-02-17] VITALS: BP 121/77
[2017-02-17] MEDS: Heparin 25,000u/D5W 500ml 500 ML IV SCH ×2 (00:01→09:46)
[2017-02-17 04:00] VITALS: BP 116/74
[2017-02-17 05:32] LABS: BASOPHILS % (AUTO) 0.6 % (0.0-2.0); EOSINOPHILS % (AUTO) 0.8 % (0.0-3.0); HEMATOCRIT 33.6 % (42.0-52.0); LYMPHOCYTES % (AUTO) 12.7 % (20.0-45.0); MEAN CORPUSCULAR VOLUME 100 FL (80-99); MONOCYTES % (AUTO) 9.5 % (1.0-10.0); NEUTROPHILS % (AUTO) 76.4 % (45.0-75.0); PLATELET COUNT 114 K/UL (150-450); RED BLOOD COUNT 3.37 M/UL (4.70-6.10); RED CELL DISTRIBUTION WIDTH 13.5 % (11.6-14.8); WHITE BLOOD COUNT 9.8 K/UL (4.8-10.8)
[2017-02-17] MEDS: dilTIAZem HCl 60mg tab ORAL SCH ×3 (06:00→18:00)
[2017-02-17 06:29] LABS: ANION GAP 9 mmol/L (5-15); BLOOD UREA NITROGEN 20 mg/dL (7-18); CALCIUM 8.3 MG/DL (8.5-10.1); CARBON DIOXIDE 23 MMOL/L (21-32); CHLORIDE 107 MMOL/L (98-107); CREATININE 2.1 MG/DL (0.55-1.30); POTASSIUM 3.9 MMOL/L (3.5-5.1); SODIUM 139 MMOL/L (136-145)
[2017-02-17] MEDS: NovoLOG Insulin Flexpen SUBQ SCH ×3 (06:34→16:30)
[2017-02-17 08:00] VITALS: BP 106/72
[2017-02-17 09:30] VITALS: BP 129/109
[2017-02-17] MEDS: Cefepime HCl 2 GM in D5W 110 ML IV SCH (09:46)
[2017-02-17] MEDS: Metoprolol 25mg tab ORAL SCH (09:49)
[2017-02-17] MEDS: sitaGLIPtin 25mg tab ORAL SCH (09:49)
[2017-02-17] MEDS: Aspirin EC 81mg tab ORAL SCH (09:49)
[2017-02-17] MEDS: Depakote ER 500mg tab ORAL SCH (09:49)
[2017-02-17] MEDS: Docusate 100mg cap ORAL SCH ×3 (09:50→18:00)
[2017-02-17] MEDS: Memantine 5 MG TAB ORAL SCH ×2 (09:50→18:00)
--- NOTE | 2017-02-17 11:33 | Nephrology Progress Note ---
Assessment/Plan Problem List: (1) Diabetic foot ulcer (2) Atrial fibrillation (3) Pacemaker (4) Acute on chronic renal failure Assessment: + urinary retention (5) Diabetic nephropathy Assessment Renal failure - Likely chronic with superimposed acute Cr 2.1 same Hypo Albuminemia Anemia DM, Nephropathy Diabetic foot ulcer / gang toes Atrial fibrillation Plan K and Mag supplement keep BP and BS and HR in check monitor renal parameters anemia falk avoid nephrotoxics per cardiology per orders Subjective ROS Limited/Unobtainable: No Constitutional: Reports: malaise Objective Objective Last 24 Hour Vital Signs Date Time Temp Pulse Resp B/P (MAP) Pulse Ox O2 Delivery O2 Flow Rate FiO2 02/17/17 09:49 61 133/78 02/17/17 09:46 71 133/78 02/17/17 07:26 95 Nasal Cannula 2.0 28 02/17/17 07:26 Nasal Cannula 2.0 28 02/17/17 07:25 61 20 Nasal Cannula 2.0 28 02/17/17 06:00 71 133/78 02/17/17 04:00 92 02/17/17 04:00 98.2 59 22 116/74 95 Nasal Cannula 02/17/17 00:00 98.2 80 22 121/77 100 Nasal Cannula 02/17/17 00:00 82 02/16/17 23:58 71 133/78 02/16/17 21:00 71 133/78 02/16/17 21:00 71 133/78 02/16/17 20:00 98.1 71 20 133/78 94 Nasal Cannula 02/16/17 20:00 135 02/16/17 19:30 Nasal Cannula 2.0 28 02/16/17 19:30 92 Nasal Cannula 2.0 28 02/16/17 19:30 89 20 Nasal Cannula 2.0 28 02/16/17 17:33 112 136/70 02/16/17 16:00 97.9 105 20 136/70 91 02/16/17 16:00 112 02/16/17 12:18 99 166/112 02/16/17 12:00 105 02/16/17 12:00 97.2 95 18 143/68 96 Intake and Output 02/16/17 02/17/17 19:00 07:00 Intake Total 842.68 ml Output Total 400 ml 525 ml Balance 442.68 ml -525 ml Intake Oral 180 ml IV Total 662.68 ml Output Urine Total 400 ml 525 ml Laboratory Tests 02/16/17 13:00: Activated Partial Thromboplast Time 42H 02/16/17 20:25: Activated Partial Thromboplast Time > 150*H 02/17/17 04:15: Activated Partial Thromboplast Time 77H, White Blood Count 9.8, Red Blood Count 3.37L, Hemoglobin 11.0L, Hematocrit 33.6L, Mean Corpuscular Volume 100H, Mean Corpuscular Hemoglobin 32.7H, Mean Corpuscular Hemoglobin Concent 32.9, Red Cell Distribution Width 13.5, Platelet Count 114L, Mean Platelet Volume 7.5, Neutrophils (%) (Auto) 76.4H, Lymphocytes (%) (Auto) 12.7L, Monocytes (%) (Auto ) 9.5, Eosinophils (%) (Auto) 0.8, Basophils (%) (Auto) 0.6, Sodium Level 139, Potassium Level 3.9, Chloride Level 107, Carbon Dioxide Level 23, Anion Gap 9, Blood Urea Nitrogen 20H, Creatinine 2.1H, Estimat Glomerular Filtration Rate 38.5, Glucose Level 190H, Calcium Level 8.3L 02/17/17 08:50: Activated Partial Thromboplast Time 93H Height (Feet): 5 Height (Inches): 10.00 Weight (Pounds): 226 General Appearance: no apparent distress Objective no change BHAVANI VACA Feb 17, 2017 11:33
[2017-02-17 12:00] VITALS: BP 142/110
[2017-02-17 12:07] LABS: ALANINE AMINOTRANSFERASE 8 U/L (12-78); ALBUMIN 1.5 G/DL (3.4-5.0); ALKALINE PHOSPHATASE 118 U/L (46-116); ASPARTATE AMINO TRANSFERASE 21 U/L (15-37); BILIRUBIN,DIRECT 0.1 MG/DL (0.0-0.3); BILIRUBIN,TOTAL 0.5 MG/DL (0.2-1.0); PHOSPHORUS 3.2 MG/DL (2.5-4.9)
--- NOTE | 2017-02-17 13:26 | Infectious Diseases Prog Note ---
Assessment/Plan Assessment/Plan A: left foot cellulitis/ gangrene DM PVD CKD Atrial fibrillation, permanent anemia Paranoid schizophrenia P: Continue Cefepime, Subjective ROS Limited/Unobtainable: Yes Allergies: Coded Allergies: No Known Allergies (Unverified , 11/26/16) Objective Vital Signs Last 24 Hour Vital Signs Date Time Temp Pulse Resp B/P (MAP) Pulse Ox O2 Delivery O2 Flow Rate FiO2 02/17/17 12:37 145 129/109 02/17/17 09:49 61 133/78 02/17/17 09:46 71 133/78 02/17/17 07:26 95 Nasal Cannula 2.0 28 02/17/17 07:26 Nasal Cannula 2.0 28 02/17/17 07:25 61 20 Nasal Cannula 2.0 28 02/17/17 06:00 71 133/78 02/17/17 04:00 92 02/17/17 04:00 98.2 59 22 116/74 95 Nasal Cannula 02/17/17 00:00 98.2 80 22 121/77 100 Nasal Cannula 02/17/17 00:00 82 02/16/17 23:58 71 133/78 02/16/17 21:00 71 133/78 02/16/17 21:00 71 133/78 02/16/17 20:00 98.1 71 20 133/78 94 Nasal Cannula 02/16/17 20:00 135 02/16/17 19:30 Nasal Cannula 2.0 28 02/16/17 19:30 92 Nasal Cannula 2.0 28 02/16/17 19:30 89 20 Nasal Cannula 2.0 28 02/16/17 17:33 112 136/70 02/16/17 16:00 97.9 105 20 136/70 91 02/16/17 16:00 112 Height (Feet): 5 Height (Inches): 10.00 Weight (Pounds): 226 General Appearance: no acute distress HEENT: mucous membranes moist Respiratory/Chest: lungs clear Cardiovascular: normal rate, pacemaker/AICD Abdomen: soft, non tender Extremities: no edema Skin: ulcers, other - left foot Neurologic/Psychiatric: alert, responsive Laboratory Tests Test 02/16/17 20:25 02/17/17 04:15 02/17/17 08:50 Activated Partial Thromboplast Time > 150 SEC (23-33) *H 77 SEC (23-33) H 93 SEC (23-33) H White Blood Count 9.8 K/UL (4.8-10.8) Red Blood Count 3.37 M/UL (4.70-6.10) L Hemoglobin 11.0 G/DL (14.2-18.0) L Hematocrit 33.6 % (42.0-52.0) L Mean Corpuscular Volume 100 FL (80-99) H Mean Corpuscular Hemoglobin 32.7 PG (27.0-31.0) H Mean Corpuscular Hemoglobin Concent 32.9 G/DL (32.0-36.0) Red Cell Distribution Width 13.5 % (11.6-14.8) Platelet Count 114 K/UL (150-450) L Mean Platelet Volume 7.5 FL (6.5-10.1) Neutrophils (%) (Auto) 76.4 % (45.0-75.0) H Lymphocytes (%) (Auto) 12.7 % (20.0-45.0) L Monocytes (%) (Auto) 9.5 % (1.0-10.0) Eosinophils (%) (Auto) 0.8 % (0.0-3.0) Basophils (%) (Auto) 0.6 % (0.0-2.0) Sodium Level 139 MMOL/L (136-145) Potassium Level 3.9 MMOL/L (3.5-5.1) Chloride Level 107 MMOL/L (98-107) Carbon Dioxide Level 23 MMOL/L (21-32) Anion Gap 9 mmol/L (5-15) Blood Urea Nitrogen 20 mg/dL (7-18) H Creatinine 2.1 MG/DL (0.55-1.30) H Estimat Glomerular Filtration Rate 38.5 mL/min (>60) Glucose Level 190 MG/DL (74-106) H Calcium Level 8.3 MG/DL (8.5-10.1) L Phosphorus Level 3.2 MG/DL (2.5-4.9) Magnesium Level 2.1 MG/DL (1.8-2.4) Total Bilirubin 0.5 MG/DL (0.2-1.0) Direct Bilirubin 0.1 MG/DL (0.0-0.3) Aspartate Amino Transf (AST/SGOT) 21 U/L (15-37) Alanine Aminotransferase (ALT/SGPT) 8 U/L (12-78) L Alkaline Phosphatase 118 U/L (46-116) H Total Protein 6.5 G/DL (6.4-8.2) Albumin 1.5 G/DL (3.4-5.0) L Current Medications Medications (Trade) Dose Ordered Sig/Anahi Route PRN Reason Start Time Stop Time Status Last Admin Dose Admin Acetaminophen (Tylenol) 650 mg Q4H PRN ORAL fever (temp>100.5F) 02/11/17 17:30 03/13/17 17:29 02/13/17 00:58 Albuterol/ Ipratropium (Albuterol/ Ipratropium) 3 ml Q4H PRN HHN Shortness of Breath 02/14/17 15:45 02/19/17 15:44 Aspirin (Ecotrin) 81 mg DAILY ORAL 02/12/17 09:00 03/14/17 08:59 02/17/17 09:49 Atorvastatin Calcium (Lipitor) 20 mg BEDTIME ORAL 02/12/17 21:00 03/14/17 20:59 02/16/17 21:00 Cefepime HCl 2 gm/ Dextrose 110 ml @ 220 mls/hr EVERY 12 HOURS IV 02/11/17 21:00 02/18/17 20:59 02/17/17 09:46 Dextrose (Dextrose 50%) STAT PRN IV Hypoglycemia 02/12/17 07:15 03/14/17 07:14 Diltiazem HCl (Cardizem) 20 mg Q1H PRN IVP HR > 120 02/12/17 07:45 03/14/17 07:44 Diltiazem HCl (Cardizem) 90 mg Q6HR ORAL 02/13/17 11:00 03/15/17 10:59 02/17/17 12:37 Divalproex Sodium (Depakote ER) 500 mg EVERY 12 HOURS ORAL 02/12/17 21:00 03/14/17 20:59 02/17/17 09:49 Docusate Sodium (Colace) 100 mg TID ORAL 02/12/17 13:45 03/14/17 13:44 02/17/17 12:47 Guaifenesin/ Codeine Phosphate (Robitussin with codeine) 5 ml Q6H PRN ORAL For Cough 02/12/17 14:30 03/14/17 14:29 02/12/17 16:04 Haloperidol (Haldol) 5 mg Q6H PRN ORAL Agitation 02/13/17 17:15 03/15/17 17:14 02/14/17 04:20 Heparin Sodium/ Dextrose 500 ml @ 22.44 mls/ hr adjust per protocol IV 02/16/17 22:45 03/18/17 22:44 02/17/17 09:46 Insulin Aspart (NovoLOG) BEFORE MEALS AND HS SUBQ 02/12/17 07:15 03/14/17 07:14 02/17/17 12:38 Memantine (Namenda) 5 mg BID ORAL 02/14/17 09:00 03/16/17 08:59 02/17/17 09:50 Metoprolol Tartrate (Lopressor) 25 mg Q12HR ORAL 02/16/17 21:00 03/18/17 20:59 02/17/17 09:49 Metoprolol Tartrate (Lopressor) 100 mg Q12HR ORAL 02/16/17 21:00 03/18/17 20:59 02/17/17 09:46 Morphine Sulfate (Morphine Sulfate) 2 mg Q4H PRN IVP Moderate Pain (Pain Scale 4-6) 02/11/17 17:30 02/18/17 17:29 02/14/17 04:19 Nitroglycerin (Ntg) 0.4 mg Q5M PRN SL Prn Chest Pain 02/11/17 17:30 03/13/17 17:29 Ondansetron HCl (Zofran) 4 mg Q6H PRN IVP Nausea & Vomiting 02/11/17 17:30 03/13/17 17:29 Polyethylene Glycol (Miralax) 17 gm DAILYPRN PRN ORAL Constipation 02/11/17 17:30 03/13/17 17:29 Potassium Chloride (K-Dur) 40 meq TWICE A DAY ORAL 02/14/17 10:30 03/16/17 10:29 02/17/17 09:50 Risperidone (RisperDAL) 2 mg BEDTIME ORAL 02/13/17 21:00 03/15/17 20:59 02/16/17 21:00 Sitagliptin Phosphate (Januvia) 50 mg DAILY ORAL 02/12/17 09:00 03/14/17 08:59 02/17/17 09:49 Temazepam (Restoril) 15 mg HSPRN PRN ORAL Insomnia 02/11/17 17:30 02/18/17 17:29 MARYLIN WOOD Feb 17, 2017 13:26
--- NOTE | 2017-02-17 14:16 | Diagnostic Imaging Report ---
Indication: Dyspnea Comparison: 02/11/2017 A single view chest radiograph was obtained. Findings: Pulmonary vascularity and heart size are prominent consistent with mild interstitial edema/CHF. A single-lead right-sided pacemaker is again noted. IMPRESSION: Mild interstitial edema suspected
--- NOTE | 2017-02-17 14:47 | General Progress Note ---
Assessment/Plan Problem List: (1) HTN (hypertension) ICD Codes: I10 - Essential (primary) hypertension SNOMED: 68200059 (2) Diabetes mellitus ICD Codes: E11.9 - Type 2 diabetes mellitus without complications SNOMED: 48485044 (3) Diabetic foot ulcers ICD Codes: E11.621 - Type 2 diabetes mellitus with foot ulcer; L97.509 - Non- pressure chronic ulcer of other part of unspecified foot with unspecified severity SNOMED: 931220545, 35960176 (4) Atrial fibrillation ICD Codes: I48.91 - Unspecified atrial fibrillation SNOMED: 94172192 (5) Gangrenous toe ICD Codes: I96 - Gangrene, not elsewhere classified SNOMED: 817054299 (6) Rapid atrial fibrillation ICD Codes: I48.91 - Unspecified atrial fibrillation SNOMED: 643033626 (7) Acute on chronic renal failure ICD Codes: N17.9 - Acute kidney failure, unspecified; N18.9 - Chronic kidney disease, unspecified SNOMED: 508416499 Status: unchanged Assessment/Plan ot pt diet wound care cardio f/u dc to snf pending angio w vasc Subjective Constitutional: Reports: weakness Allergies: Coded Allergies: No Known Allergies (Unverified , 11/26/16) All Systems: reviewed and negative except above Subjective sleepy o2nc confused Objective Last 24 Hour Vital Signs Date Time Temp Pulse Resp B/P (MAP) Pulse Ox O2 Delivery O2 Flow Rate FiO2 02/17/17 12:37 145 129/109 02/17/17 12:00 98.0 151 22 142/110 92 Nasal Cannula 2.0 02/17/17 09:49 61 133/78 02/17/17 09:46 71 133/78 02/17/17 09:30 145 129/109 02/17/17 08:00 98.2 75 20 106/72 92 Nasal Cannula 2.0 02/17/17 07:26 95 Nasal Cannula 2.0 28 02/17/17 07:26 Nasal Cannula 2.0 28 02/17/17 07:25 61 20 Nasal Cannula 2.0 28 02/17/17 06:00 71 133/78 02/17/17 04:00 92 02/17/17 04:00 98.2 59 22 116/74 95 Nasal Cannula 02/17/17 00:00 98.2 80 22 121/77 100 Nasal Cannula 02/17/17 00:00 82 02/16/17 23:58 71 133/78 02/16/17 21:00 71 133/78 02/16/17 21:00 71 133/78 02/16/17 20:00 98.1 71 20 133/78 94 Nasal Cannula 02/16/17 20:00 135 02/16/17 19:30 Nasal Cannula 2.0 28 02/16/17 19:30 92 Nasal Cannula 2.0 28 02/16/17 19:30 89 20 Nasal Cannula 2.0 28 02/16/17 17:33 112 136/70 02/16/17 16:00 97.9 105 20 136/70 91 02/16/17 16:00 112 Intake and Output 02/16/17 02/17/17 19:00 07:00 Intake Total 842.68 ml Output Total 400 ml 525 ml Balance 442.68 ml -525 ml Intake Oral 180 ml IV Total 662.68 ml Output Urine Total 400 ml 525 ml Laboratory Tests 02/16/17 20:25: Activated Partial Thromboplast Time > 150*H 02/17/17 04:15: Activated Partial Thromboplast Time 77H, White Blood Count 9.8, Red Blood Count 3.37L, Hemoglobin 11.0L, Hematocrit 33.6L, Mean Corpuscular Volume 100H, Mean Corpuscular Hemoglobin 32.7H, Mean Corpuscular Hemoglobin Concent 32.9, Red Cell Distribution Width 13.5, Platelet Count 114L, Mean Platelet Volume 7.5, Neutrophils (%) (Auto) 76.4H, Lymphocytes (%) (Auto) 12.7L, Monocytes (%) (Auto ) 9.5, Eosinophils (%) (Auto) 0.8, Basophils (%) (Auto) 0.6, Sodium Level 139, Potassium Level 3.9, Chloride Level 107, Carbon Dioxide Level 23, Anion Gap 9, Blood Urea Nitrogen 20H, Creatinine 2.1H, Estimat Glomerular Filtration Rate 38.5, Glucose Level 190H, Calcium Level 8.3L, Phosphorus Level 3.2, Magnesium Level 2.1, Total Bilirubin 0.5, Direct Bilirubin 0.1, Aspartate Amino Transf ( AST/SGOT) 21, Alanine Aminotransferase (ALT/SGPT) 8L, Alkaline Phosphatase 118H , Total Protein 6.5, Albumin 1.5L 02/17/17 08:50: Activated Partial Thromboplast Time 93H Height (Feet): 5 Height (Inches): 10.00 Weight (Pounds): 226 General Appearance: lethargic, confused EENT: normal ENT inspection Neck: normal alignment Cardiovascular: normal peripheral pulses, normal rate, regular rhythm Respiratory/Chest: chest wall non-tender, lungs clear, normal breath sounds Abdomen: normal bowel sounds, non tender, soft Extremities: normal inspection Edema: no edema noted Arm (L), no edema noted Arm (R), no edema noted Leg (L), no edema noted Leg (R), no edema noted Pedal (L), no edema noted Pedal (R), no edema noted Generalized Neurologic: motor weakness Skin: normal pigmentation, warm/dry CLARITA TEMPLETON Feb 17, 2017 14:47
--- NOTE | 2017-02-17 15:05 | Pulmonology Progress Note ---
Assessment/Plan Problems: (1) Gangrenous toe (2) Rapid atrial fibrillation (3) HTN (hypertension) (4) Diabetes mellitus (5) Pacemaker (6) Diabetic foot ulcers Assessment/Plan was dyspnic earlier heart rate better continue abx respiratory treatment titrate fio2 awaiting transfer to [facility] for vascular studies. on heparin drip lasix IV times one. Subjective ROS Limited/Unobtainable: No Interval Events: was agitated earlier Allergies: Coded Allergies: No Known Allergies (Unverified , 11/26/16) Objective Last 24 Hour Vital Signs Date Time Temp Pulse Resp B/P (MAP) Pulse Ox O2 Delivery O2 Flow Rate FiO2 02/17/17 12:37 145 129/109 02/17/17 12:00 98.0 151 22 142/110 92 Nasal Cannula 2.0 02/17/17 09:49 61 133/78 02/17/17 09:46 71 133/78 02/17/17 09:30 145 129/109 02/17/17 08:00 98.2 75 20 106/72 92 Nasal Cannula 2.0 02/17/17 07:26 95 Nasal Cannula 2.0 28 02/17/17 07:26 Nasal Cannula 2.0 28 02/17/17 07:25 61 20 Nasal Cannula 2.0 28 02/17/17 06:00 71 133/78 02/17/17 04:00 92 02/17/17 04:00 98.2 59 22 116/74 95 Nasal Cannula 02/17/17 00:00 98.2 80 22 121/77 100 Nasal Cannula 02/17/17 00:00 82 02/16/17 23:58 71 133/78 02/16/17 21:00 71 133/78 02/16/17 21:00 71 133/78 02/16/17 20:00 98.1 71 20 133/78 94 Nasal Cannula 02/16/17 20:00 135 02/16/17 19:30 Nasal Cannula 2.0 28 02/16/17 19:30 92 Nasal Cannula 2.0 28 02/16/17 19:30 89 20 Nasal Cannula 2.0 28 02/16/17 17:33 112 136/70 02/16/17 16:00 97.9 105 20 136/70 91 02/16/17 16:00 112 Intake and Output 02/16/17 02/17/17 19:00 07:00 Intake Total 842.68 ml Output Total 400 ml 525 ml Balance 442.68 ml -525 ml Intake Oral 180 ml IV Total 662.68 ml Output Urine Total 400 ml 525 ml Objective General Appearance: WD/WN Lines, tubes and drains: peripheral, PICC HEENT: normocephalic, anicteric Neck: normal alignment Respiratory/Chest: chest wall non-tender, lungs clear Abdomen: normal bowel sounds, non tender Genitourinary/Rectal: normal genital exam Extremities: other - cold feet Laboratory Tests 02/16/17 20:25: Activated Partial Thromboplast Time > 150*H 02/17/17 04:15: Activated Partial Thromboplast Time 77H, White Blood Count 9.8, Red Blood Count 3.37L, Hemoglobin 11.0L, Hematocrit 33.6L, Mean Corpuscular Volume 100H, Mean Corpuscular Hemoglobin 32.7H, Mean Corpuscular Hemoglobin Concent 32.9, Red Cell Distribution Width 13.5, Platelet Count 114L, Mean Platelet Volume 7.5, Neutrophils (%) (Auto) 76.4H, Lymphocytes (%) (Auto) 12.7L, Monocytes (%) (Auto ) 9.5, Eosinophils (%) (Auto) 0.8, Basophils (%) (Auto) 0.6, Sodium Level 139, Potassium Level 3.9, Chloride Level 107, Carbon Dioxide Level 23, Anion Gap 9, Blood Urea Nitrogen 20H, Creatinine 2.1H, Estimat Glomerular Filtration Rate 38.5, Glucose Level 190H, Calcium Level 8.3L, Phosphorus Level 3.2, Magnesium Level 2.1, Total Bilirubin 0.5, Direct Bilirubin 0.1, Aspartate Amino Transf ( AST/SGOT) 21, Alanine Aminotransferase (ALT/SGPT) 8L, Alkaline Phosphatase 118H , Total Protein 6.5, Albumin 1.5L 02/17/17 08:50: Activated Partial Thromboplast Time 93H Current Medications Medications (Trade) Dose Ordered Sig/Anahi Route PRN Reason Start Time Stop Time Status Last Admin Dose Admin Acetaminophen (Tylenol) 650 mg Q4H PRN ORAL fever (temp>100.5F) 02/11/17 17:30 03/13/17 17:29 02/13/17 00:58 Albuterol/ Ipratropium (Albuterol/ Ipratropium) 3 ml Q4H PRN HHN Shortness of Breath 02/14/17 15:45 02/19/17 15:44 Aspirin (Ecotrin) 81 mg DAILY ORAL 02/12/17 09:00 03/14/17 08:59 02/17/17 09:49 Atorvastatin Calcium (Lipitor) 20 mg BEDTIME ORAL 02/12/17 21:00 03/14/17 20:59 02/16/17 21:00 Cefepime HCl 2 gm/ Dextrose 110 ml @ 220 mls/hr EVERY 12 HOURS IV 02/11/17 21:00 02/18/17 20:59 02/17/17 09:46 Dextrose (Dextrose 50%) STAT PRN IV Hypoglycemia 02/12/17 07:15 03/14/17 07:14 Diltiazem HCl (Cardizem) 20 mg Q1H PRN IVP HR > 120 02/12/17 07:45 03/14/17 07:44 Diltiazem HCl (Cardizem) 90 mg Q6HR ORAL 02/13/17 11:00 03/15/17 10:59 02/17/17 12:37 Divalproex Sodium (Depakote ER) 500 mg EVERY 12 HOURS ORAL 02/12/17 21:00 03/14/17 20:59 02/17/17 09:49 Docusate Sodium (Colace) 100 mg TID ORAL 02/12/17 13:45 03/14/17 13:44 02/17/17 12:47 Guaifenesin/ Codeine Phosphate (Robitussin with codeine) 5 ml Q6H PRN ORAL For Cough 02/12/17 14:30 03/14/17 14:29 02/12/17 16:04 Haloperidol (Haldol) 5 mg Q6H PRN ORAL Agitation 02/13/17 17:15 03/15/17 17:14 02/14/17 04:20 Heparin Sodium/ Dextrose 500 ml @ 22.44 mls/ hr adjust per protocol IV 02/16/17 22:45 03/18/17 22:44 02/17/17 09:46 Insulin Aspart (NovoLOG) BEFORE MEALS AND HS SUBQ 02/12/17 07:15 03/14/17 07:14 02/17/17 12:38 Memantine (Namenda) 5 mg BID ORAL 02/14/17 09:00 03/16/17 08:59 02/17/17 09:50 Metoprolol Tartrate (Lopressor) 25 mg Q12HR ORAL 02/16/17 21:00 03/18/17 20:59 02/17/17 09:49 Metoprolol Tartrate (Lopressor) 100 mg Q12HR ORAL 02/16/17 21:00 03/18/17 20:59 02/17/17 09:46 Morphine Sulfate (Morphine Sulfate) 2 mg Q4H PRN IVP Moderate Pain (Pain Scale 4-6) 02/11/17 17:30 02/18/17 17:29 02/14/17 04:19 Nitroglycerin (Ntg) 0.4 mg Q5M PRN SL Prn Chest Pain 02/11/17 17:30 03/13/17 17:29 Ondansetron HCl (Zofran) 4 mg Q6H PRN IVP Nausea & Vomiting 02/11/17 17:30 03/13/17 17:29 Polyethylene Glycol (Miralax) 17 gm DAILYPRN PRN ORAL Constipation 02/11/17 17:30 03/13/17 17:29 Potassium Chloride (K-Dur) 40 meq TWICE A DAY ORAL 02/14/17 10:30 03/16/17 10:29 02/17/17 09:50 Risperidone (RisperDAL) 2 mg BEDTIME ORAL 02/13/17 21:00 03/15/17 20:59 02/16/17 21:00 Sitagliptin Phosphate (Januvia) 50 mg DAILY ORAL 02/12/17 09:00 03/14/17 08:59 02/17/17 09:49 Temazepam (Restoril) 15 mg HSPRN PRN ORAL Insomnia 02/11/17 17:30 02/18/17 17:29 SATHYA MEIER Feb 17, 2017 15:05
--- NOTE | 2017-02-17 15:58 | Cardiology Progress Note ---
Assessment/Plan Assessment/Plan 1. Tachycardia. 2. Atrial fibrillation, permanent. 3. History of sick sinus syndrome, status post single-chamber permanent pacemaker implantation. 4. History of hypertension. 5. Diabetes mellitus. 6. Gangrene, left foot. 7. Peripheral vascular disease. 8. Diabetic foot ulcers. hr now better bb and cardizem bp elelvated will star on hydralzine dc uf vascualr procedure on is thursday and am he has a pacemaker so nathalie should not be a problem if vascular surgery needed will order ischemia eval but for precut vascular procedure should be fine Subjective ROS Limited/Unobtainable: Yes Subjective not fully awake Objective Last 24 Hour Vital Signs Date Time Temp Pulse Resp B/P (MAP) Pulse Ox O2 Delivery O2 Flow Rate FiO2 02/17/17 12:37 145 129/109 02/17/17 12:00 98.0 151 22 142/110 92 Nasal Cannula 2.0 02/17/17 09:49 61 133/78 02/17/17 09:46 71 133/78 02/17/17 09:30 145 129/109 02/17/17 08:00 98.2 75 20 106/72 92 Nasal Cannula 2.0 02/17/17 07:26 95 Nasal Cannula 2.0 28 02/17/17 07:26 Nasal Cannula 2.0 28 02/17/17 07:25 61 20 Nasal Cannula 2.0 28 02/17/17 06:00 71 133/78 02/17/17 04:00 92 02/17/17 04:00 98.2 59 22 116/74 95 Nasal Cannula 02/17/17 00:00 98.2 80 22 121/77 100 Nasal Cannula 02/17/17 00:00 82 02/16/17 23:58 71 133/78 02/16/17 21:00 71 133/78 02/16/17 21:00 71 133/78 02/16/17 20:00 98.1 71 20 133/78 94 Nasal Cannula 02/16/17 20:00 135 02/16/17 19:30 Nasal Cannula 2.0 28 02/16/17 19:30 92 Nasal Cannula 2.0 28 02/16/17 19:30 89 20 Nasal Cannula 2.0 28 02/16/17 17:33 112 136/70 02/16/17 16:00 97.9 105 20 136/70 91 02/16/17 16:00 112 General Appearance: no apparent distress Cardiovascular: irregularly irregular Respiratory/Chest: rhonchi - bilaterally Abdomen: normal bowel sounds, non tender, soft Extremities: no swelling Intake and Output 02/16/17 02/17/17 19:00 07:00 Intake Total 842.68 ml Output Total 400 ml 525 ml Balance 442.68 ml -525 ml Intake Oral 180 ml IV Total 662.68 ml Output Urine Total 400 ml 525 ml Laboratory Tests Test 02/16/17 20:25 02/17/17 04:15 02/17/17 08:50 Activated Partial Thromboplast Time > 150 SEC (23-33) *H 77 SEC (23-33) H 93 SEC (23-33) H White Blood Count 9.8 K/UL (4.8-10.8) Red Blood Count 3.37 M/UL (4.70-6.10) L Hemoglobin 11.0 G/DL (14.2-18.0) L Hematocrit 33.6 % (42.0-52.0) L Mean Corpuscular Volume 100 FL (80-99) H Mean Corpuscular Hemoglobin 32.7 PG (27.0-31.0) H Mean Corpuscular Hemoglobin Concent 32.9 G/DL (32.0-36.0) Red Cell Distribution Width 13.5 % (11.6-14.8) Platelet Count 114 K/UL (150-450) L Mean Platelet Volume 7.5 FL (6.5-10.1) Neutrophils (%) (Auto) 76.4 % (45.0-75.0) H Lymphocytes (%) (Auto) 12.7 % (20.0-45.0) L Monocytes (%) (Auto) 9.5 % (1.0-10.0) Eosinophils (%) (Auto) 0.8 % (0.0-3.0) Basophils (%) (Auto) 0.6 % (0.0-2.0) Sodium Level 139 MMOL/L (136-145) Potassium Level 3.9 MMOL/L (3.5-5.1) Chloride Level 107 MMOL/L (98-107) Carbon Dioxide Level 23 MMOL/L (21-32) Anion Gap 9 mmol/L (5-15) Blood Urea Nitrogen 20 mg/dL (7-18) H Creatinine 2.1 MG/DL (0.55-1.30) H Estimat Glomerular Filtration Rate 38.5 mL/min (>60) Glucose Level 190 MG/DL (74-106) H Calcium Level 8.3 MG/DL (8.5-10.1) L Phosphorus Level 3.2 MG/DL (2.5-4.9) Magnesium Level 2.1 MG/DL (1.8-2.4) Total Bilirubin 0.5 MG/DL (0.2-1.0) Direct Bilirubin 0.1 MG/DL (0.0-0.3) Aspartate Amino Transf (AST/SGOT) 21 U/L (15-37) Alanine Aminotransferase (ALT/SGPT) 8 U/L (12-78) L Alkaline Phosphatase 118 U/L (46-116) H Total Protein 6.5 G/DL (6.4-8.2) Albumin 1.5 G/DL (3.4-5.0) L BOBBY BURNETTE Feb 17, 2017 15:58
[2017-02-17 16:00] VITALS: BP 149/88
[2017-02-18] MEDS ORDERED: MORPHINE SU2 MG/1 M1 IVP (07:34)
[2017-02-18] MEDS ORDERED: POLYETHYLENE GL17 GM ORAL (07:34)
[2017-02-18] MEDS ORDERED: DILTIAZEM H5 MG/1 ML IVP (07:34)
[2017-02-18] MEDS ORDERED: ZYVOX600 MG ORAL (07:34)
[2017-02-18] MEDS ORDERED: NITROGLYCERIN0.4 MG SL (07:34)
[2017-02-18] MEDS ORDERED: METOPROLOL TART50 M1 ORAL (07:34)
[2017-02-18] MEDS ORDERED: TEMAZEPAM15 MG ORAL (07:34)
[2017-02-18] MEDS ORDERED: DILTIAZEM HCL90 MG PO (07:34)
[2017-02-18] MEDS ORDERED: METOPROLOL TART25 MG ORAL ×3 (07:34)
[2017-02-18] MEDS ORDERED: DILTIAZEM HCL60 MG PO (07:34)
[2017-02-18] MEDS ORDERED: ALBUTEROL2.5 MG/3 M INH (07:34)
[2017-02-18] MEDS ORDERED: CEFEPIME-D2 GM/50 ML IVPB (07:34)
[2017-02-18] MEDS ORDERED: DOCUSATE SODIU100 MG ORAL (07:34)
[2017-02-18] MEDS ORDERED: ONDANSETRON4 MG/2 M2 IVP (07:34)
--- NOTE | 2017-02-18 09:43 | Progress Note ---
DATE: 02/17/2017 SUBJECTIVE: The patient continues to be confused and has waxing and waning consciousness. He is having anxiety, agitation, not able to be engaged during the evaluation. MENTAL STATUS EXAMINATION: The patient is alert, oriented times self and not engaged during the evaluation. He is to have waxing and waning consciousness. Mood is anxious. Affect is constricted, congruent. Thought process is disorganized. Thought content, there is a paucity of thought. Cognition is impaired. Insight and judgment not significant. ASSESSMENT: 1. Schizoaffective disorder. 2. Encephalopathy. PLAN: 1. We will continue the risperidone. 2. Continue current medications. Seth Shetty M.D. DR: TOBIAS JOB#: [id number] CC:
--- NOTE | 2017-02-20 16:07 | Discharge Summary ---
Discharge Summary Hospital Course Date of Admission Feb 11, 2017 at 19:02 Date of Discharge Feb 17, 2017 at 23:18 Admitting Diagnosis Diabetic foot ulcer HPI Rafiq Cox is a 66 year old male who was admitted on Feb 11, 2017 at 19:02 for Diabetic Foot Ulcer Hospital Course [id number] Discharge Discharge Disposition Patient was discharged to SNF/Subacute Facility(03) Discharge Diagnoses: Radha Matias NP Feb 20, 2017 16:07
--- NOTE | 2017-02-21 01:15 | Discharge Summary 2 SIG ---
DATE OF ADMISSION: 02/11/2017 DATE OF DISCHARGE: 02/17/2017 CONSULTANTS: 1. Josee Guevara M.D. 2. Matheus Laws M.D. 3. Seth Shetty M.D. 4. Jose Arroyo M.D. 5. Tonny Noguera M.D. 6. Kasi Perea D.P.M. 7. Karen Pettit M.D. 8. Davin Hensley M.D. 9. Ranjit Vasquez M.D. BRIEF HOSPITAL COURSE: The patient is a 66-year-old male from long term, who has history of chronic obstructive pulmonary disease, dementia, hypertension, and diabetes mellitus, presented to ED for evaluation of left toe ulcer/infection. On evaluation at ED, he was found to be in atrial fibrillation. He was given IV fluids and Cardizem. Chest x-ray done showed pacemaker on the right chest with cardiomegaly and mild pulmonary vascular infiltrate. X-ray of the left foot was negative for acute fractures or dislocations. Bones were osteopenic. Blood work showed elevated creatinine and BUN. He continued to have atrial fibrillation with rapid ventricular response. Digoxin was given and was given another dose of Cardizem. He was then admitted to telemetry. He was seen by Dr. Perea for evaluation of diabetic foot ulcer. There was no gas formation seen on x-ray. He was recommended to start on vancomycin and Zosyn. He was seen by Dr. Laws. He was restarted on anticoagulation. Norvasc was discontinued and was given Cardizem, short-acting 4 times a day. He was also given beta-blockers. He underwent venous duplex of lower extremity that was negative for DVT. Arterial studies showed ischemic gangrenous infected left first toe due to significant multi level bilateral calcific arterial occlusive disease. Per Podiatry recommendation due to infected toe, no need for open amputation. He was seen by Infectious Disease specialist. Vancomycin was discontinued and was given Zyvox and cefepime. He continued to have elevated heart rate. Cardizem and beta-blockers dose were increased. He had episodes of disorientation and agitation with waxing and waning of consciousness. He was diagnosed with encephalopathy and agitation and was given Risperdal 2 mg at bedtime and Haldol q.6 hours. He was given local wound care. Renal failure was likely chronic with superimposed acute renal failure. He had episodes of urinary retention. Nurses were unable to insert Gonzalez catheter. Dr. Vasquez was consulted and was able to insert a 16-Taiwanese coude catheter. Clear yellow urine drained. Wound culture showed growth of Staphylococcus aureus and Pantoea. Zyvox was discontinued and the patient was given cefepime. Due to severe arterial occlusive disease, the patient was placed on heparin drip and would need to undergo left leg angiogram to assess for limb salvage revascularization. Blood pressure was elevated. The patient was started on hydralazine. He had better heart rate control on metoprolol 100 mg q.12 hours and diltiazem 90 mg q.6. He will be undergoing vascular surgery. Need to hold Eliquis if vascular procedure is anticipated. He was eventually discharged back to long term, has an angiogram scheduled at [facility] on 02/19/17. FINAL DIAGNOSES: 1. Ischemic gangrenous toe of the left foot. 2. Severe peripheral artery disease. 3. Diabetes mellitus with diabetic foot ulcer, present on admission. 4. Permanent atrial fibrillation, on anticoagulation with Eliquis. 5. History of sick sinus syndrome status post single-chamber permanent pacemaker implantation. 6. Hypertension. 7. Schizoaffective disorder. 8. Encephalopathy. 9. Left foot cellulitis with gangrene. 10. Acute on chronic renal failure. 11. Paranoid schizophrenia. 12. Diabetic nephropathy. 13. Chronic obstructive pulmonary disease. 14. Diabetes mellitus, out of control. 15. Urinary retention requiring Gonzalez catheter insertion. DISPOSITION: The patient was discharged to long term. The patient has a scheduled left leg angiogram/percutaneous revascularization at [facility] on 02/19/2017 at 07:30 a.m. Pako Barreto D.O. I have been assigned to dictate discharge summary on this account and I was not involved in the patient's management. Radha Matias N.P. DR: FRANCES JOB#: [id number] CC: ALYSIA
--- NOTE | 2017-02-23 11:04 | Cardiology Report ---
APPROVED REPORT EXAM: Two-dimensional and M-mode echocardiogram with Doppler and color Doppler. INDICATION Tachycardia M-Mode DIMENSIONS IVSd1.5 (0.7-1.1cm)Left Atrium (MM)4.7 (1.6-4.0cm) LVDd4.2 (3.5-5.6cm)Aortic Root3.1 (2.0-3.7cm) PWd1.7 (0.7-1.1cm)Aortic Cusp Exc.1.9 (1.5-2.0cm) LVDs2.8 (2.5-4.0cm) PWs2.1 cm Technically difficult study due to poor acoustical windows. Normal left ventricular chamber size, systolic function and wall motion. Left ventricular ejection fraction estimated to be 55-60%. Mild left ventricular hypertrophy. No evidence of pericardial or pleural effusion. Right cardiac chamber sizes are within normal limits. Moderate left atrial enlargement by 2D. Focal aortic valve sclerosis with adequate cusp excursion. Thickened mitral valve leaflets with normal excursion. Normal mitral annulus and aortic root. Pulmonic valve not well visualized. Normal tricuspid valve structure. IVC is not obtainable Probable pacemaker wire present in the right side chambers. A color flow and spectral Doppler study was performed and revealed: No aortic regurgitation. Mild mitral regurgitation. Mitral diastolic function not obtainable due to A-FIB. Trace tricuspid regurgitation. Tricuspid systolic velocities suggests peak right ventricular systolic pressure of 28 mmHg Pulmonic regurgitation present.
== END 2017-02-17 23:18 | DRG 299 ==
LOC: EDBD 14:02 → EMR 14:30 → EDBEDREQSVC 18:06 → 2E 19:02 → EDBEDREQ 22:27
DX: E11.52 Type 2 diabetes mellitus with diabetic peripheral angiopathy with gangrene (principal); G93.40 Encephalopathy, unspecified; N17.9 Acute kidney failure, unspecified; I96 Gangrene, not elsewhere classified; E11.21 Type 2 diabetes mellitus with diabetic nephropathy; I48.2 Chronic atrial fibrillation; L03.116 Cellulitis of left lower limb; E88.09 Other disorders of plasma-protein metabolism, not elsewhere classified; F03.90 Unspecified dementia, unspecified severity, without behavioral disturbance, psychotic disturbance, mood disturbance, and anxiety; F20.0 Paranoid schizophrenia; E11.621 Type 2 diabetes mellitus with foot ulcer; Z99.81 Dependence on supplemental oxygen; I12.9 Hypertensive chronic kidney disease with stage 1 through stage 4 chronic kidney disease, or unspecified chronic kidney disease; E11.65 Type 2 diabetes mellitus with hyperglycemia; D64.9 Anemia, unspecified; M81.0 Age-related osteoporosis without current pathological fracture; E11.22 Type 2 diabetes mellitus with diabetic chronic kidney disease; L97.529 Non-pressure chronic ulcer of other part of left foot with unspecified severity; Z95.0 Presence of cardiac pacemaker; R33.9 Retention of urine, unspecified; J44.9 Chronic obstructive pulmonary disease, unspecified; F41.9 Anxiety disorder, unspecified; N18.2 Chronic kidney disease, stage 2 (mild); E87.6 Hypokalemia; E83.42 Hypomagnesemia; Z79.4 Long term (current) use of insulin; Z79.01 Long term (current) use of anticoagulants
CPT/HCPCS: 36415; 71045; 76775; 80048; 80053; 80061; 80076; 80202; 81003; 82550; 82607; 82728; 82746; 82962; 82977; 83036; 83540; 83550; 83605; 83735; 83880; 84100; 84300; 84443; 84484; 84550; 85007; 85025; 85730; 86140; 87040; 87070; 87081; 87181; 87205; 89050; 93005; 93306; 93925; 93970; 94664; 94760; C9399; J1815; J8499

== ENCOUNTER 2017-02-17 22:55 | Inpatient (IN) | payer MEDICARE, MEDICAID ==
[~2017-02-17] VITALS: Ht 182.9 cm; Wt 97.5 kg
[~2017-02-17 22:55] MED LIST changes: +ACETAMINOPHEN325 M1 ORAL; +ATIVAN1 MG ORAL; +CLONIDINE HCL0.1 MG PO; +DEPAKOTE ER500 MG ORAL; +DUONEB 0.5-3(2.53 ML HHN; +METOPROLOL TART50 M1 ORAL; +MIRALAX17 G2 ORAL; +NAMENDA5 MG ORAL; +NOVOLOG100 UNIT/5 SUBQ; +SITAGLIPTIN PO; +ZYPREXA7.5 MG ORAL; +mylanta ORAL
[2017-02-17] MEDS ORDERED: dilTIAZem HCl 25mg/5ml Inj IVP ONE (23:30)
--- NOTE | 2017-02-17 23:49 | Emergency Room Report ---
History of Present Illness General Chief Complaint: Altered Level of Consciousness Source: Medical Record, EMS Present Illness HPI 66-year-old male, history of atrial fibrillation, pacemaker, diabetes, hypertension, left big toe gangrene status post surgery, recent discharge from the hospital about 2 hours ago, presenting with reportedly altered mental status. EMS states that the documentation wrote that patient is oriented x2, but when he arrived back to the long-term after being discharged, the nursing staff stated that he was lethargic and not oriented. Patient is currently awake, tired, but oriented x2. Found to be in A. fib with RVR. During his hospitalization he was treated with Cardizem and beta blockers. Allergies: Coded Allergies: CODEINE (Unverified Allergy, Unknown, 02/17/17) Patient History Past Medical History: see triage record Past Surgical History: none Pertinent Family History: none Reviewed Nursing Documentation: PMH: Agreed, PSxH: Agreed Nursing Documentation-PMH Hx Cardiac Problems: Yes - tachycardia Hx Hypertension: Yes Hx Pacemaker: Yes Hx Asthma: No - LEFT HEARING LOSS Hx COPD: Yes Hx Diabetes: Yes Hx Cancer: No Hx Gastrointestinal Problems: Yes Hx Dialysis: Yes - Right heel pressure ulcer , MWF Hx Neurological Problems: Yes Hx Dementia: Yes Hx Syncope: Yes Review of Systems All Other Systems: negative except mentioned in HPI Physical Exam Vital Signs Date Time Temp Pulse Resp B/P (MAP) Pulse Ox O2 Delivery O2 Flow Rate FiO2 02/17/17 22:43 98.1 88 18 136/104 98 Room Air General Appearance: other - tired appearing male, Chronically Ill Procedures Critical Care Time Critical Care Time 40 minutes of CC time 66 yo M with rapid afib VS: tachycardic Airway patent. Not hypoxic. PLAN: IV access, labs, troponin, rate controll Anticipate admission to Tele vs. [facility]AT[facility] CC time also includes review of labs, review of EMR, discussion with family and paperwork from SNF, d/w hospitalist CC could include dosing of pressors, additional Abx CC time does not include procedures Medical Decision Making Diagnostic Impression: Primary Impression: Rapid atrial fibrillation ER Course 66-year-old male, recently discharged from [facility], presenting with lethargy DDX: Lethargy from chronic illness, dehydration, rule out electrolyte disturbance A. fib with RVR Plan: Obtain labs, ua, ucx, CXR, EKG ER course: Initially in A. fib with RVR, given Cardizem x 2 slight improvement but back in 150s given metoprolol Disposition: Patient is to be admitted to tele DW Dr Pako Barreto Please note that this Emergency Department Report was dictated using shenzhoufupetrologist technology software, occasionally this can lead to erroneous entry secondary to interpretation by the dictation equipment EKG Diagnostic Results EP Interpretation: Yes Rate: tachycardia Rhythm: atrial fibrillation ST Segments: slight ST depressions noted in leads 2 ASA given to patient: No Rhythm Strip EP Interpretation: Yes Rate: 150 Rhythm: Atrial fibrillation Chest X-ray CXR: Ordered: Yes 1 view Indication: ams EP interpretation: Yes Interpretation: pulm vasc congestion Impression: chf Electronically signed by Kaveh Lucero MD Laboratory Tests Test 02/18/17 00:10 White Blood Count 12.1 K/UL (4.8-10.8) H Red Blood Count 4.06 M/UL (4.70-6.10) L Hemoglobin 13.1 G/DL (14.2-18.0) L Hematocrit 39.8 % (42.0-52.0) L Mean Corpuscular Volume 98 FL (80-99) Mean Corpuscular Hemoglobin 32.4 PG (27.0-31.0) H Mean Corpuscular Hemoglobin Concent 33.0 G/DL (32.0-36.0) Red Cell Distribution Width 13.0 % (11.6-14.8) Platelet Count 140 K/UL (150-450) L Mean Platelet Volume 7.2 FL (6.5-10.1) Neutrophils (%) (Auto) 77.0 % (45.0-75.0) H Lymphocytes (%) (Auto) 10.5 % (20.0-45.0) L Monocytes (%) (Auto) 11.0 % (1.0-10.0) H Eosinophils (%) (Auto) 0.9 % (0.0-3.0) Basophils (%) (Auto) 0.5 % (0.0-2.0) Sodium Level 139 MMOL/L (136-145) Potassium Level 4.4 MMOL/L (3.5-5.1) Chloride Level 102 MMOL/L (98-107) Carbon Dioxide Level 27 MMOL/L (21-32) Anion Gap 10 mmol/L (5-15) Blood Urea Nitrogen 19 mg/dL (7-18) H Creatinine 2.3 MG/DL (0.55-1.30) H Estimate Glomerular Filtration Rate 34.7 mL/min (>60) Glucose Level 210 MG/DL (74-106) H Calcium Level 9.9 MG/DL (8.5-10.1) Total Bilirubin 0.7 MG/DL (0.2-1.0) Aspartate Amino Transferase (AST) 15 U/L (15-37) Alanine Aminotransferase (ALT) 15 U/L (12-78) Alkaline Phosphatase 118 U/L (46-116) H Troponin I 0.006 ng/mL (0.000-0.056) Total Protein 8.1 G/DL (6.4-8.2) Albumin 1.8 G/DL (3.4-5.0) L Globulin 6.3 g/dL Albumin/Globulin Ratio 0.3 (1.0-2.7) L Last Vital Signs Date Time Temp Pulse Resp B/P (MAP) Pulse Ox O2 Delivery O2 Flow Rate FiO2 02/17/17 22:43 98.1 88 18 136/104 98 Room Air Disposition: ADMITTED INPATIENT Condition: Serious Kaveh Lucero M.D. Feb 17, 2017 23:49
[2017-02-18] VITALS (39 sets, daily range): BP systolic 101–160; BP diastolic 60–116
[2017-02-18 00:39] LABS: BASOPHILS % (AUTO) 0.5 % (0.0-2.0); EOSINOPHILS % (AUTO) 0.9 % (0.0-3.0); HEMATOCRIT 39.8 % (42.0-52.0); HEMOGLOBIN 13.1 G/DL (14.2-18.0); LYMPHOCYTES % (AUTO) 10.5 % (20.0-45.0); MEAN CORPUSCULAR VOLUME 98 FL (80-99); PLATELET COUNT 140 K/UL (150-450); RED BLOOD COUNT 4.06 M/UL (4.70-6.10); WHITE BLOOD COUNT 12.1 K/UL (4.8-10.8)
[2017-02-18 00:54] LABS: ANION GAP 10 mmol/L (5-15); BLOOD UREA NITROGEN 19 mg/dL (7-18); CALCIUM 9.9 MG/DL (8.5-10.1); CARBON DIOXIDE 27 MMOL/L (21-32); CHLORIDE 102 MMOL/L (98-107); CREATININE 2.3 MG/DL (0.55-1.30); POTASSIUM 4.4 MMOL/L (3.5-5.1); SODIUM 139 MMOL/L (136-145)
[2017-02-18 00:59] LABS: ALANINE AMINOTRANSFERASE 15 U/L (12-78); ALBUMIN 1.8 G/DL (3.4-5.0); ALBUMIN/GLOBULIN RATIO 0.3 (1.0-2.7); ALKALINE PHOSPHATASE 118 U/L (46-116); ASPARTATE AMINO TRANSFERASE 15 U/L (15-37); BILIRUBIN,TOTAL 0.7 MG/DL (0.2-1.0)
[2017-02-18] MEDS ORDERED: dilTIAZem HCl 25mg/5ml Inj IVP ONE ×2 (01:00→03:30)
[2017-02-18] MEDS: Metoprolol 5mg/5ml Inj IVP SCH ×2 (02:33→05:49)
[2017-02-18] MEDS ORDERED: Miralax 17gm pkt ORAL PRN (07:00)
[2017-02-18] MEDS ORDERED: dilTIAZem HCl 25mg/5ml Inj IV PRN (07:00)
[2017-02-18] MEDS ORDERED: Zolpidem 5mg tab ORAL PRN (07:00)
[2017-02-18] MEDS ORDERED: Mylanta II UD 30ml ORAL PRN (07:00)
[2017-02-18] MEDS ORDERED: LORazepam Inj 2mg/ml 1ml IV PRN (07:00)
[2017-02-18] MEDS ORDERED: MORPHINE SU2 MG/1 M1 IVP (07:34)
[2017-02-18] MEDS ORDERED: DOCUSATE SODIU100 MG ORAL (07:34)
[2017-02-18] MEDS ORDERED: ZYVOX600 MG ORAL (07:34)
[2017-02-18] MEDS ORDERED: ALBUTEROL2.5 MG/3 M INH (07:34)
[2017-02-18] MEDS ORDERED: CEFEPIME-D2 GM/50 ML IVPB (07:34)
[2017-02-18] MEDS ORDERED: TEMAZEPAM15 MG ORAL (07:34)
[2017-02-18] MEDS ORDERED: METOPROLOL TART25 MG ORAL ×3 (07:34)
[2017-02-18] MEDS ORDERED: DILTIAZEM HCL90 MG PO (07:34)
[2017-02-18] MEDS ORDERED: ONDANSETRON4 MG/2 M2 IVP (07:34)
[2017-02-18] MEDS ORDERED: POLYETHYLENE GL17 GM ORAL (07:34)
[2017-02-18] MEDS ORDERED: METOPROLOL TART50 M1 ORAL (07:34)
[2017-02-18] MEDS ORDERED: NITROGLYCERIN0.4 MG SL (07:34)
[2017-02-18] MEDS ORDERED: DILTIAZEM HCL60 MG PO (07:34)
[2017-02-18] MEDS ORDERED: DILTIAZEM H5 MG/1 ML IVP (07:34)
--- NOTE | 2017-02-18 08:20 | Consultation ---
Consult Note Consult Note 66-year-old male, history of atrial fibrillation, pacemaker, diabetes, hypertension, left big toe gangrene status post surgery, recent discharge from the hospital about 2 hours ago, presenting with reportedly altered mental status. EMS states that the documentation wrote that patient is oriented x2, but when he arrived back to the [facility] after being discharged, the nursing staff stated that he was lethargic and not oriented. Patient is currently awake, tired, but oriented x2. Found to be in A. fib with RVR. During his hospitalization he was treated with Cardizem and beta blockers. Allergies: CODEINE (Unverified Allergy, Unknown, 02/17/17) Hx Cardiac Problems: Yes - tachycardia Hx Hypertension: Yes Hx Pacemaker: Yes Hx COPD: Yes Hx Diabetes: Yes Hx Gastrointestinal Problems: Yes Hx Dialysis: Yes - Right heel pressure ulcer , MWF Hx Neurological Problems: Yes Hx Dementia: Yes Hx Syncope: Yes currently in ICU admitted for At fib with FVR Assessment/Plan (1) Diabetic foot ulcer (2) Atrial fibrillation (3) Pacemaker (4) Acute on chronic renal failure Assessment: + urinary retention (5) Diabetic nephropathy Plan: Per cardiology correct electrolytes as needed monitor BS and BP and HR Avoid nephrotoxics monitor renal parameters BHAVANI VACA Feb 18, 2017 08:20
[2017-02-18] MEDS ORDERED: Metoprolol Tartrate 50mg tab ORAL SCH (09:00)
[2017-02-18] MEDS ORDERED: Depakote 500mg tab ORAL SCH (09:00)
[2017-02-18] MEDS: Heparin 5000 units/ml inj SUBQ SCH ×2 (09:57→21:00)
--- NOTE | 2017-02-18 10:38 | Pulmonolgy Critical Care Note ---
Critical Care - Asmt/Plan Problems: (1) Rapid atrial fibrillation (2) Acute on chronic renal failure (3) Altered level of consciousness (4) Diabetic foot ulcer (5) Diabetic nephropathy Respiratory: monitor respiratory rate, adjust FIO2, CXR Cardiac: continue to monitor HR/BP, other - continue Esmolol drip Renal: F/U I&O, keep IV fluid Infectious Disease: check cultures, continue antibiotics Gastrointestinal: continue feedings/current rate Endocrine: monitor blood sugar, check TSH, continue sliding scale insulin Hematologic: monitor H/H, transfuse if hgb<8.5 Neurologic: PRN Ativan, PRN Morphine, keep patient comfortable Affect: PRN ativan Prophylaxis: Protonix, Heparin Notes 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, 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 Discussed with: nurses, consultants, case assistantchemistry account manager - Objective Last 24 Hour Vital Signs Date Time Temp Pulse Resp B/P (MAP) Pulse Ox O2 Delivery O2 Flow Rate FiO2 02/18/17 10:00 123 25 120/90 99 Nasal Cannula 2.0 02/18/17 09:54 124 133/87 02/18/17 09:54 124 133/87 02/18/17 09:30 123 25 133/87 99 Nasal Cannula 2.0 02/18/17 09:00 120 20 144/87 98 Nasal Cannula 3.0 02/18/17 08:30 117 20 133/84 98 Nasal Cannula 3.0 02/18/17 08:00 98.9 119 22 160/116 99 Nasal Cannula 3.0 02/18/17 08:00 133 02/18/17 07:45 133 19 146/109 100 Room Air 02/18/17 07:32 19 146/109 Room Air 02/18/17 06:17 98.0 136 22 136/113 99 Room Air 02/18/17 05:49 154 189/101 02/18/17 03:30 154 189/101 02/18/17 02:33 154 189/101 02/18/17 01:05 154 189/101 02/18/17 00:29 154 142/109 02/18/17 00:00 98.1 145 18 136/110 98 Room Air 02/17/17 22:43 98.1 88 18 136/104 98 Room Air Status: somnolent Condition: critical HEENT: atraumatic Neck: full ROM Heart: HR/BP stable, HR/BP unstable Abdomen: soft, active bowel sounds, feeding tube Extremities: edema Accucheck: 226 Critical Care - Subjective ROS Limited/Unobtainable: No ICU Day: comfortable, heart rate still high around 120 Condition: critical EKG Rhythm: Atrial Fibrillation Fluids: KVO I&O: Intake and Output 02/17/17 02/18/17 19:00 07:00 Intake Total 0 ml Balance 0 ml Intake Oral 0 ml CXR: mild interstitial edema Labs: Laboratory Tests Test 02/18/17 00:10 02/18/17 10:00 White Blood Count 12.1 K/UL (4.8-10.8) H Red Blood Count 4.06 M/UL (4.70-6.10) L Hemoglobin 13.1 G/DL (14.2-18.0) L Hematocrit 39.8 % (42.0-52.0) L Mean Corpuscular Volume 98 FL (80-99) Mean Corpuscular Hemoglobin 32.4 PG (27.0-31.0) H Mean Corpuscular Hemoglobin Concent 33.0 G/DL (32.0-36.0) Red Cell Distribution Width 13.0 % (11.6-14.8) Platelet Count 140 K/UL (150-450) L Mean Platelet Volume 7.2 FL (6.5-10.1) Neutrophils (%) (Auto) 77.0 % (45.0-75.0) H Lymphocytes (%) (Auto) 10.5 % (20.0-45.0) L Monocytes (%) (Auto) 11.0 % (1.0-10.0) H Eosinophils (%) (Auto) 0.9 % (0.0-3.0) Basophils (%) (Auto) 0.5 % (0.0-2.0) Sodium Level 139 MMOL/L (136-145) Potassium Level 4.4 MMOL/L (3.5-5.1) Chloride Level 102 MMOL/L (98-107) Carbon Dioxide Level 27 MMOL/L (21-32) Anion Gap 10 mmol/L (5-15) Blood Urea Nitrogen 19 mg/dL (7-18) H Creatinine 2.3 MG/DL (0.55-1.30) H Estimat Glomerular Filtration Rate 34.7 mL/min (>60) Glucose Level 210 MG/DL (74-106) H Calcium Level 9.9 MG/DL (8.5-10.1) Total Bilirubin 0.7 MG/DL (0.2-1.0) Aspartate Amino Transf (AST/SGOT) 15 U/L (15-37) Alanine Aminotransferase (ALT/SGPT) 15 U/L (12-78) Alkaline Phosphatase 118 U/L (46-116) H Troponin I 0.006 ng/mL (0.000-0.056) Total Protein 8.1 G/DL (6.4-8.2) Albumin 1.8 G/DL (3.4-5.0) L Globulin 6.3 g/dL Albumin/Globulin Ratio 0.3 (1.0-2.7) L Urine Color Pending Urine Appearance Pending Urine pH Pending Urine Specific [facility] Pending Urine Protein Pending Urine Glucose (UA) Pending Urine Ketones Pending Urine Occult Blood Pending Urine Nitrite Pending Urine Bilirubin Pending Urine Urobilinogen Pending Urine Leukocyte Esterase Pending Urine RBC Pending Urine WBC Pending Urine Squamous Epithelial Cells Pending Urine Bacteria Pending SATHYA MEIER Feb 18, 2017 10:38
[2017-02-18 10:43] LABS: APPEARANCE,URINE CLEAR; BILIRUBIN, URINE NEGATIVE (NEGATIVE); COLOR,URINE PALE YELLOW; GLUCOSE, URINE (UA) 3+ (NEGATIVE); KETONES,URINE 2+ (NEGATIVE); LEUKOCYTE ESTERASE ,URINE NEGATIVE (NEGATIVE); NITRITE,URINE NEGATIVE (NEGATIVE); PH,URINE 7 (4.5-8.0); PROTEIN,URINE 3+ (NEGATIVE); UROBILINOGEN,URINE NORMAL MG/DL (0.0-1.0)
--- NOTE | 2017-02-18 11:20 | Diagnostic Imaging Report ---
Indication: Altered mental status Technique: XRAY Chest 1v Comparison: 02/17/2017 Findings: Heart is enlarged. Right-sided single lead pacer unchanged in position. There is interstitial opacification/edema and increased patchy right basilar opacities. No pneumothorax. No acute osseous abnormality. Impression: Cardiomegaly and interstitial opacification/edema. Patchy opacities at the right base may be related to foci of developing alveolar edema or atelectasis. Superimposed pneumonia not excluded. Clinical correlation and follow-up exam recommended. Study was obtained via the emergency department however the patient was admitted to hospital at the time of dictation of final report.
[2017-02-18] MEDS: NovoLOG Insulin Flexpen SUBQ SCH ×3 (11:44→21:52)
--- NOTE | 2017-02-18 12:30 | Infectious Diseases Prog Note ---
Assessment/Plan Assessment/Plan A: Diabetic foot AMS Atrial fibrillation Dementia PVD P: resume Cefepime Subjective ROS Limited/Unobtainable: Yes Cardiovascular: Reports: no symptoms Allergies: Coded Allergies: CODEINE (Unverified Allergy, Unknown, 02/17/17) Objective Vital Signs Last 24 Hour Vital Signs Date Time Temp Pulse Resp B/P (MAP) Pulse Ox O2 Delivery O2 Flow Rate FiO2 02/18/17 12:00 98.4 112 23 144/110 99 Nasal Cannula 3.0 02/18/17 12:00 134 02/18/17 11:00 116 24 143/97 99 Nasal Cannula 2.0 02/18/17 10:00 123 25 120/90 99 Nasal Cannula 2.0 02/18/17 09:54 124 133/87 02/18/17 09:54 124 133/87 02/18/17 09:30 123 25 133/87 99 Nasal Cannula 2.0 02/18/17 09:00 120 20 144/87 98 Nasal Cannula 3.0 02/18/17 08:30 117 20 133/84 98 Nasal Cannula 3.0 02/18/17 08:00 98.9 119 22 160/116 99 Nasal Cannula 3.0 02/18/17 08:00 133 02/18/17 07:45 133 19 146/109 100 Room Air 02/18/17 07:32 19 146/109 Room Air 02/18/17 06:17 98.0 136 22 136/113 99 Room Air 02/18/17 05:49 154 189/101 02/18/17 03:30 154 189/101 02/18/17 02:33 154 189/101 02/18/17 01:05 154 189/101 02/18/17 00:29 154 142/109 02/18/17 00:00 98.1 145 18 136/110 98 Room Air 02/17/17 22:43 98.1 88 18 136/104 98 Room Air Height (Feet): 6 Height (Inches): 0.00 Weight (Pounds): 221 General Appearance: no acute distress HEENT: mucous membranes moist Respiratory/Chest: rhonchi - bilaterally Cardiovascular: tachycardia Abdomen: soft, non tender Extremities: no edema Skin: ulcers, other - left foot Neurologic/Psychiatric: alert, responsive, disoriented Laboratory Tests Test 02/18/17 00:10 02/18/17 10:00 White Blood Count 12.1 K/UL (4.8-10.8) H Red Blood Count 4.06 M/UL (4.70-6.10) L Hemoglobin 13.1 G/DL (14.2-18.0) L Hematocrit 39.8 % (42.0-52.0) L Mean Corpuscular Volume 98 FL (80-99) Mean Corpuscular Hemoglobin 32.4 PG (27.0-31.0) H Mean Corpuscular Hemoglobin Concent 33.0 G/DL (32.0-36.0) Red Cell Distribution Width 13.0 % (11.6-14.8) Platelet Count 140 K/UL (150-450) L Mean Platelet Volume 7.2 FL (6.5-10.1) Neutrophils (%) (Auto) 77.0 % (45.0-75.0) H Lymphocytes (%) (Auto) 10.5 % (20.0-45.0) L Monocytes (%) (Auto) 11.0 % (1.0-10.0) H Eosinophils (%) (Auto) 0.9 % (0.0-3.0) Basophils (%) (Auto) 0.5 % (0.0-2.0) Sodium Level 139 MMOL/L (136-145) Potassium Level 4.4 MMOL/L (3.5-5.1) Chloride Level 102 MMOL/L (98-107) Carbon Dioxide Level 27 MMOL/L (21-32) Anion Gap 10 mmol/L (5-15) Blood Urea Nitrogen 19 mg/dL (7-18) H Creatinine 2.3 MG/DL (0.55-1.30) H Estimat Glomerular Filtration Rate 34.7 mL/min (>60) Glucose Level 210 MG/DL (74-106) H Calcium Level 9.9 MG/DL (8.5-10.1) Total Bilirubin 0.7 MG/DL (0.2-1.0) Aspartate Amino Transf (AST/SGOT) 15 U/L (15-37) Alanine Aminotransferase (ALT/SGPT) 15 U/L (12-78) Alkaline Phosphatase 118 U/L (46-116) H Troponin I 0.006 ng/mL (0.000-0.056) Total Protein 8.1 G/DL (6.4-8.2) Albumin 1.8 G/DL (3.4-5.0) L Globulin 6.3 g/dL Albumin/Globulin Ratio 0.3 (1.0-2.7) L Urine Color Pale yellow Urine Appearance Clear Urine pH 7 (4.5-8.0) Urine Specific [place] 1.010 (1.005-1.035) Urine Protein 3+ (NEGATIVE) H Urine Glucose (UA) 3+ (NEGATIVE) H Urine Ketones 2+ (NEGATIVE) H Urine Occult Blood 4+ (NEGATIVE) H Urine Nitrite Negative (NEGATIVE) Urine Bilirubin Negative (NEGATIVE) Urine Urobilinogen Normal MG/DL (0.0-1.0) Urine Leukocyte Esterase Negative (NEGATIVE) Urine RBC 5-10 /HPF (0 - 0) H Urine WBC 0 /HPF (0 - 0) Urine Squamous Epithelial Cells Occasional /LPF Urine Bacteria Occasional /HPF (NONE) Current Medications Medications (Trade) Dose Ordered Sig/Anahi Route PRN Reason Start Time Stop Time Status Last Admin Dose Admin Acetaminophen (Tylenol) 650 mg Q4H PRN ORAL fever (temp >100.5F) 02/18/17 07:00 03/20/17 06:59 Al Hydroxide/Mg Hydroxide (Mylanta II) 30 ml Q6H PRN ORAL dyspepsia 02/18/17 07:00 03/20/17 06:59 Amlodipine Besylate (Norvasc) 10 mg DAILY ORAL 02/18/17 09:00 03/20/17 08:59 02/18/17 09:54 Atorvastatin Calcium (Lipitor) 20 mg QHS ORAL 02/18/17 21:00 03/20/17 20:59 Dextrose (Dextrose 50%) STAT PRN IV Hypoglycemia 02/18/17 07:00 03/20/17 06:59 Diltiazem HCl (Cardizem) 10 mg Q1H PRN IV heart rate more than 120, 02/18/17 07:00 03/20/17 06:59 Divalproex Sodium (Depakote) 500 mg EVERY 12 HOURS ORAL 02/18/17 09:00 03/20/17 08:59 02/18/17 09:54 Esmolol HCl 250 ml @ 0 mls/hr Q24H IV 02/18/17 09:15 03/20/17 09:14 02/18/17 09:58 Heparin Sodium (Porcine) (Heparin 5000 units/ml) 5,000 units EVERY 12 HOURS SUBQ 02/18/17 09:00 03/20/17 08:59 02/18/17 09:57 Insulin Aspart (NovoLOG) BEFORE MEALS AND HS SUBQ 02/18/17 11:30 03/20/17 11:29 02/18/17 11:44 Lorazepam (Ativan 2mg/ml 1ml) 0.5 mg Q4H PRN IV For Anxiety 02/18/17 07:00 02/25/17 06:59 Metoprolol Tartrate (Lopressor) 50 mg EVERY 12 HOURS ORAL 02/18/17 09:00 03/20/17 08:59 02/18/17 09:54 Ondansetron HCl (Zofran) 4 mg Q6H PRN IVP Nausea & Vomiting 02/18/17 07:00 03/20/17 06:59 Pantoprazole (Protonix) 40 mg DAILY IVP 02/19/17 09:00 03/21/17 08:59 Polyethylene Glycol (Miralax) 17 gm HSPRN PRN ORAL Constipation 02/18/17 07:00 03/20/17 06:59 Zolpidem Tartrate (Ambien) 5 mg HSPRN PRN ORAL Insomnia 02/18/17 07:00 02/25/17 06:59 MARYLIN WOOD Feb 18, 2017 12:30
[2017-02-18] MEDS ORDERED: Cefepime HCl 1 GM in D5W 55 ML IVPB SCH (13:00)
--- NOTE | 2017-02-18 13:54 | Podiatric Progress Note ---
Assessment/Plan Patient Rafiq Cox is a 66 year old male who was admitted on Feb 18, 2017 at 02: 26 with Problems: Assessment/Plan A/ 1) Gangrene left foot 2) PAD - critical legs bilateral 3) DM foot ulcer 4) DM P/ 1) Cont abx per ID 2) Vasc plans angio tomorrow at [facility] ? 3) Cont local wound care as ordered 4) No pedal surgery planned 2/2 to CLI. Will await vasc procedure. 5) Cont heel protectors. 6) Will follow Subjective Allergies: Coded Allergies: CODEINE (Unverified Allergy, Unknown, 02/17/17) Subjective Patient resting. NAD Now in ICU for rapid afib. Questionable whether patient will be transferred for angio tomorrow. Objective Exam Last 24 Hour Vital Signs Date Time Temp Pulse Resp B/P (MAP) Pulse Ox O2 Delivery O2 Flow Rate FiO2 02/18/17 13:30 108 16 101/60 99 Nasal Cannula 2.0 02/18/17 13:00 98 20 103/74 99 Nasal Cannula 2.0 02/18/17 12:30 115 24 140/77 99 Nasal Cannula 2.0 02/18/17 12:00 98.4 112 23 144/110 99 Nasal Cannula 3.0 02/18/17 12:00 134 02/18/17 11:30 123 22 123/98 99 Nasal Cannula 2.0 02/18/17 11:00 116 24 143/97 99 Nasal Cannula 2.0 02/18/17 10:30 124 23 127/87 99 Nasal Cannula 2.0 02/18/17 10:00 123 25 120/90 99 Nasal Cannula 2.0 02/18/17 09:54 124 133/87 02/18/17 09:54 124 133/87 02/18/17 09:30 123 25 133/87 99 Nasal Cannula 2.0 02/18/17 09:00 120 20 144/87 98 Nasal Cannula 3.0 02/18/17 08:30 117 20 133/84 98 Nasal Cannula 3.0 02/18/17 08:00 98.9 119 22 160/116 99 Nasal Cannula 3.0 02/18/17 08:00 133 02/18/17 07:45 133 19 146/109 100 Room Air 02/18/17 07:32 19 146/109 Room Air 02/18/17 06:17 98.0 136 22 136/113 99 Room Air 02/18/17 05:49 154 189/101 02/18/17 03:30 154 189/101 02/18/17 02:33 154 189/101 02/18/17 01:05 154 189/101 02/18/17 00:29 154 142/109 02/18/17 00:00 98.1 145 18 136/110 98 Room Air 02/17/17 22:43 98.1 88 18 136/104 98 Room Air Laboratory Tests Test 02/18/17 00:10 02/18/17 10:00 White Blood Count 12.1 K/UL (4.8-10.8) H Red Blood Count 4.06 M/UL (4.70-6.10) L Hemoglobin 13.1 G/DL (14.2-18.0) L Hematocrit 39.8 % (42.0-52.0) L Mean Corpuscular Volume 98 FL (80-99) Mean Corpuscular Hemoglobin 32.4 PG (27.0-31.0) H Mean Corpuscular Hemoglobin Concent 33.0 G/DL (32.0-36.0) Red Cell Distribution Width 13.0 % (11.6-14.8) Platelet Count 140 K/UL (150-450) L Mean Platelet Volume 7.2 FL (6.5-10.1) Neutrophils (%) (Auto) 77.0 % (45.0-75.0) H Lymphocytes (%) (Auto) 10.5 % (20.0-45.0) L Monocytes (%) (Auto) 11.0 % (1.0-10.0) H Eosinophils (%) (Auto) 0.9 % (0.0-3.0) Basophils (%) (Auto) 0.5 % (0.0-2.0) Sodium Level 139 MMOL/L (136-145) Potassium Level 4.4 MMOL/L (3.5-5.1) Chloride Level 102 MMOL/L (98-107) Carbon Dioxide Level 27 MMOL/L (21-32) Anion Gap 10 mmol/L (5-15) Blood Urea Nitrogen 19 mg/dL (7-18) H Creatinine 2.3 MG/DL (0.55-1.30) H Estimat Glomerular Filtration Rate 34.7 mL/min (>60) Glucose Level 210 MG/DL (74-106) H Calcium Level 9.9 MG/DL (8.5-10.1) Total Bilirubin 0.7 MG/DL (0.2-1.0) Aspartate Amino Transf (AST/SGOT) 15 U/L (15-37) Alanine Aminotransferase (ALT/SGPT) 15 U/L (12-78) Alkaline Phosphatase 118 U/L (46-116) H Troponin I 0.006 ng/mL (0.000-0.056) Total Protein 8.1 G/DL (6.4-8.2) Albumin 1.8 G/DL (3.4-5.0) L Globulin 6.3 g/dL Albumin/Globulin Ratio 0.3 (1.0-2.7) L Urine Color Pale yellow Urine Appearance Clear Urine pH 7 (4.5-8.0) Urine Specific [place] 1.010 (1.005-1.035) Urine Protein 3+ (NEGATIVE) H Urine Glucose (UA) 3+ (NEGATIVE) H Urine Ketones 2+ (NEGATIVE) H Urine Occult Blood 4+ (NEGATIVE) H Urine Nitrite Negative (NEGATIVE) Urine Bilirubin Negative (NEGATIVE) Urine Urobilinogen Normal MG/DL (0.0-1.0) Urine Leukocyte Esterase Negative (NEGATIVE) Urine RBC 5-10 /HPF (0 - 0) H Urine WBC 0 /HPF (0 - 0) Urine Squamous Epithelial Cells Occasional /LPF Urine Bacteria Occasional /HPF (NONE) Dermatological Dermatological Narrative left hallux and left 2nd toe necrosis is demarcating. No signs of acute infection. No malodor. No drainage. Left heel is unremarkable Right foot is unremarkable. Kasi Perea DPM Feb 18, 2017 13:54
--- NOTE | 2017-02-18 16:47 | History and Physical Report ---
DATE OF ADMISSION: 02/18/2017 CONSULTANTS: 1. Josee Guevara M.D. 2. Dr. Sevilla. 3. Kasi Perea D.P.M. 4. Matheus Laws M.D. 5. Davin Hensley M.D. 6. Karen Pettit M.D. 7. Murray Chi M.D. 8. Tonny Noguera M.D. CHIEF COMPLAINT: Atrial fibrillation, left toe ulcer, anemia, and weakness. BRIEF HISTORY: This is a 66-year-old male, who was hospitalized to [place] for about a week with the above-mentioned diagnoses. Yesterday, he was on way back to [facility], apparently desaturated and was in atrial fibrillation. The patient is sent back to [place] ER and admitted to ICU. Currently, calm, O2 NC, sleeping in bed, not talking much. PAST MEDICAL HISTORY: Left toe ulcer, atrial fibrillation, hypertension, diabetes, asthma, weakness, tremor, and anemia. PAST SURGICAL HISTORY: None. MEDICATIONS: Include Protonix, Lipitor, NovoLog, esmolol, Norvasc, Depakote, Lopressor, heparin, and Tylenol. ALLERGIES: Codeine. SOCIAL HISTORY: No smoking. No alcohol. No intravenous drug abuse. FAMILY HISTORY: Noncontributory. REVIEW OF SYSTEMS: Unavailable. PHYSICAL EXAMINATION: GENERAL: Lethargic in bed and nonverbal. VITAL SIGNS: Temperature 99, pulse 116, respirations 24, and blood pressure 143/97. CARDIOVASCULAR: No murmurs. LUNGS: Poor exchange. ABDOMEN: Bowel sounds distant. EXTREMITIES: No cyanosis, clubbing, or edema. Dressing clean and dry. LABORATORY DATA: Labs, at this time, show white count 12, hemoglobin and hematocrit are 13 and 39, and platelets 140,000. BMP shows BUN and creatinine 19 and 2.3. Glucose 210. Troponin 0.006. Urinalysis show 4+ occult blood and 3+ glucose. ASSESSMENT: 1. Left toe ulcer. 2. Atrial fibrillation. 3. Hypertension. 4. Anemia. 5. Asthma. 6. Weakness. 7. Tremor. PLAN: 1. Wound care. 2. Antibiotics per Infectious Disease. 3. Intensive care unit care. 4. Cardiology followup. 5. Blood pressure and blood sugar control. 6. Pending transfer to [facility] for angio with Vascular. 7. We will continue to follow this patient. 8. CBC and BMP in the morning. 9. OT, PT, and dietary evaluation. Pako Barreto D.O. DR: DEREK JOB#: [id number] CC:
--- NOTE | 2017-02-18 19:34 | Cardiology Progress Note ---
Assessment/Plan Assessment/Plan 1. Tachycardia. 2. Atrial fibrillation, permanent. 3. History of sick sinus syndrome, status post single-chamber permanent pacemaker implantation. 4. History of hypertension. 5. Diabetes mellitus. 6. Gangrene, left foot. 7. Peripheral vascular disease. 8. Diabetic foot ulcers. 9. mede compliance was dcd but came back shortly for ? tachy eventhough heart rate was controlled prior to his dc he does not take po meds he spit them out his hr is not cotrolled with ditl alone will need bb will give iv unless alternative means of medication administration are provided for non iv meds d/w with other mds and rn Subjective ROS Limited/Unobtainable: Yes Subjective not respond to questions but says he is just resting Objective Last 24 Hour Vital Signs Date Time Temp Pulse Resp B/P (MAP) Pulse Ox O2 Delivery O2 Flow Rate FiO2 02/18/17 18:30 148 20 138/72 99 Nasal Cannula 2.0 02/18/17 18:00 140 138/95 02/18/17 18:00 127 22 144/93 99 Nasal Cannula 2.0 02/18/17 17:30 116 24 138/95 99 Nasal Cannula 2.0 02/18/17 17:00 110 22 120/88 99 Nasal Cannula 2.0 02/18/17 16:30 101 18 155/105 99 Nasal Cannula 2.0 02/18/17 16:00 118 02/18/17 16:00 98.7 111 19 159/93 99 Nasal Cannula 2.0 02/18/17 15:30 122 21 144/89 99 Nasal Cannula 2.0 02/18/17 15:00 113 20 130/74 99 Nasal Cannula 2.0 02/18/17 14:30 108 21 112/88 100 Nasal Cannula 2.0 02/18/17 14:00 105 22 101/69 100 Nasal Cannula 2.0 02/18/17 13:30 108 16 101/60 99 Nasal Cannula 2.0 02/18/17 13:00 98 20 103/74 99 Nasal Cannula 2.0 02/18/17 12:30 115 24 140/77 99 Nasal Cannula 2.0 02/18/17 12:00 98.4 112 23 144/110 99 Nasal Cannula 3.0 02/18/17 12:00 134 02/18/17 11:30 123 22 123/98 99 Nasal Cannula 2.0 02/18/17 11:00 116 24 143/97 99 Nasal Cannula 2.0 02/18/17 10:30 124 23 127/87 99 Nasal Cannula 2.0 02/18/17 10:00 123 25 120/90 99 Nasal Cannula 2.0 02/18/17 09:54 124 133/87 02/18/17 09:54 124 133/87 02/18/17 09:30 123 25 133/87 99 Nasal Cannula 2.0 02/18/17 09:00 120 20 144/87 98 Nasal Cannula 3.0 02/18/17 08:30 117 20 133/84 98 Nasal Cannula 3.0 02/18/17 08:00 98.9 119 22 160/116 99 Nasal Cannula 3.0 02/18/17 08:00 133 02/18/17 07:45 133 19 146/109 100 Room Air 02/18/17 07:32 19 146/109 Room Air 02/18/17 06:17 98.0 136 22 136/113 99 Room Air 02/18/17 05:49 154 189/101 02/18/17 03:30 154 189/101 02/18/17 02:33 154 189/101 02/18/17 01:05 154 189/101 02/18/17 00:29 154 142/109 02/18/17 00:00 98.1 145 18 136/110 98 Room Air 02/17/17 22:43 98.1 88 18 136/104 98 Room Air General Appearance: no apparent distress Cardiovascular: tachycardia, irregularly irregular Respiratory/Chest: lungs clear Abdomen: normal bowel sounds, non tender, soft Extremities: no swelling Intake and Output 02/17/17 02/18/17 19:00 07:00 Intake Total 0 ml Balance 0 ml Intake Oral 0 ml Laboratory Tests Test 02/18/17 00:10 02/18/17 10:00 White Blood Count 12.1 K/UL (4.8-10.8) H Red Blood Count 4.06 M/UL (4.70-6.10) L Hemoglobin 13.1 G/DL (14.2-18.0) L Hematocrit 39.8 % (42.0-52.0) L Mean Corpuscular Volume 98 FL (80-99) Mean Corpuscular Hemoglobin 32.4 PG (27.0-31.0) H Mean Corpuscular Hemoglobin Concent 33.0 G/DL (32.0-36.0) Red Cell Distribution Width 13.0 % (11.6-14.8) Platelet Count 140 K/UL (150-450) L Mean Platelet Volume 7.2 FL (6.5-10.1) Neutrophils (%) (Auto) 77.0 % (45.0-75.0) H Lymphocytes (%) (Auto) 10.5 % (20.0-45.0) L Monocytes (%) (Auto) 11.0 % (1.0-10.0) H Eosinophils (%) (Auto) 0.9 % (0.0-3.0) Basophils (%) (Auto) 0.5 % (0.0-2.0) Sodium Level 139 MMOL/L (136-145) Potassium Level 4.4 MMOL/L (3.5-5.1) Chloride Level 102 MMOL/L (98-107) Carbon Dioxide Level 27 MMOL/L (21-32) Anion Gap 10 mmol/L (5-15) Blood Urea Nitrogen 19 mg/dL (7-18) H Creatinine 2.3 MG/DL (0.55-1.30) H Estimat Glomerular Filtration Rate 34.7 mL/min (>60) Glucose Level 210 MG/DL (74-106) H Calcium Level 9.9 MG/DL (8.5-10.1) Total Bilirubin 0.7 MG/DL (0.2-1.0) Aspartate Amino Transf (AST/SGOT) 15 U/L (15-37) Alanine Aminotransferase (ALT/SGPT) 15 U/L (12-78) Alkaline Phosphatase 118 U/L (46-116) H Troponin I 0.006 ng/mL (0.000-0.056) Total Protein 8.1 G/DL (6.4-8.2) Albumin 1.8 G/DL (3.4-5.0) L Globulin 6.3 g/dL Albumin/Globulin Ratio 0.3 (1.0-2.7) L Urine Color Pale yellow Urine Appearance Clear Urine pH 7 (4.5-8.0) Urine Specific [place] 1.010 (1.005-1.035) Urine Protein 3+ (NEGATIVE) H Urine Glucose (UA) 3+ (NEGATIVE) H Urine Ketones 2+ (NEGATIVE) H Urine Occult Blood 4+ (NEGATIVE) H Urine Nitrite Negative (NEGATIVE) Urine Bilirubin Negative (NEGATIVE) Urine Urobilinogen Normal MG/DL (0.0-1.0) Urine Leukocyte Esterase Negative (NEGATIVE) Urine RBC 5-10 /HPF (0 - 0) H Urine WBC 0 /HPF (0 - 0) Urine Squamous Epithelial Cells Occasional /LPF Urine Bacteria Occasional /HPF (NONE) BOBBY BURNETTE Feb 18, 2017 19:34
[2017-02-18] MEDS: Metoprolol 5mg/5ml Inj IVP PRN (19:44)
[2017-02-18] MEDS ORDERED: Heparin 5000 units/ml inj IV ONE (20:30)
[2017-02-18] MEDS ORDERED: Heparin 25,000u/D5W 500ml 500 ML IV SCH (20:30)
[2017-02-18 20:35] LABS: BASOPHILS % (AUTO) 0.5 % (0.0-2.0); EOSINOPHILS % (AUTO) 1.1 % (0.0-3.0); HEMATOCRIT 36.9 % (42.0-52.0); HEMOGLOBIN 11.5 G/DL (14.2-18.0); MEAN CORPUSCULAR VOLUME 102 FL (80-99); MONOCYTES % (AUTO) 12.5 % (1.0-10.0); NEUTROPHILS % (AUTO) 74.9 % (45.0-75.0); PLATELET COUNT 140 K/UL (150-450); RED BLOOD COUNT 3.62 M/UL (4.70-6.10); WHITE BLOOD COUNT 8.4 K/UL (4.8-10.8)
[2017-02-18] MEDS ORDERED: Acetaminophen 650mg/20.3ml NG PRN (20:45)
[2017-02-18] MEDS ORDERED: Atorvastatin 20mg tab ORAL SCH (21:00)
[2017-02-18] MEDS ORDERED: Mylanta II UD 30ml NG PRN (21:00)
[2017-02-18] MEDS: Valproic Acid 250mg/5ml Liquid NG SCH (21:49)
[2017-02-18] MEDS: Metoprolol Tartrate 50mg tab NG SCH (21:50)
[2017-02-18] MEDS: Atorvastatin 20mg tab NG SCH (21:50)
[2017-02-19] VITALS (56 sets, daily range): BP systolic 103–164; BP diastolic 63–109
[2017-02-19] MEDS: Metoprolol 5mg/5ml Inj IVP PRN ×2 (03:12→07:55)
[2017-02-19 04:16] LABS: BASOPHILS % (AUTO) 0.6 % (0.0-2.0); EOSINOPHILS % (AUTO) 1.1 % (0.0-3.0); HEMATOCRIT 35.7 % (42.0-52.0); LYMPHOCYTES % (AUTO) 14.2 % (20.0-45.0); MEAN CORPUSCULAR VOLUME 99 FL (80-99); MONOCYTES % (AUTO) 11.9 % (1.0-10.0); NEUTROPHILS % (AUTO) 72.2 % (45.0-75.0); PLATELET COUNT 133 K/UL (150-450); RED BLOOD COUNT 3.62 M/UL (4.70-6.10); RED CELL DISTRIBUTION WIDTH 12.8 % (11.6-14.8); WHITE BLOOD COUNT 9.9 K/UL (4.8-10.8)
[2017-02-19 04:46] LABS: ALANINE AMINOTRANSFERASE 9 U/L (12-78); ALBUMIN 1.5 G/DL (3.4-5.0); ALBUMIN/GLOBULIN RATIO 0.3 (1.0-2.7); ALKALINE PHOSPHATASE 93 U/L (46-116); ANION GAP 10 mmol/L (5-15); ASPARTATE AMINO TRANSFERASE 18 U/L (15-37); BILIRUBIN,TOTAL 0.6 MG/DL (0.2-1.0); BLOOD UREA NITROGEN 17 mg/dL (7-18); CALCIUM 9.2 MG/DL (8.5-10.1); CARBON DIOXIDE 25 MMOL/L (21-32); CHLORIDE 103 MMOL/L (98-107); CHOLESTEROL 117 MG/DL (< 200); CREATININE 1.9 MG/DL (0.55-1.30); HDL CHOLESTEROL 33 MG/DL (40-60); POTASSIUM 3.6 MMOL/L (3.5-5.1); SODIUM 138 MMOL/L (136-145); TRIGLYCERIDES 90 MG/DL (30-150)
[2017-02-19 04:48] LABS: PHOSPHORUS 3.3 MG/DL (2.5-4.9)
[2017-02-19] MEDS: NovoLOG Insulin Flexpen SUBQ SCH ×4 (06:20→21:22)
[2017-02-19] MEDS: Heparin 25,000u/D5W 500ml 500 ML IV SCH ×2 (06:34→12:03)
--- NOTE | 2017-02-19 08:15 | Consultation ---
DATE OF CONSULTATION: PSYCHOTHERAPY CONSULTATION PROGRESS NOTE CONSULTING PHYSICIAN: Arya Caceres M.D. TREATING ATTENDING PHYSICIAN: Pako Barreto D.O. HISTORY OF PRESENT ILLNESS: This patient is a 66-year-old male patient. The patient has a history of mental illness. The patient is from [facility]. The patient is brought in to the hospital for atrial fibrillation, pacemaker, diabetes, and altered level of consciousness. The patient has been slightly irritable. has no logical or viable plan for his self-care. The patient was recently discharged from the hospital, presented with altered mental status again and was lethargic and for these reasons, he was brought back to the hospital. The patient was referred for psychotherapeutic services. The patient is alert and oriented to person and place. Mood is dysphoric. Affect is blunted. The patient has been slightly confused as well. The patient is cooperative with this clinician. This clinician assessed this patient. There is no indication of auditory or visual hallucinations. There is no indication of suicidal or homicidal thoughts of ideation at this time. The patient is slightly confused, altered in mental status, tired and fatigued. Alert and oriented to person and place. PAST MEDICAL HISTORY: Includes history of hypertension, pacemaker, COPD, and diabetes. ALLERGIES: The patient is allergic to codeine. SUBSTANCE ABUSE HISTORY: There is no indication of alcohol use, illicit substance use, or smoking cigarettes. PSYCHIATRIC HISTORY: The patient has a history of schizophrenia. The patient has been treated with psychotropic medications in the past. SOCIAL HISTORY: The patient is a 66-year-old male patient from [facility] and financially sustained through [facility]. He is a single male patient. MENTAL STATUS EXAMINATION: The patient is alert and oriented x2 to person and place. Mood is depressed. Affect is blunted. Thought process, disorganized. The patient has poor attention and concentration. DIAGNOSIS: Schizophrenia, paranoid type. PLAN: This clinician assessed this patient, assessed the patient's mental status, provided the patient with reality orientation and supportive psychotherapy. Continue to redirect the patient's disorganized thoughts and continue to provide the patient with reality orientation. The patient is responsive to this. Continue with behavioral management. This clinician has reviewed the patient's chart. Discussed the treatment with the treatment team. Arya Caceres PsyD. DR: AVANI JOB#: [id number] CC:
[2017-02-19] MEDS: Memantine 5 MG TAB NG SCH ×2 (08:53→18:02)
[2017-02-19] MEDS: Metoprolol Tartrate 50mg tab NG SCH (08:53)
[2017-02-19] MEDS: Valproic Acid 250mg/5ml Liquid NG SCH ×2 (08:54→21:19)
[2017-02-19] MEDS ORDERED: Pantoprazole Inj IVP SCH (09:00)
--- NOTE | 2017-02-19 09:27 | Infectious Diseases Prog Note ---
Assessment/Plan Assessment/Plan A: Diabetic foot AMS Atrial fibrillation Dementia PVD P: Continue Cefepime Subjective ROS Limited/Unobtainable: Yes Allergies: Coded Allergies: CODEINE (Unverified Allergy, Unknown, 02/17/17) Objective Vital Signs Last 24 Hour Vital Signs Date Time Temp Pulse Resp B/P (MAP) Pulse Ox O2 Delivery O2 Flow Rate FiO2 02/19/17 08:53 144 130/91 02/19/17 08:00 99.9 116 19 129/94 97 Nasal Cannula 2.0 02/19/17 08:00 145 02/19/17 07:55 155 139/95 02/19/17 07:00 142 28 143/91 98 Nasal Cannula 2.0 02/19/17 06:48 Nasal Cannula 2.0 02/19/17 06:48 99 Nasal Cannula 2.0 02/19/17 06:45 137 27 144/93 94 Nasal Cannula 2.0 02/19/17 06:30 136 20 124/86 98 Nasal Cannula 2.0 02/19/17 06:15 131 22 136/90 98 Nasal Cannula 2.0 02/19/17 06:00 131 23 141/79 97 Nasal Cannula 2.0 02/19/17 05:45 134 21 149/98 99 Nasal Cannula 2.0 02/19/17 05:30 130 23 156/101 97 Nasal Cannula 2.0 02/19/17 05:15 129 22 164/87 97 Nasal Cannula 2.0 02/19/17 05:00 125 22 150/105 99 Nasal Cannula 2.0 02/19/17 04:45 122 23 154/90 99 Nasal Cannula 2.0 02/19/17 04:39 114 140/77 02/19/17 04:30 98.0 114 23 140/77 97 Nasal Cannula 2.0 02/19/17 04:15 117 23 148/96 99 Nasal Cannula 2.0 02/19/17 04:00 115 02/19/17 04:00 118 22 131/88 99 Nasal Cannula 2.0 02/19/17 03:45 124 23 123/92 98 Nasal Cannula 2.0 02/19/17 03:30 131 27 136/79 97 Nasal Cannula 2.0 02/19/17 03:12 121 133/97 02/19/17 03:00 121 20 133/97 99 Nasal Cannula 2.0 02/19/17 02:30 116 19 128/89 99 Nasal Cannula 2.0 02/19/17 02:00 116 18 141/81 100 Nasal Cannula 2.0 02/19/17 01:30 108 18 145/76 100 Nasal Cannula 2.0 02/19/17 01:00 103 19 143/68 100 Nasal Cannula 2.0 02/19/17 00:30 101 21 139/87 100 Nasal Cannula 2.0 02/19/17 00:00 98.0 99 19 126/93 100 Nasal Cannula 2.0 02/19/17 00:00 96 02/18/17 23:45 98 19 128/83 100 Nasal Cannula 2.0 02/18/17 23:30 96 18 129/89 100 Nasal Cannula 2.0 02/18/17 23:15 97 18 144/81 100 Nasal Cannula 2.0 02/18/17 23:00 98 17 133/94 100 Nasal Cannula 2.0 02/18/17 22:45 98 18 129/101 100 Nasal Cannula 2.0 02/18/17 22:30 100 18 133/92 99 Nasal Cannula 2.0 02/18/17 22:15 105 17 132/76 99 Nasal Cannula 2.0 02/18/17 22:00 122 20 124/91 99 Nasal Cannula 2.0 02/18/17 21:50 134 123/89 02/18/17 21:30 127 22 123/89 99 Nasal Cannula 2.0 02/18/17 21:00 131 25 124/83 99 Nasal Cannula 2.0 02/18/17 20:49 99 Nasal Cannula 2.0 28 02/18/17 20:49 Nasal Cannula 2.0 28 02/18/17 20:30 128 25 135/103 99 Nasal Cannula 2.0 02/18/17 20:00 144 02/18/17 20:00 97.8 121 25 136/103 99 Nasal Cannula 2.0 02/18/17 19:44 136 132/112 02/18/17 19:30 138 23 132/112 98 Nasal Cannula 2.0 02/18/17 19:00 146 22 138/72 98 Nasal Cannula 2.0 02/18/17 18:30 148 20 138/72 99 Nasal Cannula 2.0 02/18/17 18:00 140 138/95 02/18/17 18:00 127 22 144/93 99 Nasal Cannula 2.0 02/18/17 17:30 116 24 138/95 99 Nasal Cannula 2.0 02/18/17 17:00 110 22 120/88 99 Nasal Cannula 2.0 02/18/17 16:30 101 18 155/105 99 Nasal Cannula 2.0 02/18/17 16:00 118 02/18/17 16:00 98.7 111 19 159/93 99 Nasal Cannula 2.0 02/18/17 15:30 122 21 144/89 99 Nasal Cannula 2.0 02/18/17 15:00 113 20 130/74 99 Nasal Cannula 2.0 02/18/17 14:30 108 21 112/88 100 Nasal Cannula 2.0 02/18/17 14:00 105 22 101/69 100 Nasal Cannula 2.0 02/18/17 13:30 108 16 101/60 99 Nasal Cannula 2.0 02/18/17 13:00 98 20 103/74 99 Nasal Cannula 2.0 02/18/17 12:30 115 24 140/77 99 Nasal Cannula 2.0 02/18/17 12:00 98.4 112 23 144/110 99 Nasal Cannula 3.0 02/18/17 12:00 134 02/18/17 11:30 123 22 123/98 99 Nasal Cannula 2.0 02/18/17 11:00 116 24 143/97 99 Nasal Cannula 2.0 02/18/17 10:30 124 23 127/87 99 Nasal Cannula 2.0 02/18/17 10:00 123 25 120/90 99 Nasal Cannula 2.0 02/18/17 09:54 124 133/87 02/18/17 09:54 124 133/87 02/18/17 09:30 123 25 133/87 99 Nasal Cannula 2.0 Height (Feet): 6 Height (Inches): 0.00 Weight (Pounds): 216 HEENT: mucous membranes moist Respiratory/Chest: other - coarse sounds ,O2 by cannula Cardiovascular: tachycardia Abdomen: soft, non tender, other - NG tube Extremities: no edema, other - left big toe gangrene Neurologic/Psychiatric: other - sleeping Laboratory Tests Test 02/18/17 10:00 02/18/17 20:10 02/19/17 02:30 02/19/17 05:00 Urine Color Pale yellow Urine Appearance Clear Urine pH 7 (4.5-8.0) Urine Specific [place] 1.010 (1.005-1.035) Urine Protein 3+ (NEGATIVE) H Urine Glucose (UA) 3+ (NEGATIVE) H Urine Ketones 2+ (NEGATIVE) H Urine Occult Blood 4+ (NEGATIVE) H Urine Nitrite Negative (NEGATIVE) Urine Bilirubin Negative (NEGATIVE) Urine Urobilinogen Normal MG/DL (0.0-1.0) Urine Leukocyte Esterase Negative (NEGATIVE) Urine RBC 5-10 /HPF (0 - 0) H Urine WBC 0 /HPF (0 - 0) Urine Squamous Epithelial Cells Occasional /LPF Urine Bacteria Occasional /HPF (NONE) White Blood Count 8.4 K/UL (4.8-10.8) 9.9 K/UL (4.8-10.8) Red Blood Count 3.62 M/UL (4.70-6.10) L 3.62 M/UL (4.70-6.10) L Hemoglobin 11.5 G/DL (14.2-18.0) L 12.0 G/DL (14.2-18.0) L Hematocrit 36.9 % (42.0-52.0) L 35.7 % (42.0-52.0) L Mean Corpuscular Volume 102 FL (80-99) H 99 FL (80-99) Mean Corpuscular Hemoglobin 31.8 PG (27.0-31.0) H 33.2 PG (27.0-31.0) H Mean Corpuscular Hemoglobin Concent 31.2 G/DL (32.0-36.0) L 33.7 G/DL (32.0-36.0) Red Cell Distribution Width 13.0 % (11.6-14.8) 12.8 % (11.6-14.8) Platelet Count 140 K/UL (150-450) L 133 K/UL (150-450) L Mean Platelet Volume 6.9 FL (6.5-10.1) 6.6 FL (6.5-10.1) Neutrophils (%) (Auto) 74.9 % (45.0-75.0) 72.2 % (45.0-75.0) Lymphocytes (%) (Auto) 11.0 % (20.0-45.0) L 14.2 % (20.0-45.0) L Monocytes (%) (Auto) 12.5 % (1.0-10.0) H 11.9 % (1.0-10.0) H Eosinophils (%) (Auto) 1.1 % (0.0-3.0) 1.1 % (0.0-3.0) Basophils (%) (Auto) 0.5 % (0.0-2.0) 0.6 % (0.0-2.0) Activated Partial Thromboplast Time 34 SEC (23-33) H 147 SEC (23-33) H Sodium Level 138 MMOL/L (136-145) Potassium Level 3.6 MMOL/L (3.5-5.1) Chloride Level 103 MMOL/L (98-107) Carbon Dioxide Level 25 MMOL/L (21-32) Anion Gap 10 mmol/L (5-15) Blood Urea Nitrogen 17 mg/dL (7-18) Creatinine 1.9 MG/DL (0.55-1.30) H Estimat Glomerular Filtration Rate 43.1 mL/min (>60) Glucose Level 161 MG/DL (74-106) H Hemoglobin A1c 10.5 % (4.3-6.0) H Uric Acid 5.8 MG/DL (2.6-7.2) Calcium Level 9.2 MG/DL (8.5-10.1) Phosphorus Level 3.3 MG/DL (2.5-4.9) Magnesium Level 1.6 MG/DL (1.8-2.4) L Total Bilirubin 0.6 MG/DL (0.2-1.0) Aspartate Amino Transf (AST/SGOT) 18 U/L (15-37) Alanine Aminotransferase (ALT/SGPT) 9 U/L (12-78) L Alkaline Phosphatase 93 U/L (46-116) C-Reactive Protein, Quantitative 22.2 mg/dL (0.00-0.90) H Pro-B-Type Natriuretic Peptide 2999 pg/mL (0-125) H Total Protein 7.2 G/DL (6.4-8.2) Albumin 1.5 G/DL (3.4-5.0) L Globulin 5.7 g/dL Albumin/Globulin Ratio 0.3 (1.0-2.7) L Triglycerides Level 90 MG/DL (30-150) Cholesterol Level 117 MG/DL (< 200) LDL Cholesterol 77 mg/dL (<100) HDL Cholesterol 33 MG/DL (40-60) L Cholesterol/HDL Ratio 3.5 (3.3-4.4) Thyroid Stimulating Hormone (TSH) 1.051 uiU/mL (0.358-3.740) Urine Random Sodium 124 MEQ/L (20-110) H Current Medications Medications (Trade) Dose Ordered Sig/Anahi Route PRN Reason Start Time Stop Time Status Last Admin Dose Admin Acetaminophen (Tylenol) 650 mg Q4H PRN NG Mild Pain/Temp > 100.5 02/18/17 20:45 03/20/17 20:44 02/19/17 08:53 Al Hydroxide/Mg Hydroxide (Mylanta II) 30 ml Q6H PRN NG dyspepsia 02/18/17 21:00 03/20/17 20:59 Atorvastatin Calcium (Lipitor) 20 mg QHS NG 02/18/17 21:00 03/20/17 20:59 02/18/17 21:50 Cefepime HCl 1 gm/ Dextrose 55 ml @ 110 mls/hr Q24H IVPB 02/18/17 13:00 02/25/17 12:59 02/18/17 15:00 Dextrose (Dextrose 50%) STAT PRN IV Hypoglycemia 02/18/17 07:00 03/20/17 06:59 Diltiazem HCl 125 mg/Dextrose 125 ml @ 0 mls/hr Q24H IV 02/18/17 19:00 02/19/17 18:59 02/19/17 04:39 Heparin Sodium/ Dextrose 500 ml @ 30.116 mls/ hr adjust per protocol IV 02/19/17 06:30 03/21/17 06:29 02/19/17 06:34 Insulin Aspart (NovoLOG) BEFORE MEALS AND HS SUBQ 02/18/17 11:30 03/20/17 11:29 02/19/17 06:20 Lorazepam (Ativan 2mg/ml 1ml) 0.5 mg Q4H PRN IV For Anxiety 02/18/17 07:00 02/25/17 06:59 Memantine (Namenda) 5 mg BID NG 02/19/17 09:00 03/21/17 08:59 02/19/17 08:53 Metoprolol Tartrate (Lopressor) 5 mg Q4H PRN IVP heart rate greater than 105 02/18/17 19:45 03/20/17 19:44 02/19/17 07:55 Metoprolol Tartrate (Lopressor) 50 mg EVERY 12 HOURS NG 02/18/17 21:00 03/20/17 20:59 02/19/17 08:53 Ondansetron HCl (Zofran) 4 mg Q6H PRN IVP Nausea & Vomiting 02/18/17 07:00 03/20/17 06:59 Pantoprazole (Protonix) 40 mg DAILY IVP 02/19/17 09:00 03/21/17 08:59 02/19/17 08:54 Polyethylene Glycol (Miralax) 17 gm HSPRN PRN ORAL Constipation 02/18/17 07:00 03/20/17 06:59 Valproic Acid (Depakene) 500 mg EVERY 12 HOURS NG 02/18/17 21:00 03/20/17 20:59 02/19/17 08:54 Zolpidem Tartrate (Ambien) 5 mg HSPRN PRN ORAL Insomnia 02/18/17 07:00 02/25/17 06:59 MARYLIN WOOD Feb 19, 2017 09:27
--- NOTE | 2017-02-19 11:48 | Nephrology Progress Note ---
Assessment/Plan Problem List: (1) Atrial fibrillation (2) Acute on chronic renal failure Assessment (1) Diabetic foot ulcer (2) Atrial fibrillation (3) Pacemaker (4) Acute on chronic renal failure- Cr 1.9 Assessment: + urinary retention (5) Diabetic nephropathy Plan Plan: Per cardiology correct electrolytes as needed monitor BS and BP and HR Avoid nephrotoxics monitor renal parameters Subjective ROS Limited/Unobtainable: No Constitutional: Reports: malaise Objective Objective Last 24 Hour Vital Signs Date Time Temp Pulse Resp B/P (MAP) Pulse Ox O2 Delivery O2 Flow Rate FiO2 02/19/17 09:31 99.9 02/19/17 08:53 144 130/91 02/19/17 08:00 99.9 116 19 129/94 97 Nasal Cannula 2.0 02/19/17 08:00 145 02/19/17 07:55 155 139/95 02/19/17 07:00 142 28 143/91 98 Nasal Cannula 2.0 02/19/17 06:48 Nasal Cannula 2.0 02/19/17 06:48 99 Nasal Cannula 2.0 02/19/17 06:45 137 27 144/93 94 Nasal Cannula 2.0 02/19/17 06:30 136 20 124/86 98 Nasal Cannula 2.0 02/19/17 06:15 131 22 136/90 98 Nasal Cannula 2.0 02/19/17 06:00 131 23 141/79 97 Nasal Cannula 2.0 02/19/17 05:45 134 21 149/98 99 Nasal Cannula 2.0 02/19/17 05:30 130 23 156/101 97 Nasal Cannula 2.0 02/19/17 05:15 129 22 164/87 97 Nasal Cannula 2.0 02/19/17 05:00 125 22 150/105 99 Nasal Cannula 2.0 02/19/17 04:45 122 23 154/90 99 Nasal Cannula 2.0 02/19/17 04:39 114 140/77 02/19/17 04:30 98.0 114 23 140/77 97 Nasal Cannula 2.0 02/19/17 04:15 117 23 148/96 99 Nasal Cannula 2.0 02/19/17 04:00 115 02/19/17 04:00 118 22 131/88 99 Nasal Cannula 2.0 02/19/17 03:45 124 23 123/92 98 Nasal Cannula 2.0 02/19/17 03:30 131 27 136/79 97 Nasal Cannula 2.0 02/19/17 03:12 121 133/97 02/19/17 03:00 121 20 133/97 99 Nasal Cannula 2.0 02/19/17 02:30 116 19 128/89 99 Nasal Cannula 2.0 02/19/17 02:00 116 18 141/81 100 Nasal Cannula 2.0 02/19/17 01:30 108 18 145/76 100 Nasal Cannula 2.0 02/19/17 01:00 103 19 143/68 100 Nasal Cannula 2.0 02/19/17 00:30 101 21 139/87 100 Nasal Cannula 2.0 02/19/17 00:00 98.0 99 19 126/93 100 Nasal Cannula 2.0 02/19/17 00:00 96 02/18/17 23:45 98 19 128/83 100 Nasal Cannula 2.0 02/18/17 23:30 96 18 129/89 100 Nasal Cannula 2.0 02/18/17 23:15 97 18 144/81 100 Nasal Cannula 2.0 02/18/17 23:00 98 17 133/94 100 Nasal Cannula 2.0 02/18/17 22:45 98 18 129/101 100 Nasal Cannula 2.0 02/18/17 22:30 100 18 133/92 99 Nasal Cannula 2.0 02/18/17 22:15 105 17 132/76 99 Nasal Cannula 2.0 02/18/17 22:00 122 20 124/91 99 Nasal Cannula 2.0 02/18/17 21:50 134 123/89 02/18/17 21:30 127 22 123/89 99 Nasal Cannula 2.0 02/18/17 21:00 131 25 124/83 99 Nasal Cannula 2.0 02/18/17 20:49 99 Nasal Cannula 2.0 28 02/18/17 20:49 Nasal Cannula 2.0 28 02/18/17 20:30 128 25 135/103 99 Nasal Cannula 2.0 02/18/17 20:00 144 02/18/17 20:00 97.8 121 25 136/103 99 Nasal Cannula 2.0 02/18/17 19:44 136 132/112 02/18/17 19:30 138 23 132/112 98 Nasal Cannula 2.0 02/18/17 19:00 146 22 138/72 98 Nasal Cannula 2.0 02/18/17 18:30 148 20 138/72 99 Nasal Cannula 2.0 02/18/17 18:00 140 138/95 02/18/17 18:00 127 22 144/93 99 Nasal Cannula 2.0 02/18/17 17:30 116 24 138/95 99 Nasal Cannula 2.0 02/18/17 17:00 110 22 120/88 99 Nasal Cannula 2.0 02/18/17 16:30 101 18 155/105 99 Nasal Cannula 2.0 02/18/17 16:00 118 02/18/17 16:00 98.7 111 19 159/93 99 Nasal Cannula 2.0 02/18/17 15:30 122 21 144/89 99 Nasal Cannula 2.0 02/18/17 15:00 113 20 130/74 99 Nasal Cannula 2.0 02/18/17 14:30 108 21 112/88 100 Nasal Cannula 2.0 02/18/17 14:00 105 22 101/69 100 Nasal Cannula 2.0 02/18/17 13:30 108 16 101/60 99 Nasal Cannula 2.0 02/18/17 13:00 98 20 103/74 99 Nasal Cannula 2.0 02/18/17 12:30 115 24 140/77 99 Nasal Cannula 2.0 02/18/17 12:00 98.4 112 23 144/110 99 Nasal Cannula 3.0 02/18/17 12:00 134 Intake and Output 02/18/17 02/19/17 19:00 07:00 Intake Total 476.51 ml 577.2395 ml Output Total 765 ml 1075 ml Balance -288.49 ml -497.7605 ml Intake Oral 60 ml IV Total 416.51 ml 477.2395 ml Other 100 ml Output Urine Total 765 ml 1075 ml # Bowel Movements 1 Laboratory Tests 02/18/17 20:10: White Blood Count 8.4, Red Blood Count 3.62L, Hemoglobin 11.5L, Hematocrit 36.9L , Mean Corpuscular Volume 102H, Mean Corpuscular Hemoglobin 31.8H, Mean Corpuscular Hemoglobin Concent 31.2L, Red Cell Distribution Width 13.0, Platelet Count 140L, Mean Platelet Volume 6.9, Neutrophils (%) (Auto) 74.9, Lymphocytes (%) (Auto) 11.0L, Monocytes (%) (Auto) 12.5H, Eosinophils (%) (Auto ) 1.1, Basophils (%) (Auto) 0.5, Activated Partial Thromboplast Time 34H 02/19/17 02:30: White Blood Count 9.9, Red Blood Count 3.62L, Hemoglobin 12.0L, Hematocrit 35.7L , Mean Corpuscular Volume 99, Mean Corpuscular Hemoglobin 33.2H, Mean Corpuscular Hemoglobin Concent 33.7, Red Cell Distribution Width 12.8, Platelet Count 133L, Mean Platelet Volume 6.6, Neutrophils (%) (Auto) 72.2, Lymphocytes ( %) (Auto) 14.2L, Monocytes (%) (Auto) 11.9H, Eosinophils (%) (Auto) 1.1, Basophils (%) (Auto) 0.6, Activated Partial Thromboplast Time 147H, Sodium Level 138, Potassium Level 3.6, Chloride Level 103, Carbon Dioxide Level 25, Anion Gap 10, Blood Urea Nitrogen 17, Creatinine 1.9H, Estimat Glomerular Filtration Rate 43.1, Glucose Level 161H, Hemoglobin A1c 10.5H, Uric Acid 5.8, Calcium Level 9.2, Phosphorus Level 3.3, Magnesium Level 1.6L, Total Bilirubin 0.6, Aspartate Amino Transf (AST/SGOT) 18, Alanine Aminotransferase (ALT/SGPT) 9L, Alkaline Phosphatase 93, C-Reactive Protein, Quantitative 22.2H, Pro-B-Type Natriuretic Peptide 2999H, Total Protein 7.2, Albumin 1.5L, Globulin 5.7, Albumin/Globulin Ratio 0.3L, Triglycerides Level 90, Cholesterol Level 117, LDL Cholesterol 77, HDL Cholesterol 33L, Cholesterol/HDL Ratio 3.5, Thyroid Stimulating Hormone (TSH) 1.051 02/19/17 05:00: Urine Random Sodium 124H Height (Feet): 6 Height (Inches): 0.00 Weight (Pounds): 216 Cardiovascular: tachycardia, arrhythmia Respiratory/Chest: decreased breath sounds BHAVANI VACA Feb 19, 2017 11:48
--- NOTE | 2017-02-19 11:56 | Pulmonolgy Critical Care Note ---
Critical Care - Asmt/Plan Problems: (1) Rapid atrial fibrillation (2) Acute on chronic renal failure (3) Altered level of consciousness (4) Diabetic foot ulcer (5) Diabetic nephropathy Respiratory: monitor respiratory rate Cardiac: continue to monitor HR/BP Renal: F/U I&O Infectious Disease: check cultures, continue antibiotics Gastrointestinal: continue feedings/current rate, hold feedings, other - nutrition evaluation for feeding Endocrine: monitor blood sugar, check TSH Hematologic: monitor H/H Neurologic: PRN Ativan Prophylaxis: Protonix Disposition: keep in ICU Notes Reviewed: officer captain, cardio Discussed with: nurses, consultants, 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 - Objective Last 24 Hour Vital Signs Date Time Temp Pulse Resp B/P (MAP) Pulse Ox O2 Delivery O2 Flow Rate FiO2 02/19/17 09:31 99.9 02/19/17 08:53 144 130/91 02/19/17 08:00 99.9 116 19 129/94 97 Nasal Cannula 2.0 02/19/17 08:00 145 02/19/17 07:55 155 139/95 02/19/17 07:00 142 28 143/91 98 Nasal Cannula 2.0 02/19/17 06:48 Nasal Cannula 2.0 02/19/17 06:48 99 Nasal Cannula 2.0 02/19/17 06:45 137 27 144/93 94 Nasal Cannula 2.0 02/19/17 06:30 136 20 124/86 98 Nasal Cannula 2.0 02/19/17 06:15 131 22 136/90 98 Nasal Cannula 2.0 02/19/17 06:00 131 23 141/79 97 Nasal Cannula 2.0 02/19/17 05:45 134 21 149/98 99 Nasal Cannula 2.0 02/19/17 05:30 130 23 156/101 97 Nasal Cannula 2.0 02/19/17 05:15 129 22 164/87 97 Nasal Cannula 2.0 02/19/17 05:00 125 22 150/105 99 Nasal Cannula 2.0 02/19/17 04:45 122 23 154/90 99 Nasal Cannula 2.0 02/19/17 04:39 114 140/77 02/19/17 04:30 98.0 114 23 140/77 97 Nasal Cannula 2.0 02/19/17 04:15 117 23 148/96 99 Nasal Cannula 2.0 02/19/17 04:00 115 1/11/18 04:00 118 22 131/88 99 Nasal Cannula 2.0 02/19/17 03:45 124 23 123/92 98 Nasal Cannula 2.0 02/19/17 03:30 131 27 136/79 97 Nasal Cannula 2.0 02/19/17 03:12 121 133/97 02/19/17 03:00 121 20 133/97 99 Nasal Cannula 2.0 02/19/17 02:30 116 19 128/89 99 Nasal Cannula 2.0 02/19/17 02:00 116 18 141/81 100 Nasal Cannula 2.0 02/19/17 01:30 108 18 145/76 100 Nasal Cannula 2.0 02/19/17 01:00 103 19 143/68 100 Nasal Cannula 2.0 02/19/17 00:30 101 21 139/87 100 Nasal Cannula 2.0 02/19/17 00:00 98.0 99 19 126/93 100 Nasal Cannula 2.0 02/19/17 00:00 96 02/18/17 23:45 98 19 128/83 100 Nasal Cannula 2.0 02/18/17 23:30 96 18 129/89 100 Nasal Cannula 2.0 02/18/17 23:15 97 18 144/81 100 Nasal Cannula 2.0 02/18/17 23:00 98 17 133/94 100 Nasal Cannula 2.0 02/18/17 22:45 98 18 129/101 100 Nasal Cannula 2.0 02/18/17 22:30 100 18 133/92 99 Nasal Cannula 2.0 02/18/17 22:15 105 17 132/76 99 Nasal Cannula 2.0 02/18/17 22:00 122 20 124/91 99 Nasal Cannula 2.0 02/18/17 21:50 134 123/89 02/18/17 21:30 127 22 123/89 99 Nasal Cannula 2.0 02/18/17 21:00 131 25 124/83 99 Nasal Cannula 2.0 02/18/17 20:49 99 Nasal Cannula 2.0 28 02/18/17 20:49 Nasal Cannula 2.0 28 02/18/17 20:30 128 25 135/103 99 Nasal Cannula 2.0 02/18/17 20:00 144 02/18/17 20:00 97.8 121 25 136/103 99 Nasal Cannula 2.0 02/18/17 19:44 136 132/112 02/18/17 19:30 138 23 132/112 98 Nasal Cannula 2.0 02/18/17 19:00 146 22 138/72 98 Nasal Cannula 2.0 02/18/17 18:30 148 20 138/72 99 Nasal Cannula 2.0 02/18/17 18:00 140 138/95 02/18/17 18:00 127 22 144/93 99 Nasal Cannula 2.0 02/18/17 17:30 116 24 138/95 99 Nasal Cannula 2.0 02/18/17 17:00 110 22 120/88 99 Nasal Cannula 2.0 02/18/17 16:30 101 18 155/105 99 Nasal Cannula 2.0 02/18/17 16:00 118 02/18/17 16:00 98.7 111 19 159/93 99 Nasal Cannula 2.0 02/18/17 15:30 122 21 144/89 99 Nasal Cannula 2.0 02/18/17 15:00 113 20 130/74 99 Nasal Cannula 2.0 02/18/17 14:30 108 21 112/88 100 Nasal Cannula 2.0 02/18/17 14:00 105 22 101/69 100 Nasal Cannula 2.0 02/18/17 13:30 108 16 101/60 99 Nasal Cannula 2.0 02/18/17 13:00 98 20 103/74 99 Nasal Cannula 2.0 02/18/17 12:30 115 24 140/77 99 Nasal Cannula 2.0 02/18/17 12:00 98.4 112 23 144/110 99 Nasal Cannula 3.0 02/18/17 12:00 134 Status: awake Condition: critical HEENT: atraumatic Lungs: clear Heart: HR/BP stable Abdomen: soft, non-tender Extremities: no C/C/E, edema Decubiti: location Accucheck: 175 Critical Care - Subjective ROS Limited/Unobtainable: No ICU Day: 2 Interval Events: NG tube is in. Condition: critical FI02: 28 Drips: cardizem drip I&O: Intake and Output 02/18/17 02/19/17 19:00 07:00 Intake Total 476.51 ml 577.2395 ml Output Total 765 ml 1075 ml Balance -288.49 ml -497.7605 ml Intake Oral 60 ml IV Total 416.51 ml 477.2395 ml Other 100 ml Output Urine Total 765 ml 1075 ml # Bowel Movements 1 CXR: no change Labs: Laboratory Tests Test 02/18/17 20:10 02/19/17 02:30 02/19/17 05:00 White Blood Count 8.4 K/UL (4.8-10.8) 9.9 K/UL (4.8-10.8) Red Blood Count 3.62 M/UL (4.70-6.10) L 3.62 M/UL (4.70-6.10) L Hemoglobin 11.5 G/DL (14.2-18.0) L 12.0 G/DL (14.2-18.0) L Hematocrit 36.9 % (42.0-52.0) L 35.7 % (42.0-52.0) L Mean Corpuscular Volume 102 FL (80-99) H 99 FL (80-99) Mean Corpuscular Hemoglobin 31.8 PG (27.0-31.0) H 33.2 PG (27.0-31.0) H Mean Corpuscular Hemoglobin Concent 31.2 G/DL (32.0-36.0) L 33.7 G/DL (32.0-36.0) Red Cell Distribution Width 13.0 % (11.6-14.8) 12.8 % (11.6-14.8) Platelet Count 140 K/UL (150-450) L 133 K/UL (150-450) L Mean Platelet Volume 6.9 FL (6.5-10.1) 6.6 FL (6.5-10.1) Neutrophils (%) (Auto) 74.9 % (45.0-75.0) 72.2 % (45.0-75.0) Lymphocytes (%) (Auto) 11.0 % (20.0-45.0) L 14.2 % (20.0-45.0) L Monocytes (%) (Auto) 12.5 % (1.0-10.0) H 11.9 % (1.0-10.0) H Eosinophils (%) (Auto) 1.1 % (0.0-3.0) 1.1 % (0.0-3.0) Basophils (%) (Auto) 0.5 % (0.0-2.0) 0.6 % (0.0-2.0) Activated Partial Thromboplast Time 34 SEC (23-33) H 147 SEC (23-33) H Sodium Level 138 MMOL/L (136-145) Potassium Level 3.6 MMOL/L (3.5-5.1) Chloride Level 103 MMOL/L (98-107) Carbon Dioxide Level 25 MMOL/L (21-32) Anion Gap 10 mmol/L (5-15) Blood Urea Nitrogen 17 mg/dL (7-18) Creatinine 1.9 MG/DL (0.55-1.30) H Estimat Glomerular Filtration Rate 43.1 mL/min (>60) Glucose Level 161 MG/DL (74-106) H Hemoglobin A1c 10.5 % (4.3-6.0) H Uric Acid 5.8 MG/DL (2.6-7.2) Calcium Level 9.2 MG/DL (8.5-10.1) Phosphorus Level 3.3 MG/DL (2.5-4.9) Magnesium Level 1.6 MG/DL (1.8-2.4) L Total Bilirubin 0.6 MG/DL (0.2-1.0) Aspartate Amino Transf (AST/SGOT) 18 U/L (15-37) Alanine Aminotransferase (ALT/SGPT) 9 U/L (12-78) L Alkaline Phosphatase 93 U/L (46-116) C-Reactive Protein, Quantitative 22.2 mg/dL (0.00-0.90) H Pro-B-Type Natriuretic Peptide 2999 pg/mL (0-125) H Total Protein 7.2 G/DL (6.4-8.2) Albumin 1.5 G/DL (3.4-5.0) L Globulin 5.7 g/dL Albumin/Globulin Ratio 0.3 (1.0-2.7) L Triglycerides Level 90 MG/DL (30-150) Cholesterol Level 117 MG/DL (< 200) LDL Cholesterol 77 mg/dL (<100) HDL Cholesterol 33 MG/DL (40-60) L Cholesterol/HDL Ratio 3.5 (3.3-4.4) Thyroid Stimulating Hormone (TSH) 1.051 uiU/mL (0.358-3.740) Urine Random Sodium 124 MEQ/L (20-110) H SATHYA MEIER Feb 19, 2017 11:56
--- NOTE | 2017-02-19 12:00 | Consultation ---
DATE OF CONSULTATION: CANCELED DICTATION HISTORY OF PRESENT ILLNESS: The patient is a 66-year-old male who was admitted to the hospital with atrial fibrillation. He is now in the ICU at [facility]. This patient came in from [facility] with altered mental status, pneumonitis, urinary tract infection, and sepsis. His cognition has declined below baseline secondary to stress of his medical illness. That is why, there is a psychiatric consultation for this patient. He is confused, disorganized, and mood labile. MEDICAL HISTORY: He has a history of pneumonia, urinary tract infection, and sepsis. ALLERGIES: No known drug allergies. SUBSTANCE ABUSE HISTORY: Denies drug or alcohol use. SOCIAL HISTORY: The patient lives in [facility]. Financially supported by surgical site infection and Medicare. FAMILY/PSYCHIATRIC HISTORY: Denies. MENTAL STATUS EXAMINATION: This is a 66-year-old male with psychomotor retardation. Mood is depressed. Affect guarded and restricted. Thought process is disorganized and illogical. Denies any current suicidal or homicidal thoughts. Judgment is poor. DIAGNOSIS: Paranoid schizophrenia with acute exacerbation, rule out dementia with psychosis. PLAN: For this patient is I am going to continue him on Depakote at a dose of Karen Pettit M.D. DR: JAY JOB#: [id number] CC:
--- NOTE | 2017-02-19 12:15 | Consultation ---
DATE OF CONSULTATION: 02/19/2017 CONSULTING PHYSICIAN: Karen Pettit M.D. HISTORY OF PRESENT ILLNESS: He is a 66-year-old male patient. He was admitted to the hospital secondary to atrial fibrillation and rapid heart rate. So, he was admitted for those reasons. He also has anemia and weakness. He was recently admitted to the hospital previously, but upon discharged back to the SNF, he desaturated. He had atrial fibrillation. He was sent back to the [facility] and admitted to the ICU. He has altered mental status and confusion secondary to the progression of his medical illness as well. So, there was a psychiatric consultation requested to manage this patient's behavior. His cognition has declined to the below baseline. MEDICAL HISTORY: Atrial fibrillation, hypertension, diabetes, asthma, weakness, tremors, and hyperlipidemia. ALLERGIES: Codeine. SOCIAL HISTORY: He lives in [facility]. He is financially supported by [employer] and Medicare. PSYCHIATRIC HISTORY: History of paranoid schizophrenia, rule out dementia with psychosis, rule out bipolar 2. FAMILY HISTORY: Denies. SUBSTANCE ABUSE HISTORY: Denies drug or alcohol use. MENTAL STATUS EXAMINATION: This is a 66-year-old male with psychomotor retardation. Mood is depressed. Affect guarded and restricted. Thought process is disorganized and illogical. Denies any current suicidal or homicidal thoughts. Insight and judgment is poor. DIAGNOSIS: Schizoaffective bipolar type, rule out dementia with psychosis. PLAN: Treat the patient with Depakote 500 mg per NG-tube twice a day and also because of his decline in cognition, I am going to start this patient on a dose of Namenda 5 mg per NG-tube twice a day as well to prevent any further decline in his cognition. He will continue to be followed by Psychiatry throughout hospital course. Chart reviewed and discussed with staff. The patient was seen and assessed at bedside. I would like to thank Dr. Pako Barreto for this interesting consultation. Karen Pettit M.D. : [place] JOB#: [id number] CC:
--- NOTE | 2017-02-19 12:24 | Diagnostic Imaging Report ---
Indication: Dyspnea Comparison: 02/17/2017 A single view chest radiograph was obtained. Findings: Interstitial edema suspected, mild in degree. Heart is enlarged. NG tube is present. The tip is in the stomach. The proximal port is in the distal esophagus. Pacemaker again noted. IMPRESSION: Nasogastric tube is high in location and should be advanced several centimeters.
[2017-02-19] MEDS ORDERED: Cefepime 2gm/D5W 110ml IV SCH ×2 (13:00)
--- NOTE | 2017-02-19 13:39 | Wound Nurse Progress Note ---
Wound RN Progress Note Wound Consult #1 Left foot gangrene. Pt is readmitted and is under the care of chinese herbalist Dr Perea #2 Dry scabs on left elbow. Recommendation -Please f/u with recommendation and treatment order from NGHIA ESQUIVEL RN Feb 19, 2017 13:39
--- NOTE | 2017-02-19 13:50 | General Progress Note ---
Assessment/Plan Problem List: (1) HTN (hypertension) ICD Codes: I10 - Essential (primary) hypertension SNOMED: 82283772 (2) Pacemaker ICD Codes: Z95.0 - Presence of cardiac pacemaker SNOMED: 518889317, 046009590 (3) Atrial fibrillation ICD Codes: I48.91 - Unspecified atrial fibrillation SNOMED: 08988393 (4) Diabetes mellitus ICD Codes: E11.9 - Type 2 diabetes mellitus without complications SNOMED: 37459002 (5) Diabetic foot ulcer ICD Codes: E11.621 - Type 2 diabetes mellitus with foot ulcer; L97.509 - Non- pressure chronic ulcer of other part of unspecified foot with unspecified severity SNOMED: 86089417, 517548254 (6) Altered level of consciousness ICD Codes: R40.4 - Transient alteration of awareness SNOMED: 0029221 (7) Acute on chronic renal failure ICD Codes: N17.9 - Acute kidney failure, unspecified; N18.9 - Chronic kidney disease, unspecified SNOMED: 514077471 (8) Rapid atrial fibrillation ICD Codes: I48.91 - Unspecified atrial fibrillation SNOMED: 305178017 Status: unchanged Assessment/Plan o2 pulm tx ng feed abx wound care cbc bmp am Subjective Constitutional: Reports: weakness Allergies: Coded Allergies: CODEINE (Unverified Allergy, Unknown, 02/17/17) All Systems: reviewed and negative except above Subjective o2nc ng in icu Objective Last 24 Hour Vital Signs Date Time Temp Pulse Resp B/P (MAP) Pulse Ox O2 Delivery O2 Flow Rate FiO2 02/19/17 13:00 93 20 112/75 98 Nasal Cannula 2.0 02/19/17 12:30 97 20 139/88 98 Nasal Cannula 2.0 02/19/17 12:00 111 02/19/17 12:00 97.6 97 22 137/76 97 Nasal Cannula 2.0 02/19/17 11:30 96 22 123/82 98 Nasal Cannula 2.0 02/19/17 11:00 92 21 119/76 99 Nasal Cannula 2.0 02/19/17 10:30 90 20 111/76 99 Nasal Cannula 2.0 02/19/17 10:00 89 19 114/77 99 Nasal Cannula 2.0 02/19/17 09:31 99.9 02/19/17 09:30 96 21 121/76 97 Nasal Cannula 2.0 02/19/17 09:00 112 22 136/93 99 Nasal Cannula 2.0 02/19/17 08:53 144 130/91 02/19/17 08:30 123 22 147/108 99 Nasal Cannula 2.0 02/19/17 08:00 99.9 116 19 129/94 97 Nasal Cannula 2.0 02/19/17 08:00 145 02/19/17 07:55 155 139/95 02/19/17 07:00 142 28 143/91 98 Nasal Cannula 2.0 02/19/17 06:48 Nasal Cannula 2.0 02/19/17 06:48 99 Nasal Cannula 2.0 02/19/17 06:45 137 27 144/93 94 Nasal Cannula 2.0 02/19/17 06:30 136 20 124/86 98 Nasal Cannula 2.0 02/19/17 06:15 131 22 136/90 98 Nasal Cannula 2.0 02/19/17 06:00 131 23 141/79 97 Nasal Cannula 2.0 02/19/17 05:45 134 21 149/98 99 Nasal Cannula 2.0 02/19/17 05:30 130 23 156/101 97 Nasal Cannula 2.0 02/19/17 05:15 129 22 164/87 97 Nasal Cannula 2.0 02/19/17 05:00 125 22 150/105 99 Nasal Cannula 2.0 02/19/17 04:45 122 23 154/90 99 Nasal Cannula 2.0 02/19/17 04:39 114 140/77 02/19/17 04:30 98.0 114 23 140/77 97 Nasal Cannula 2.0 02/19/17 04:15 117 23 148/96 99 Nasal Cannula 2.0 02/19/17 04:00 115 02/19/17 04:00 118 22 131/88 99 Nasal Cannula 2.0 02/19/17 03:45 124 23 123/92 98 Nasal Cannula 2.0 02/19/17 03:30 131 27 136/79 97 Nasal Cannula 2.0 02/19/17 03:12 121 133/97 02/19/17 03:00 121 20 133/97 99 Nasal Cannula 2.0 02/19/17 02:30 116 19 128/89 99 Nasal Cannula 2.0 02/19/17 02:00 116 18 141/81 100 Nasal Cannula 2.0 02/19/17 01:30 108 18 145/76 100 Nasal Cannula 2.0 02/19/17 01:00 103 19 143/68 100 Nasal Cannula 2.0 02/19/17 00:30 101 21 139/87 100 Nasal Cannula 2.0 02/19/17 00:00 98.0 99 19 126/93 100 Nasal Cannula 2.0 02/19/17 00:00 96 02/18/17 23:45 98 19 128/83 100 Nasal Cannula 2.0 02/18/17 23:30 96 18 129/89 100 Nasal Cannula 2.0 02/18/17 23:15 97 18 144/81 100 Nasal Cannula 2.0 02/18/17 23:00 98 17 133/94 100 Nasal Cannula 2.0 02/18/17 22:45 98 18 129/101 100 Nasal Cannula 2.0 02/18/17 22:30 100 18 133/92 99 Nasal Cannula 2.0 02/18/17 22:15 105 17 132/76 99 Nasal Cannula 2.0 02/18/17 22:00 122 20 124/91 99 Nasal Cannula 2.0 02/18/17 21:50 134 123/89 02/18/17 21:30 127 22 123/89 99 Nasal Cannula 2.0 02/18/17 21:00 131 25 124/83 99 Nasal Cannula 2.0 02/18/17 20:49 99 Nasal Cannula 2.0 28 02/18/17 20:49 Nasal Cannula 2.0 28 02/18/17 20:30 128 25 135/103 99 Nasal Cannula 2.0 02/18/17 20:00 144 02/18/17 20:00 97.8 121 25 136/103 99 Nasal Cannula 2.0 02/18/17 19:44 136 132/112 02/18/17 19:30 138 23 132/112 98 Nasal Cannula 2.0 02/18/17 19:00 146 22 138/72 98 Nasal Cannula 2.0 02/18/17 18:30 148 20 138/72 99 Nasal Cannula 2.0 02/18/17 18:00 140 138/95 02/18/17 18:00 127 22 144/93 99 Nasal Cannula 2.0 02/18/17 17:30 116 24 138/95 99 Nasal Cannula 2.0 02/18/17 17:00 110 22 120/88 99 Nasal Cannula 2.0 02/18/17 16:30 101 18 155/105 99 Nasal Cannula 2.0 02/18/17 16:00 118 02/18/17 16:00 98.7 111 19 159/93 99 Nasal Cannula 2.0 02/18/17 15:30 122 21 144/89 99 Nasal Cannula 2.0 02/18/17 15:00 113 20 130/74 99 Nasal Cannula 2.0 02/18/17 14:30 108 21 112/88 100 Nasal Cannula 2.0 02/18/17 14:00 105 22 101/69 100 Nasal Cannula 2.0 Intake and Output 02/18/17 02/19/17 19:00 07:00 Intake Total 476.51 ml 577.2395 ml Output Total 765 ml 1075 ml Balance -288.49 ml -497.7605 ml Intake Oral 60 ml IV Total 416.51 ml 477.2395 ml Other 100 ml Output Urine Total 765 ml 1075 ml # Bowel Movements 1 Laboratory Tests 02/18/17 20:10: White Blood Count 8.4, Red Blood Count 3.62L, Hemoglobin 11.5L, Hematocrit 36.9L , Mean Corpuscular Volume 102H, Mean Corpuscular Hemoglobin 31.8H, Mean Corpuscular Hemoglobin Concent 31.2L, Red Cell Distribution Width 13.0, Platelet Count 140L, Mean Platelet Volume 6.9, Neutrophils (%) (Auto) 74.9, Lymphocytes (%) (Auto) 11.0L, Monocytes (%) (Auto) 12.5H, Eosinophils (%) (Auto ) 1.1, Basophils (%) (Auto) 0.5, Activated Partial Thromboplast Time 34H 02/19/17 02:30: White Blood Count 9.9, Red Blood Count 3.62L, Hemoglobin 12.0L, Hematocrit 35.7L , Mean Corpuscular Volume 99, Mean Corpuscular Hemoglobin 33.2H, Mean Corpuscular Hemoglobin Concent 33.7, Red Cell Distribution Width 12.8, Platelet Count 133L, Mean Platelet Volume 6.6, Neutrophils (%) (Auto) 72.2, Lymphocytes ( %) (Auto) 14.2L, Monocytes (%) (Auto) 11.9H, Eosinophils (%) (Auto) 1.1, Basophils (%) (Auto) 0.6, Activated Partial Thromboplast Time 147H, Sodium Level 138, Potassium Level 3.6, Chloride Level 103, Carbon Dioxide Level 25, Anion Gap 10, Blood Urea Nitrogen 17, Creatinine 1.9H, Estimat Glomerular Filtration Rate 43.1, Glucose Level 161H, Hemoglobin A1c 10.5H, Uric Acid 5.8, Calcium Level 9.2, Phosphorus Level 3.3, Magnesium Level 1.6L, Total Bilirubin 0.6, Aspartate Amino Transf (AST/SGOT) 18, Alanine Aminotransferase (ALT/SGPT) 9L, Alkaline Phosphatase 93, C-Reactive Protein, Quantitative 22.2H, Pro-B-Type Natriuretic Peptide 2999H, Total Protein 7.2, Albumin 1.5L, Globulin 5.7, Albumin/Globulin Ratio 0.3L, Triglycerides Level 90, Cholesterol Level 117, LDL Cholesterol 77, HDL Cholesterol 33L, Cholesterol/HDL Ratio 3.5, Thyroid Stimulating Hormone (TSH) 1.051 02/19/17 05:00: Urine Random Sodium 124H 02/19/17 13:00: Activated Partial Thromboplast Time [Pending] Height (Feet): 6 Height (Inches): 0.00 Weight (Pounds): 216 General Appearance: lethargic EENT: normal ENT inspection Neck: non-tender, normal alignment, supple Cardiovascular: normal peripheral pulses, normal rate, regular rhythm Respiratory/Chest: chest wall non-tender, decreased breath sounds Abdomen: normal bowel sounds, non tender, soft Extremities: normal inspection Edema: no edema noted Arm (L), no edema noted Arm (R), no edema noted Leg (L), no edema noted Leg (R), no edema noted Pedal (L), no edema noted Pedal (R), no edema noted Generalized Neurologic: motor weakness Skin: normal pigmentation, warm/dry CLARITA TEMPLETON Feb 19, 2017 13:49
--- NOTE | 2017-02-19 21:18 | Cardiology Progress Note ---
Assessment/Plan Assessment/Plan 1. Tachycardia. 2. Atrial fibrillation, permanent. 3. History of sick sinus syndrome, status post single-chamber permanent pacemaker implantation. 4. History of hypertension. 5. Diabetes mellitus. 6. Gangrene, left foot. 7. Peripheral vascular disease. 8. Diabetic foot ulcers. 9. mede compliance was dcd but came back shortly for ? tachy eventhough heart rate was controlled prior to his dc he has an ngt now swtich to po ditl and dc iv dilt hope to get out of icu soon d/w rn Subjective ROS Limited/Unobtainable: Yes Subjective not respond to questions but says he is just resting Objective Last 24 Hour Vital Signs Date Time Temp Pulse Resp B/P (MAP) Pulse Ox O2 Delivery O2 Flow Rate FiO2 02/19/17 20:26 96 Nasal Cannula 3.0 32 02/19/17 20:26 Nasal Cannula 3.0 32 02/19/17 18:00 102 22 129/83 98 Nasal Cannula 2.0 02/19/17 17:30 94 20 112/63 95 Nasal Cannula 2.0 02/19/17 17:00 89 20 112/69 94 Nasal Cannula 2.0 02/19/17 16:30 90 20 118/72 95 Nasal Cannula 2.0 02/19/17 16:00 98.0 97 22 144/92 95 Nasal Cannula 2.0 02/19/17 16:00 78 02/19/17 15:30 102 22 129/83 98 Nasal Cannula 2.0 02/19/17 15:23 108 141/90 02/19/17 15:00 101 23 130/94 97 Nasal Cannula 2.0 02/19/17 14:30 95 21 136/73 98 Nasal Cannula 2.0 02/19/17 14:00 92 20 130/84 98 Nasal Cannula 2.0 02/19/17 13:30 100 21 124/82 99 Nasal Cannula 2.0 02/19/17 13:00 93 20 112/75 98 Nasal Cannula 2.0 02/19/17 12:30 97 20 139/88 98 Nasal Cannula 2.0 02/19/17 12:00 111 02/19/17 12:00 97.6 97 22 137/76 97 Nasal Cannula 2.0 02/19/17 11:30 96 22 123/82 98 Nasal Cannula 2.0 02/19/17 11:00 92 21 119/76 99 Nasal Cannula 2.0 02/19/17 10:30 90 20 111/76 99 Nasal Cannula 2.0 02/19/17 10:00 89 19 114/77 99 Nasal Cannula 2.0 02/19/17 09:31 99.9 02/19/17 09:30 96 21 121/76 97 Nasal Cannula 2.0 02/19/17 09:00 112 22 136/93 99 Nasal Cannula 2.0 02/19/17 08:53 144 130/91 02/19/17 08:30 123 22 147/108 99 Nasal Cannula 2.0 02/19/17 08:00 99.9 116 19 129/94 97 Nasal Cannula 2.0 02/19/17 08:00 145 02/19/17 07:55 155 139/95 02/19/17 07:00 142 28 143/91 98 Nasal Cannula 2.0 02/19/17 06:48 Nasal Cannula 2.0 02/19/17 06:48 99 Nasal Cannula 2.0 02/19/17 06:45 137 27 144/93 94 Nasal Cannula 2.0 02/19/17 06:30 136 20 124/86 98 Nasal Cannula 2.0 02/19/17 06:15 131 22 136/90 98 Nasal Cannula 2.0 02/19/17 06:00 131 23 141/79 97 Nasal Cannula 2.0 02/19/17 05:45 134 21 149/98 99 Nasal Cannula 2.0 02/19/17 05:30 130 23 156/101 97 Nasal Cannula 2.0 02/19/17 05:15 129 22 164/87 97 Nasal Cannula 2.0 02/19/17 05:00 125 22 150/105 99 Nasal Cannula 2.0 02/19/17 04:45 122 23 154/90 99 Nasal Cannula 2.0 02/19/17 04:39 114 140/77 02/19/17 04:30 98.0 114 23 140/77 97 Nasal Cannula 2.0 02/19/17 04:15 117 23 148/96 99 Nasal Cannula 2.0 02/19/17 04:00 115 02/19/17 04:00 118 22 131/88 99 Nasal Cannula 2.0 02/19/17 03:45 124 23 123/92 98 Nasal Cannula 2.0 02/19/17 03:30 131 27 136/79 97 Nasal Cannula 2.0 02/19/17 03:12 121 133/97 02/19/17 03:00 121 20 133/97 99 Nasal Cannula 2.0 02/19/17 02:30 116 19 128/89 99 Nasal Cannula 2.0 02/19/17 02:00 116 18 141/81 100 Nasal Cannula 2.0 02/19/17 01:30 108 18 145/76 100 Nasal Cannula 2.0 02/19/17 01:00 103 19 143/68 100 Nasal Cannula 2.0 02/19/17 00:30 101 21 139/87 100 Nasal Cannula 2.0 02/19/17 00:00 98.0 99 19 126/93 100 Nasal Cannula 2.0 02/19/17 00:00 96 02/18/17 23:45 98 19 128/83 100 Nasal Cannula 2.0 02/18/17 23:30 96 18 129/89 100 Nasal Cannula 2.0 02/18/17 23:15 97 18 144/81 100 Nasal Cannula 2.0 02/18/17 23:00 98 17 133/94 100 Nasal Cannula 2.0 02/18/17 22:45 98 18 129/101 100 Nasal Cannula 2.0 02/18/17 22:30 100 18 133/92 99 Nasal Cannula 2.0 02/18/17 22:15 105 17 132/76 99 Nasal Cannula 2.0 02/18/17 22:00 122 20 124/91 99 Nasal Cannula 2.0 02/18/17 21:50 134 123/89 02/18/17 21:30 127 22 123/89 99 Nasal Cannula 2.0 General Appearance: no apparent distress Neck: supple Cardiovascular: tachycardia, irregularly irregular Respiratory/Chest: lungs clear - ante Abdomen: normal bowel sounds, non tender, soft Extremities: no swelling Intake and Output 02/18/17 02/19/17 19:00 07:00 Intake Total 476.51 ml 577.2395 ml Output Total 765 ml 1075 ml Balance -288.49 ml -497.7605 ml Intake Oral 60 ml IV Total 416.51 ml 477.2395 ml Other 100 ml Output Urine Total 765 ml 1075 ml # Bowel Movements 1 Laboratory Tests Test 02/19/17 02:30 02/19/17 05:00 02/19/17 13:00 White Blood Count 9.9 K/UL (4.8-10.8) Red Blood Count 3.62 M/UL (4.70-6.10) L Hemoglobin 12.0 G/DL (14.2-18.0) L Hematocrit 35.7 % (42.0-52.0) L Mean Corpuscular Volume 99 FL (80-99) Mean Corpuscular Hemoglobin 33.2 PG (27.0-31.0) H Mean Corpuscular Hemoglobin Concent 33.7 G/DL (32.0-36.0) Red Cell Distribution Width 12.8 % (11.6-14.8) Platelet Count 133 K/UL (150-450) L Mean Platelet Volume 6.6 FL (6.5-10.1) Neutrophils (%) (Auto) 72.2 % (45.0-75.0) Lymphocytes (%) (Auto) 14.2 % (20.0-45.0) L Monocytes (%) (Auto) 11.9 % (1.0-10.0) H Eosinophils (%) (Auto) 1.1 % (0.0-3.0) Basophils (%) (Auto) 0.6 % (0.0-2.0) Activated Partial Thromboplast Time 147 SEC (23-33) H 76 SEC (23-33) H Sodium Level 138 MMOL/L (136-145) Potassium Level 3.6 MMOL/L (3.5-5.1) Chloride Level 103 MMOL/L (98-107) Carbon Dioxide Level 25 MMOL/L (21-32) Anion Gap 10 mmol/L (5-15) Blood Urea Nitrogen 17 mg/dL (7-18) Creatinine 1.9 MG/DL (0.55-1.30) H Estimat Glomerular Filtration Rate 43.1 mL/min (>60) Glucose Level 161 MG/DL (74-106) H Hemoglobin A1c 10.5 % (4.3-6.0) H Uric Acid 5.8 MG/DL (2.6-7.2) Calcium Level 9.2 MG/DL (8.5-10.1) Phosphorus Level 3.3 MG/DL (2.5-4.9) Magnesium Level 1.6 MG/DL (1.8-2.4) L Total Bilirubin 0.6 MG/DL (0.2-1.0) Aspartate Amino Transf (AST/SGOT) 18 U/L (15-37) Alanine Aminotransferase (ALT/SGPT) 9 U/L (12-78) L Alkaline Phosphatase 93 U/L (46-116) C-Reactive Protein, Quantitative 22.2 mg/dL (0.00-0.90) H Pro-B-Type Natriuretic Peptide 2999 pg/mL (0-125) H Total Protein 7.2 G/DL (6.4-8.2) Albumin 1.5 G/DL (3.4-5.0) L Globulin 5.7 g/dL Albumin/Globulin Ratio 0.3 (1.0-2.7) L Triglycerides Level 90 MG/DL (30-150) Cholesterol Level 117 MG/DL (< 200) LDL Cholesterol 77 mg/dL (<100) HDL Cholesterol 33 MG/DL (40-60) L Cholesterol/HDL Ratio 3.5 (3.3-4.4) Thyroid Stimulating Hormone (TSH) 1.051 uiU/mL (0.358-3.740) Urine Random Sodium 124 MEQ/L (20-110) H BOBBY BURNETTE Feb 19, 2017 21:18
[2017-02-19] MEDS: Atorvastatin 20mg tab NG SCH (21:19)
[2017-02-20] VITALS (12 sets, daily range): BP systolic 106–147; BP diastolic 63–98
[2017-02-20] MEDS ORDERED: dilTIAZem HCl 90mg tab NG SCH
[2017-02-20 05:30] LABS: BASOPHILS % (AUTO) 0.4 % (0.0-2.0); EOSINOPHILS % (AUTO) 1.2 % (0.0-3.0); HEMATOCRIT 32.3 % (42.0-52.0); HEMOGLOBIN 11.3 G/DL (14.2-18.0); MEAN CORPUSCULAR VOLUME 99 FL (80-99); MONOCYTES % (AUTO) 12.1 % (1.0-10.0); NEUTROPHILS % (AUTO) 72.3 % (45.0-75.0); PLATELET COUNT 125 K/UL (150-450); RED BLOOD COUNT 3.28 M/UL (4.70-6.10); RED CELL DISTRIBUTION WIDTH 12.6 % (11.6-14.8); WHITE BLOOD COUNT 9.7 K/UL (4.8-10.8)
[2017-02-20] MEDS ORDERED: Mylanta II UD 30ml NG PRN (05:45)
[2017-02-20] MEDS ORDERED: Acetaminophen 650mg/20.3ml NG PRN (05:45)
[2017-02-20] MEDS ORDERED: Heparin 25,000u/D5W 500ml 500 ML IV SCH ×2 (05:45→07:15)
[2017-02-20] MEDS ORDERED: LORazepam Inj 2mg/ml 1ml IV PRN (05:46)
[2017-02-20 06:01] LABS: INR 1.1 (0.9-1.1)
[2017-02-20] MEDS: dilTIAZem HCl 90mg tab NG SCH ×3 (06:16→17:45)
[2017-02-20 06:36] LABS: ALANINE AMINOTRANSFERASE 7 U/L (12-78); ALBUMIN 1.4 G/DL (3.4-5.0); ALBUMIN/GLOBULIN RATIO 0.3 (1.0-2.7); ALKALINE PHOSPHATASE 89 U/L (46-116); ANION GAP 10 mmol/L (5-15); ASPARTATE AMINO TRANSFERASE 16 U/L (15-37); BILIRUBIN,TOTAL 0.5 MG/DL (0.2-1.0); BLOOD UREA NITROGEN 17 mg/dL (7-18); CALCIUM 8.8 MG/DL (8.5-10.1); CARBON DIOXIDE 26 MMOL/L (21-32); CHLORIDE 101 MMOL/L (98-107); CREATININE 2.3 MG/DL (0.55-1.30); PHOSPHORUS 3.2 MG/DL (2.5-4.9); POTASSIUM 3.5 MMOL/L (3.5-5.1); SODIUM 136 MMOL/L (136-145)
[2017-02-20] MEDS ORDERED: Miralax 17gm pkt ORAL PRN (07:00)
[2017-02-20] MEDS ORDERED: Zolpidem 5mg tab ORAL PRN (07:00)
[2017-02-20] MEDS: NovoLOG Insulin Flexpen SUBQ SCH ×4 (07:35→20:28)
--- NOTE | 2017-02-20 09:03 | Infectious Diseases Prog Note ---
Assessment/Plan Assessment/Plan A: Diabetic foot with foot gangrene AMS Atrial fibrillation Dementia PVD P: Continue Cefepime needs vascular surgery & amputation Subjective ROS Limited/Unobtainable: Yes Allergies: Coded Allergies: CODEINE (Unverified Allergy, Unknown, 02/17/17) Objective Vital Signs Last 24 Hour Vital Signs Date Time Temp Pulse Resp B/P (MAP) Pulse Ox O2 Delivery O2 Flow Rate FiO2 02/20/17 08:00 97.3 92 19 125/78 95 Nasal Cannula 2.0 02/20/17 07:51 Nasal Cannula 3.0 32 02/20/17 07:51 95 Nasal Cannula 3.0 32 02/20/17 06:45 98.2 95 18 118/80 90 Nasal Cannula 02/20/17 06:16 95 118/80 02/20/17 05:41 98.2 95 18 118/80 90 Nasal Cannula 02/20/17 05:25 97 02/20/17 04:00 82 02/20/17 04:00 97.8 92 24 118/98 97 Nasal Cannula 2.0 02/20/17 03:00 90 24 106/63 96 Nasal Cannula 2.0 02/20/17 02:00 87 24 147/81 100 Nasal Cannula 2.0 02/20/17 01:00 83 21 115/65 95 Nasal Cannula 2.0 02/20/17 00:30 82 21 112/65 94 Nasal Cannula 2.0 02/20/17 00:00 97.9 86 22 114/69 95 Nasal Cannula 2.0 02/20/17 00:00 92 02/20/17 00:00 87 111/68 02/19/17 23:30 80 22 111/68 97 Nasal Cannula 2.0 02/19/17 23:00 80 21 109/67 99 Nasal Cannula 2.0 02/19/17 22:30 81 21 107/63 97 Nasal Cannula 2.0 02/19/17 22:00 97 19 106/72 95 Nasal Cannula 2.0 02/19/17 22:00 108 140/65 02/19/17 21:30 104 21 103/65 95 Nasal Cannula 2.0 02/19/17 21:00 100 21 136/109 94 Nasal Cannula 2.0 02/19/17 20:30 98 21 126/68 95 Nasal Cannula 2.0 1/11/18 20:30 103 136/109 02/19/17 20:26 96 Nasal Cannula 3.0 32 02/19/17 20:26 Nasal Cannula 3.0 32 02/19/17 20:15 99 21 128/73 95 Nasal Cannula 2.0 02/19/17 20:00 90 02/19/17 20:00 97.8 97 21 128/73 94 Nasal Cannula 2.0 02/19/17 19:45 96 21 136/81 94 Nasal Cannula 2.0 02/19/17 19:30 92 19 135/85 96 Nasal Cannula 2.0 02/19/17 19:15 91 20 115/80 96 Nasal Cannula 2.0 02/19/17 19:00 90 22 129/83 98 Nasal Cannula 2.0 02/19/17 18:00 102 22 129/83 98 Nasal Cannula 2.0 02/19/17 17:30 94 20 112/63 95 Nasal Cannula 2.0 02/19/17 17:00 89 20 112/69 94 Nasal Cannula 2.0 02/19/17 16:30 90 20 118/72 95 Nasal Cannula 2.0 02/19/17 16:00 98.0 97 22 144/92 95 Nasal Cannula 2.0 02/19/17 16:00 78 02/19/17 15:30 102 22 129/83 98 Nasal Cannula 2.0 02/19/17 15:23 108 141/90 02/19/17 15:00 101 23 130/94 97 Nasal Cannula 2.0 02/19/17 14:30 95 21 136/73 98 Nasal Cannula 2.0 02/19/17 14:00 92 20 130/84 98 Nasal Cannula 2.0 02/19/17 13:30 100 21 124/82 99 Nasal Cannula 2.0 02/19/17 13:00 93 20 112/75 98 Nasal Cannula 2.0 02/19/17 12:30 97 20 139/88 98 Nasal Cannula 2.0 02/19/17 12:00 111 02/19/17 12:00 97.6 97 22 137/76 97 Nasal Cannula 2.0 02/19/17 11:30 96 22 123/82 98 Nasal Cannula 2.0 02/19/17 11:00 92 21 119/76 99 Nasal Cannula 2.0 02/19/17 10:30 90 20 111/76 99 Nasal Cannula 2.0 02/19/17 10:00 89 19 114/77 99 Nasal Cannula 2.0 02/19/17 09:31 99.9 02/19/17 09:30 96 21 121/76 97 Nasal Cannula 2.0 Height (Feet): 6 Height (Inches): 0.00 Weight (Pounds): 223 General Appearance: no acute distress HEENT: mucous membranes moist Respiratory/Chest: lungs clear Cardiovascular: normal rate Abdomen: soft, non tender, other - NG tube Extremities: no edema, other - left foot gangren Neurologic/Psychiatric: other - sleeping Laboratory Tests Test 02/19/17 13:00 02/20/17 04:00 Activated Partial Thromboplast Time 76 SEC (23-33) H 111 SEC (23-33) H White Blood Count 9.7 K/UL (4.8-10.8) Red Blood Count 3.28 M/UL (4.70-6.10) L Hemoglobin 11.3 G/DL (14.2-18.0) L Hematocrit 32.3 % (42.0-52.0) L Mean Corpuscular Volume 99 FL (80-99) Mean Corpuscular Hemoglobin 34.5 PG (27.0-31.0) H Mean Corpuscular Hemoglobin Concent 34.9 G/DL (32.0-36.0) Red Cell Distribution Width 12.6 % (11.6-14.8) Platelet Count 125 K/UL (150-450) L Mean Platelet Volume 6.6 FL (6.5-10.1) Neutrophils (%) (Auto) 72.3 % (45.0-75.0) Lymphocytes (%) (Auto) 14.0 % (20.0-45.0) L Monocytes (%) (Auto) 12.1 % (1.0-10.0) H Eosinophils (%) (Auto) 1.2 % (0.0-3.0) Basophils (%) (Auto) 0.4 % (0.0-2.0) Prothrombin Time 12.0 SEC (9.30-11.50) H Prothromb Time International Ratio 1.1 (0.9-1.1) Sodium Level 136 MMOL/L (136-145) Potassium Level 3.5 MMOL/L (3.5-5.1) Chloride Level 101 MMOL/L (98-107) Carbon Dioxide Level 26 MMOL/L (21-32) Anion Gap 10 mmol/L (5-15) Blood Urea Nitrogen 17 mg/dL (7-18) Creatinine 2.3 MG/DL (0.55-1.30) H Estimat Glomerular Filtration Rate 34.7 mL/min (>60) Glucose Level 185 MG/DL (74-106) H Calcium Level 8.8 MG/DL (8.5-10.1) Phosphorus Level 3.2 MG/DL (2.5-4.9) Magnesium Level 1.8 MG/DL (1.8-2.4) Total Bilirubin 0.5 MG/DL (0.2-1.0) Aspartate Amino Transf (AST/SGOT) 16 U/L (15-37) Alanine Aminotransferase (ALT/SGPT) 7 U/L (12-78) L Alkaline Phosphatase 89 U/L (46-116) Total Protein 6.9 G/DL (6.4-8.2) Albumin 1.4 G/DL (3.4-5.0) L Globulin 5.5 g/dL Albumin/Globulin Ratio 0.3 (1.0-2.7) L Current Medications Medications (Trade) Dose Ordered Sig/Anahi Route PRN Reason Start Time Stop Time Status Last Admin Dose Admin Acetaminophen (Tylenol) 650 mg Q4H PRN NG Mild Pain/Temp > 100.5 02/20/17 05:45 03/20/17 05:44 Al Hydroxide/Mg Hydroxide (Mylanta II) 30 ml Q6H PRN NG dyspepsia 02/20/17 05:45 03/20/17 05:44 Atorvastatin Calcium (Lipitor) 20 mg QHS NG 02/20/17 21:00 03/20/17 20:59 Cefepime HCl 2 gm/ Dextrose 110 ml @ 220 mls/hr Q24H IV 02/20/17 13:00 02/26/17 12:59 Dextrose (Dextrose 50%) STAT PRN IV Hypoglycemia 02/20/17 07:00 03/20/17 06:59 Diltiazem HCl (Cardizem) 90 mg EVERY 6 HOURS NG 02/20/17 06:00 03/22/17 00:00 02/20/17 06:16 Heparin Sodium/ Dextrose 500 ml @ 24.093 mls/ hr adjust per protocol IV 02/20/17 07:15 03/21/17 06:29 02/20/17 07:23 Insulin Aspart (NovoLOG) BEFORE MEALS AND HS SUBQ 02/20/17 06:30 03/20/17 11:29 02/20/17 07:35 Lorazepam (Ativan 2mg/ml 1ml) 0.5 mg Q4H PRN IV For Anxiety 02/20/17 05:46 02/25/17 05:45 Memantine (Namenda) 5 mg BID NG 02/20/17 09:00 03/21/17 08:59 Metoprolol Tartrate (Lopressor) 5 mg Q4H PRN IVP heart rate greater than 105 02/20/17 05:46 03/20/17 05:45 Metoprolol Tartrate (Lopressor) 100 mg BID NG 02/20/17 09:00 03/20/17 21:59 Ondansetron HCl (Zofran) 4 mg Q6H PRN IVP Nausea & Vomiting 02/20/17 07:00 03/20/17 06:59 Pantoprazole (Protonix) 40 mg DAILY IVP 02/20/17 09:00 03/21/17 08:59 Polyethylene Glycol (Miralax) 17 gm HSPRN PRN ORAL Constipation 02/20/17 07:00 03/20/17 06:59 Valproic Acid (Depakene) 500 mg EVERY 12 HOURS NG 02/20/17 09:00 03/20/17 20:59 Zolpidem Tartrate (Ambien) 5 mg HSPRN PRN ORAL Insomnia 02/20/17 07:00 02/25/17 06:59 MARYLIN WOOD Feb 20, 2017 09:03
[2017-02-20] MEDS: Memantine 5 MG TAB NG SCH ×2 (09:47→17:46)
[2017-02-20] MEDS: Valproic Acid 250mg/5ml Liquid NG SCH ×2 (09:47→20:26)
[2017-02-20] MEDS: Pantoprazole Inj IVP SCH (09:48)
[2017-02-20] MEDS: Cefepime HCl 2 GM in D5W 110 ML IV SCH (13:23)
--- NOTE | 2017-02-20 15:03 | Pulmonology Progress Note ---
Assessment/Plan Problems: (1) Rapid atrial fibrillation (2) HTN (hypertension) (3) Diabetic foot ulcer Assessment/Plan heart rate better awaiting transfer to [facility] for angiography continue wound care IV abx Subjective ROS Limited/Unobtainable: No Constitutional: Reports: no symptoms HEENT: Repors: other Respiratory: Reports: no symptoms Gastrointestinal/Abdominal: Reports: no symptoms Genitourinary: Reports: no symptoms Allergies: Coded Allergies: CODEINE (Unverified Allergy, Unknown, 02/17/17) Objective Last 24 Hour Vital Signs Date Time Temp Pulse Resp B/P (MAP) Pulse Ox O2 Delivery O2 Flow Rate FiO2 02/20/17 13:16 81 136/90 02/20/17 12:00 96.1 81 20 136/90 92 Nasal Cannula 2.0 02/20/17 09:50 92 125/78 02/20/17 08:00 83 02/20/17 08:00 97.3 92 19 125/78 95 Nasal Cannula 2.0 02/20/17 07:51 Nasal Cannula 3.0 32 02/20/17 07:51 95 Nasal Cannula 3.0 32 02/20/17 06:45 98.2 95 18 118/80 90 Nasal Cannula 02/20/17 06:16 95 118/80 02/20/17 05:41 98.2 95 18 118/80 90 Nasal Cannula 02/20/17 05:25 97 02/20/17 04:00 82 02/20/17 04:00 97.8 92 24 118/98 97 Nasal Cannula 2.0 02/20/17 03:00 90 24 106/63 96 Nasal Cannula 2.0 02/20/17 02:00 87 24 147/81 100 Nasal Cannula 2.0 02/20/17 01:00 83 21 115/65 95 Nasal Cannula 2.0 02/20/17 00:30 82 21 112/65 94 Nasal Cannula 2.0 02/20/17 00:00 97.9 86 22 114/69 95 Nasal Cannula 2.0 02/20/17 00:00 92 02/20/17 00:00 87 111/68 02/19/17 23:30 80 22 111/68 97 Nasal Cannula 2.0 02/19/17 23:00 80 21 109/67 99 Nasal Cannula 2.0 02/19/17 22:30 81 21 107/63 97 Nasal Cannula 2.0 02/19/17 22:00 97 19 106/72 95 Nasal Cannula 2.0 02/19/17 22:00 108 140/65 02/19/17 21:30 104 21 103/65 95 Nasal Cannula 2.0 02/19/17 21:00 100 21 136/109 94 Nasal Cannula 2.0 02/19/17 20:30 98 21 126/68 95 Nasal Cannula 2.0 02/19/17 20:30 103 136/109 02/19/17 20:26 96 Nasal Cannula 3.0 32 02/19/17 20:26 Nasal Cannula 3.0 32 02/19/17 20:15 99 21 128/73 95 Nasal Cannula 2.0 02/19/17 20:00 90 02/19/17 20:00 97.8 97 21 128/73 94 Nasal Cannula 2.0 02/19/17 19:45 96 21 136/81 94 Nasal Cannula 2.0 02/19/17 19:30 92 19 135/85 96 Nasal Cannula 2.0 02/19/17 19:15 91 20 115/80 96 Nasal Cannula 2.0 02/19/17 19:00 90 22 129/83 98 Nasal Cannula 2.0 02/19/17 18:00 102 22 129/83 98 Nasal Cannula 2.0 02/19/17 17:30 94 20 112/63 95 Nasal Cannula 2.0 02/19/17 17:00 89 20 112/69 94 Nasal Cannula 2.0 02/19/17 16:30 90 20 118/72 95 Nasal Cannula 2.0 02/19/17 16:00 98.0 97 22 144/92 95 Nasal Cannula 2.0 02/19/17 16:00 78 02/19/17 15:30 102 22 129/83 98 Nasal Cannula 2.0 02/19/17 15:23 108 141/90 Intake and Output 02/19/17 02/20/17 19:00 07:00 Intake Total 611.222 ml 736.044 ml Output Total 510 ml 350 ml Balance 101.222 ml 386.044 ml Free Water 40 ml IV Total 591.222 ml 346.044 ml Tube Feeding 20 ml 200 ml Other 150 ml Output Urine Total 510 ml 350 ml General Appearance: WD/WN, no acute distress HEENT: atraumatic Respiratory/Chest: chest wall non-tender, lungs clear Cardiovascular: normal peripheral pulses, normal rate Abdomen: normal bowel sounds, no organomegaly Genitourinary: normal external genitalia Skin: no rash, no ulcers 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 Lymphatic: no groin adenopathy Laboratory Tests 02/20/17 04:00: White Blood Count 9.7, Red Blood Count 3.28L, Hemoglobin 11.3L, Hematocrit 32.3L , Mean Corpuscular Volume 99, Mean Corpuscular Hemoglobin 34.5H, Mean Corpuscular Hemoglobin Concent 34.9, Red Cell Distribution Width 12.6, Platelet Count 125L, Mean Platelet Volume 6.6, Neutrophils (%) (Auto) 72.3, Lymphocytes ( %) (Auto) 14.0L, Monocytes (%) (Auto) 12.1H, Eosinophils (%) (Auto) 1.2, Basophils (%) (Auto) 0.4, Prothrombin Time 12.0H, Prothromb Time International Ratio 1.1, Activated Partial Thromboplast Time 111H, Sodium Level 136, Potassium Level 3.5, Chloride Level 101, Carbon Dioxide Level 26, Anion Gap 10, Blood Urea Nitrogen 17, Creatinine 2.3H, Estimat Glomerular Filtration Rate 34.7 , Glucose Level 185H, Calcium Level 8.8, Phosphorus Level 3.2, Magnesium Level 1.8, Total Bilirubin 0.5, Aspartate Amino Transf (AST/SGOT) 16, Alanine Aminotransferase (ALT/SGPT) 7L, Alkaline Phosphatase 89, Total Protein 6.9, Albumin 1.4L, Globulin 5.5, Albumin/Globulin Ratio 0.3L 02/20/17 13:10: Activated Partial Thromboplast Time 74H Current Medications Medications (Trade) Dose Ordered Sig/Anahi Route PRN Reason Start Time Stop Time Status Last Admin Dose Admin Acetaminophen (Tylenol) 650 mg Q4H PRN NG Mild Pain/Temp > 100.5 02/20/17 05:45 03/20/17 05:44 Al Hydroxide/Mg Hydroxide (Mylanta II) 30 ml Q6H PRN NG dyspepsia 02/20/17 05:45 03/20/17 05:44 Atorvastatin Calcium (Lipitor) 20 mg QHS NG 02/20/17 21:00 03/20/17 20:59 Cefepime HCl 2 gm/ Dextrose 110 ml @ 220 mls/hr Q24H IV 02/20/17 13:00 02/26/17 12:59 02/20/17 13:23 Dextrose (Dextrose 50%) STAT PRN IV Hypoglycemia 02/20/17 07:00 03/20/17 06:59 Diltiazem HCl (Cardizem) 90 mg EVERY 6 HOURS NG 02/20/17 06:00 03/22/17 00:00 02/20/17 13:16 Heparin Sodium/ Dextrose 500 ml @ 24.093 mls/ hr adjust per protocol IV 02/20/17 07:15 03/21/17 06:29 02/20/17 07:23 Insulin Aspart (NovoLOG) BEFORE MEALS AND HS SUBQ 02/20/17 06:30 03/20/17 11:29 02/20/17 13:22 Lorazepam (Ativan 2mg/ml 1ml) 0.5 mg Q4H PRN IV For Anxiety 02/20/17 05:46 02/25/17 05:45 Memantine (Namenda) 5 mg BID NG 02/20/17 09:00 03/21/17 08:59 02/20/17 09:47 Metoprolol Tartrate (Lopressor) 5 mg Q4H PRN IVP heart rate greater than 105 02/20/17 05:46 03/20/17 05:45 Metoprolol Tartrate (Lopressor) 100 mg BID NG 02/20/17 09:00 03/20/17 21:59 02/20/17 09:50 Ondansetron HCl (Zofran) 4 mg Q6H PRN IVP Nausea & Vomiting 02/20/17 07:00 03/20/17 06:59 Pantoprazole (Protonix) 40 mg DAILY IVP 02/20/17 09:00 03/21/17 08:59 02/20/17 09:48 Polyethylene Glycol (Miralax) 17 gm HSPRN PRN ORAL Constipation 02/20/17 07:00 03/20/17 06:59 Valproic Acid (Depakene) 500 mg EVERY 12 HOURS NG 02/20/17 09:00 03/20/17 20:59 02/20/17 09:47 Zolpidem Tartrate (Ambien) 5 mg HSPRN PRN ORAL Insomnia 02/20/17 07:00 1/17/18 06:59 SATHYA MEIER Feb 20, 2017 15:03
--- NOTE | 2017-02-20 15:27 | Nephrology Progress Note ---
Assessment/Plan Problem List: (1) Atrial fibrillation (2) Acute on chronic renal failure Assessment (1) Diabetic foot ulcer (2) Atrial fibrillation (3) Pacemaker (4) Acute on chronic renal failure- Cr siobhan 2.3 Assessment: + urinary retention (5) Diabetic nephropathy Plan Plan: Per cardiology correct electrolytes as needed monitor BS and BP and HR Avoid nephrotoxics monitor renal parameters Subjective ROS Limited/Unobtainable: No Constitutional: Reports: malaise Objective Objective Last 24 Hour Vital Signs Date Time Temp Pulse Resp B/P (MAP) Pulse Ox O2 Delivery O2 Flow Rate FiO2 02/20/17 13:16 81 136/90 02/20/17 12:00 82 02/20/17 12:00 96.1 81 20 136/90 92 Nasal Cannula 2.0 02/20/17 09:50 92 125/78 02/20/17 08:00 83 02/20/17 08:00 97.3 92 19 125/78 95 Nasal Cannula 2.0 02/20/17 07:51 Nasal Cannula 3.0 32 02/20/17 07:51 95 Nasal Cannula 3.0 32 02/20/17 06:45 98.2 95 18 118/80 90 Nasal Cannula 02/20/17 06:16 95 118/80 02/20/17 05:41 98.2 95 18 118/80 90 Nasal Cannula 02/20/17 05:25 97 02/20/17 04:00 82 02/20/17 04:00 97.8 92 24 118/98 97 Nasal Cannula 2.0 02/20/17 03:00 90 24 106/63 96 Nasal Cannula 2.0 02/20/17 02:00 87 24 147/81 100 Nasal Cannula 2.0 02/20/17 01:00 83 21 115/65 95 Nasal Cannula 2.0 02/20/17 00:30 82 21 112/65 94 Nasal Cannula 2.0 02/20/17 00:00 97.9 86 22 114/69 95 Nasal Cannula 2.0 02/20/17 00:00 92 02/20/17 00:00 87 111/68 02/19/17 23:30 80 22 111/68 97 Nasal Cannula 2.0 02/19/17 23:00 80 21 109/67 99 Nasal Cannula 2.0 02/19/17 22:30 81 21 107/63 97 Nasal Cannula 2.0 02/19/17 22:00 97 19 106/72 95 Nasal Cannula 2.0 02/19/17 22:00 108 140/65 02/19/17 21:30 104 21 103/65 95 Nasal Cannula 2.0 02/19/17 21:00 100 21 136/109 94 Nasal Cannula 2.0 02/19/17 20:30 98 21 126/68 95 Nasal Cannula 2.0 02/19/17 20:30 103 136/109 02/19/17 20:26 96 Nasal Cannula 3.0 32 02/19/17 20:26 Nasal Cannula 3.0 32 02/19/17 20:15 99 21 128/73 95 Nasal Cannula 2.0 02/19/17 20:00 90 02/19/17 20:00 97.8 97 21 128/73 94 Nasal Cannula 2.0 02/19/17 19:45 96 21 136/81 94 Nasal Cannula 2.0 02/19/17 19:30 92 19 135/85 96 Nasal Cannula 2.0 02/19/17 19:15 91 20 115/80 96 Nasal Cannula 2.0 02/19/17 19:00 90 22 129/83 98 Nasal Cannula 2.0 02/19/17 18:00 102 22 129/83 98 Nasal Cannula 2.0 02/19/17 17:30 94 20 112/63 95 Nasal Cannula 2.0 02/19/17 17:00 89 20 112/69 94 Nasal Cannula 2.0 02/19/17 16:30 90 20 118/72 95 Nasal Cannula 2.0 02/19/17 16:00 98.0 97 22 144/92 95 Nasal Cannula 2.0 02/19/17 16:00 78 02/19/17 15:30 102 22 129/83 98 Nasal Cannula 2.0 Intake and Output 02/19/17 02/20/17 19:00 07:00 Intake Total 611.222 ml 736.044 ml Output Total 510 ml 350 ml Balance 101.222 ml 386.044 ml Free Water 40 ml IV Total 591.222 ml 346.044 ml Tube Feeding 20 ml 200 ml Other 150 ml Output Urine Total 510 ml 350 ml Laboratory Tests 02/20/17 04:00: White Blood Count 9.7, Red Blood Count 3.28L, Hemoglobin 11.3L, Hematocrit 32.3L , Mean Corpuscular Volume 99, Mean Corpuscular Hemoglobin 34.5H, Mean Corpuscular Hemoglobin Concent 34.9, Red Cell Distribution Width 12.6, Platelet Count 125L, Mean Platelet Volume 6.6, Neutrophils (%) (Auto) 72.3, Lymphocytes ( %) (Auto) 14.0L, Monocytes (%) (Auto) 12.1H, Eosinophils (%) (Auto) 1.2, Basophils (%) (Auto) 0.4, Prothrombin Time 12.0H, Prothromb Time International Ratio 1.1, Activated Partial Thromboplast Time 111H, Sodium Level 136, Potassium Level 3.5, Chloride Level 101, Carbon Dioxide Level 26, Anion Gap 10, Blood Urea Nitrogen 17, Creatinine 2.3H, Estimat Glomerular Filtration Rate 34.7 , Glucose Level 185H, Calcium Level 8.8, Phosphorus Level 3.2, Magnesium Level 1.8, Total Bilirubin 0.5, Aspartate Amino Transf (AST/SGOT) 16, Alanine Aminotransferase (ALT/SGPT) 7L, Alkaline Phosphatase 89, Total Protein 6.9, Albumin 1.4L, Globulin 5.5, Albumin/Globulin Ratio 0.3L 02/20/17 13:10: Activated Partial Thromboplast Time 74H Height (Feet): 6 Height (Inches): 0.00 Weight (Pounds): 223 General Appearance: no apparent distress, lethargic Cardiovascular: regular rhythm Respiratory/Chest: decreased breath sounds Abdomen: distended Objective no other changes BHAVANI VACA Feb 20, 2017 15:27
--- NOTE | 2017-02-20 15:32 | General Progress Note ---
Assessment/Plan Problem List: (1) HTN (hypertension) ICD Codes: I10 - Essential (primary) hypertension SNOMED: 40804682 (2) Pacemaker ICD Codes: Z95.0 - Presence of cardiac pacemaker SNOMED: 549871654, 158562321 (3) Atrial fibrillation ICD Codes: I48.91 - Unspecified atrial fibrillation SNOMED: 52158414 (4) Diabetes mellitus ICD Codes: E11.9 - Type 2 diabetes mellitus without complications SNOMED: 74170602 (5) Diabetic foot ulcer ICD Codes: E11.621 - Type 2 diabetes mellitus with foot ulcer; L97.509 - Non- pressure chronic ulcer of other part of unspecified foot with unspecified severity SNOMED: 74487290, 834018803 (6) Altered level of consciousness ICD Codes: R40.4 - Transient alteration of awareness SNOMED: 0545320 (7) Acute on chronic renal failure ICD Codes: N17.9 - Acute kidney failure, unspecified; N18.9 - Chronic kidney disease, unspecified SNOMED: 431513910 (8) Rapid atrial fibrillation ICD Codes: I48.91 - Unspecified atrial fibrillation SNOMED: 642417092 Status: unchanged Assessment/Plan o2 pulm tx ng feed abx wound care cbc bmp am promise ltach eval Subjective Constitutional: Reports: weakness Allergies: Coded Allergies: CODEINE (Unverified Allergy, Unknown, 02/17/17) All Systems: reviewed and negative except above Subjective o2nc ng sleeping Objective Last 24 Hour Vital Signs Date Time Temp Pulse Resp B/P (MAP) Pulse Ox O2 Delivery O2 Flow Rate FiO2 02/20/17 13:16 81 136/90 02/20/17 12:00 82 02/20/17 12:00 96.1 81 20 136/90 92 Nasal Cannula 2.0 02/20/17 09:50 92 125/78 02/20/17 08:00 83 02/20/17 08:00 97.3 92 19 125/78 95 Nasal Cannula 2.0 02/20/17 07:51 Nasal Cannula 3.0 32 02/20/17 07:51 95 Nasal Cannula 3.0 32 02/20/17 06:45 98.2 95 18 118/80 90 Nasal Cannula 02/20/17 06:16 95 118/80 02/20/17 05:41 98.2 95 18 118/80 90 Nasal Cannula 02/20/17 05:25 97 02/20/17 04:00 82 02/20/17 04:00 97.8 92 24 118/98 97 Nasal Cannula 2.0 02/20/17 03:00 90 24 106/63 96 Nasal Cannula 2.0 02/20/17 02:00 87 24 147/81 100 Nasal Cannula 2.0 02/20/17 01:00 83 21 115/65 95 Nasal Cannula 2.0 02/20/17 00:30 82 21 112/65 94 Nasal Cannula 2.0 02/20/17 00:00 97.9 86 22 114/69 95 Nasal Cannula 2.0 02/20/17 00:00 92 02/20/17 00:00 87 111/68 02/19/17 23:30 80 22 111/68 97 Nasal Cannula 2.0 02/19/17 23:00 80 21 109/67 99 Nasal Cannula 2.0 02/19/17 22:30 81 21 107/63 97 Nasal Cannula 2.0 02/19/17 22:00 97 19 106/72 95 Nasal Cannula 2.0 02/19/17 22:00 108 140/65 02/19/17 21:30 104 21 103/65 95 Nasal Cannula 2.0 02/19/17 21:00 100 21 136/109 94 Nasal Cannula 2.0 02/19/17 20:30 98 21 126/68 95 Nasal Cannula 2.0 02/19/17 20:30 103 136/109 02/19/17 20:26 96 Nasal Cannula 3.0 32 02/19/17 20:26 Nasal Cannula 3.0 32 02/19/17 20:15 99 21 128/73 95 Nasal Cannula 2.0 02/19/17 20:00 90 02/19/17 20:00 97.8 97 21 128/73 94 Nasal Cannula 2.0 02/19/17 19:45 96 21 136/81 94 Nasal Cannula 2.0 02/19/17 19:30 92 19 135/85 96 Nasal Cannula 2.0 02/19/17 19:15 91 20 115/80 96 Nasal Cannula 2.0 02/19/17 19:00 90 22 129/83 98 Nasal Cannula 2.0 02/19/17 18:00 102 22 129/83 98 Nasal Cannula 2.0 02/19/17 17:30 94 20 112/63 95 Nasal Cannula 2.0 02/19/17 17:00 89 20 112/69 94 Nasal Cannula 2.0 02/19/17 16:30 90 20 118/72 95 Nasal Cannula 2.0 02/19/17 16:00 98.0 97 22 144/92 95 Nasal Cannula 2.0 02/19/17 16:00 78 Intake and Output 02/19/17 02/20/17 19:00 07:00 Intake Total 611.222 ml 736.044 ml Output Total 510 ml 350 ml Balance 101.222 ml 386.044 ml Free Water 40 ml IV Total 591.222 ml 346.044 ml Tube Feeding 20 ml 200 ml Other 150 ml Output Urine Total 510 ml 350 ml Laboratory Tests 02/20/17 04:00: White Blood Count 9.7, Red Blood Count 3.28L, Hemoglobin 11.3L, Hematocrit 32.3L , Mean Corpuscular Volume 99, Mean Corpuscular Hemoglobin 34.5H, Mean Corpuscular Hemoglobin Concent 34.9, Red Cell Distribution Width 12.6, Platelet Count 125L, Mean Platelet Volume 6.6, Neutrophils (%) (Auto) 72.3, Lymphocytes ( %) (Auto) 14.0L, Monocytes (%) (Auto) 12.1H, Eosinophils (%) (Auto) 1.2, Basophils (%) (Auto) 0.4, Prothrombin Time 12.0H, Prothromb Time International Ratio 1.1, Activated Partial Thromboplast Time 111H, Sodium Level 136, Potassium Level 3.5, Chloride Level 101, Carbon Dioxide Level 26, Anion Gap 10, Blood Urea Nitrogen 17, Creatinine 2.3H, Estimat Glomerular Filtration Rate 34.7 , Glucose Level 185H, Calcium Level 8.8, Phosphorus Level 3.2, Magnesium Level 1.8, Total Bilirubin 0.5, Aspartate Amino Transf (AST/SGOT) 16, Alanine Aminotransferase (ALT/SGPT) 7L, Alkaline Phosphatase 89, Total Protein 6.9, Albumin 1.4L, Globulin 5.5, Albumin/Globulin Ratio 0.3L 02/20/17 13:10: Activated Partial Thromboplast Time 74H Height (Feet): 6 Height (Inches): 0.00 Weight (Pounds): 223 General Appearance: lethargic EENT: normal ENT inspection Neck: normal alignment Cardiovascular: normal peripheral pulses, normal rate, regular rhythm Respiratory/Chest: chest wall non-tender, lungs clear, normal breath sounds Abdomen: normal bowel sounds, non tender, soft Extremities: normal inspection Edema: no edema noted Arm (L), no edema noted Arm (R), no edema noted Leg (L), no edema noted Leg (R), no edema noted Pedal (L), no edema noted Pedal (R), no edema noted Generalized Neurologic: motor weakness Skin: normal pigmentation, warm/dry CLARITA TEMPLETON Feb 20, 2017 15:32
--- NOTE | 2017-02-20 17:01 | Cardiology Progress Note ---
Assessment/Plan Assessment/Plan 1. Tachycardia. 2. Atrial fibrillation, permanent. 3. History of sick sinus syndrome, status post single-chamber permanent pacemaker implantation. 4. History of hypertension. 5. Diabetes mellitus. 6. Gangrene, left foot. 7. Peripheral vascular disease. 8. Diabetic foot ulcers. 9. med non compliance was dcd but came back shortly for ? tachy eventhough heart rate was controlled prior to his dc he has an ngt now and heart rate well controlled now with ngt med off ivf should be jose elias to tolerate angio and amputation as long as he takes his bb adn cardizem !!! risk are expect to be lwo adn acceptable he ahs been toleerating sig tachy in the last 2 admission Subjective ROS Limited/Unobtainable: Yes Objective Last 24 Hour Vital Signs Date Time Temp Pulse Resp B/P (MAP) Pulse Ox O2 Delivery O2 Flow Rate FiO2 02/20/17 13:16 81 136/90 02/20/17 12:00 82 02/20/17 12:00 96.1 81 20 136/90 92 Nasal Cannula 2.0 02/20/17 09:50 92 125/78 02/20/17 08:00 83 02/20/17 08:00 97.3 92 19 125/78 95 Nasal Cannula 2.0 02/20/17 07:51 Nasal Cannula 3.0 32 02/20/17 07:51 95 Nasal Cannula 3.0 32 02/20/17 06:45 98.2 95 18 118/80 90 Nasal Cannula 02/20/17 06:16 95 118/80 02/20/17 05:41 98.2 95 18 118/80 90 Nasal Cannula 02/20/17 05:25 97 02/20/17 04:00 82 02/20/17 04:00 97.8 92 24 118/98 97 Nasal Cannula 2.0 02/20/17 03:00 90 24 106/63 96 Nasal Cannula 2.0 02/20/17 02:00 87 24 147/81 100 Nasal Cannula 2.0 02/20/17 01:00 83 21 115/65 95 Nasal Cannula 2.0 02/20/17 00:30 82 21 112/65 94 Nasal Cannula 2.0 02/20/17 00:00 97.9 86 22 114/69 95 Nasal Cannula 2.0 02/20/17 00:00 92 1/12/18 00:00 87 111/68 02/19/17 23:30 80 22 111/68 97 Nasal Cannula 2.0 02/19/17 23:00 80 21 109/67 99 Nasal Cannula 2.0 02/19/17 22:30 81 21 107/63 97 Nasal Cannula 2.0 02/19/17 22:00 97 19 106/72 95 Nasal Cannula 2.0 02/19/17 22:00 108 140/65 02/19/17 21:30 104 21 103/65 95 Nasal Cannula 2.0 02/19/17 21:00 100 21 136/109 94 Nasal Cannula 2.0 02/19/17 20:30 98 21 126/68 95 Nasal Cannula 2.0 02/19/17 20:30 103 136/109 02/19/17 20:26 96 Nasal Cannula 3.0 32 02/19/17 20:26 Nasal Cannula 3.0 32 02/19/17 20:15 99 21 128/73 95 Nasal Cannula 2.0 02/19/17 20:00 90 02/19/17 20:00 97.8 97 21 128/73 94 Nasal Cannula 2.0 02/19/17 19:45 96 21 136/81 94 Nasal Cannula 2.0 02/19/17 19:30 92 19 135/85 96 Nasal Cannula 2.0 02/19/17 19:15 91 20 115/80 96 Nasal Cannula 2.0 02/19/17 19:00 90 22 129/83 98 Nasal Cannula 2.0 02/19/17 18:00 102 22 129/83 98 Nasal Cannula 2.0 02/19/17 17:30 94 20 112/63 95 Nasal Cannula 2.0 02/19/17 17:00 89 20 112/69 94 Nasal Cannula 2.0 Neck: supple Cardiovascular: irregularly irregular Respiratory/Chest: lungs clear - ant unable to examin post Abdomen: normal bowel sounds, non tender, soft Extremities: no swelling Intake and Output 02/19/17 02/20/17 19:00 07:00 Intake Total 611.222 ml 736.044 ml Output Total 510 ml 350 ml Balance 101.222 ml 386.044 ml Free Water 40 ml IV Total 591.222 ml 346.044 ml Tube Feeding 20 ml 200 ml Other 150 ml Output Urine Total 510 ml 350 ml Laboratory Tests Test 02/20/17 04:00 02/20/17 13:10 White Blood Count 9.7 K/UL (4.8-10.8) Red Blood Count 3.28 M/UL (4.70-6.10) L Hemoglobin 11.3 G/DL (14.2-18.0) L Hematocrit 32.3 % (42.0-52.0) L Mean Corpuscular Volume 99 FL (80-99) Mean Corpuscular Hemoglobin 34.5 PG (27.0-31.0) H Mean Corpuscular Hemoglobin Concent 34.9 G/DL (32.0-36.0) Red Cell Distribution Width 12.6 % (11.6-14.8) Platelet Count 125 K/UL (150-450) L Mean Platelet Volume 6.6 FL (6.5-10.1) Neutrophils (%) (Auto) 72.3 % (45.0-75.0) Lymphocytes (%) (Auto) 14.0 % (20.0-45.0) L Monocytes (%) (Auto) 12.1 % (1.0-10.0) H Eosinophils (%) (Auto) 1.2 % (0.0-3.0) Basophils (%) (Auto) 0.4 % (0.0-2.0) Prothrombin Time 12.0 SEC (9.30-11.50) H Prothromb Time International Ratio 1.1 (0.9-1.1) Activated Partial Thromboplast Time 111 SEC (23-33) H 74 SEC (23-33) H Sodium Level 136 MMOL/L (136-145) Potassium Level 3.5 MMOL/L (3.5-5.1) Chloride Level 101 MMOL/L (98-107) Carbon Dioxide Level 26 MMOL/L (21-32) Anion Gap 10 mmol/L (5-15) Blood Urea Nitrogen 17 mg/dL (7-18) Creatinine 2.3 MG/DL (0.55-1.30) H Estimat Glomerular Filtration Rate 34.7 mL/min (>60) Glucose Level 185 MG/DL (74-106) H Calcium Level 8.8 MG/DL (8.5-10.1) Phosphorus Level 3.2 MG/DL (2.5-4.9) Magnesium Level 1.8 MG/DL (1.8-2.4) Total Bilirubin 0.5 MG/DL (0.2-1.0) Aspartate Amino Transf (AST/SGOT) 16 U/L (15-37) Alanine Aminotransferase (ALT/SGPT) 7 U/L (12-78) L Alkaline Phosphatase 89 U/L (46-116) Total Protein 6.9 G/DL (6.4-8.2) Albumin 1.4 G/DL (3.4-5.0) L Globulin 5.5 g/dL Albumin/Globulin Ratio 0.3 (1.0-2.7) L BOBBY BURNETTE Feb 20, 2017 17:00
[2017-02-20] MEDS: Atorvastatin 20mg tab NG SCH (20:27)
[2017-02-21 00:15] VITALS: BP 116/68
[2017-02-21] MEDS: dilTIAZem HCl 90mg tab NG SCH ×5 (00:16→23:44)
[2017-02-21 04:35] VITALS: BP 130/91
[2017-02-21 04:46] LABS: BASOPHILS % (AUTO) 0.5 % (0.0-2.0); LYMPHOCYTES % (AUTO) 12.1 % (20.0-45.0); MEAN CORPUSCULAR VOLUME 98 FL (80-99); MONOCYTES % (AUTO) 14.2 % (1.0-10.0); NEUTROPHILS % (AUTO) 72.3 % (45.0-75.0); PLATELET COUNT 141 K/UL (150-450); RED BLOOD COUNT 3.56 M/UL (4.70-6.10); RED CELL DISTRIBUTION WIDTH 12.5 % (11.6-14.8); WHITE BLOOD COUNT 11.6 K/UL (4.8-10.8)
[2017-02-21 04:52] LABS: INR 1.1 (0.9-1.1)
[2017-02-21 05:10] LABS: ALANINE AMINOTRANSFERASE 14 U/L (12-78); ALBUMIN 1.4 G/DL (3.4-5.0); ALBUMIN/GLOBULIN RATIO 0.2 (1.0-2.7); ALKALINE PHOSPHATASE 99 U/L (46-116); ANION GAP 8 mmol/L (5-15); ASPARTATE AMINO TRANSFERASE 15 U/L (15-37); BILIRUBIN,TOTAL 0.6 MG/DL (0.2-1.0); BLOOD UREA NITROGEN 18 mg/dL (7-18); CALCIUM 9.1 MG/DL (8.5-10.1); CARBON DIOXIDE 26 MMOL/L (21-32); CHLORIDE 100 MMOL/L (98-107); CREATINE KINASE 89 U/L (26-308); CREATININE 2.2 MG/DL (0.55-1.30); PHOSPHORUS 2.8 MG/DL (2.5-4.9); POTASSIUM 3.5 MMOL/L (3.5-5.1); SODIUM 134 MMOL/L (136-145)
[2017-02-21] MEDS ORDERED: Heparin 5000 units/ml inj IV ONE (06:15)
[2017-02-21] MEDS ORDERED: Heparin 25,000u/D5W 500ml 500 ML IV SCH ×2 (06:15→13:15)
[2017-02-21] MEDS: NovoLOG Insulin Flexpen SUBQ SCH ×4 (06:18→23:45)
--- NOTE | 2017-02-21 07:45 | General Progress Note ---
Assessment/Plan Problem List: (1) HTN (hypertension) ICD Codes: I10 - Essential (primary) hypertension SNOMED: 49220483 (2) Pacemaker ICD Codes: Z95.0 - Presence of cardiac pacemaker SNOMED: 425946202, 323797434 (3) Atrial fibrillation ICD Codes: I48.91 - Unspecified atrial fibrillation SNOMED: 53986271 (4) Diabetes mellitus ICD Codes: E11.9 - Type 2 diabetes mellitus without complications SNOMED: 75310105 (5) Diabetic foot ulcer ICD Codes: E11.621 - Type 2 diabetes mellitus with foot ulcer; L97.509 - Non- pressure chronic ulcer of other part of unspecified foot with unspecified severity SNOMED: 07485247, 400778811 (6) Altered level of consciousness ICD Codes: R40.4 - Transient alteration of awareness SNOMED: 3896611 (7) Acute on chronic renal failure ICD Codes: N17.9 - Acute kidney failure, unspecified; N18.9 - Chronic kidney disease, unspecified SNOMED: 833807818 (8) Rapid atrial fibrillation ICD Codes: I48.91 - Unspecified atrial fibrillation SNOMED: 665360083 Status: unchanged Assessment/Plan o2 pulm tx ng feed abx wound care cbc bmp am promise ltach eval Subjective Constitutional: Reports: weakness Allergies: Coded Allergies: CODEINE (Unverified Allergy, Unknown, 02/17/17) All Systems: reviewed and negative except above Subjective o2nc ng sleeping Objective Last 24 Hour Vital Signs Date Time Temp Pulse Resp B/P (MAP) Pulse Ox O2 Delivery O2 Flow Rate FiO2 02/21/17 06:16 101 130/91 02/21/17 04:35 98.6 74 20 130/91 95 Nasal Cannula 02/21/17 04:00 96 02/21/17 00:16 96 132/91 02/21/17 00:15 98.6 74 19 116/68 96 Nasal Cannula 02/21/17 00:00 88 02/20/17 20:10 97.9 96 20 132/91 94 Nasal Cannula 02/20/17 20:00 79 02/20/17 17:45 96 133/75 02/20/17 17:45 96 133/75 02/20/17 16:00 96 02/20/17 16:00 98.0 86 20 133/75 91 Nasal Cannula 2.0 02/20/17 13:16 81 136/90 02/20/17 12:00 82 02/20/17 12:00 96.1 81 20 136/90 92 Nasal Cannula 2.0 02/20/17 09:50 92 125/78 02/20/17 08:00 83 02/20/17 08:00 97.3 92 19 125/78 95 Nasal Cannula 2.0 02/20/17 07:51 Nasal Cannula 3.0 32 02/20/17 07:51 95 Nasal Cannula 3.0 32 Intake and Output 02/20/17 02/21/17 19:00 07:00 Intake Total 585.023 ml Output Total 800 ml 600 ml Balance -214.977 ml -600 ml IV Total 265.023 ml Tube Feeding 320 ml Output Urine Total 800 ml 600 ml Laboratory Tests 02/20/17 13:10: Activated Partial Thromboplast Time 74H 02/21/17 04:00: Activated Partial Thromboplast Time 61H, White Blood Count 11.6H, Red Blood Count 3.56L, Hemoglobin 12.0L, Hematocrit 35.0L, Mean Corpuscular Volume 98, Mean Corpuscular Hemoglobin 33.7H, Mean Corpuscular Hemoglobin Concent 34.3, Red Cell Distribution Width 12.5, Platelet Count 141L, Mean Platelet Volume 7.3 , Neutrophils (%) (Auto) 72.3, Lymphocytes (%) (Auto) 12.1L, Monocytes (%) (Auto ) 14.2H, Eosinophils (%) (Auto) 1.0, Basophils (%) (Auto) 0.5, Prothrombin Time 11.4, Prothromb Time International Ratio 1.1, Sodium Level 134L, Potassium Level 3.5, Chloride Level 100, Carbon Dioxide Level 26, Anion Gap 8, Blood Urea Nitrogen 18, Creatinine 2.2H, Estimat Glomerular Filtration Rate 36.5, Glucose Level 269H, Uric Acid 5.2, Calcium Level 9.1, Phosphorus Level 2.8, Magnesium Level 1.8, Total Bilirubin 0.6, Aspartate Amino Transf (AST/SGOT) 15, Alanine Aminotransferase (ALT/SGPT) 14, Alkaline Phosphatase 99, Total Creatine Kinase 89, C-Reactive Protein, Quantitative 18.0H, Total Protein 7.4, Albumin 1.4L, Globulin 6.0, Albumin/Globulin Ratio 0.2L Height (Feet): 6 Height (Inches): 0.00 Weight (Pounds): 228 General Appearance: lethargic EENT: normal ENT inspection Neck: normal alignment Cardiovascular: normal peripheral pulses, normal rate, regular rhythm Respiratory/Chest: decreased breath sounds Abdomen: normal bowel sounds, non tender, soft Extremities: normal inspection Edema: no edema noted Arm (L), no edema noted Arm (R), no edema noted Leg (L), no edema noted Leg (R), no edema noted Pedal (L), no edema noted Pedal (R), no edema noted Generalized Neurologic: motor weakness Skin: normal pigmentation, warm/dry CLARITA TEMPLETON Feb 21, 2017 07:45
[2017-02-21 08:00] VITALS: BP 135/95
--- NOTE | 2017-02-21 08:00 | Progress Note ---
DATE: 02/20/2017 SUBJECTIVE: This is a 66-year-old male patient with atrial fibrillation, but he has altered mental status secondary to the progression of his mental illness. psychiatric consultation. He was seen and assessed in the ICU. PLAN: Plan is to continue treating him with medications to prevent any decline in his cognition. His cognition has declined significantly below baseline. Chart was reviewed and discussed with staff. Karen Pettit M.D. DR: Sophie JOB#: [id number] CC:
--- NOTE | 2017-02-21 08:48 | Pulmonology Progress Note ---
Assessment/Plan Problems: (1) Rapid atrial fibrillation (2) HTN (hypertension) (3) Diabetic foot ulcer Assessment/Plan heart rate better awaiting transfer to [facility] for angiography continue wound care IV abx check electrolytes symptomatic treatment keep in teli Subjective ROS Limited/Unobtainable: No Constitutional: Reports: no symptoms HEENT: Repors: no symptoms Respiratory: Reports: no symptoms Allergies: Coded Allergies: CODEINE (Unverified Allergy, Unknown, 02/17/17) Objective Last 24 Hour Vital Signs Date Time Temp Pulse Resp B/P (MAP) Pulse Ox O2 Delivery O2 Flow Rate FiO2 02/21/17 06:16 101 130/91 02/21/17 04:35 98.6 74 20 130/91 95 Nasal Cannula 02/21/17 04:00 96 02/21/17 00:16 96 132/91 02/21/17 00:15 98.6 74 19 116/68 96 Nasal Cannula 02/21/17 00:00 88 02/20/17 20:10 97.9 96 20 132/91 94 Nasal Cannula 02/20/17 20:00 79 02/20/17 17:45 96 133/75 02/20/17 17:45 96 133/75 02/20/17 16:00 96 02/20/17 16:00 98.0 86 20 133/75 91 Nasal Cannula 2.0 02/20/17 13:16 81 136/90 02/20/17 12:00 82 02/20/17 12:00 96.1 81 20 136/90 92 Nasal Cannula 2.0 02/20/17 09:50 92 125/78 Intake and Output 02/20/17 02/21/17 19:00 07:00 Intake Total 585.023 ml Output Total 800 ml 600 ml Balance -214.977 ml -600 ml IV Total 265.023 ml Tube Feeding 320 ml Output Urine Total 800 ml 600 ml General Appearance: WD/WN HEENT: normocephalic Respiratory/Chest: chest wall non-tender, lungs clear Abdomen: normal bowel sounds, soft, non tender Genitourinary: normal external genitalia Extremities: no cyanosis 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 Laboratory Tests 02/20/17 13:10: Activated Partial Thromboplast Time 74H 02/21/17 04:00: Activated Partial Thromboplast Time 61H, White Blood Count 11.6H, Red Blood Count 3.56L, Hemoglobin 12.0L, Hematocrit 35.0L, Mean Corpuscular Volume 98, Mean Corpuscular Hemoglobin 33.7H, Mean Corpuscular Hemoglobin Concent 34.3, Red Cell Distribution Width 12.5, Platelet Count 141L, Mean Platelet Volume 7.3 , Neutrophils (%) (Auto) 72.3, Lymphocytes (%) (Auto) 12.1L, Monocytes (%) (Auto ) 14.2H, Eosinophils (%) (Auto) 1.0, Basophils (%) (Auto) 0.5, Prothrombin Time 11.4, Prothromb Time International Ratio 1.1, Sodium Level 134L, Potassium Level 3.5, Chloride Level 100, Carbon Dioxide Level 26, Anion Gap 8, Blood Urea Nitrogen 18, Creatinine 2.2H, Estimat Glomerular Filtration Rate 36.5, Glucose Level 269H, Uric Acid 5.2, Calcium Level 9.1, Phosphorus Level 2.8, Magnesium Level 1.8, Total Bilirubin 0.6, Aspartate Amino Transf (AST/SGOT) 15, Alanine Aminotransferase (ALT/SGPT) 14, Alkaline Phosphatase 99, Total Creatine Kinase 89, C-Reactive Protein, Quantitative 18.0H, Total Protein 7.4, Albumin 1.4L, Globulin 6.0, Albumin/Globulin Ratio 0.2L Current Medications Medications (Trade) Dose Ordered Sig/Anahi Route PRN Reason Start Time Stop Time Status Last Admin Dose Admin Acetaminophen (Tylenol) 650 mg Q4H PRN NG Mild Pain/Temp > 100.5 02/20/17 05:45 03/20/17 05:44 Al Hydroxide/Mg Hydroxide (Mylanta II) 30 ml Q6H PRN NG dyspepsia 02/20/17 05:45 03/20/17 05:44 Atorvastatin Calcium (Lipitor) 20 mg QHS NG 02/20/17 21:00 03/20/17 20:59 02/20/17 20:27 Cefepime HCl 2 gm/ Dextrose 110 ml @ 220 mls/hr Q24H IV 02/20/17 13:00 02/26/17 12:59 02/20/17 13:23 Dextrose (Dextrose 50%) STAT PRN IV Hypoglycemia 02/20/17 07:00 03/20/17 06:59 Diltiazem HCl (Cardizem) 90 mg EVERY 6 HOURS NG 02/20/17 06:00 03/22/17 00:00 02/21/17 06:16 Heparin Sodium/ Dextrose 500 ml @ 28.108 mls/ hr adjust per protocol IV 02/21/17 06:15 03/23/17 06:14 02/21/17 06:14 Insulin Aspart (NovoLOG) BEFORE MEALS AND HS SUBQ 02/20/17 06:30 03/20/17 11:29 02/21/17 06:18 Lorazepam (Ativan 2mg/ml 1ml) 0.5 mg Q4H PRN IV For Anxiety 02/20/17 05:46 02/25/17 05:45 Memantine (Namenda) 5 mg BID NG 02/20/17 09:00 03/21/17 08:59 02/20/17 17:46 Metoprolol Tartrate (Lopressor) 5 mg Q4H PRN IVP heart rate greater than 105 02/20/17 05:46 03/20/17 05:45 Metoprolol Tartrate (Lopressor) 100 mg BID NG 02/20/17 09:00 03/20/17 21:59 02/20/17 17:45 Ondansetron HCl (Zofran) 4 mg Q6H PRN IVP Nausea & Vomiting 02/20/17 07:00 03/20/17 06:59 Pantoprazole (Protonix) 40 mg DAILY IVP 02/20/17 09:00 03/21/17 08:59 02/20/17 09:48 Polyethylene Glycol (Miralax) 17 gm HSPRN PRN ORAL Constipation 02/20/17 07:00 03/20/17 06:59 Valproic Acid (Depakene) 500 mg EVERY 12 HOURS NG 02/20/17 09:00 03/20/17 20:59 02/20/17 20:26 Zolpidem Tartrate (Ambien) 5 mg HSPRN PRN ORAL Insomnia 02/20/17 07:00 02/25/17 06:59 SATHYA MEIER Feb 21, 2017 08:48
[2017-02-21] MEDS: Pantoprazole Inj IVP SCH (09:19)
[2017-02-21] MEDS: Valproic Acid 250mg/5ml Liquid NG SCH ×2 (09:19→20:56)
[2017-02-21] MEDS: Memantine 5 MG TAB NG SCH ×2 (09:20→17:38)
[2017-02-21] MEDS ORDERED: Sodium Chloride 500ML 500 ML IV ONE (10:30)
--- NOTE | 2017-02-21 10:32 | Nephrology Progress Note ---
Assessment/Plan Problem List: (1) Atrial fibrillation (2) Acute on chronic renal failure (3) Pacemaker (4) Diabetic nephropathy Assessment cr slowly rising- [place] gaffney (1) Diabetic foot ulcer (2) Atrial fibrillation (3) Pacemaker (4) Acute on chronic renal failure- Cr siobhan 2.3 Assessment: + urinary retention (5) Diabetic nephropathy Plan Plan: saline and albumin bollous Per cardiology correct electrolytes as needed monitor BS and BP and HR Avoid nephrotoxics monitor renal parameters Subjective ROS Limited/Unobtainable: No Constitutional: Reports: malaise Objective Objective Last 24 Hour Vital Signs Date Time Temp Pulse Resp B/P (MAP) Pulse Ox O2 Delivery O2 Flow Rate FiO2 02/21/17 09:20 80 135/78 02/21/17 08:00 96 02/21/17 06:16 101 130/91 02/21/17 04:35 98.6 74 20 130/91 95 Nasal Cannula 02/21/17 04:00 96 02/21/17 00:16 96 132/91 02/21/17 00:15 98.6 74 19 116/68 96 Nasal Cannula 02/21/17 00:00 88 02/20/17 20:10 97.9 96 20 132/91 94 Nasal Cannula 02/20/17 20:00 79 02/20/17 17:45 96 133/75 02/20/17 17:45 96 133/75 02/20/17 16:00 96 02/20/17 16:00 98.0 86 20 133/75 91 Nasal Cannula 2.0 02/20/17 13:16 81 136/90 02/20/17 12:00 82 02/20/17 12:00 96.1 81 20 136/90 92 Nasal Cannula 2.0 Intake and Output 02/20/17 02/21/17 19:00 07:00 Intake Total 585.023 ml Output Total 800 ml 600 ml Balance -214.977 ml -600 ml IV Total 265.023 ml Tube Feeding 320 ml Output Urine Total 800 ml 600 ml Laboratory Tests 02/20/17 13:10: Activated Partial Thromboplast Time 74H 02/21/17 04:00: Activated Partial Thromboplast Time 61H, White Blood Count 11.6H, Red Blood Count 3.56L, Hemoglobin 12.0L, Hematocrit 35.0L, Mean Corpuscular Volume 98, Mean Corpuscular Hemoglobin 33.7H, Mean Corpuscular Hemoglobin Concent 34.3, Red Cell Distribution Width 12.5, Platelet Count 141L, Mean Platelet Volume 7.3 , Neutrophils (%) (Auto) 72.3, Lymphocytes (%) (Auto) 12.1L, Monocytes (%) (Auto ) 14.2H, Eosinophils (%) (Auto) 1.0, Basophils (%) (Auto) 0.5, Prothrombin Time 11.4, Prothromb Time International Ratio 1.1, Sodium Level 134L, Potassium Level 3.5, Chloride Level 100, Carbon Dioxide Level 26, Anion Gap 8, Blood Urea Nitrogen 18, Creatinine 2.2H, Estimat Glomerular Filtration Rate 36.5, Glucose Level 269H, Uric Acid 5.2, Calcium Level 9.1, Phosphorus Level 2.8, Magnesium Level 1.8, Total Bilirubin 0.6, Aspartate Amino Transf (AST/SGOT) 15, Alanine Aminotransferase (ALT/SGPT) 14, Alkaline Phosphatase 99, Total Creatine Kinase 89, C-Reactive Protein, Quantitative 18.0H, Total Protein 7.4, Albumin 1.4L, Globulin 6.0, Albumin/Globulin Ratio 0.2L Height (Feet): 6 Height (Inches): 0.00 Weight (Pounds): 228 General Appearance: no apparent distress Cardiovascular: tachycardia, arrhythmia Respiratory/Chest: decreased breath sounds Abdomen: distended Objective no other changes BHAVANI VACA Feb 21, 2017 10:32
[2017-02-21 12:00] VITALS: BP 118/89
[2017-02-21] MEDS: Cefepime HCl 2 GM in D5W 110 ML IV SCH (12:09)
[2017-02-21] MEDS ORDERED: NS 275ml ONE ×2 (15:23→17:46)
[2017-02-21] MEDS ORDERED: Tubing IV Secondary IV ONE (15:23)
[2017-02-21 16:00] VITALS: BP 158/87
[2017-02-21] MEDS ORDERED: Sterile Water Irrig 1000ml IRRIG ONE (17:46)
[2017-02-21] MEDS ORDERED: NS 500ML ONE (17:46)
--- NOTE | 2017-02-21 19:11 | Consultation ---
History of Present Illness General Date patient seen: Feb 19, 2017 Chief Complaint: Altered Level of Consciousness Present Illness HPI 6-year-old male, pw atrial fibrillation. The patientwasadmitted to ICU Allergies: Coded Allergies: CODEINE (Unverified Allergy, Unknown, 02/17/17) Medication History Scheduled Amlodipine Besylate* (Amlodipine Besylate*), 10 MG ORAL DAILY, (Reported) Atorvastatin Calcium* (Lipitor*), 20 MG ORAL DAILY, (Reported) Cefepime Hcl/D5w (Cefepime-Dextrose 2 Gm/50 Ml), 2 GM IVPB Q24H, (Reported) Clonidine Hcl (Clonidine Hcl), 0.1 MG PO EVERY 6 HOURS, (Reported) Diltiazem Hcl (Diltiazem Hcl), 60 MG PO QID, (Reported) Divalproex Sodium* (Depakote Er*), 500 MG ORAL EVERY 12 HOURS, (Reported) Docusate Sodium* (Colace*), 100 MG ORAL DAILY, (Reported) Docusate Sodium* (Docusate Sodium*), 100 MG ORAL THREE TIMES A DAY, (Reported) Insulin Aspart (Novolog), UNITS SUBQ AC+HS, (Reported) Linezolid* (Zyvox*), 600 MG ORAL EVERY 12 HOURS, (Reported) Lorazepam* (Ativan*), 1 MG ORAL EVERY 6 HOURS, (Reported) Memantine Hcl* (Namenda*), 5 MG ORAL TWICE A DAY, (Reported) Metoprolol Tartrate* (Metoprolol Tartrate*), 50 MG ORAL EVERY 12 HOURS, ( Reported) Metoprolol Tartrate* (Metoprolol Tartrate*), 50 MG ORAL EVERY 12 HOURS, ( Reported) Olanzapine (Zyprexa), 7.5 MG ORAL DAILY, (Reported) Ondansetron* (Zofran 4 Mg/2 Ml Vial*), 4 MG IVP Q6H, (Reported) Prednisone* (Prednisone*), 40 MG ORAL DAILY, (Reported) Temazepam (Temazepam*), 15 MG ORAL BEDTIME, (Reported) [Sitagliptin*], 100 MG PO DAILY, (Reported) Scheduled PRN Acetaminophen* (Acetaminophen 325MG Tablet*), 650 MG ORAL Q6H PRN for Fever/ Headache/Mild Pain, (Reported) Albuterol Sulfate* (Albuterol Sulfate Hhn*), 3 ML INH Q4H PRN for Shortness of Breath, (Reported) Ipratropium/Albuterol Sulfate (DuoNeb 0.5-3(2.5)mg/3ml), 3 ML HHN EVERY 4 HOURS PRN for Shortness of Breath, (Reported) Morphine Sulfate (Morphine Sulfate), 2 MG IVP Q4HR PRN for For Pain, (Reported) Polyethylene Glycol 3350* (Miralax*), 17 GM ORAL QHS PRN for Constipation, ( Reported) Polyethylene Glycol 3350* (Polyethylene Glycol 3350*), 17 GM ORAL DAILY PRN for Constipation, (Reported) [mylanta], 30 ML ORAL Q6HR PRN for To Patient Comfort, (Reported) Miscellaneous Medications Nitroglycerin (Nitroglycerin), 0.4 MG SL, (Reported) Discontinued Medications Diltiazem Hcl (Diltiazem Hcl), 90 MG PO Q8HR, (Reported) Discontinued Reason: Medication dose changed Diltiazem Hcl (Diltiazem Hcl), 20 MG IVP, (Reported) Discontinued Reason: Medication dose changed Metoprolol Tartrate* (Metoprolol Tartrate*), 25 MG ORAL DAILY, (Reported) Discontinued Reason: Medication dose changed Metoprolol Tartrate* (Metoprolol Tartrate*), 25 MG ORAL DAILY, (Reported) Discontinued Reason: Medication dose changed Metoprolol Tartrate* (Metoprolol Tartrate*), 25 MG ORAL EVERY 12 HOURS, ( Reported) Discontinued Reason: Medication dose changed Metoprolol Tartrate* (Metoprolol Tartrate*), 25 MG ORAL ONCE, (Reported) Discontinued Reason: Medication dose changed Patient History Healthcare decision maker Resuscitation status Full Code Advanced Directive on File Physical Exam Last 24 Hour Vital Signs Date Time Temp Pulse Resp B/P (MAP) Pulse Ox O2 Delivery O2 Flow Rate FiO2 02/21/17 17:38 90 158/87 02/21/17 17:38 90 158/87 02/21/17 16:00 98.3 90 20 158/87 97 Nasal Cannula 2.0 02/21/17 16:00 84 02/21/17 12:09 83 118/78 02/21/17 12:00 98.4 80 18 118/89 97 Nasal Cannula 2.0 02/21/17 12:00 84 02/21/17 09:20 80 135/78 02/21/17 08:00 96 02/21/17 08:00 98.2 80 20 135/95 96 Nasal Cannula 2.0 02/21/17 06:16 101 130/91 02/21/17 04:35 98.6 74 20 130/91 95 Nasal Cannula 02/21/17 04:00 96 02/21/17 00:16 96 132/91 02/21/17 00:15 98.6 74 19 116/68 96 Nasal Cannula 02/21/17 00:00 88 02/20/17 20:10 97.9 96 20 132/91 94 Nasal Cannula 02/20/17 20:00 79 Intake and Output 02/20/17 02/21/17 19:00 07:00 Intake Total 585.023 ml Output Total 800 ml 600 ml Balance -214.977 ml -600 ml IV Total 265.023 ml Tube Feeding 320 ml Output Urine Total 800 ml 600 ml Laboratory Tests Test 02/21/17 04:00 02/21/17 12:15 White Blood Count 11.6 K/UL (4.8-10.8) H Red Blood Count 3.56 M/UL (4.70-6.10) L Hemoglobin 12.0 G/DL (14.2-18.0) L Hematocrit 35.0 % (42.0-52.0) L Mean Corpuscular Volume 98 FL (80-99) Mean Corpuscular Hemoglobin 33.7 PG (27.0-31.0) H Mean Corpuscular Hemoglobin Concent 34.3 G/DL (32.0-36.0) Red Cell Distribution Width 12.5 % (11.6-14.8) Platelet Count 141 K/UL (150-450) L Mean Platelet Volume 7.3 FL (6.5-10.1) Neutrophils (%) (Auto) 72.3 % (45.0-75.0) Lymphocytes (%) (Auto) 12.1 % (20.0-45.0) L Monocytes (%) (Auto) 14.2 % (1.0-10.0) H Eosinophils (%) (Auto) 1.0 % (0.0-3.0) Basophils (%) (Auto) 0.5 % (0.0-2.0) Prothrombin Time 11.4 SEC (9.30-11.50) Prothromb Time International Ratio 1.1 (0.9-1.1) Activated Partial Thromboplast Time 61 SEC (23-33) H 102 SEC (23-33) H Sodium Level 134 MMOL/L (136-145) L Potassium Level 3.5 MMOL/L (3.5-5.1) Chloride Level 100 MMOL/L (98-107) Carbon Dioxide Level 26 MMOL/L (21-32) Anion Gap 8 mmol/L (5-15) Blood Urea Nitrogen 18 mg/dL (7-18) Creatinine 2.2 MG/DL (0.55-1.30) H Estimat Glomerular Filtration Rate 36.5 mL/min (>60) Glucose Level 269 MG/DL (74-106) H Uric Acid 5.2 MG/DL (2.6-7.2) Calcium Level 9.1 MG/DL (8.5-10.1) Phosphorus Level 2.8 MG/DL (2.5-4.9) Magnesium Level 1.8 MG/DL (1.8-2.4) Total Bilirubin 0.6 MG/DL (0.2-1.0) Aspartate Amino Transf (AST/SGOT) 15 U/L (15-37) Alanine Aminotransferase (ALT/SGPT) 14 U/L (12-78) Alkaline Phosphatase 99 U/L (46-116) Total Creatine Kinase 89 U/L (26-308) C-Reactive Protein, Quantitative 18.0 mg/dL (0.00-0.90) H Total Protein 7.4 G/DL (6.4-8.2) Albumin 1.4 G/DL (3.4-5.0) L Globulin 6.0 g/dL Albumin/Globulin Ratio 0.2 (1.0-2.7) L Height (Feet): 6 Height (Inches): 0.00 Weight (Pounds): 228 Medications Current Medications Medications (Trade) Dose Ordered Sig/Anahi Route PRN Reason Start Time Stop Time Status Last Admin Dose Admin Acetaminophen (Tylenol) 650 mg Q4H PRN NG Mild Pain/Temp > 100.5 02/20/17 05:45 03/20/17 05:44 Atorvastatin Calcium (Lipitor) 20 mg QHS NG 02/20/17 21:00 03/20/17 20:59 02/20/17 20:27 Cefepime HCl 2 gm/ Dextrose 110 ml @ 220 mls/hr Q24H IV 02/20/17 13:00 02/26/17 12:59 02/21/17 12:09 Dextrose (Dextrose 50%) STAT PRN IV Hypoglycemia 02/20/17 07:00 03/20/17 06:59 Diltiazem HCl (Cardizem) 90 mg EVERY 6 HOURS NG 02/20/17 06:00 03/22/17 00:00 02/21/17 17:38 Famotidine (Pepcid) 20 mg BID GT 02/21/17 18:00 03/23/17 17:59 02/21/17 17:38 Heparin Sodium/ Dextrose 500 ml @ 24.093 mls/ hr adjust per protocol IV 02/21/17 13:15 03/23/17 13:14 02/21/17 14:41 Insulin Aspart (NovoLOG) Q6HR SUBQ 02/21/17 18:00 03/20/17 11:29 02/21/17 17:43 Lorazepam (Ativan 2mg/ml 1ml) 0.5 mg Q4H PRN IV For Anxiety 02/20/17 05:46 02/25/17 05:45 Memantine (Namenda) 5 mg BID NG 02/20/17 09:00 03/21/17 08:59 02/21/17 17:38 Metoprolol Tartrate (Lopressor) 5 mg Q4H PRN IVP heart rate greater than 105 02/20/17 05:46 03/20/17 05:45 Metoprolol Tartrate (Lopressor) 100 mg BID NG 02/20/17 09:00 03/20/17 21:59 02/21/17 17:38 Ondansetron HCl (Zofran) 4 mg Q6H PRN IVP Nausea & Vomiting 02/20/17 07:00 03/20/17 06:59 Polyethylene Glycol (Miralax) 17 gm HSPRN PRN ORAL Constipation 02/20/17 07:00 03/20/17 06:59 Valproic Acid (Depakene) 500 mg EVERY 12 HOURS NG 02/20/17 09:00 2/9/18 20:59 02/21/17 09:19 Zolpidem Tartrate (Ambien) 5 mg HSPRN PRN ORAL Insomnia 02/20/17 07:00 02/25/17 06:59 Seth Shetty M.D. Feb 21, 2017 19:11
[2017-02-21 20:00] VITALS: BP 161/91
--- NOTE | 2017-02-21 20:12 | Cardiology Progress Note ---
Assessment/Plan Assessment/Plan ATRIAL FIBRILLATION, RATE CONTROLLED O N CURRENT MEDICATIONS, ON iv hEPARIN ANTICIPATING LEG AMPUTATIONS, NO EVIENCE OF BLEEDING OR DECOMPENSATION Subjective Subjective the patient is unresponsive lethargic Objective Last 24 Hour Vital Signs Date Time Temp Pulse Resp B/P (MAP) Pulse Ox O2 Delivery O2 Flow Rate FiO2 02/21/17 17:38 90 158/87 02/21/17 17:38 90 158/87 02/21/17 16:00 98.3 90 20 158/87 97 Nasal Cannula 2.0 02/21/17 16:00 84 02/21/17 12:09 83 118/78 02/21/17 12:00 98.4 80 18 118/89 97 Nasal Cannula 2.0 02/21/17 12:00 84 02/21/17 09:20 80 135/78 02/21/17 08:00 96 02/21/17 08:00 98.2 80 20 135/95 96 Nasal Cannula 2.0 02/21/17 06:16 101 130/91 02/21/17 04:35 98.6 74 20 130/91 95 Nasal Cannula 02/21/17 04:00 96 02/21/17 00:16 96 132/91 02/21/17 00:15 98.6 74 19 116/68 96 Nasal Cannula 02/21/17 00:00 88 02/20/17 20:10 97.9 96 20 132/91 94 Nasal Cannula General Appearance: lethargic, thin EENT: PERRL/EOMI Neck: JVD Rhythm: Afib Respiratory/Chest: rhonchi - bilaterally Abdomen: soft Extremities: other - left leg dressing Neurologic: unresponsiveness Intake and Output 02/20/17 02/21/17 19:00 07:00 Intake Total 585.023 ml Output Total 800 ml 600 ml Balance -214.977 ml -600 ml IV Total 265.023 ml Tube Feeding 320 ml Output Urine Total 800 ml 600 ml Laboratory Tests Test 02/21/17 04:00 02/21/17 12:15 White Blood Count 11.6 K/UL (4.8-10.8) H Red Blood Count 3.56 M/UL (4.70-6.10) L Hemoglobin 12.0 G/DL (14.2-18.0) L Hematocrit 35.0 % (42.0-52.0) L Mean Corpuscular Volume 98 FL (80-99) Mean Corpuscular Hemoglobin 33.7 PG (27.0-31.0) H Mean Corpuscular Hemoglobin Concent 34.3 G/DL (32.0-36.0) Red Cell Distribution Width 12.5 % (11.6-14.8) Platelet Count 141 K/UL (150-450) L Mean Platelet Volume 7.3 FL (6.5-10.1) Neutrophils (%) (Auto) 72.3 % (45.0-75.0) Lymphocytes (%) (Auto) 12.1 % (20.0-45.0) L Monocytes (%) (Auto) 14.2 % (1.0-10.0) H Eosinophils (%) (Auto) 1.0 % (0.0-3.0) Basophils (%) (Auto) 0.5 % (0.0-2.0) Prothrombin Time 11.4 SEC (9.30-11.50) Prothromb Time International Ratio 1.1 (0.9-1.1) Activated Partial Thromboplast Time 61 SEC (23-33) H 102 SEC (23-33) H Sodium Level 134 MMOL/L (136-145) L Potassium Level 3.5 MMOL/L (3.5-5.1) Chloride Level 100 MMOL/L (98-107) Carbon Dioxide Level 26 MMOL/L (21-32) Anion Gap 8 mmol/L (5-15) Blood Urea Nitrogen 18 mg/dL (7-18) Creatinine 2.2 MG/DL (0.55-1.30) H Estimat Glomerular Filtration Rate 36.5 mL/min (>60) Glucose Level 269 MG/DL (74-106) H Uric Acid 5.2 MG/DL (2.6-7.2) Calcium Level 9.1 MG/DL (8.5-10.1) Phosphorus Level 2.8 MG/DL (2.5-4.9) Magnesium Level 1.8 MG/DL (1.8-2.4) Total Bilirubin 0.6 MG/DL (0.2-1.0) Aspartate Amino Transf (AST/SGOT) 15 U/L (15-37) Alanine Aminotransferase (ALT/SGPT) 14 U/L (12-78) Alkaline Phosphatase 99 U/L (46-116) Total Creatine Kinase 89 U/L (26-308) C-Reactive Protein, Quantitative 18.0 mg/dL (0.00-0.90) H Total Protein 7.4 G/DL (6.4-8.2) Albumin 1.4 G/DL (3.4-5.0) L Globulin 6.0 g/dL Albumin/Globulin Ratio 0.2 (1.0-2.7) REAL MCCARTHY Feb 21, 2017 20:11
[2017-02-21] MEDS: Atorvastatin 20mg tab NG SCH (20:56)
[2017-02-22] VITALS: BP 133/91
--- NOTE | 2017-02-22 03:45 | Progress Note ---
DATE: 02/21/2017 SUBJECTIVE: The patient with atrial fibrillation with rapid ventricular rate. The patient has altered mental status and confusion. Also, due to his heart arrhythmia his cognition has declined below baseline and that is why the attending has requested daily psychiatric consultation. MENTAL STATUS EXAMINATION: This is a 66-year-old male with psychomotor agitation. Mood is irritable and agitated. Affect is guarded and restricted. The thought process is disorganized and illogical. No signs of any suicidal or homicidal thoughts. Insight and judgment is poor. DIAGNOSIS: Paranoid schizophrenia, acute exacerbation, rule out depression with psychotic features. PLAN: Continue treatment with psychotropic medications to stabilize his mood, reduce agitation. We will continue to follow throughout his hospital course. Chart reviewed and discussed with the staff. Seen and assessed at bedside. Karen Pettit M.D. DR: Veronica JOB#: [id number] CC:
[2017-02-22 04:00] VITALS: BP 123/75
[2017-02-22] MEDS ORDERED: Heparin 25,000u/D5W 500ml 500 ML IV SCH (05:30)
[2017-02-22] MEDS ORDERED: Heparin Sod 1000 units/ml 10ml IV ONE (05:30)
[2017-02-22 05:37] LABS: BASOPHILS % (AUTO) 0.7 % (0.0-2.0); EOSINOPHILS % (AUTO) 1.2 % (0.0-3.0); HEMATOCRIT 32.3 % (42.0-52.0); HEMOGLOBIN 11.4 G/DL (14.2-18.0); LYMPHOCYTES % (AUTO) 13.7 % (20.0-45.0); MEAN CORPUSCULAR VOLUME 98 FL (80-99); MONOCYTES % (AUTO) 14.4 % (1.0-10.0); NEUTROPHILS % (AUTO) 70.2 % (45.0-75.0); PLATELET COUNT 140 K/UL (150-450); RED BLOOD COUNT 3.29 M/UL (4.70-6.10); RED CELL DISTRIBUTION WIDTH 12.3 % (11.6-14.8); WHITE BLOOD COUNT 11.2 K/UL (4.8-10.8)
[2017-02-22] MEDS: NovoLOG Insulin Flexpen SUBQ SCH ×3 (05:47→18:02)
[2017-02-22] MEDS: dilTIAZem HCl 90mg tab NG SCH ×3 (05:55→17:57)
[2017-02-22 05:59] LABS: ALANINE AMINOTRANSFERASE 15 U/L (12-78); ALBUMIN 1.7 G/DL (3.4-5.0); ALBUMIN/GLOBULIN RATIO 0.3 (1.0-2.7); ALKALINE PHOSPHATASE 101 U/L (46-116); ANION GAP 7 mmol/L (5-15); ASPARTATE AMINO TRANSFERASE 14 U/L (15-37); BILIRUBIN,TOTAL 0.6 MG/DL (0.2-1.0); BLOOD UREA NITROGEN 19 mg/dL (7-18); CALCIUM 9.5 MG/DL (8.5-10.1); CARBON DIOXIDE 27 MMOL/L (21-32); CHLORIDE 101 MMOL/L (98-107); CREATININE 2.1 MG/DL (0.55-1.30); POTASSIUM 3.4 MMOL/L (3.5-5.1); SODIUM 135 MMOL/L (136-145)
[2017-02-22 06:04] LABS: PHOSPHORUS 2.6 MG/DL (2.5-4.9)
[2017-02-22 08:00] VITALS: BP 118/78
--- NOTE | 2017-02-22 08:02 | General Progress Note ---
Assessment/Plan Problem List: (1) HTN (hypertension) ICD Codes: I10 - Essential (primary) hypertension SNOMED: 75108088 (2) Pacemaker ICD Codes: Z95.0 - Presence of cardiac pacemaker SNOMED: 064679685, 022367617 (3) Atrial fibrillation ICD Codes: I48.91 - Unspecified atrial fibrillation SNOMED: 34719444 (4) Diabetes mellitus ICD Codes: E11.9 - Type 2 diabetes mellitus without complications SNOMED: 66419278 (5) Diabetic foot ulcer ICD Codes: E11.621 - Type 2 diabetes mellitus with foot ulcer; L97.509 - Non- pressure chronic ulcer of other part of unspecified foot with unspecified severity SNOMED: 68748280, 204784874 (6) Altered level of consciousness ICD Codes: R40.4 - Transient alteration of awareness SNOMED: 8153490 (7) Acute on chronic renal failure ICD Codes: N17.9 - Acute kidney failure, unspecified; N18.9 - Chronic kidney disease, unspecified SNOMED: 767896168 (8) Rapid atrial fibrillation ICD Codes: I48.91 - Unspecified atrial fibrillation SNOMED: 688285216 Status: unchanged Assessment/Plan o2 pulm tx ng feed abx wound care cbc bmp am promise ltach eval Subjective Constitutional: Reports: weakness Allergies: Coded Allergies: CODEINE (Unverified Allergy, Unknown, 02/17/17) All Systems: reviewed and negative except above Subjective o2nc ng sleeping Objective Last 24 Hour Vital Signs Date Time Temp Pulse Resp B/P (MAP) Pulse Ox O2 Delivery O2 Flow Rate FiO2 02/22/17 06:40 99.1 02/22/17 05:55 82 123/75 02/22/17 04:00 93 02/22/17 04:00 100.2 82 20 123/75 91 02/22/17 00:00 99.3 96 20 133/91 92 02/22/17 00:00 96 02/21/17 23:44 87 158/85 02/21/17 20:00 87 02/21/17 20:00 97.0 77 20 161/91 95 02/21/17 17:38 90 158/87 02/21/17 17:38 90 158/87 02/21/17 16:00 98.3 90 20 158/87 97 Nasal Cannula 2.0 02/21/17 16:00 84 02/21/17 12:09 83 118/78 02/21/17 12:00 98.4 80 18 118/89 97 Nasal Cannula 2.0 02/21/17 12:00 84 02/21/17 09:20 80 135/78 Intake and Output 02/21/17 02/22/17 19:00 07:00 Intake Total 196.752 ml Output Total 900 ml 1300 ml Balance -703.248 ml -1300 ml IV Total 196.752 ml Output Urine Total 900 ml 1300 ml Laboratory Tests 02/21/17 12:15: Activated Partial Thromboplast Time 102H 02/21/17 20:41: Activated Partial Thromboplast Time 66H 02/22/17 04:15: White Blood Count 11.2H, Red Blood Count 3.29L, Hemoglobin 11.4L, Hematocrit 32.3L, Mean Corpuscular Volume 98, Mean Corpuscular Hemoglobin 34.6H, Mean Corpuscular Hemoglobin Concent 35.2, Red Cell Distribution Width 12.3, Platelet Count 140L, Mean Platelet Volume 6.3L, Neutrophils (%) (Auto) 70.2, Lymphocytes (%) (Auto) 13.7L, Monocytes (%) (Auto) 14.4H, Eosinophils (%) (Auto) 1.2, Basophils (%) (Auto) 0.7, Sodium Level 135L, Potassium Level 3.4L, Chloride Level 101, Carbon Dioxide Level 27, Anion Gap 7, Blood Urea Nitrogen 19H, Creatinine 2.1H, Estimat Glomerular Filtration Rate 38.5, Glucose Level 262H, Calcium Level 9.5, Phosphorus Level 2.6, Magnesium Level 1.9, Total Bilirubin 0.6, Aspartate Amino Transf (AST/SGOT) 14L, Alanine Aminotransferase (ALT/SGPT) 15, Alkaline Phosphatase 101, Total Protein 7.7, Albumin 1.7L, Globulin 6.0, Albumin/Globulin Ratio 0.3L 02/22/17 04:20: Activated Partial Thromboplast Time 54H Height (Feet): 6 Height (Inches): 0.00 Weight (Pounds): 225 General Appearance: lethargic EENT: normal ENT inspection Neck: normal alignment Cardiovascular: normal peripheral pulses, normal rate, regular rhythm Respiratory/Chest: chest wall non-tender, decreased breath sounds Abdomen: normal bowel sounds, non tender, soft Extremities: normal inspection Edema: no edema noted Arm (L), no edema noted Arm (R), no edema noted Leg (L), no edema noted Leg (R), no edema noted Pedal (L), no edema noted Pedal (R), no edema noted Generalized Neurologic: motor weakness Skin: normal pigmentation, warm/dry CLARITA TEMPLETON Feb 22, 2017 08:02
--- NOTE | 2017-02-22 09:29 | Pulmonology Progress Note ---
Assessment/Plan Problems: (1) Rapid atrial fibrillation (2) HTN (hypertension) (3) Diabetic foot ulcer Assessment/Plan heart rate better awaiting transfer to [facility] for angiography, or to LTAC continue wound care IV abx check electrolytes symptomatic treatment keep in teli Subjective ROS Limited/Unobtainable: No Allergies: Coded Allergies: CODEINE (Unverified Allergy, Unknown, 02/17/17) Objective Last 24 Hour Vital Signs Date Time Temp Pulse Resp B/P (MAP) Pulse Ox O2 Delivery O2 Flow Rate FiO2 02/22/17 06:40 99.1 02/22/17 05:55 82 123/75 02/22/17 04:00 93 02/22/17 04:00 100.2 82 20 123/75 91 02/22/17 00:00 99.3 96 20 133/91 92 02/22/17 00:00 96 02/21/17 23:44 87 158/85 02/21/17 20:00 87 02/21/17 20:00 97.0 77 20 161/91 95 02/21/17 17:38 90 158/87 02/21/17 17:38 90 158/87 02/21/17 16:00 98.3 90 20 158/87 97 Nasal Cannula 2.0 02/21/17 16:00 84 02/21/17 12:09 83 118/78 02/21/17 12:00 98.4 80 18 118/89 97 Nasal Cannula 2.0 02/21/17 12:00 84 Intake and Output 02/21/17 02/22/17 19:00 07:00 Intake Total 196.752 ml Output Total 900 ml 1300 ml Balance -703.248 ml -1300 ml IV Total 196.752 ml Output Urine Total 900 ml 1300 ml Objective General Appearance: WD/WN HEENT: normocephalic, NG tube in place Respiratory/Chest: chest wall non-tender, lungs clear Abdomen: normal bowel sounds, soft, non tender Genitourinary: normal external genitalia Extremities: no cyanosis, clean dressing Laboratory Tests 02/21/17 12:15: Activated Partial Thromboplast Time 102H 02/21/17 20:41: Activated Partial Thromboplast Time 66H 02/22/17 04:15: White Blood Count 11.2H, Red Blood Count 3.29L, Hemoglobin 11.4L, Hematocrit 32.3L, Mean Corpuscular Volume 98, Mean Corpuscular Hemoglobin 34.6H, Mean Corpuscular Hemoglobin Concent 35.2, Red Cell Distribution Width 12.3, Platelet Count 140L, Mean Platelet Volume 6.3L, Neutrophils (%) (Auto) 70.2, Lymphocytes (%) (Auto) 13.7L, Monocytes (%) (Auto) 14.4H, Eosinophils (%) (Auto) 1.2, Basophils (%) (Auto) 0.7, Sodium Level 135L, Potassium Level 3.4L, Chloride Level 101, Carbon Dioxide Level 27, Anion Gap 7, Blood Urea Nitrogen 19H, Creatinine 2.1H, Estimat Glomerular Filtration Rate 38.5, Glucose Level 262H, Calcium Level 9.5, Phosphorus Level 2.6, Magnesium Level 1.9, Total Bilirubin 0.6, Aspartate Amino Transf (AST/SGOT) 14L, Alanine Aminotransferase (ALT/SGPT) 15, Alkaline Phosphatase 101, Total Protein 7.7, Albumin 1.7L, Globulin 6.0, Albumin/Globulin Ratio 0.3L 02/22/17 04:20: Activated Partial Thromboplast Time 54H Current Medications Medications (Trade) Dose Ordered Sig/Anahi Route PRN Reason Start Time Stop Time Status Last Admin Dose Admin Acetaminophen (Tylenol) 650 mg Q4H PRN NG Mild Pain/Temp > 100.5 02/20/17 05:45 03/20/17 05:44 02/22/17 05:42 Atorvastatin Calcium (Lipitor) 20 mg QHS NG 02/20/17 21:00 03/20/17 20:59 02/21/17 20:56 Cefepime HCl 2 gm/ Dextrose 110 ml @ 220 mls/hr Q24H IV 02/20/17 13:00 02/26/17 12:59 02/21/17 12:09 Dextrose (Dextrose 50%) STAT PRN IV Hypoglycemia 02/20/17 07:00 03/20/17 06:59 Diltiazem HCl (Cardizem) 90 mg EVERY 6 HOURS NG 02/20/17 06:00 03/22/17 00:00 02/22/17 05:55 Famotidine (Pepcid) 20 mg BID GT 02/21/17 18:00 03/23/17 17:59 02/21/17 17:38 Heparin Sodium/ Dextrose 500 ml @ 28.108 mls/ hr adjust per protocol IV 02/22/17 05:30 03/23/17 13:14 02/22/17 05:47 Insulin Aspart (NovoLOG) Q6HR SUBQ 02/21/17 18:00 03/20/17 11:29 02/22/17 05:47 Lorazepam (Ativan 2mg/ml 1ml) 0.5 mg Q4H PRN IV For Anxiety 02/20/17 05:46 02/25/17 05:45 Memantine (Namenda) 5 mg BID NG 02/20/17 09:00 03/21/17 08:59 02/21/17 17:38 Metoprolol Tartrate (Lopressor) 5 mg Q4H PRN IVP heart rate greater than 105 02/20/17 05:46 03/20/17 05:45 Metoprolol Tartrate (Lopressor) 100 mg BID NG 02/20/17 09:00 03/20/17 21:59 02/21/17 17:38 Ondansetron HCl (Zofran) 4 mg Q6H PRN IVP Nausea & Vomiting 02/20/17 07:00 03/20/17 06:59 Polyethylene Glycol (Miralax) 17 gm HSPRN PRN ORAL Constipation 02/20/17 07:00 03/20/17 06:59 Valproic Acid (Depakene) 500 mg EVERY 12 HOURS NG 02/20/17 09:00 03/20/17 20:59 02/21/17 20:56 Zolpidem Tartrate (Ambien) 5 mg HSPRN PRN ORAL Insomnia 02/20/17 07:00 02/25/17 06:59 SATHYA MEIER Feb 22, 2017 09:29
[2017-02-22] MEDS: Valproic Acid 250mg/5ml Liquid NG SCH ×2 (09:33→20:27)
[2017-02-22] MEDS: Memantine 5 MG TAB NG SCH ×2 (09:33→17:57)
--- NOTE | 2017-02-22 09:45 | Infectious Diseases Prog Note ---
Assessment/Plan Assessment/Plan A: Diabetic foot with foot gangrene AMS Atrial fibrillation Dementia PVD P: Continue Cefepime needs vascular surgery & amputation Subjective ROS Limited/Unobtainable: Yes Constitutional: Reports: fever, other - Meaa=245.2 Allergies: Coded Allergies: CODEINE (Unverified Allergy, Unknown, 02/17/17) Objective Vital Signs Last 24 Hour Vital Signs Date Time Temp Pulse Resp B/P (MAP) Pulse Ox O2 Delivery O2 Flow Rate FiO2 02/22/17 09:35 70 118/78 02/22/17 06:40 99.1 02/22/17 05:55 82 123/75 02/22/17 04:00 93 02/22/17 04:00 100.2 82 20 123/75 91 02/22/17 00:00 99.3 96 20 133/91 92 02/22/17 00:00 96 02/21/17 23:44 87 158/85 02/21/17 20:00 87 02/21/17 20:00 97.0 77 20 161/91 95 02/21/17 17:38 90 158/87 02/21/17 17:38 90 158/87 02/21/17 16:00 98.3 90 20 158/87 97 Nasal Cannula 2.0 02/21/17 16:00 84 02/21/17 12:09 83 118/78 02/21/17 12:00 98.4 80 18 118/89 97 Nasal Cannula 2.0 02/21/17 12:00 84 Height (Feet): 6 Height (Inches): 0.00 Weight (Pounds): 225 General Appearance: no acute distress HEENT: mucous membranes moist Respiratory/Chest: lungs clear Cardiovascular: normal rate, pacemaker/AICD Abdomen: soft, non tender, other - NG tube Extremities: no edema, other - left big toe gangrene Neurologic/Psychiatric: other - sleeping Laboratory Tests Test 02/21/17 12:15 02/21/17 20:41 02/22/17 04:15 02/22/17 04:20 Activated Partial Thromboplast Time 102 SEC (23-33) H 66 SEC (23-33) H 54 SEC (23-33) H White Blood Count 11.2 K/UL (4.8-10.8) H Red Blood Count 3.29 M/UL (4.70-6.10) L Hemoglobin 11.4 G/DL (14.2-18.0) L Hematocrit 32.3 % (42.0-52.0) L Mean Corpuscular Volume 98 FL (80-99) Mean Corpuscular Hemoglobin 34.6 PG (27.0-31.0) H Mean Corpuscular Hemoglobin Concent 35.2 G/DL (32.0-36.0) Red Cell Distribution Width 12.3 % (11.6-14.8) Platelet Count 140 K/UL (150-450) L Mean Platelet Volume 6.3 FL (6.5-10.1) L Neutrophils (%) (Auto) 70.2 % (45.0-75.0) Lymphocytes (%) (Auto) 13.7 % (20.0-45.0) L Monocytes (%) (Auto) 14.4 % (1.0-10.0) H Eosinophils (%) (Auto) 1.2 % (0.0-3.0) Basophils (%) (Auto) 0.7 % (0.0-2.0) Sodium Level 135 MMOL/L (136-145) L Potassium Level 3.4 MMOL/L (3.5-5.1) L Chloride Level 101 MMOL/L (98-107) Carbon Dioxide Level 27 MMOL/L (21-32) Anion Gap 7 mmol/L (5-15) Blood Urea Nitrogen 19 mg/dL (7-18) H Creatinine 2.1 MG/DL (0.55-1.30) H Estimat Glomerular Filtration Rate 38.5 mL/min (>60) Glucose Level 262 MG/DL (74-106) H Calcium Level 9.5 MG/DL (8.5-10.1) Phosphorus Level 2.6 MG/DL (2.5-4.9) Magnesium Level 1.9 MG/DL (1.8-2.4) Total Bilirubin 0.6 MG/DL (0.2-1.0) Aspartate Amino Transf (AST/SGOT) 14 U/L (15-37) L Alanine Aminotransferase (ALT/SGPT) 15 U/L (12-78) Alkaline Phosphatase 101 U/L (46-116) Total Protein 7.7 G/DL (6.4-8.2) Albumin 1.7 G/DL (3.4-5.0) L Globulin 6.0 g/dL Albumin/Globulin Ratio 0.3 (1.0-2.7) L Current Medications Medications (Trade) Dose Ordered Sig/Anahi Route PRN Reason Start Time Stop Time Status Last Admin Dose Admin Acetaminophen (Tylenol) 650 mg Q4H PRN NG Mild Pain/Temp > 100.5 02/20/17 05:45 03/20/17 05:44 02/22/17 05:42 Atorvastatin Calcium (Lipitor) 20 mg QHS NG 02/20/17 21:00 03/20/17 20:59 02/21/17 20:56 Cefepime HCl 2 gm/ Dextrose 110 ml @ 220 mls/hr Q24H IV 02/20/17 13:00 02/26/17 12:59 02/21/17 12:09 Dextrose (Dextrose 50%) STAT PRN IV Hypoglycemia 02/20/17 07:00 03/20/17 06:59 Diltiazem HCl (Cardizem) 90 mg EVERY 6 HOURS NG 02/20/17 06:00 03/22/17 00:00 02/22/17 05:55 Famotidine (Pepcid) 20 mg BID GT 02/21/17 18:00 03/23/17 17:59 02/22/17 09:33 Heparin Sodium/ Dextrose 500 ml @ 28.108 mls/ hr adjust per protocol IV 02/22/17 05:30 03/23/17 13:14 02/22/17 05:47 Insulin Aspart (NovoLOG) Q6HR SUBQ 02/21/17 18:00 03/20/17 11:29 02/22/17 05:47 Lorazepam (Ativan 2mg/ml 1ml) 0.5 mg Q4H PRN IV For Anxiety 02/20/17 05:46 02/25/17 05:45 Memantine (Namenda) 5 mg BID NG 02/20/17 09:00 03/21/17 08:59 02/22/17 09:33 Metoprolol Tartrate (Lopressor) 5 mg Q4H PRN IVP heart rate greater than 105 02/20/17 05:46 03/20/17 05:45 Metoprolol Tartrate (Lopressor) 100 mg BID NG 02/20/17 09:00 03/20/17 21:59 02/22/17 09:35 Ondansetron HCl (Zofran) 4 mg Q6H PRN IVP Nausea & Vomiting 02/20/17 07:00 03/20/17 06:59 Polyethylene Glycol (Miralax) 17 gm HSPRN PRN ORAL Constipation 02/20/17 07:00 03/20/17 06:59 Valproic Acid (Depakene) 500 mg EVERY 12 HOURS NG 02/20/17 09:00 03/20/17 20:59 02/22/17 09:33 Zolpidem Tartrate (Ambien) 5 mg HSPRN PRN ORAL Insomnia 02/20/17 07:00 02/25/17 06:59 MARYLIN WOOD Feb 22, 2017 09:45
[2017-02-22 12:00] VITALS: BP 159/100
[2017-02-22] MEDS: Cefepime HCl 2 GM in D5W 110 ML IV SCH (12:30)
--- NOTE | 2017-02-22 13:29 | Nephrology Progress Note ---
Assessment/Plan Problem List: (1) Atrial fibrillation (2) Acute on chronic renal failure (3) Pacemaker (4) Diabetic nephropathy Assessment cr slowly rising- has gaffney cr 2.1 (1) Diabetic foot ulcer (2) Atrial fibrillation (3) Pacemaker (4) Acute on chronic renal failure- Cr siobhan 2.3 Assessment: + urinary retention (5) Diabetic nephropathy Plan Plan: saline and albumin bollous Per cardiology correct electrolytes as needed monitor BS and BP and HR Avoid nephrotoxics monitor renal parameters Subjective ROS Limited/Unobtainable: No Constitutional: Reports: malaise Objective Objective Last 24 Hour Vital Signs Date Time Temp Pulse Resp B/P (MAP) Pulse Ox O2 Delivery O2 Flow Rate FiO2 02/22/17 12:25 83 159/100 02/22/17 12:00 97.9 83 20 159/100 95 Nasal Cannula 2.0 02/22/17 09:35 70 118/78 02/22/17 08:00 98.2 88 20 118/78 96 Nasal Cannula 2.0 02/22/17 08:00 94 02/22/17 06:40 99.1 02/22/17 05:55 82 123/75 02/22/17 04:00 93 02/22/17 04:00 100.2 82 20 123/75 91 02/22/17 00:00 99.3 96 20 133/91 92 02/22/17 00:00 96 02/21/17 23:44 87 158/85 02/21/17 20:00 87 02/21/17 20:00 97.0 77 20 161/91 95 02/21/17 17:38 90 158/87 02/21/17 17:38 90 158/87 02/21/17 16:00 98.3 90 20 158/87 97 Nasal Cannula 2.0 02/21/17 16:00 84 Intake and Output 02/21/17 02/22/17 19:00 07:00 Intake Total 196.752 ml Output Total 900 ml 1300 ml Balance -703.248 ml -1300 ml IV Total 196.752 ml Output Urine Total 900 ml 1300 ml Laboratory Tests 02/21/17 20:41: Activated Partial Thromboplast Time 66H 02/22/17 04:15: White Blood Count 11.2H, Red Blood Count 3.29L, Hemoglobin 11.4L, Hematocrit 32.3L, Mean Corpuscular Volume 98, Mean Corpuscular Hemoglobin 34.6H, Mean Corpuscular Hemoglobin Concent 35.2, Red Cell Distribution Width 12.3, Platelet Count 140L, Mean Platelet Volume 6.3L, Neutrophils (%) (Auto) 70.2, Lymphocytes (%) (Auto) 13.7L, Monocytes (%) (Auto) 14.4H, Eosinophils (%) (Auto) 1.2, Basophils (%) (Auto) 0.7, Sodium Level 135L, Potassium Level 3.4L, Chloride Level 101, Carbon Dioxide Level 27, Anion Gap 7, Blood Urea Nitrogen 19H, Creatinine 2.1H, Estimat Glomerular Filtration Rate 38.5, Glucose Level 262H, Calcium Level 9.5, Phosphorus Level 2.6, Magnesium Level 1.9, Total Bilirubin 0.6, Aspartate Amino Transf (AST/SGOT) 14L, Alanine Aminotransferase (ALT/SGPT) 15, Alkaline Phosphatase 101, Total Protein 7.7, Albumin 1.7L, Globulin 6.0, Albumin/Globulin Ratio 0.3L 02/22/17 04:20: Activated Partial Thromboplast Time 54H 02/22/17 12:00: Activated Partial Thromboplast Time 96H Height (Feet): 6 Height (Inches): 0.00 Weight (Pounds): 225 EENT: other - NGT Cardiovascular: arrhythmia Respiratory/Chest: decreased breath sounds Abdomen: soft Objective no other changes BHAVANI VACA Feb 22, 2017 13:29
[2017-02-22] MEDS: Heparin 25,000u/D5W 500ml 500 ML IV SCH ×2 (13:32→21:16)
[2017-02-22 15:38] VITALS: BP 139/81
[2017-02-22] MEDS ORDERED: Sterile Water Irrig 1000ml IRRIG ONE (15:59)
--- NOTE | 2017-02-22 17:49 | Cardiology Progress Note ---
Assessment/Plan Assessment/Plan atrial fibrilation, no evidence of rapid ehart rate potassium is 3.4 will give one dose Subjective Subjective the patient is lethargic no interaction Objective Last 24 Hour Vital Signs Date Time Temp Pulse Resp B/P (MAP) Pulse Ox O2 Delivery O2 Flow Rate FiO2 02/22/17 15:38 97.7 75 22 139/81 95 Nasal Cannula 2.0 02/22/17 12:25 83 159/100 02/22/17 12:00 89 02/22/17 12:00 97.9 83 20 159/100 95 Nasal Cannula 2.0 02/22/17 09:35 70 118/78 02/22/17 08:00 98.2 88 20 118/78 96 Nasal Cannula 2.0 02/22/17 08:00 94 02/22/17 07:02 Nasal Cannula 2.0 02/22/17 07:01 95 Nasal Cannula 2.0 02/22/17 06:40 99.1 02/22/17 05:55 82 123/75 02/22/17 04:00 93 02/22/17 04:00 100.2 82 20 123/75 91 02/22/17 00:00 99.3 96 20 133/91 92 02/22/17 00:00 96 02/21/17 23:44 87 158/85 02/21/17 20:00 87 02/21/17 20:00 97.0 77 20 161/91 95 General Appearance: lethargic EENT: PERRL/EOMI Neck: supple Rhythm: Afib Cardiovascular: normal rate Respiratory/Chest: crackles/rales Abdomen: soft Extremities: other - dressing on te left leg Neurologic: unresponsiveness Intake and Output 02/21/17 02/22/17 19:00 07:00 Intake Total 196.752 ml Output Total 900 ml 1300 ml Balance -703.248 ml -1300 ml IV Total 196.752 ml Output Urine Total 900 ml 1300 ml Laboratory Tests Test 02/21/17 20:41 02/22/17 04:15 02/22/17 04:20 02/22/17 12:00 Activated Partial Thromboplast Time 66 SEC (23-33) H 54 SEC (23-33) H 96 SEC (23-33) H White Blood Count 11.2 K/UL (4.8-10.8) H Red Blood Count 3.29 M/UL (4.70-6.10) L Hemoglobin 11.4 G/DL (14.2-18.0) L Hematocrit 32.3 % (42.0-52.0) L Mean Corpuscular Volume 98 FL (80-99) Mean Corpuscular Hemoglobin 34.6 PG (27.0-31.0) H Mean Corpuscular Hemoglobin Concent 35.2 G/DL (32.0-36.0) Red Cell Distribution Width 12.3 % (11.6-14.8) Platelet Count 140 K/UL (150-450) L Mean Platelet Volume 6.3 FL (6.5-10.1) L Neutrophils (%) (Auto) 70.2 % (45.0-75.0) Lymphocytes (%) (Auto) 13.7 % (20.0-45.0) L Monocytes (%) (Auto) 14.4 % (1.0-10.0) H Eosinophils (%) (Auto) 1.2 % (0.0-3.0) Basophils (%) (Auto) 0.7 % (0.0-2.0) Sodium Level 135 MMOL/L (136-145) L Potassium Level 3.4 MMOL/L (3.5-5.1) L Chloride Level 101 MMOL/L (98-107) Carbon Dioxide Level 27 MMOL/L (21-32) Anion Gap 7 mmol/L (5-15) Blood Urea Nitrogen 19 mg/dL (7-18) H Creatinine 2.1 MG/DL (0.55-1.30) H Estimat Glomerular Filtration Rate 38.5 mL/min (>60) Glucose Level 262 MG/DL (74-106) H Calcium Level 9.5 MG/DL (8.5-10.1) Phosphorus Level 2.6 MG/DL (2.5-4.9) Magnesium Level 1.9 MG/DL (1.8-2.4) Total Bilirubin 0.6 MG/DL (0.2-1.0) Aspartate Amino Transf (AST/SGOT) 14 U/L (15-37) L Alanine Aminotransferase (ALT/SGPT) 15 U/L (12-78) Alkaline Phosphatase 101 U/L (46-116) Total Protein 7.7 G/DL (6.4-8.2) Albumin 1.7 G/DL (3.4-5.0) L Globulin 6.0 g/dL Albumin/Globulin Ratio 0.3 (1.0-2.7) L REAL WILSON Feb 22, 2017 17:49
[2017-02-22 20:00] VITALS: BP 145/103
[2017-02-22] MEDS: Atorvastatin 20mg tab NG SCH (20:26)
[2017-02-23] MEDS: dilTIAZem HCl 90mg tab NG SCH ×4 (00:06→17:20)
[2017-02-23] MEDS: NovoLOG Insulin Flexpen SUBQ SCH ×4 (00:08→17:24)
[2017-02-23 00:33] VITALS: BP 150/91
[2017-02-23] MEDS: Heparin 25,000u/D5W 500ml 500 ML IV SCH ×2 (01:37→17:26)
[2017-02-23 04:14] VITALS: BP 140/89
[2017-02-23 04:44] LABS: BASOPHILS % (AUTO) 0.9 % (0.0-2.0); EOSINOPHILS % (AUTO) 1.4 % (0.0-3.0); HEMATOCRIT 30.9 % (42.0-52.0); HEMOGLOBIN 10.7 G/DL (14.2-18.0); LYMPHOCYTES % (AUTO) 14.1 % (20.0-45.0); MEAN CORPUSCULAR VOLUME 97 FL (80-99); MONOCYTES % (AUTO) 14.6 % (1.0-10.0); PLATELET COUNT 117 K/UL (150-450); RED BLOOD COUNT 3.18 M/UL (4.70-6.10); RED CELL DISTRIBUTION WIDTH 12.3 % (11.6-14.8)
[2017-02-23 04:53] LABS: ANION GAP 8 mmol/L (5-15); BLOOD UREA NITROGEN 21 mg/dL (7-18); CALCIUM 9.7 MG/DL (8.5-10.1); CARBON DIOXIDE 28 MMOL/L (21-32); CHLORIDE 100 MMOL/L (98-107); CREATININE 2.1 MG/DL (0.55-1.30); POTASSIUM 4.3 MMOL/L (3.5-5.1); SODIUM 136 MMOL/L (136-145)
--- NOTE | 2017-02-23 07:59 | General Progress Note ---
Assessment/Plan Problem List: (1) HTN (hypertension) ICD Codes: I10 - Essential (primary) hypertension SNOMED: 52616135 (2) Pacemaker ICD Codes: Z95.0 - Presence of cardiac pacemaker SNOMED: 622049196, 336457108 (3) Atrial fibrillation ICD Codes: I48.91 - Unspecified atrial fibrillation SNOMED: 53644117 (4) Diabetes mellitus ICD Codes: E11.9 - Type 2 diabetes mellitus without complications SNOMED: 79513132 (5) Diabetic foot ulcer ICD Codes: E11.621 - Type 2 diabetes mellitus with foot ulcer; L97.509 - Non- pressure chronic ulcer of other part of unspecified foot with unspecified severity SNOMED: 04225885, 598794482 (6) Altered level of consciousness ICD Codes: R40.4 - Transient alteration of awareness SNOMED: 3890761 (7) Acute on chronic renal failure ICD Codes: N17.9 - Acute kidney failure, unspecified; N18.9 - Chronic kidney disease, unspecified SNOMED: 078978216 (8) Rapid atrial fibrillation ICD Codes: I48.91 - Unspecified atrial fibrillation SNOMED: 668375829 Status: unchanged Assessment/Plan o2 pulm tx ng feed abx wound care cbc bmp am promise ltach eval Subjective Constitutional: Reports: weakness Allergies: Coded Allergies: CODEINE (Unverified Allergy, Unknown, 02/17/17) All Systems: reviewed and negative except above Subjective o2nc ng sleeping Objective Last 24 Hour Vital Signs Date Time Temp Pulse Resp B/P (MAP) Pulse Ox O2 Delivery O2 Flow Rate FiO2 02/23/17 05:30 92 140/89 02/23/17 04:14 98.6 92 24 140/89 95 02/23/17 04:00 Nasal Cannula 2.0 02/23/17 04:00 91 02/23/17 00:33 98.2 98 25 150/91 92 02/23/17 00:30 Nasal Cannula 2.0 02/23/17 00:06 92 150/91 02/23/17 00:00 79 02/22/17 20:00 99 02/22/17 20:00 98.4 76 26 145/103 90 02/22/17 20:00 Nasal Cannula 2.0 02/22/17 19:30 Nasal Cannula 2.0 28 02/22/17 19:30 95 Nasal Cannula 2.0 28 02/22/17 17:57 75 139/81 02/22/17 17:57 75 139/81 02/22/17 16:00 90 02/22/17 15:38 97.7 75 22 139/81 95 Nasal Cannula 2.0 02/22/17 12:25 83 159/100 02/22/17 12:00 89 02/22/17 12:00 97.9 83 20 159/100 95 Nasal Cannula 2.0 02/22/17 09:35 70 118/78 02/22/17 08:00 98.2 88 20 118/78 96 Nasal Cannula 2.0 02/22/17 08:00 94 Intake and Output 02/22/17 02/23/17 19:00 07:00 Intake Total 316.372 ml 1159.114 ml Output Total 750 ml 1000 ml Balance -433.628 ml 159.114 ml Free Water 150 ml IV Total 316.372 ml 289.114 ml Tube Feeding 720 ml Output Urine Total 750 ml 1000 ml Laboratory Tests 02/22/17 12:00: Activated Partial Thromboplast Time 96H 02/22/17 20:30: Activated Partial Thromboplast Time 49H 02/23/17 03:15: Activated Partial Thromboplast Time 32, White Blood Count 11.0H, Red Blood Count 3.18L, Hemoglobin 10.7L, Hematocrit 30.9L, Mean Corpuscular Volume 97, Mean Corpuscular Hemoglobin 33.5H, Mean Corpuscular Hemoglobin Concent 34.6, Red Cell Distribution Width 12.3, Platelet Count 117L, Mean Platelet Volume 6.2L , Neutrophils (%) (Auto) 69.0, Lymphocytes (%) (Auto) 14.1L, Monocytes (%) (Auto ) 14.6H, Eosinophils (%) (Auto) 1.4, Basophils (%) (Auto) 0.9, Sodium Level 136 , Potassium Level 4.3, Chloride Level 100, Carbon Dioxide Level 28, Anion Gap 8 , Blood Urea Nitrogen 21H, Creatinine 2.1H, Estimat Glomerular Filtration Rate 38.5, Glucose Level 267H, Calcium Level 9.7 Height (Feet): 6 Height (Inches): 0.00 Weight (Pounds): 227 General Appearance: lethargic, confused EENT: normal ENT inspection Neck: normal alignment Cardiovascular: normal peripheral pulses, normal rate, regular rhythm Respiratory/Chest: chest wall non-tender, lungs clear, normal breath sounds Abdomen: normal bowel sounds, non tender, soft Extremities: normal inspection Edema: no edema noted Arm (L), no edema noted Arm (R), no edema noted Leg (L), no edema noted Leg (R), no edema noted Pedal (L), no edema noted Pedal (R), no edema noted Generalized Neurologic: motor weakness Skin: normal pigmentation, warm/dry CLARITA TEMPLETON Feb 23, 2017 07:59
[2017-02-23 08:00] VITALS: BP 126/78
--- NOTE | 2017-02-23 08:00 | Progress Note ---
SUBJECTIVE: The patient is a 66-year-old male patient with atrial fibrillation with rapid ventricular rhythm. This patient has altered mental status and confusion. Cognition has declined below baseline. That is why, attending physician has requested daily psychiatric consultation. MENTAL STATUS EXAMINATION: The patient is a 66-year-old male with psychomotor agitation. Mood is irritable and agitated. Affect guarded and restricted. Thought process is disorganized and illogical. No signs of any suicidal or homicidal ideations. Insight and judgment are poor. DIAGNOSIS: Paranoid schizophrenia, acute exacerbation. PLAN: Continue titrating up this patient with psychotropic medications 00:43 disorganized thought process. Seen and assessed at bedside. Supportive therapy provided. 00:47. Chart reviewed. Discussed with staff. Karen Pettit M.D. DR: JAY JOB#: [id number] CC:
[2017-02-23] MEDS ORDERED: Heparin 25,000u/D5W 500ml 500 ML IV SCH (09:30)
[2017-02-23] MEDS ORDERED: Heparin 5000 units/ml inj IV ONE (09:30)
--- NOTE | 2017-02-23 10:17 | Diagnostic Imaging Report ---
Indication: Shortness of breath Technique: XRAY Chest 1v Comparison: 02/19/2017 Findings: Heart is enlarged but stable. Pacemaker unchanged in position. NG tube has been advanced, tip in the stomach. Persistent interstitial opacification/edema with increasing patchy bilateral airspace opacities. No pneumothorax. As left pleural effusion is questioned. Impression: Organ megaly with worsening interstitial opacification/edema and patchy bilateral airspace opacities. Findings are most likely related to CHF however superimposed pneumonia not excluded. Clinical correlation and follow-up exam recommended.
--- NOTE | 2017-02-23 10:42 | Diagnostic Imaging Report ---
Indication: NG tube placement Technique: XRAY Abdomen 1v Comparison: Correlation made to prior chest radiograph Findings: NG tube tip in the stomach. The side-port is at the level of the gastroesophageal junction. Advancement is recommended for more ideal positioning. Bowel gas pattern is nonspecific. No acute osseous abnormality seen. Impression: NG tube side port at the level of the gastroesophageal junction. Advancement recommended.
[2017-02-23] MEDS: Memantine 5 MG TAB NG SCH ×2 (11:01→17:20)
[2017-02-23] MEDS: Valproic Acid 250mg/5ml Liquid NG SCH ×2 (11:01→22:06)
--- NOTE | 2017-02-23 11:13 | Pulmonology Progress Note ---
Assessment/Plan Problems: (1) Rapid atrial fibrillation (2) HTN (hypertension) (3) Diabetic foot ulcer Assessment/Plan heart rate better awaiting transfer to [facility] for angiography, or to LTAC continue wound care IV abx check electrolytes symptomatic treatment keep in teli Subjective ROS Limited/Unobtainable: Yes Interval Events: somnolent Constitutional: Reports: no symptoms HEENT: Repors: no symptoms Allergies: Coded Allergies: CODEINE (Unverified Allergy, Unknown, 02/17/17) Objective Last 24 Hour Vital Signs Date Time Temp Pulse Resp B/P (MAP) Pulse Ox O2 Delivery O2 Flow Rate FiO2 02/23/17 11:00 95 128/89 02/23/17 07:53 Nasal Cannula 2.0 28 02/23/17 07:53 99 Nasal Cannula 2.0 28 02/23/17 05:30 92 140/89 02/23/17 04:14 98.6 92 24 140/89 95 02/23/17 04:00 Nasal Cannula 2.0 02/23/17 04:00 91 02/23/17 00:33 98.2 98 25 150/91 92 02/23/17 00:30 Nasal Cannula 2.0 02/23/17 00:06 92 150/91 02/23/17 00:00 79 02/22/17 20:00 99 02/22/17 20:00 98.4 76 26 145/103 90 02/22/17 20:00 Nasal Cannula 2.0 02/22/17 19:30 Nasal Cannula 2.0 28 02/22/17 19:30 95 Nasal Cannula 2.0 28 02/22/17 17:57 75 139/81 02/22/17 17:57 75 139/81 02/22/17 16:00 90 02/22/17 15:38 97.7 75 22 139/81 95 Nasal Cannula 2.0 02/22/17 12:25 83 159/100 02/22/17 12:00 89 02/22/17 12:00 97.9 83 20 159/100 95 Nasal Cannula 2.0 Intake and Output 02/22/17 02/23/17 19:00 07:00 Intake Total 316.372 ml 1159.114 ml Output Total 750 ml 1000 ml Balance -433.628 ml 159.114 ml Free Water 150 ml IV Total 316.372 ml 289.114 ml Tube Feeding 720 ml Output Urine Total 750 ml 1000 ml Objective General Appearance: WD/WN HEENT: normocephalic, NG tube in place Respiratory/Chest: chest wall non-tender, lungs clear Abdomen: normal bowel sounds, soft, non tender Genitourinary: normal external genitalia Extremities: no cyanosis, clean dressing Laboratory Tests 02/22/17 12:00: Activated Partial Thromboplast Time 96H 02/22/17 20:30: Activated Partial Thromboplast Time 49H 02/23/17 03:15: Activated Partial Thromboplast Time 32, White Blood Count 11.0H, Red Blood Count 3.18L, Hemoglobin 10.7L, Hematocrit 30.9L, Mean Corpuscular Volume 97, Mean Corpuscular Hemoglobin 33.5H, Mean Corpuscular Hemoglobin Concent 34.6, Red Cell Distribution Width 12.3, Platelet Count 117L, Mean Platelet Volume 6.2L , Neutrophils (%) (Auto) 69.0, Lymphocytes (%) (Auto) 14.1L, Monocytes (%) (Auto ) 14.6H, Eosinophils (%) (Auto) 1.4, Basophils (%) (Auto) 0.9, Sodium Level 136 , Potassium Level 4.3, Chloride Level 100, Carbon Dioxide Level 28, Anion Gap 8 , Blood Urea Nitrogen 21H, Creatinine 2.1H, Estimat Glomerular Filtration Rate 38.5, Glucose Level 267H, Calcium Level 9.7 02/23/17 08:30: Activated Partial Thromboplast Time 47H Current Medications Medications (Trade) Dose Ordered Sig/Anahi Route PRN Reason Start Time Stop Time Status Last Admin Dose Admin Acetaminophen (Tylenol) 650 mg Q4H PRN NG Mild Pain/Temp > 100.5 02/20/17 05:45 03/20/17 05:44 02/22/17 05:42 Atorvastatin Calcium (Lipitor) 20 mg QHS NG 02/20/17 21:00 03/20/17 20:59 02/22/17 20:26 Cefepime HCl 2 gm/ Dextrose 110 ml @ 220 mls/hr Q24H IV 02/20/17 13:00 02/26/17 12:59 02/22/17 12:30 Dextrose (Dextrose 50%) STAT PRN IV Hypoglycemia 02/20/17 07:00 03/20/17 06:59 Diltiazem HCl (Cardizem) 90 mg EVERY 6 HOURS NG 02/20/17 06:00 03/22/17 00:00 02/23/17 05:30 Famotidine (Pepcid) 20 mg BID GT 02/21/17 18:00 03/23/17 17:59 02/23/17 11:00 Heparin Sodium/ Dextrose 500 ml @ 39.192 mls/ hr adjust per protocol IV 02/23/17 09:30 03/25/17 09:29 02/23/17 09:41 Insulin Aspart (NovoLOG) Q6HR SUBQ 02/21/17 18:00 03/20/17 11:29 02/23/17 05:32 Lorazepam (Ativan 2mg/ml 1ml) 0.5 mg Q4H PRN IV For Anxiety 02/20/17 05:46 02/25/17 05:45 Memantine (Namenda) 5 mg BID NG 02/20/17 09:00 03/21/17 08:59 02/23/17 11:01 Metoprolol Tartrate (Lopressor) 5 mg Q4H PRN IVP heart rate greater than 105 02/20/17 05:46 03/20/17 05:45 Metoprolol Tartrate (Lopressor) 100 mg BID NG 02/20/17 09:00 03/20/17 21:59 02/23/17 11:00 Ondansetron HCl (Zofran) 4 mg Q6H PRN IVP Nausea & Vomiting 02/20/17 07:00 03/20/17 06:59 Polyethylene Glycol (Miralax) 17 gm HSPRN PRN ORAL Constipation 02/20/17 07:00 03/20/17 06:59 Valproic Acid (Depakene) 500 mg EVERY 12 HOURS NG 02/20/17 09:00 03/20/17 20:59 02/23/17 11:01 Zolpidem Tartrate (Ambien) 5 mg HSPRN PRN ORAL Insomnia 02/20/17 07:00 02/25/17 06:59 SATHYA MEIER Feb 23, 2017 11:13
[2017-02-23 12:00] VITALS: BP 143/84
--- NOTE | 2017-02-23 12:15 | Nephrology Progress Note ---
Assessment/Plan Problem List: (1) Atrial fibrillation (2) Acute on chronic renal failure (3) Pacemaker (4) Diabetic nephropathy Assessment cr slowly rising- has gaffney cr 2.1 (1) Diabetic foot ulcer (2) Atrial fibrillation (3) Pacemaker (4) Acute on chronic renal failure- Cr siobhan 2.3 Assessment: + urinary retention (5) Diabetic nephropathy Plan Plan: saline and albumin bollous Per cardiology correct electrolytes as needed monitor BS and BP and HR Avoid nephrotoxics monitor renal parameters Subjective ROS Limited/Unobtainable: No Constitutional: Reports: malaise Objective Objective Last 24 Hour Vital Signs Date Time Temp Pulse Resp B/P (MAP) Pulse Ox O2 Delivery O2 Flow Rate FiO2 02/23/17 11:00 95 128/89 02/23/17 07:53 Nasal Cannula 2.0 28 02/23/17 07:53 99 Nasal Cannula 2.0 28 02/23/17 05:30 92 140/89 02/23/17 04:14 98.6 92 24 140/89 95 02/23/17 04:00 Nasal Cannula 2.0 02/23/17 04:00 91 02/23/17 00:33 98.2 98 25 150/91 92 02/23/17 00:30 Nasal Cannula 2.0 02/23/17 00:06 92 150/91 02/23/17 00:00 79 02/22/17 20:00 99 02/22/17 20:00 98.4 76 26 145/103 90 02/22/17 20:00 Nasal Cannula 2.0 02/22/17 19:30 Nasal Cannula 2.0 28 02/22/17 19:30 95 Nasal Cannula 2.0 28 02/22/17 17:57 75 139/81 02/22/17 17:57 75 139/81 02/22/17 16:00 90 02/22/17 15:38 97.7 75 22 139/81 95 Nasal Cannula 2.0 02/22/17 12:25 83 159/100 Intake and Output 02/22/17 02/23/17 19:00 07:00 Intake Total 316.372 ml 1159.114 ml Output Total 750 ml 1000 ml Balance -433.628 ml 159.114 ml Free Water 150 ml IV Total 316.372 ml 289.114 ml Tube Feeding 720 ml Output Urine Total 750 ml 1000 ml Laboratory Tests 02/22/17 20:30: Activated Partial Thromboplast Time 49H 02/23/17 03:15: Activated Partial Thromboplast Time 32, White Blood Count 11.0H, Red Blood Count 3.18L, Hemoglobin 10.7L, Hematocrit 30.9L, Mean Corpuscular Volume 97, Mean Corpuscular Hemoglobin 33.5H, Mean Corpuscular Hemoglobin Concent 34.6, Red Cell Distribution Width 12.3, Platelet Count 117L, Mean Platelet Volume 6.2L , Neutrophils (%) (Auto) 69.0, Lymphocytes (%) (Auto) 14.1L, Monocytes (%) (Auto ) 14.6H, Eosinophils (%) (Auto) 1.4, Basophils (%) (Auto) 0.9, Sodium Level 136 , Potassium Level 4.3, Chloride Level 100, Carbon Dioxide Level 28, Anion Gap 8 , Blood Urea Nitrogen 21H, Creatinine 2.1H, Estimat Glomerular Filtration Rate 38.5, Glucose Level 267H, Calcium Level 9.7 02/23/17 08:30: Activated Partial Thromboplast Time 47H Height (Feet): 6 Height (Inches): 0.00 Weight (Pounds): 227 General Appearance: no apparent distress Cardiovascular: arrhythmia Respiratory/Chest: decreased breath sounds Abdomen: distended Objective no other changes BHAVANI VACA Feb 23, 2017 12:15
[2017-02-23] MEDS: Cefepime HCl 2 GM in D5W 110 ML IV SCH (12:23)
[2017-02-23 16:00] VITALS: BP 150/95
--- NOTE | 2017-02-23 18:46 | Diagnostic Imaging Report ---
Indication: NG tube placement Technique: XRAY Abdomen 1v Comparison: 02/23/2017, 10:04 Findings/ Impression: Interval advancement of NG tube. Tip and side port now well within the stomach. Additional findings without change from the prior exam a few hours earlier.
--- NOTE | 2017-02-23 19:26 | Cardiology Progress Note ---
Assessment/Plan Assessment/Plan 1. Tachycardia. 2. Atrial fibrillation, permanent. 3. History of sick sinus syndrome, status post single-chamber permanent pacemaker implantation. 4. History of hypertension. 5. Diabetes mellitus. 6. Gangrene, left foot. 7. Peripheral vascular disease. 8. Diabetic foot ulcers. 9. med non compliance he has an ngt now and heart rate well controlled now with ngt med off ivf should be jose elias to tolerate angio and amputation as long as he takes his bb and cardizem !!! risk are expect to be low and acceptable he has been tolerating sig tachy in the last 2 admission iv lasix one tiem ok to transfer to other facility Subjective ROS Limited/Unobtainable: Yes Objective Last 24 Hour Vital Signs Date Time Temp Pulse Resp B/P (MAP) Pulse Ox O2 Delivery O2 Flow Rate FiO2 02/23/17 17:20 80 150/95 02/23/17 17:20 80 150/95 02/23/17 16:00 90 02/23/17 16:00 97.4 80 18 150/95 100 Nasal Cannula 2.0 02/23/17 12:24 82 143/89 02/23/17 12:00 110 02/23/17 12:00 97.2 91 19 143/84 100 Nasal Cannula 2.0 02/23/17 11:00 95 128/89 02/23/17 08:00 98 02/23/17 08:00 96.9 105 19 126/78 100 Nasal Cannula 2.0 02/23/17 07:53 Nasal Cannula 2.0 28 02/23/17 07:53 99 Nasal Cannula 2.0 28 02/23/17 05:30 92 140/89 02/23/17 04:14 98.6 92 24 140/89 95 02/23/17 04:00 Nasal Cannula 2.0 02/23/17 04:00 91 02/23/17 00:33 98.2 98 25 150/91 92 02/23/17 00:30 Nasal Cannula 2.0 02/23/17 00:06 92 150/91 02/23/17 00:00 79 02/22/17 20:00 99 02/22/17 20:00 98.4 76 26 145/103 90 02/22/17 20:00 Nasal Cannula 2.0 02/22/17 19:30 Nasal Cannula 2.0 28 02/22/17 19:30 95 Nasal Cannula 2.0 28 General Appearance: other - conufsed but arousable Neck: supple Cardiovascular: irregularly irregular Respiratory/Chest: lungs clear Abdomen: normal bowel sounds, non tender, soft Extremities: no swelling Intake and Output 02/22/17 02/23/17 19:00 07:00 Intake Total 316.372 ml 1159.114 ml Output Total 750 ml 1000 ml Balance -433.628 ml 159.114 ml Free Water 150 ml IV Total 316.372 ml 289.114 ml Tube Feeding 720 ml Output Urine Total 750 ml 1000 ml Laboratory Tests Test 02/22/17 20:30 02/23/17 03:15 02/23/17 08:30 02/23/17 15:02 Activated Partial Thromboplast Time 49 SEC (23-33) H 32 SEC (23-33) 47 SEC (23-33) H > 150 SEC (23-33) *H White Blood Count 11.0 K/UL (4.8-10.8) H Red Blood Count 3.18 M/UL (4.70-6.10) L Hemoglobin 10.7 G/DL (14.2-18.0) L Hematocrit 30.9 % (42.0-52.0) L Mean Corpuscular Volume 97 FL (80-99) Mean Corpuscular Hemoglobin 33.5 PG (27.0-31.0) H Mean Corpuscular Hemoglobin Concent 34.6 G/DL (32.0-36.0) Red Cell Distribution Width 12.3 % (11.6-14.8) Platelet Count 117 K/UL (150-450) L Mean Platelet Volume 6.2 FL (6.5-10.1) L Neutrophils (%) (Auto) 69.0 % (45.0-75.0) Lymphocytes (%) (Auto) 14.1 % (20.0-45.0) L Monocytes (%) (Auto) 14.6 % (1.0-10.0) H Eosinophils (%) (Auto) 1.4 % (0.0-3.0) Basophils (%) (Auto) 0.9 % (0.0-2.0) Sodium Level 136 MMOL/L (136-145) Potassium Level 4.3 MMOL/L (3.5-5.1) Chloride Level 100 MMOL/L (98-107) Carbon Dioxide Level 28 MMOL/L (21-32) Anion Gap 8 mmol/L (5-15) Blood Urea Nitrogen 21 mg/dL (7-18) H Creatinine 2.1 MG/DL (0.55-1.30) H Estimat Glomerular Filtration Rate 38.5 mL/min (>60) Glucose Level 267 MG/DL (74-106) H Calcium Level 9.7 MG/DL (8.5-10.1) BOBBY BURNETTE Feb 23, 2017 19:26
[2017-02-23 20:34] VITALS: BP 149/82
--- NOTE | 2017-02-23 21:30 | Progress Note ---
DATE: 02/23/2017 SUBJECTIVE: This is a 66-year-old male patient with atrial fibrillation. The patient has confusion and disorganized thought process. Overall, cognition has declined from the baseline so attending physician has requested daily psychiatric consultation. MENTAL STATUS EXAMINATION: This is a 66-year-old male with psychomotor agitation. Mood is irritable and agitated. Affect guarded and restricted. Thought process is disorganized and illogical. Denies any current suicidal or homicidal thoughts. Insight and judgment is poor. DIAGNOSIS: Paranoid schizophrenia with acute exacerbation. PLAN: Continue to treat this patient with medications to prevent any further decline in his cognition. Seen and assessed at bedside. Chart reviewed and discussed with staff. Karen Pettit M.D. DR: JESSICA JOB#: [id number] CC:
[2017-02-23] MEDS: Atorvastatin 20mg tab NG SCH (22:06)
[2017-02-24] VITALS (8 sets, daily range): BP systolic 110–150; BP diastolic 52–86
[2017-02-24] MEDS: NovoLOG Insulin Flexpen SUBQ SCH ×4 (06:00→18:44)
[2017-02-24] MEDS: dilTIAZem HCl 90mg tab NG SCH ×4 (06:00→18:40)
[2017-02-24] MEDS: Valproic Acid 250mg/5ml Liquid NG SCH ×3 (09:00→20:38)
[2017-02-24] MEDS: Memantine 5 MG TAB NG SCH ×3 (09:00→18:40)
--- NOTE | 2017-02-24 09:40 | Infectious Diseases Prog Note ---
Assessment/Plan Assessment/Plan A: Diabetic foot with foot gangrene AMS Atrial fibrillation Dementia PVD P: Continue Cefepime needs vascular surgery & amputation Subjective ROS Limited/Unobtainable: Yes Allergies: Coded Allergies: CODEINE (Unverified Allergy, Unknown, 02/17/17) Objective Vital Signs Last 24 Hour Vital Signs Date Time Temp Pulse Resp B/P (MAP) Pulse Ox O2 Delivery O2 Flow Rate FiO2 02/24/17 06:00 72 148/64 02/24/17 04:17 98.1 72 20 148/64 94 Nasal Cannula 02/24/17 04:00 99 02/24/17 00:18 98.4 77 20 150/78 93 Nasal Cannula 02/24/17 00:00 103 02/24/17 00:00 77 150/78 02/23/17 20:34 98.1 87 22 149/82 94 Nasal Cannula 02/23/17 20:00 87 02/23/17 19:04 98 Nasal Cannula 2.0 28 02/23/17 19:04 Nasal Cannula 2.0 28 02/23/17 17:20 80 150/95 02/23/17 17:20 80 150/95 02/23/17 16:00 90 02/23/17 16:00 97.4 80 18 150/95 100 Nasal Cannula 2.0 02/23/17 12:24 82 143/89 02/23/17 12:00 110 02/23/17 12:00 97.2 91 19 143/84 100 Nasal Cannula 2.0 02/23/17 11:00 95 128/89 Height (Feet): 6 Height (Inches): 0.00 Weight (Pounds): 217 General Appearance: no acute distress HEENT: mucous membranes moist Respiratory/Chest: lungs clear Cardiovascular: normal rate Abdomen: soft, non tender, other - NG tube feeding Extremities: no edema, other - left foot dressing Neurologic/Psychiatric: other - sleeping Laboratory Tests Test 02/23/17 15:02 02/23/17 23:26 Activated Partial Thromboplast Time > 150 SEC (23-33) *H 77 SEC (23-33) H Current Medications Medications (Trade) Dose Ordered Sig/Anahi Route PRN Reason Start Time Stop Time Status Last Admin Dose Admin Acetaminophen (Tylenol) 650 mg Q4H PRN NG Mild Pain/Temp > 100.5 02/20/17 05:45 2/9/18 05:44 02/22/17 05:42 Atorvastatin Calcium (Lipitor) 20 mg QHS NG 02/20/17 21:00 03/20/17 20:59 02/23/17 22:06 Cefepime HCl 2 gm/ Dextrose 110 ml @ 220 mls/hr Q24H IV 02/20/17 13:00 02/26/17 12:59 02/23/17 12:23 Dextrose (Dextrose 50%) STAT PRN IV Hypoglycemia 02/20/17 07:00 03/20/17 06:59 Diltiazem HCl (Cardizem) 90 mg EVERY 6 HOURS NG 02/20/17 06:00 03/22/17 00:00 02/24/17 06:00 Famotidine (Pepcid) 20 mg BID GT 02/21/17 18:00 03/23/17 17:59 02/23/17 17:19 Heparin Sodium/ Dextrose 500 ml @ 30.941 mls/ hr adjust per protocol IV 02/23/17 17:30 03/25/17 17:29 02/23/17 17:26 Insulin Aspart (NovoLOG) Q6HR SUBQ 02/21/17 18:00 03/20/17 11:29 02/24/17 06:00 Lorazepam (Ativan 2mg/ml 1ml) 0.5 mg Q4H PRN IV For Anxiety 02/20/17 05:46 02/25/17 05:45 Memantine (Namenda) 5 mg BID NG 02/20/17 09:00 03/21/17 08:59 02/23/17 17:20 Metoprolol Tartrate (Lopressor) 5 mg Q4H PRN IVP heart rate greater than 105 02/20/17 05:46 03/20/17 05:45 Metoprolol Tartrate (Lopressor) 100 mg BID NG 02/20/17 09:00 03/20/17 21:59 02/23/17 17:20 Ondansetron HCl (Zofran) 4 mg Q6H PRN IVP Nausea & Vomiting 02/20/17 07:00 03/20/17 06:59 Polyethylene Glycol (Miralax) 17 gm HSPRN PRN ORAL Constipation 02/20/17 07:00 03/20/17 06:59 Valproic Acid (Depakene) 500 mg EVERY 12 HOURS NG 02/20/17 09:00 03/20/17 20:59 02/23/17 22:06 Zolpidem Tartrate (Ambien) 5 mg HSPRN PRN ORAL Insomnia 02/20/17 07:00 02/25/17 06:59 MARYLIN WOOD Feb 24, 2017 09:40
[2017-02-24 10:00] LABS: EOSINOPHILS % (AUTO) 1.9 % (0.0-3.0); HEMATOCRIT 32.6 % (42.0-52.0); HEMOGLOBIN 10.8 G/DL (14.2-18.0); LYMPHOCYTES % (AUTO) 14.2 % (20.0-45.0); MEAN CORPUSCULAR VOLUME 97 FL (80-99); MONOCYTES % (AUTO) 11.5 % (1.0-10.0); NEUTROPHILS % (AUTO) 71.6 % (45.0-75.0); PLATELET COUNT 140 K/UL (150-450); RED BLOOD COUNT 3.35 M/UL (4.70-6.10); RED CELL DISTRIBUTION WIDTH 11.9 % (11.6-14.8); WHITE BLOOD COUNT 12.6 K/UL (4.8-10.8)
[2017-02-24 10:08] LABS: ANION GAP 8 mmol/L (5-15); BLOOD UREA NITROGEN 26 mg/dL (7-18); CALCIUM 10.2 MG/DL (8.5-10.1); CARBON DIOXIDE 31 MMOL/L (21-32); CHLORIDE 99 MMOL/L (98-107); CREATININE 2.3 MG/DL (0.55-1.30); POTASSIUM 3.7 MMOL/L (3.5-5.1); SODIUM 138 MMOL/L (136-145)
[2017-02-24] MEDS ORDERED: Heparin 5000 units/ml inj IV ONE (11:00)
[2017-02-24] MEDS: Heparin 25,000u/D5W 500ml 500 ML IV SCH ×2 (11:14→15:59)
--- NOTE | 2017-02-24 13:22 | General Progress Note ---
Assessment/Plan Problem List: (1) HTN (hypertension) ICD Codes: I10 - Essential (primary) hypertension SNOMED: 73341369 (2) Pacemaker ICD Codes: Z95.0 - Presence of cardiac pacemaker SNOMED: 163131679, 596564140 (3) Atrial fibrillation ICD Codes: I48.91 - Unspecified atrial fibrillation SNOMED: 87772432 (4) Diabetes mellitus ICD Codes: E11.9 - Type 2 diabetes mellitus without complications SNOMED: 91716619 (5) Diabetic foot ulcer ICD Codes: E11.621 - Type 2 diabetes mellitus with foot ulcer; L97.509 - Non- pressure chronic ulcer of other part of unspecified foot with unspecified severity SNOMED: 91236267, 669094897 (6) Altered level of consciousness ICD Codes: R40.4 - Transient alteration of awareness SNOMED: 7586719 (7) Acute on chronic renal failure ICD Codes: N17.9 - Acute kidney failure, unspecified; N18.9 - Chronic kidney disease, unspecified SNOMED: 939718619 (8) Rapid atrial fibrillation ICD Codes: I48.91 - Unspecified atrial fibrillation SNOMED: 271073903 Status: unchanged Assessment/Plan o2 pulm tx ng feed abx wound care cbc bmp am promise ltach eval vs [facility] transfer for angio Subjective Constitutional: Reports: weakness Allergies: Coded Allergies: CODEINE (Unverified Allergy, Unknown, 02/17/17) All Systems: reviewed and negative except above Subjective o2nc ng sleeping Objective Last 24 Hour Vital Signs Date Time Temp Pulse Resp B/P (MAP) Pulse Ox O2 Delivery O2 Flow Rate FiO2 02/24/17 11:08 76 126/82 02/24/17 08:00 105 02/24/17 06:00 72 148/64 02/24/17 04:17 98.1 72 20 148/64 94 Nasal Cannula 02/24/17 04:00 99 02/24/17 00:18 98.4 77 20 150/78 93 Nasal Cannula 02/24/17 00:00 103 02/24/17 00:00 77 150/78 02/23/17 20:34 98.1 87 22 149/82 94 Nasal Cannula 02/23/17 20:00 87 02/23/17 19:04 98 Nasal Cannula 2.0 28 02/23/17 19:04 Nasal Cannula 2.0 28 02/23/17 17:20 80 150/95 02/23/17 17:20 80 150/95 02/23/17 16:00 90 02/23/17 16:00 97.4 80 18 150/95 100 Nasal Cannula 2.0 Intake and Output 02/23/17 02/24/17 19:00 07:00 Intake Total 493.536 ml 180 ml Output Total 400 ml 2100 ml Balance 93.536 ml -1920 ml IV Total 493.536 ml 180 ml Output Urine Total 400 ml 2100 ml Laboratory Tests 02/23/17 15:02: Activated Partial Thromboplast Time > 150*H 02/23/17 23:26: Activated Partial Thromboplast Time 77H 02/24/17 09:20: Activated Partial Thromboplast Time 35H, White Blood Count 12.6H, Red Blood Count 3.35L, Hemoglobin 10.8L, Hematocrit 32.6L, Mean Corpuscular Volume 97, Mean Corpuscular Hemoglobin 32.3H, Mean Corpuscular Hemoglobin Concent 33.2, Red Cell Distribution Width 11.9, Platelet Count 140L, Mean Platelet Volume 6.9 , Neutrophils (%) (Auto) 71.6, Lymphocytes (%) (Auto) 14.2L, Monocytes (%) (Auto ) 11.5H, Eosinophils (%) (Auto) 1.9, Basophils (%) (Auto) 1.0, Sodium Level 138 , Potassium Level 3.7, Chloride Level 99, Carbon Dioxide Level 31, Anion Gap 8, Blood Urea Nitrogen 26H, Creatinine 2.3H, Estimat Glomerular Filtration Rate 34.7, Glucose Level 278H, Calcium Level 10.2H Height (Feet): 6 Height (Inches): 0.00 Weight (Pounds): 217 General Appearance: lethargic EENT: normal ENT inspection Neck: normal alignment Cardiovascular: normal peripheral pulses, normal rate, regular rhythm Respiratory/Chest: chest wall non-tender, lungs clear, normal breath sounds Abdomen: normal bowel sounds, non tender, soft Extremities: normal inspection Edema: no edema noted Arm (L), no edema noted Arm (R), no edema noted Leg (L), no edema noted Leg (R), no edema noted Pedal (L), no edema noted Pedal (R), no edema noted Generalized Neurologic: motor weakness Skin: normal pigmentation, warm/dry CLARITA TEMPLETON Feb 24, 2017 13:21
--- NOTE | 2017-02-24 13:43 | Neurology Progress Note ---
Interim History Interim History ROS Limited/Unobtainable: Yes Objective Physical Exam Last Vital Signs Date Time Temp Pulse Resp B/P (MAP) Pulse Ox O2 Delivery O2 Flow Rate FiO2 02/24/17 12:00 97.9 69 20 145/76 98 Nasal Cannula 2.0 02/23/17 19:04 28 Laboratory Tests Test 02/23/17 15:02 02/23/17 23:26 02/24/17 09:20 Activated Partial Thromboplast Time > 150 SEC (23-33) *H 77 SEC (23-33) H 35 SEC (23-33) H White Blood Count 12.6 K/UL (4.8-10.8) H Red Blood Count 3.35 M/UL (4.70-6.10) L Hemoglobin 10.8 G/DL (14.2-18.0) L Hematocrit 32.6 % (42.0-52.0) L Mean Corpuscular Volume 97 FL (80-99) Mean Corpuscular Hemoglobin 32.3 PG (27.0-31.0) H Mean Corpuscular Hemoglobin Concent 33.2 G/DL (32.0-36.0) Red Cell Distribution Width 11.9 % (11.6-14.8) Platelet Count 140 K/UL (150-450) L Mean Platelet Volume 6.9 FL (6.5-10.1) Neutrophils (%) (Auto) 71.6 % (45.0-75.0) Lymphocytes (%) (Auto) 14.2 % (20.0-45.0) L Monocytes (%) (Auto) 11.5 % (1.0-10.0) H Eosinophils (%) (Auto) 1.9 % (0.0-3.0) Basophils (%) (Auto) 1.0 % (0.0-2.0) Sodium Level 138 MMOL/L (136-145) Potassium Level 3.7 MMOL/L (3.5-5.1) Chloride Level 99 MMOL/L (98-107) Carbon Dioxide Level 31 MMOL/L (21-32) Anion Gap 8 mmol/L (5-15) Blood Urea Nitrogen 26 mg/dL (7-18) H Creatinine 2.3 MG/DL (0.55-1.30) H Estimat Glomerular Filtration Rate 34.7 mL/min (>60) Glucose Level 278 MG/DL (74-106) H Calcium Level 10.2 MG/DL (8.5-10.1) H Impression/Recommendations Status: unchanged Recommendations #[id number] ДМИТРИЙ WEISS Feb 24, 2017 13:42
[2017-02-24] MEDS: Cefepime HCl 2 GM in D5W 110 ML IV SCH (13:52)
--- NOTE | 2017-02-24 14:06 | Cardiology Progress Note ---
Assessment/Plan Assessment/Plan 1. Tachycardia. 2. Atrial fibrillation, permanent. 3. History of sick sinus syndrome, status post single-chamber permanent pacemaker implantation. 4. History of hypertension. 5. Diabetes mellitus. 6. Gangrene, left foot. 7. Peripheral vascular disease. 8. Diabetic foot ulcers. 9. med non compliance he has an ngt now and heart rate well controlled now with ngt med off ivf should be jose elias to tolerate angio and amputation as long as he takes his bb and cardizem !!! risk are expect to be low and acceptable he has been tolerating sig tachy in the last 2 admission s/p lasix yest ok to transfer to other facility hr ok may need adjustment of bb intermittently Subjective ROS Limited/Unobtainable: Yes Objective Last 24 Hour Vital Signs Date Time Temp Pulse Resp B/P (MAP) Pulse Ox O2 Delivery O2 Flow Rate FiO2 02/24/17 12:00 97.9 69 20 145/76 98 Nasal Cannula 2.0 02/24/17 11:30 98.4 102 20 134/86 95 Nasal Cannula 2.0 02/24/17 11:08 76 126/82 02/24/17 10:30 98.2 105 20 126/82 96 Nasal Cannula 2.0 02/24/17 08:00 97.7 115 20 136/83 98 Nasal Cannula 2.0 02/24/17 08:00 105 02/24/17 06:00 72 148/64 02/24/17 04:17 98.1 72 20 148/64 94 Nasal Cannula 02/24/17 04:00 99 02/24/17 00:18 98.4 77 20 150/78 93 Nasal Cannula 02/24/17 00:00 103 02/24/17 00:00 77 150/78 02/23/17 20:34 98.1 87 22 149/82 94 Nasal Cannula 02/23/17 20:00 87 02/23/17 19:04 98 Nasal Cannula 2.0 28 02/23/17 19:04 Nasal Cannula 2.0 28 02/23/17 17:20 80 150/95 02/23/17 17:20 80 150/95 02/23/17 16:00 90 02/23/17 16:00 97.4 80 18 150/95 100 Nasal Cannula 2.0 General Appearance: no apparent distress Cardiovascular: tachycardia, irregularly irregular Respiratory/Chest: rhonchi - bilaterally Abdomen: normal bowel sounds, non tender, soft Extremities: trace edema Intake and Output 02/23/17 02/24/17 19:00 07:00 Intake Total 493.536 ml 180 ml Output Total 400 ml 2100 ml Balance 93.536 ml -1920 ml IV Total 493.536 ml 180 ml Output Urine Total 400 ml 2100 ml Laboratory Tests Test 02/23/17 15:02 02/23/17 23:26 02/24/17 09:20 Activated Partial Thromboplast Time > 150 SEC (23-33) *H 77 SEC (23-33) H 35 SEC (23-33) H White Blood Count 12.6 K/UL (4.8-10.8) H Red Blood Count 3.35 M/UL (4.70-6.10) L Hemoglobin 10.8 G/DL (14.2-18.0) L Hematocrit 32.6 % (42.0-52.0) L Mean Corpuscular Volume 97 FL (80-99) Mean Corpuscular Hemoglobin 32.3 PG (27.0-31.0) H Mean Corpuscular Hemoglobin Concent 33.2 G/DL (32.0-36.0) Red Cell Distribution Width 11.9 % (11.6-14.8) Platelet Count 140 K/UL (150-450) L Mean Platelet Volume 6.9 FL (6.5-10.1) Neutrophils (%) (Auto) 71.6 % (45.0-75.0) Lymphocytes (%) (Auto) 14.2 % (20.0-45.0) L Monocytes (%) (Auto) 11.5 % (1.0-10.0) H Eosinophils (%) (Auto) 1.9 % (0.0-3.0) Basophils (%) (Auto) 1.0 % (0.0-2.0) Sodium Level 138 MMOL/L (136-145) Potassium Level 3.7 MMOL/L (3.5-5.1) Chloride Level 99 MMOL/L (98-107) Carbon Dioxide Level 31 MMOL/L (21-32) Anion Gap 8 mmol/L (5-15) Blood Urea Nitrogen 26 mg/dL (7-18) H Creatinine 2.3 MG/DL (0.55-1.30) H Estimat Glomerular Filtration Rate 34.7 mL/min (>60) Glucose Level 278 MG/DL (74-106) H Calcium Level 10.2 MG/DL (8.5-10.1) H Valproic Acid (Depakene) Level 57 MCG/ML (50-100) BOBBY BURNETTE Feb 24, 2017 14:06
--- NOTE | 2017-02-24 15:03 | Pulmonology Progress Note ---
Assessment/Plan Problems: (1) Rapid atrial fibrillation (2) HTN (hypertension) (3) Diabetic foot ulcer Assessment/Plan no new complains heart rate better awaiting transfer to [facility] for angiography, or to LTAC continue wound care IV abx check electrolytes symptomatic treatment keep in teli Subjective ROS Limited/Unobtainable: No Constitutional: Reports: no symptoms HEENT: Repors: no symptoms Respiratory: Reports: no symptoms Cardiovascular: Reports: no symptoms Gastrointestinal/Abdominal: Reports: no symptoms Allergies: Coded Allergies: CODEINE (Unverified Allergy, Unknown, 02/17/17) Objective Last 24 Hour Vital Signs Date Time Temp Pulse Resp B/P (MAP) Pulse Ox O2 Delivery O2 Flow Rate FiO2 02/24/17 12:00 97.9 69 20 145/76 98 Nasal Cannula 2.0 02/24/17 11:30 98.4 102 20 134/86 95 Nasal Cannula 2.0 02/24/17 11:08 76 126/82 02/24/17 10:30 98.2 105 20 126/82 96 Nasal Cannula 2.0 02/24/17 08:00 97.7 115 20 136/83 98 Nasal Cannula 2.0 02/24/17 08:00 105 02/24/17 06:00 72 148/64 02/24/17 04:17 98.1 72 20 148/64 94 Nasal Cannula 02/24/17 04:00 99 02/24/17 00:18 98.4 77 20 150/78 93 Nasal Cannula 02/24/17 00:00 103 02/24/17 00:00 77 150/78 02/23/17 20:34 98.1 87 22 149/82 94 Nasal Cannula 02/23/17 20:00 87 02/23/17 19:04 98 Nasal Cannula 2.0 28 02/23/17 19:04 Nasal Cannula 2.0 28 02/23/17 17:20 80 150/95 02/23/17 17:20 80 150/95 02/23/17 16:00 90 02/23/17 16:00 97.4 80 18 150/95 100 Nasal Cannula 2.0 Intake and Output 02/23/17 02/24/17 19:00 07:00 Intake Total 493.536 ml 180 ml Output Total 400 ml 2100 ml Balance 93.536 ml -1920 ml IV Total 493.536 ml 180 ml Output Urine Total 400 ml 2100 ml Objective General Appearance: WD/WN HEENT: normocephalic, NG tube in place Respiratory/Chest: chest wall non-tender, lungs clear Abdomen: normal bowel sounds, soft, non tender Genitourinary: normal external genitalia Extremities: no cyanosis, clean dressing Laboratory Tests 02/23/17 23:26: Activated Partial Thromboplast Time 77H 02/24/17 09:20: Activated Partial Thromboplast Time 35H, White Blood Count 12.6H, Red Blood Count 3.35L, Hemoglobin 10.8L, Hematocrit 32.6L, Mean Corpuscular Volume 97, Mean Corpuscular Hemoglobin 32.3H, Mean Corpuscular Hemoglobin Concent 33.2, Red Cell Distribution Width 11.9, Platelet Count 140L, Mean Platelet Volume 6.9 , Neutrophils (%) (Auto) 71.6, Lymphocytes (%) (Auto) 14.2L, Monocytes (%) (Auto ) 11.5H, Eosinophils (%) (Auto) 1.9, Basophils (%) (Auto) 1.0, Sodium Level 138 , Potassium Level 3.7, Chloride Level 99, Carbon Dioxide Level 31, Anion Gap 8, Blood Urea Nitrogen 26H, Creatinine 2.3H, Estimat Glomerular Filtration Rate 34.7, Glucose Level 278H, Calcium Level 10.2H, Valproic Acid (Depakene) Level 57 Current Medications Medications (Trade) Dose Ordered Sig/Anahi Route PRN Reason Start Time Stop Time Status Last Admin Dose Admin Acetaminophen (Tylenol) 650 mg Q4H PRN NG Mild Pain/Temp > 100.5 02/20/17 05:45 03/20/17 05:44 02/22/17 05:42 Atorvastatin Calcium (Lipitor) 20 mg QHS NG 02/20/17 21:00 03/20/17 20:59 02/23/17 22:06 Cefepime HCl 2 gm/ Dextrose 110 ml @ 220 mls/hr Q24H IV 02/20/17 13:00 02/26/17 12:59 02/24/17 13:52 Dextrose (Dextrose 50%) STAT PRN IV Hypoglycemia 02/20/17 07:00 03/20/17 06:59 Diltiazem HCl (Cardizem) 90 mg EVERY 6 HOURS NG 02/20/17 06:00 03/22/17 00:00 02/24/17 11:08 Famotidine (Pepcid) 20 mg DAILY GT 02/25/17 09:00 03/27/17 08:59 Heparin Sodium/ Dextrose 500 ml @ 39.192 mls/ hr adjust per protocol IV 02/23/17 17:30 03/25/17 17:29 02/24/17 11:14 Insulin Aspart (NovoLOG) Q6HR SUBQ 02/21/17 18:00 03/20/17 11:29 02/24/17 11:35 Lorazepam (Ativan 2mg/ml 1ml) 0.5 mg Q4H PRN IV For Anxiety 02/20/17 05:46 02/25/17 05:45 Memantine (Namenda) 5 mg BID NG 02/20/17 09:00 03/21/17 08:59 02/24/17 11:08 Metoprolol Tartrate (Lopressor) 5 mg Q4H PRN IVP heart rate greater than 105 02/20/17 05:46 03/20/17 05:45 Metoprolol Tartrate (Lopressor) 100 mg Q12HR NG 02/24/17 21:00 03/26/17 20:59 Ondansetron HCl (Zofran) 4 mg Q6H PRN IVP Nausea & Vomiting 02/20/17 07:00 03/20/17 06:59 Polyethylene Glycol (Miralax) 17 gm HSPRN PRN ORAL Constipation 02/20/17 07:00 03/20/17 06:59 Valproic Acid (Depakene) 500 mg EVERY 12 HOURS NG 02/20/17 09:00 03/20/17 20:59 02/24/17 11:07 Zolpidem Tartrate (Ambien) 5 mg HSPRN PRN ORAL Insomnia 02/20/17 07:00 02/25/17 06:59 SATHYA MEIER Feb 24, 2017 15:03
--- NOTE | 2017-02-24 15:45 | Diagnostic Imaging Report ---
Indication: Altered mental status Technique: Contiguous 5 mm thick transaxial imaging of the head obtained in a Siemens Sensation [address] scanner. Soft tissue and bone windows generated. Automatic Exposure Control was utilized. Total Dose length Product (DLP): 1840.[address] Dose Index Volume (CTDIvol): 70.38,70.38 mGy Comparison: 11/26/2016 Findings: There is mild prominence of the ventricles, basal cisterns, and cerebral sulci consistent with atrophy. Mild, nonspecific, white matter hypoattenuation is noted throughout the brain consistent with chronic small vessel disease. There is no midline shift, edema, acute hemorrhage, mass effect, or abnormal extra-axial fluid collections. Bones and extra osseous soft tissues are unremarkable. The left maxillary sinus is moderately opacified. Impression: No acute intracranial bleed, mass effect or edema. Mild atrophy of the brain. Nonspecific white matter hypoattenuation probably due to chronic small vessel disease. Sinusitis The CT scanner at [facility] is accredited by the [employer] and the scans are performed using dose optimization techniques as appropriate to a performed exam including Automatic Exposure control.
--- NOTE | 2017-02-24 16:15 | Nephrology Progress Note ---
Assessment/Plan Problem List: (1) Atrial fibrillation (2) Acute on chronic renal failure (3) Pacemaker (4) Diabetic nephropathy Assessment cr slowly rising- has gaffney cr 2.3 (1) Diabetic foot ulcer (2) Atrial fibrillation (3) Pacemaker (4) Acute on chronic renal failure- Cr siobhan 2.3 Assessment: + urinary retention (5) Diabetic nephropathy Plan Plan: saline and albumin bollous Per cardiology correct electrolytes as needed monitor BS and BP and HR Avoid nephrotoxics monitor renal parameters Subjective ROS Limited/Unobtainable: No Constitutional: Reports: malaise Objective Objective Last 24 Hour Vital Signs Date Time Temp Pulse Resp B/P (MAP) Pulse Ox O2 Delivery O2 Flow Rate FiO2 02/24/17 12:00 97.9 69 20 145/76 98 Nasal Cannula 2.0 02/24/17 11:30 98.4 102 20 134/86 95 Nasal Cannula 2.0 02/24/17 11:08 76 126/82 02/24/17 10:30 98.2 105 20 126/82 96 Nasal Cannula 2.0 02/24/17 08:00 97.7 115 20 136/83 98 Nasal Cannula 2.0 02/24/17 08:00 105 02/24/17 06:00 72 148/64 02/24/17 04:17 98.1 72 20 148/64 94 Nasal Cannula 02/24/17 04:00 99 02/24/17 00:18 98.4 77 20 150/78 93 Nasal Cannula 02/24/17 00:00 103 02/24/17 00:00 77 150/78 02/23/17 20:34 98.1 87 22 149/82 94 Nasal Cannula 02/23/17 20:00 87 02/23/17 19:04 98 Nasal Cannula 2.0 28 02/23/17 19:04 Nasal Cannula 2.0 28 02/23/17 17:20 80 150/95 02/23/17 17:20 80 150/95 Intake and Output 02/23/17 02/24/17 19:00 07:00 Intake Total 493.536 ml 180 ml Output Total 400 ml 2100 ml Balance 93.536 ml -1920 ml IV Total 493.536 ml 180 ml Output Urine Total 400 ml 2100 ml Laboratory Tests 02/23/17 23:26: Activated Partial Thromboplast Time 77H 02/24/17 09:20: Activated Partial Thromboplast Time 35H, White Blood Count 12.6H, Red Blood Count 3.35L, Hemoglobin 10.8L, Hematocrit 32.6L, Mean Corpuscular Volume 97, Mean Corpuscular Hemoglobin 32.3H, Mean Corpuscular Hemoglobin Concent 33.2, Red Cell Distribution Width 11.9, Platelet Count 140L, Mean Platelet Volume 6.9 , Neutrophils (%) (Auto) 71.6, Lymphocytes (%) (Auto) 14.2L, Monocytes (%) (Auto ) 11.5H, Eosinophils (%) (Auto) 1.9, Basophils (%) (Auto) 1.0, Sodium Level 138 , Potassium Level 3.7, Chloride Level 99, Carbon Dioxide Level 31, Anion Gap 8, Blood Urea Nitrogen 26H, Creatinine 2.3H, Estimat Glomerular Filtration Rate 34.7, Glucose Level 278H, Calcium Level 10.2H, Valproic Acid (Depakene) Level 57 Height (Feet): 6 Height (Inches): 0.00 Weight (Pounds): 217 General Appearance: no apparent distress Cardiovascular: arrhythmia Respiratory/Chest: decreased breath sounds Abdomen: distended Objective no other changes BHAVANI VACA Feb 24, 2017 16:15
--- NOTE | 2017-02-24 18:45 | Consultation ---
DATE OF CONSULTATION: 02/24/2017 NEUROLOGICAL CONSULTATION CONSULTING PHYSICIAN: Murray Chi M.D. REQUESTING PHYSICIAN: Pako Barreto D.O. HISTORY OF PRESENT ILLNESS: This is a 66-year-old gentleman, seen in neurological consultation to evaluate two witnessed episodes resembling seizure activity. The patient apparently was initially in radiology department in his bed when he had a brief, probably seconds, episodes of suddenly becoming unresponsive, generalized stiffness, and tremors in his both upper extremities while being verbal and responsive. It is not clear if he has urinary incontinence. The patient is now on Gonzalez catheter. There is no history of previous seizure disorder, although in November of last year, the patient was evaluated for an episode, which appeared to be syncopal and was not witnessed. The patient suffered from multiple medical issues. He was unable to provide with a full information on his current condition or history. This was compiled from medical records. Known that, the patient was readmitted after a recent hospitalization. He was oriented x2. He became increasingly lethargic and disoriented. On admission, he was oriented x2. He was in atrial fibrillation with rapid ventricular rate. He was treated with Cardizem and beta-jammie. His assessment at that time revealed presence of diabetic foot with signs of early gangrene. His initial laboratory work included a CBC study with WBC 12.1 and platelet count 140,000. Coagulation panel with a PTT of 34. Urinalysis positive for 2+ ketones, 3+ glucose, and 3+ protein. His chemistry panel with elevated BUN of 19, creatinine 2.3, and blood sugar 210. Normal troponin, but elevated CRP 32.2 and BNP of 2999. Normal TSH. The patient was placed on IV fluids and antibiotics. Vascular Surgery was requested regarding possible amputation of the gangrenous left foot. Online Marketing Coordinator's reassessment was obtained. The patient was described as with permanent atrial fibrillation, history of sick sinus syndrome, and he had a pacemaker implanted. No evidence of previous seizure disorder. PAST MEDICAL HISTORY: Atrial fibrillation, hypertension, diabetes type 2, mild vascular dementia, diabetic foot ulcers, and history of medical noncompliance. Current heart rate is controlled. MEDICATIONS: The patient's treatment prior to admission included albuterol, amlodipine, atorvastatin, clonidine, diltiazem, Depakote 500 mg b.i.d. presumably for behavioral abnormalities, Colace, insulin, Zyvox, lorazepam, Namenda, metoprolol, morphine, Zyprexa 7.5 mg, temazepam, and prednisone. ALLERGIES: Codeine. SOCIAL HISTORY: He is resident of a nursing facility. FAMILY HISTORY: Noncontributory. REVIEW OF SYMPTOMS: The patient was able to say that he has generalized weakness, but became significantly drowsy and was not able to provide with any further information. PHYSICAL EXAMINATION: GENERAL: A well-developed, but ill-appearing man, on oxygen with an oxygen mask. VITAL SIGNS: His current vital signs include heart rate of 105, blood pressure 136/82, and temperature 98.1. HEENT: Head, normocephalic. No evidence of trauma. LUNGS: He is somewhat diaphoretic. He has somewhat labored breathing. EXTREMITIES: Upper and lower extremities without clubbing, but has puffiness of feet. Peripheral pulses 1+ and symmetric. MENTAL STATUS: The patient initially was opening eyes and followed one or two simple commands, but rapidly became very lethargic. Only on vigorous stimulation, he would respond yes and no. CRANIAL NERVE II: Pupils both responding to light and accommodation. Extraocular movements full range. CRANIAL NERVE V: Normal corneal responses. CRANIAL NERVE VII: No gross asymmetry. CRANIAL NERVE VIII: Decreased hearing on the right. CRANIAL NERVES IX THROUGH XII: Tongue is in midline. MOTOR EXAMINATION: Diffuse rigidity. Able to lift arms against the gravity, but has a resting and action generalized tremor. The patient was able slightly to move his both lower extremities, but not able to lift against the gravity. Deep tendon reflexes depressed bilaterally. Plantar response is mute. No pathological responses. SENSORY EXAM: No response to pin stimulation. GAIT: Not tested. IMPRESSION: 1. Recurrent episodes resembling partial complex seizure activity. 2. Toxic metabolic encephalopathy due to underlying infection and metabolic derangement. 3. Vascular dementia. 4. Diabetic foot with foot gangrene. 5. Atrial fibrillation. 6. Pacemaker in place. 7. Peripheral vascular disease. RECOMMENDATIONS: 1. Get a CT of the brain without contrast if hemodynamically stable. 2. Electroencephalogram. 3. Recheck liver function and Depakote level. Depakote to be adjusted for a therapeutic anticonvulsant range. The patient meanwhile will continue with IV fluids, antibiotics, and if necessary proceed with a vascular surgery with proper anticonvulsant cover. Murray Licha Chi DR: NIKKO JOB#: [id number] CC:
[2017-02-24] MEDS: Metoprolol 5mg/5ml Inj IVP PRN (19:00)
[2017-02-24] MEDS: Atorvastatin 20mg tab NG SCH (20:38)
[2017-02-25] MEDS: Metoprolol 5mg/5ml Inj IVP PRN ×2 (00:11→06:43)
[2017-02-25] MEDS: dilTIAZem HCl 90mg tab NG SCH ×4 (00:11→19:04)
--- NOTE | 2017-02-25 00:15 | Progress Note ---
DATE: 02/24/2017 SUBJECTIVE: The patient is a 66-year-old male patient with atrial fibrillation, lethargy, rapid left ventricular heart rate, but this patient still has some confusion and disorganized thought process throughout hospital course. He does have some mood lability and confusion. Altered mental status and cognition has declined below baseline secondary to the progression of his medical illness and that is why the attending has requested daily psychiatric consultation with this patient to prevent any further decline in his cognition and try to restore cognition closer to his baseline. MENTAL STATUS EXAMINATION: The patient is a 66-year-old male with psychomotor retardation. Mood is depressed. Affect guarded and restricted. Thought process is disorganized and illogical. Denies any current suicidal or homicidal thoughts. Insight and judgment is poor. DIAGNOSIS: Bipolar 2. PLAN: My plan for this patient is to treat him with Namenda 5 mg per G-tube twice a day to reduce agitation, irritability, and stabilize his mood along with Depakote 500 mg per NG tube q.12 h. and encourage him to interact appropriately with staff Ativan 0.5 mg q.4 h. p.r.n. anxiety. Chart was reviewed and discussed with the patient. He will continue to be followed by Psychiatry throughout his hospital course. Chart was reviewed and discussed with staff. Supportive therapy provided. Karen Pettit M.D. DR: MARJORIE JOB#: [id number] CC:
[2017-02-25 00:21] VITALS: BP 127/60
[2017-02-25] MEDS: NovoLOG Insulin Flexpen SUBQ SCH ×4 (00:35→19:04)
[2017-02-25 04:14] VITALS: BP 131/89
[2017-02-25 05:35] LABS: BASOPHILS % (AUTO) 0.5 % (0.0-2.0); EOSINOPHILS % (AUTO) 1.5 % (0.0-3.0); HEMATOCRIT 33.1 % (42.0-52.0); HEMOGLOBIN 11.2 G/DL (14.2-18.0); LYMPHOCYTES % (AUTO) 11.7 % (20.0-45.0); MEAN CORPUSCULAR VOLUME 98 FL (80-99); MONOCYTES % (AUTO) 13.7 % (1.0-10.0); NEUTROPHILS % (AUTO) 72.6 % (45.0-75.0); PLATELET COUNT 168 K/UL (150-450); RED BLOOD COUNT 3.38 M/UL (4.70-6.10); RED CELL DISTRIBUTION WIDTH 12.5 % (11.6-14.8); WHITE BLOOD COUNT 12.3 K/UL (4.8-10.8)
[2017-02-25] MEDS ORDERED: Heparin 25,000u/D5W 500ml 500 ML IV SCH (06:00)
[2017-02-25 06:08] LABS: ANION GAP 7 mmol/L (5-15); BLOOD UREA NITROGEN 29 mg/dL (7-18); CALCIUM 10.5 MG/DL (8.5-10.1); CARBON DIOXIDE 31 MMOL/L (21-32); CHLORIDE 99 MMOL/L (98-107); CREATININE 2.4 MG/DL (0.55-1.30); POTASSIUM 3.6 MMOL/L (3.5-5.1); SODIUM 137 MMOL/L (136-145)
[2017-02-25 08:00] VITALS: BP 137/92
[2017-02-25] MEDS: Memantine 5 MG TAB NG SCH ×2 (09:19→19:04)
[2017-02-25] MEDS: Valproic Acid 250mg/5ml Liquid NG SCH ×2 (09:19→21:00)
--- NOTE | 2017-02-25 11:07 | Infectious Diseases Prog Note ---
Assessment/Plan Assessment/Plan A: Diabetic foot with foot gangrene AMS Atrial fibrillation Dementia PVD P: Continue Cefepime needs vascular surgery & amputation Subjective ROS Limited/Unobtainable: Yes Allergies: Coded Allergies: CODEINE (Unverified Allergy, Unknown, 02/17/17) Objective Vital Signs Last 24 Hour Vital Signs Date Time Temp Pulse Resp B/P (MAP) Pulse Ox O2 Delivery O2 Flow Rate FiO2 02/25/17 09:19 106 137/92 02/25/17 08:00 97.9 106 22 137/92 94 Nasal Cannula 2.0 02/25/17 06:43 146 148/87 02/25/17 06:12 136 134/89 02/25/17 04:14 97.8 86 22 131/89 92 Nasal Cannula 02/25/17 04:00 130 02/25/17 00:21 97.6 95 20 127/60 92 Nasal Cannula 02/25/17 00:11 150 158/89 02/25/17 00:11 150 158/89 02/25/17 00:00 143 02/24/17 20:39 73 118/72 02/24/17 20:20 98.6 97 22 118/73 92 Nasal Cannula 02/24/17 20:00 128 02/24/17 19:30 Nasal Cannula 2.0 28 02/24/17 19:30 96 Nasal Cannula 2.0 28 02/24/17 19:00 142 155/113 02/24/17 18:40 79 118/65 02/24/17 16:00 98.2 80 20 110/52 98 Nasal Cannula 2.0 02/24/17 16:00 107 02/24/17 12:00 134 02/24/17 12:00 97.9 69 20 145/76 98 Nasal Cannula 2.0 02/24/17 11:30 98.4 102 20 134/86 95 Nasal Cannula 2.0 02/24/17 11:08 76 126/82 Height (Feet): 6 Height (Inches): 0.00 Weight (Pounds): 218 HEENT: mucous membranes moist Respiratory/Chest: lungs clear Cardiovascular: tachycardia Abdomen: soft, non tender, other - NG tube Extremities: no edema, other - left big toe gangrene Neurologic/Psychiatric: unresponsiveness Laboratory Tests Test 02/24/17 17:23 02/25/17 04:20 Activated Partial Thromboplast Time 70 SEC (23-33) H 96 SEC (23-33) H White Blood Count 12.3 K/UL (4.8-10.8) H Red Blood Count 3.38 M/UL (4.70-6.10) L Hemoglobin 11.2 G/DL (14.2-18.0) L Hematocrit 33.1 % (42.0-52.0) L Mean Corpuscular Volume 98 FL (80-99) Mean Corpuscular Hemoglobin 33.0 PG (27.0-31.0) H Mean Corpuscular Hemoglobin Concent 33.7 G/DL (32.0-36.0) Red Cell Distribution Width 12.5 % (11.6-14.8) Platelet Count 168 K/UL (150-450) Mean Platelet Volume 6.9 FL (6.5-10.1) Neutrophils (%) (Auto) 72.6 % (45.0-75.0) Lymphocytes (%) (Auto) 11.7 % (20.0-45.0) L Monocytes (%) (Auto) 13.7 % (1.0-10.0) H Eosinophils (%) (Auto) 1.5 % (0.0-3.0) Basophils (%) (Auto) 0.5 % (0.0-2.0) Sodium Level 137 MMOL/L (136-145) Potassium Level 3.6 MMOL/L (3.5-5.1) Chloride Level 99 MMOL/L (98-107) Carbon Dioxide Level 31 MMOL/L (21-32) Anion Gap 7 mmol/L (5-15) Blood Urea Nitrogen 29 mg/dL (7-18) H Creatinine 2.4 MG/DL (0.55-1.30) H Estimat Glomerular Filtration Rate 33.0 mL/min (>60) Glucose Level 338 MG/DL (74-106) H Calcium Level 10.5 MG/DL (8.5-10.1) H Current Medications Medications (Trade) Dose Ordered Sig/Anahi Route PRN Reason Start Time Stop Time Status Last Admin Dose Admin Acetaminophen (Tylenol) 650 mg Q4H PRN NG Mild Pain/Temp > 100.5 02/20/17 05:45 03/20/17 05:44 02/22/17 05:42 Atorvastatin Calcium (Lipitor) 20 mg QHS NG 02/20/17 21:00 03/20/17 20:59 02/24/17 20:38 Cefepime HCl 2 gm/ Dextrose 110 ml @ 220 mls/hr Q24H IV 02/20/17 13:00 02/26/17 12:59 02/24/17 13:52 Dextrose (Dextrose 50%) STAT PRN IV Hypoglycemia 02/20/17 07:00 03/20/17 06:59 Diltiazem HCl (Cardizem) 90 mg EVERY 6 HOURS NG 02/20/17 06:00 03/22/17 00:00 02/25/17 06:12 Famotidine (Pepcid) 20 mg DAILY GT 02/25/17 09:00 03/27/17 08:59 02/25/17 09:19 Heparin Sodium/ Dextrose 500 ml @ 35.066 mls/ hr adjust per protocol IV 02/25/17 06:00 03/25/17 17:29 02/25/17 07:13 Insulin Aspart (NovoLOG) Q6HR SUBQ 02/21/17 18:00 03/20/17 11:29 02/25/17 06:14 Memantine (Namenda) 5 mg BID NG 02/20/17 09:00 03/21/17 08:59 02/25/17 09:19 Metoprolol Tartrate (Lopressor) 5 mg Q4H PRN IVP heart rate greater than 105 02/20/17 05:46 03/20/17 05:45 02/25/17 06:43 Metoprolol Tartrate (Lopressor) 100 mg Q12HR NG 02/24/17 21:00 03/26/17 20:59 02/25/17 09:19 Ondansetron HCl (Zofran) 4 mg Q6H PRN IVP Nausea & Vomiting 02/20/17 07:00 03/20/17 06:59 Polyethylene Glycol (Miralax) 17 gm HSPRN PRN ORAL Constipation 02/20/17 07:00 03/20/17 06:59 Valproic Acid (Depakene) 500 mg EVERY 12 HOURS NG 02/20/17 09:00 03/20/17 20:59 02/25/17 09:19 MARYLIN WOOD Feb 25, 2017 11:07
[2017-02-25 12:00] VITALS: BP 144/88
--- NOTE | 2017-02-25 12:14 | Neurology Progress Note ---
Interim History Interim History ROS Limited/Unobtainable: Yes Complaints: nonverbal, moans Events: no parox events noted Objective Physical Exam Last Vital Signs Date Time Temp Pulse Resp B/P (MAP) Pulse Ox O2 Delivery O2 Flow Rate FiO2 02/25/17 09:19 106 137/92 02/25/17 08:00 97.9 22 94 Nasal Cannula 2.0 02/24/17 19:30 28 Laboratory Tests Test 02/24/17 17:23 02/25/17 04:20 Activated Partial Thromboplast Time 70 SEC (23-33) H 96 SEC (23-33) H White Blood Count 12.3 K/UL (4.8-10.8) H Red Blood Count 3.38 M/UL (4.70-6.10) L Hemoglobin 11.2 G/DL (14.2-18.0) L Hematocrit 33.1 % (42.0-52.0) L Mean Corpuscular Volume 98 FL (80-99) Mean Corpuscular Hemoglobin 33.0 PG (27.0-31.0) H Mean Corpuscular Hemoglobin Concent 33.7 G/DL (32.0-36.0) Red Cell Distribution Width 12.5 % (11.6-14.8) Platelet Count 168 K/UL (150-450) Mean Platelet Volume 6.9 FL (6.5-10.1) Neutrophils (%) (Auto) 72.6 % (45.0-75.0) Lymphocytes (%) (Auto) 11.7 % (20.0-45.0) L Monocytes (%) (Auto) 13.7 % (1.0-10.0) H Eosinophils (%) (Auto) 1.5 % (0.0-3.0) Basophils (%) (Auto) 0.5 % (0.0-2.0) Sodium Level 137 MMOL/L (136-145) Potassium Level 3.6 MMOL/L (3.5-5.1) Chloride Level 99 MMOL/L (98-107) Carbon Dioxide Level 31 MMOL/L (21-32) Anion Gap 7 mmol/L (5-15) Blood Urea Nitrogen 29 mg/dL (7-18) H Creatinine 2.4 MG/DL (0.55-1.30) H Estimat Glomerular Filtration Rate 33.0 mL/min (>60) Glucose Level 338 MG/DL (74-106) H Calcium Level 10.5 MG/DL (8.5-10.1) H General: other - ill appearing labored breathing Head: atraumatic, other Neck: other - rigid Neurologic Exam Mental Status: other - has eyecontact but nonverbal ,moan/groan Speech: other Language: other Cranial Nerve II: no papilledema Cranial Nerves III, IV, : PERRLA, EOMI, pupils Cranial Nerve V: normal facial sensations Cranial Nerve VII: no facial asymmetry, normal facial expressions Cranial Nerve VIII: no nystagmus Cranial Nerve IX: other - poor gag Cranial Nerve XI: other Cranial Nerve XII: other Motor System: other - diffuse rigidity, postural tremors Sensory: other Coordination: other Deep Tendon Reflexes: 0 bicep (L), 0 bicep (R), 0 tricep (L), 0 tricep (R), 0 brachioradialis (L), 0 brachioradialis (R), 0 knee (L), 0 knee (R), 0 ankle (L) , 0 ankle (R) Reflexes: mute plantar (L), mute plantar (R) Impression/Recommendations Problems: (1) probably transient seizure episodes (2) Toxic metabolic encephalopathy (3) Rapid atrial fibrillation (4) Acute on chronic renal failure (5) HTN (hypertension) (6) Pacemaker Status: unchanged Recommendations #[id number] trial of [id number] bid CT Brain no acute changes EEG pend ДМИТРИЙ WEISS Feb 25, 2017 12:14
[2017-02-25] MEDS: Cefepime HCl 2 GM in D5W 110 ML IV SCH (13:02)
--- NOTE | 2017-02-25 13:07 | Nephrology Progress Note ---
Assessment/Plan Problem List: (1) Atrial fibrillation (2) Acute on chronic renal failure (3) Pacemaker (4) Diabetic nephropathy Assessment cr slowly rising- has gaffney cr 2.4 (1) Diabetic foot ulcer (2) Atrial fibrillation (3) Pacemaker (4) Acute on chronic renal failure- Cr siobhan 2.3 Assessment: + urinary retention (5) Diabetic nephropathy Plan Plan: saline and albumin bollous as needed Per cardiology correct electrolytes as needed monitor BS and BP and HR Avoid nephrotoxics monitor renal parameters ? lower level care? Subjective ROS Limited/Unobtainable: No Objective Objective Last 24 Hour Vital Signs Date Time Temp Pulse Resp B/P (MAP) Pulse Ox O2 Delivery O2 Flow Rate FiO2 02/25/17 13:02 86 144/88 02/25/17 12:00 97.9 86 20 144/88 97 Nasal Cannula 2.0 02/25/17 09:19 106 137/92 02/25/17 08:00 141 02/25/17 08:00 97.9 106 22 137/92 94 Nasal Cannula 2.0 02/25/17 06:43 146 148/87 02/25/17 06:12 136 134/89 02/25/17 04:14 97.8 86 22 131/89 92 Nasal Cannula 02/25/17 04:00 130 02/25/17 00:21 97.6 95 20 127/60 92 Nasal Cannula 02/25/17 00:11 150 158/89 02/25/17 00:11 150 158/89 02/25/17 00:00 143 02/24/17 20:39 73 118/72 02/24/17 20:20 98.6 97 22 118/73 92 Nasal Cannula 02/24/17 20:00 128 02/24/17 19:30 Nasal Cannula 2.0 28 02/24/17 19:30 96 Nasal Cannula 2.0 28 02/24/17 19:00 142 155/113 02/24/17 18:40 79 118/65 02/24/17 16:00 98.2 80 20 110/52 98 Nasal Cannula 2.0 02/24/17 16:00 107 Intake and Output 02/24/17 02/25/17 19:00 07:00 Intake Total 15 ml 190 ml Output Total 575 ml 500 ml Balance -560 ml -310 ml IV Total 15 ml 190 ml Output Urine Total 575 ml 500 ml Laboratory Tests 02/24/17 17:23: Activated Partial Thromboplast Time 70H 02/25/17 04:20: Activated Partial Thromboplast Time 96H, White Blood Count 12.3H, Red Blood Count 3.38L, Hemoglobin 11.2L, Hematocrit 33.1L, Mean Corpuscular Volume 98, Mean Corpuscular Hemoglobin 33.0H, Mean Corpuscular Hemoglobin Concent 33.7, Red Cell Distribution Width 12.5, Platelet Count 168, Mean Platelet Volume 6.9, Neutrophils (%) (Auto) 72.6, Lymphocytes (%) (Auto) 11.7L, Monocytes (%) (Auto) 13.7H, Eosinophils (%) (Auto) 1.5, Basophils (%) (Auto) 0.5, Sodium Level 137, Potassium Level 3.6, Chloride Level 99, Carbon Dioxide Level 31, Anion Gap 7, Blood Urea Nitrogen 29H, Creatinine 2.4H, Estimat Glomerular Filtration Rate 33.0, Glucose Level 338H, Calcium Level 10.5H Height (Feet): 6 Height (Inches): 0.00 Weight (Pounds): 218 EENT: other - ngt+ Cardiovascular: tachycardia, arrhythmia Respiratory/Chest: decreased breath sounds Abdomen: distended Objective no other changes BHAVANI VACA Feb 25, 2017 13:07
[2017-02-25 13:49] LABS: ALANINE AMINOTRANSFERASE 8 U/L (12-78); ALBUMIN 1.6 G/DL (3.4-5.0); ALKALINE PHOSPHATASE 106 U/L (46-116); ASPARTATE AMINO TRANSFERASE 16 U/L (15-37); BILIRUBIN,DIRECT 0.2 MG/DL (0.0-0.3); BILIRUBIN,TOTAL 0.5 MG/DL (0.2-1.0); PHOSPHORUS 3.8 MG/DL (2.5-4.9)
--- NOTE | 2017-02-25 14:19 | General Progress Note ---
Assessment/Plan Problem List: (1) HTN (hypertension) ICD Codes: I10 - Essential (primary) hypertension SNOMED: 79145296 (2) Pacemaker ICD Codes: Z95.0 - Presence of cardiac pacemaker SNOMED: 170138670, 085198498 (3) Atrial fibrillation ICD Codes: I48.91 - Unspecified atrial fibrillation SNOMED: 04753948 (4) Diabetes mellitus ICD Codes: E11.9 - Type 2 diabetes mellitus without complications SNOMED: 99647554 (5) Diabetic foot ulcer ICD Codes: E11.621 - Type 2 diabetes mellitus with foot ulcer; L97.509 - Non- pressure chronic ulcer of other part of unspecified foot with unspecified severity SNOMED: 98185224, 368222153 (6) Altered level of consciousness ICD Codes: R40.4 - Transient alteration of awareness SNOMED: 1814231 (7) Acute on chronic renal failure ICD Codes: N17.9 - Acute kidney failure, unspecified; N18.9 - Chronic kidney disease, unspecified SNOMED: 495787901 (8) Rapid atrial fibrillation ICD Codes: I48.91 - Unspecified atrial fibrillation SNOMED: 258057404 Status: unchanged Assessment/Plan o2 pulm tx ng feed abx wound care cbc bmp am promise ltach eval vs [facility] transfer for angio Subjective Constitutional: Reports: weakness Allergies: Coded Allergies: CODEINE (Unverified Allergy, Unknown, 02/17/17) All Systems: reviewed and negative except above Subjective o2nc ng sleeping Objective Last 24 Hour Vital Signs Date Time Temp Pulse Resp B/P (MAP) Pulse Ox O2 Delivery O2 Flow Rate FiO2 02/25/17 13:02 86 144/88 02/25/17 12:00 97.9 86 20 144/88 97 Nasal Cannula 2.0 02/25/17 09:19 106 137/92 02/25/17 08:00 141 02/25/17 08:00 97.9 106 22 137/92 94 Nasal Cannula 2.0 02/25/17 06:43 146 148/87 02/25/17 06:12 136 134/89 02/25/17 04:14 97.8 86 22 131/89 92 Nasal Cannula 02/25/17 04:00 130 02/25/17 00:21 97.6 95 20 127/60 92 Nasal Cannula 02/25/17 00:11 150 158/89 1/17/18 00:11 150 158/89 02/25/17 00:00 143 02/24/17 20:39 73 118/72 02/24/17 20:20 98.6 97 22 118/73 92 Nasal Cannula 02/24/17 20:00 128 02/24/17 19:30 Nasal Cannula 2.0 28 02/24/17 19:30 96 Nasal Cannula 2.0 28 02/24/17 19:00 142 155/113 02/24/17 18:40 79 118/65 02/24/17 16:00 98.2 80 20 110/52 98 Nasal Cannula 2.0 02/24/17 16:00 107 Intake and Output 02/24/17 02/25/17 19:00 07:00 Intake Total 15 ml 190 ml Output Total 575 ml 500 ml Balance -560 ml -310 ml IV Total 15 ml 190 ml Output Urine Total 575 ml 500 ml Laboratory Tests 02/24/17 17:23: Activated Partial Thromboplast Time 70H 02/25/17 04:20: Activated Partial Thromboplast Time 96H, White Blood Count 12.3H, Red Blood Count 3.38L, Hemoglobin 11.2L, Hematocrit 33.1L, Mean Corpuscular Volume 98, Mean Corpuscular Hemoglobin 33.0H, Mean Corpuscular Hemoglobin Concent 33.7, Red Cell Distribution Width 12.5, Platelet Count 168, Mean Platelet Volume 6.9, Neutrophils (%) (Auto) 72.6, Lymphocytes (%) (Auto) 11.7L, Monocytes (%) (Auto) 13.7H, Eosinophils (%) (Auto) 1.5, Basophils (%) (Auto) 0.5, Sodium Level 137, Potassium Level 3.6, Chloride Level 99, Carbon Dioxide Level 31, Anion Gap 7, Blood Urea Nitrogen 29H, Creatinine 2.4H, Estimat Glomerular Filtration Rate 33.0, Glucose Level 338H, Calcium Level 10.5H, Phosphorus Level 3.8, Magnesium Level 1.9, Total Bilirubin 0.5, Direct Bilirubin 0.2, Aspartate Amino Transf ( AST/SGOT) 16, Alanine Aminotransferase (ALT/SGPT) 8L, Alkaline Phosphatase 106, Total Protein 8.5H, Albumin 1.6L 02/25/17 14:05: Activated Partial Thromboplast Time [Pending] Height (Feet): 6 Height (Inches): 0.00 Weight (Pounds): 218 General Appearance: lethargic EENT: normal ENT inspection Neck: normal alignment Cardiovascular: normal peripheral pulses, normal rate, regular rhythm Respiratory/Chest: chest wall non-tender, lungs clear, normal breath sounds Abdomen: normal bowel sounds, non tender, soft Extremities: normal inspection Edema: no edema noted Arm (L), no edema noted Arm (R), no edema noted Leg (L), no edema noted Leg (R), no edema noted Pedal (L), no edema noted Pedal (R), no edema noted Generalized Neurologic: motor weakness Skin: normal pigmentation, warm/dry CLARITA TEMPLETON Feb 25, 2017 14:19
--- NOTE | 2017-02-25 14:20 | Pulmonology Progress Note ---
Assessment/Plan Problems: (1) Rapid atrial fibrillation (2) HTN (hypertension) (3) Diabetic foot ulcer Assessment/Plan no new complains heart rate better awaiting transfer to [facility] for angiography, or to LTAC continue wound care IV abx check electrolytes symptomatic treatment keep in teli Subjective ROS Limited/Unobtainable: No Allergies: Coded Allergies: CODEINE (Unverified Allergy, Unknown, 02/17/17) Objective Last 24 Hour Vital Signs Date Time Temp Pulse Resp B/P (MAP) Pulse Ox O2 Delivery O2 Flow Rate FiO2 02/25/17 13:02 86 144/88 02/25/17 12:00 97.9 86 20 144/88 97 Nasal Cannula 2.0 02/25/17 09:19 106 137/92 02/25/17 08:00 141 02/25/17 08:00 97.9 106 22 137/92 94 Nasal Cannula 2.0 02/25/17 06:43 146 148/87 02/25/17 06:12 136 134/89 02/25/17 04:14 97.8 86 22 131/89 92 Nasal Cannula 02/25/17 04:00 130 02/25/17 00:21 97.6 95 20 127/60 92 Nasal Cannula 02/25/17 00:11 150 158/89 02/25/17 00:11 150 158/89 02/25/17 00:00 143 02/24/17 20:39 73 118/72 02/24/17 20:20 98.6 97 22 118/73 92 Nasal Cannula 02/24/17 20:00 128 02/24/17 19:30 Nasal Cannula 2.0 28 02/24/17 19:30 96 Nasal Cannula 2.0 28 02/24/17 19:00 142 155/113 02/24/17 18:40 79 118/65 02/24/17 16:00 98.2 80 20 110/52 98 Nasal Cannula 2.0 02/24/17 16:00 107 Intake and Output 02/24/17 02/25/17 19:00 07:00 Intake Total 15 ml 190 ml Output Total 575 ml 500 ml Balance -560 ml -310 ml IV Total 15 ml 190 ml Output Urine Total 575 ml 500 ml Objective General Appearance: WD/WN HEENT: normocephalic, NG tube in place Respiratory/Chest: chest wall non-tender, lungs clear Abdomen: normal bowel sounds, soft, non tender Genitourinary: normal external genitalia Extremities: no cyanosis, clean dressing Laboratory Tests 02/24/17 17:23: Activated Partial Thromboplast Time 70H 02/25/17 04:20: Activated Partial Thromboplast Time 96H, White Blood Count 12.3H, Red Blood Count 3.38L, Hemoglobin 11.2L, Hematocrit 33.1L, Mean Corpuscular Volume 98, Mean Corpuscular Hemoglobin 33.0H, Mean Corpuscular Hemoglobin Concent 33.7, Red Cell Distribution Width 12.5, Platelet Count 168, Mean Platelet Volume 6.9, Neutrophils (%) (Auto) 72.6, Lymphocytes (%) (Auto) 11.7L, Monocytes (%) (Auto) 13.7H, Eosinophils (%) (Auto) 1.5, Basophils (%) (Auto) 0.5, Sodium Level 137, Potassium Level 3.6, Chloride Level 99, Carbon Dioxide Level 31, Anion Gap 7, Blood Urea Nitrogen 29H, Creatinine 2.4H, Estimat Glomerular Filtration Rate 33.0, Glucose Level 338H, Calcium Level 10.5H, Phosphorus Level 3.8, Magnesium Level 1.9, Total Bilirubin 0.5, Direct Bilirubin 0.2, Aspartate Amino Transf ( AST/SGOT) 16, Alanine Aminotransferase (ALT/SGPT) 8L, Alkaline Phosphatase 106, Total Protein 8.5H, Albumin 1.6L 02/25/17 14:05: Activated Partial Thromboplast Time [Pending] Current Medications Medications (Trade) Dose Ordered Sig/Anahi Route PRN Reason Start Time Stop Time Status Last Admin Dose Admin Acetaminophen (Tylenol) 650 mg Q4H PRN NG Mild Pain/Temp > 100.5 02/20/17 05:45 03/20/17 05:44 02/22/17 05:42 Atorvastatin Calcium (Lipitor) 20 mg QHS NG 02/20/17 21:00 03/20/17 20:59 02/24/17 20:38 Cefepime HCl 2 gm/ Dextrose 110 ml @ 220 mls/hr Q24H IV 02/20/17 13:00 02/26/17 12:59 02/25/17 13:02 Dextrose (Dextrose 50%) STAT PRN IV Hypoglycemia 02/20/17 07:00 03/20/17 06:59 Diltiazem HCl (Cardizem) 90 mg EVERY 6 HOURS NG 02/20/17 06:00 03/22/17 00:00 02/25/17 13:02 Famotidine (Pepcid) 20 mg DAILY GT 02/25/17 09:00 03/27/17 08:59 02/25/17 09:19 Heparin Sodium/ Dextrose 500 ml @ 35.066 mls/ hr adjust per protocol IV 02/25/17 06:00 03/25/17 17:29 02/25/17 07:13 Insulin Aspart (NovoLOG) Q6HR SUBQ 02/21/17 18:00 03/20/17 11:29 02/25/17 13:04 Memantine (Namenda) 5 mg BID NG 02/20/17 09:00 03/21/17 08:59 02/25/17 09:19 Metoprolol Tartrate (Lopressor) 5 mg Q4H PRN IVP heart rate greater than 105 02/20/17 05:46 03/20/17 05:45 02/25/17 06:43 Metoprolol Tartrate (Lopressor) 100 mg Q12HR NG 02/24/17 21:00 03/26/17 20:59 02/25/17 09:19 Ondansetron HCl (Zofran) 4 mg Q6H PRN IVP Nausea & Vomiting 02/20/17 07:00 03/20/17 06:59 Polyethylene Glycol (Miralax) 17 gm HSPRN PRN ORAL Constipation 02/20/17 07:00 03/20/17 06:59 Valproic Acid (Depakene) 500 mg EVERY 12 HOURS NG 02/20/17 09:00 03/20/17 20:59 02/25/17 09:19 SATHYA MEIER Feb 25, 2017 14:20
--- NOTE | 2017-02-25 15:40 | Podiatric Progress Note ---
Assessment/Plan Patient Rafiq Cox is a 66 year old male who was admitted on Feb 18, 2017 at 02: 26 with Problems: Assessment/Plan A/ 1) Gangrene left foot 2) PAD - critical legs bilateral 3) DM foot ulcer 4) DM P/ 1) Cont abx per ID 2) Awaiting vasc intervention. 3) Cont local wound care as ordered 4) No pedal surgery planned 2/2 to CLI. Will await vasc procedure. 5) Cont heel protectors. 6) Will follow Subjective Allergies: Coded Allergies: CODEINE (Unverified Allergy, Unknown, 02/17/17) Subjective Patient not alert. Objective Exam Last 24 Hour Vital Signs Date Time Temp Pulse Resp B/P (MAP) Pulse Ox O2 Delivery O2 Flow Rate FiO2 02/25/17 13:02 86 144/88 02/25/17 12:00 97.9 86 20 144/88 97 Nasal Cannula 2.0 02/25/17 12:00 100 02/25/17 09:19 106 137/92 02/25/17 08:00 141 02/25/17 08:00 97.9 106 22 137/92 94 Nasal Cannula 2.0 02/25/17 07:20 Nasal Cannula 2.0 28 02/25/17 07:20 97 Nasal Cannula 2.0 28 02/25/17 06:43 146 148/87 02/25/17 06:12 136 134/89 02/25/17 04:14 97.8 86 22 131/89 92 Nasal Cannula 02/25/17 04:00 130 02/25/17 00:21 97.6 95 20 127/60 92 Nasal Cannula 02/25/17 00:11 150 158/89 02/25/17 00:11 150 158/89 02/25/17 00:00 143 02/24/17 20:39 73 118/72 02/24/17 20:20 98.6 97 22 118/73 92 Nasal Cannula 02/24/17 20:00 128 02/24/17 19:30 Nasal Cannula 2.0 28 02/24/17 19:30 96 Nasal Cannula 2.0 28 02/24/17 19:00 142 155/113 02/24/17 18:40 79 118/65 02/24/17 16:00 98.2 80 20 110/52 98 Nasal Cannula 2.0 02/24/17 16:00 107 Laboratory Tests Test 02/24/17 17:23 02/25/17 04:20 02/25/17 14:05 Activated Partial Thromboplast Time 70 SEC (23-33) H 96 SEC (23-33) H 79 SEC (23-33) H White Blood Count 12.3 K/UL (4.8-10.8) H Red Blood Count 3.38 M/UL (4.70-6.10) L Hemoglobin 11.2 G/DL (14.2-18.0) L Hematocrit 33.1 % (42.0-52.0) L Mean Corpuscular Volume 98 FL (80-99) Mean Corpuscular Hemoglobin 33.0 PG (27.0-31.0) H Mean Corpuscular Hemoglobin Concent 33.7 G/DL (32.0-36.0) Red Cell Distribution Width 12.5 % (11.6-14.8) Platelet Count 168 K/UL (150-450) Mean Platelet Volume 6.9 FL (6.5-10.1) Neutrophils (%) (Auto) 72.6 % (45.0-75.0) Lymphocytes (%) (Auto) 11.7 % (20.0-45.0) L Monocytes (%) (Auto) 13.7 % (1.0-10.0) H Eosinophils (%) (Auto) 1.5 % (0.0-3.0) Basophils (%) (Auto) 0.5 % (0.0-2.0) Sodium Level 137 MMOL/L (136-145) Potassium Level 3.6 MMOL/L (3.5-5.1) Chloride Level 99 MMOL/L (98-107) Carbon Dioxide Level 31 MMOL/L (21-32) Anion Gap 7 mmol/L (5-15) Blood Urea Nitrogen 29 mg/dL (7-18) H Creatinine 2.4 MG/DL (0.55-1.30) H Estimat Glomerular Filtration Rate 33.0 mL/min (>60) Glucose Level 338 MG/DL (74-106) H Calcium Level 10.5 MG/DL (8.5-10.1) H Phosphorus Level 3.8 MG/DL (2.5-4.9) Magnesium Level 1.9 MG/DL (1.8-2.4) Total Bilirubin 0.5 MG/DL (0.2-1.0) Direct Bilirubin 0.2 MG/DL (0.0-0.3) Aspartate Amino Transf (AST/SGOT) 16 U/L (15-37) Alanine Aminotransferase (ALT/SGPT) 8 U/L (12-78) L Alkaline Phosphatase 106 U/L (46-116) Total Protein 8.5 G/DL (6.4-8.2) H Albumin 1.6 G/DL (3.4-5.0) L Vascular Vascular Narrative left foot gangrene advancing. still dry without signs of acute infection Heels bilateral are unremarkable Kasi Perea DPM Feb 25, 2017 15:40
[2017-02-25 16:00] VITALS: BP 150/84
--- NOTE | 2017-02-25 18:17 | Progress Note ---
DATE: 02/25/2017 SUBJECTIVE: The patient is a 66-year-old male patient with atrial fibrillation rapid ventricular heart rate. Anyway, this patient has altered mental status and confusion, and because of that, his attending physician has requested daily psychiatric consultation because his cognition has declined below baseline secondary to the progression of his medical illness. MENTAL STATUS EXAMINATION: The patient is a 66-year-old male with psychomotor agitation. Mood is irritable and agitated. Affect guarded and restricted. Thought process is disorganized and illogical. Denies any current suicidal or homicidal thoughts. Insight and judgment is poor. DIAGNOSIS: Paranoid schizophrenia, rule out dementia with psychosis. PLAN: Treat with Namenda 5 mg twice a day per G-tube to prevent any further decline in his cognition and Depakote 500 mg per NG tube q.12 h. Seen and assessed at bedside. Chart reviewed. Discussed with staff. Supportive therapy provided. Karen Pettit M.D. DR: JAY JOB#: [id number] CC:
[2017-02-25] MEDS ORDERED: NovoLOG Insulin Flexpen SUBQ SCH (19:00)
--- NOTE | 2017-02-25 19:19 | Cardiology Progress Note ---
Assessment/Plan Assessment/Plan 1. Tachycardia. 2. Atrial fibrillation, permanent. 3. History of sick sinus syndrome, status post single-chamber permanent pacemaker implantation. 4. History of hypertension. 5. Diabetes mellitus. 6. Gangrene, left foot. 7. Peripheral vascular disease. 8. Diabetic foot ulcers. 9. med non compliance he has an ngt now and heart rate well controlled now with ngt med off ivf should be able to tolerate angio and amputation as long as he takes his bb and cardizem !!! risk are expect to be low and acceptable he has been tolerating sig tachy in the last 2 admission s/p lasix ok to transfer to other facility hr ok may need adjustment of bb intermittently Subjective ROS Limited/Unobtainable: Yes Objective Last 24 Hour Vital Signs Date Time Temp Pulse Resp B/P (MAP) Pulse Ox O2 Delivery O2 Flow Rate FiO2 02/25/17 19:04 91 150/84 02/25/17 16:00 91 02/25/17 16:00 98.0 82 20 150/84 92 Nasal Cannula 2.0 02/25/17 13:02 86 144/88 02/25/17 12:00 97.9 86 20 144/88 97 Nasal Cannula 2.0 02/25/17 12:00 100 02/25/17 09:19 106 137/92 02/25/17 08:00 141 02/25/17 08:00 97.9 106 22 137/92 94 Nasal Cannula 2.0 02/25/17 07:20 Nasal Cannula 2.0 28 02/25/17 07:20 97 Nasal Cannula 2.0 28 02/25/17 06:43 146 148/87 02/25/17 06:12 136 134/89 02/25/17 04:14 97.8 86 22 131/89 92 Nasal Cannula 02/25/17 04:00 130 02/25/17 00:21 97.6 95 20 127/60 92 Nasal Cannula 02/25/17 00:11 150 158/89 02/25/17 00:11 150 158/89 02/25/17 00:00 143 02/24/17 20:39 73 118/72 02/24/17 20:20 98.6 97 22 118/73 92 Nasal Cannula 02/24/17 20:00 128 02/24/17 19:30 Nasal Cannula 2.0 28 02/24/17 19:30 96 Nasal Cannula 2.0 28 General Appearance: other - not communicative Neck: supple Cardiovascular: irregularly irregular Respiratory/Chest: rhonchi - bilaterally Abdomen: normal bowel sounds, non tender, soft Extremities: trace edema Intake and Output 02/24/17 02/25/17 19:00 07:00 Intake Total 15 ml 190 ml Output Total 575 ml 500 ml Balance -560 ml -310 ml IV Total 15 ml 190 ml Output Urine Total 575 ml 500 ml Laboratory Tests Test 02/25/17 04:20 02/25/17 14:05 White Blood Count 12.3 K/UL (4.8-10.8) H Red Blood Count 3.38 M/UL (4.70-6.10) L Hemoglobin 11.2 G/DL (14.2-18.0) L Hematocrit 33.1 % (42.0-52.0) L Mean Corpuscular Volume 98 FL (80-99) Mean Corpuscular Hemoglobin 33.0 PG (27.0-31.0) H Mean Corpuscular Hemoglobin Concent 33.7 G/DL (32.0-36.0) Red Cell Distribution Width 12.5 % (11.6-14.8) Platelet Count 168 K/UL (150-450) Mean Platelet Volume 6.9 FL (6.5-10.1) Neutrophils (%) (Auto) 72.6 % (45.0-75.0) Lymphocytes (%) (Auto) 11.7 % (20.0-45.0) L Monocytes (%) (Auto) 13.7 % (1.0-10.0) H Eosinophils (%) (Auto) 1.5 % (0.0-3.0) Basophils (%) (Auto) 0.5 % (0.0-2.0) Activated Partial Thromboplast Time 96 SEC (23-33) H 79 SEC (23-33) H Sodium Level 137 MMOL/L (136-145) Potassium Level 3.6 MMOL/L (3.5-5.1) Chloride Level 99 MMOL/L (98-107) Carbon Dioxide Level 31 MMOL/L (21-32) Anion Gap 7 mmol/L (5-15) Blood Urea Nitrogen 29 mg/dL (7-18) H Creatinine 2.4 MG/DL (0.55-1.30) H Estimat Glomerular Filtration Rate 33.0 mL/min (>60) Glucose Level 338 MG/DL (74-106) H Calcium Level 10.5 MG/DL (8.5-10.1) H Phosphorus Level 3.8 MG/DL (2.5-4.9) Magnesium Level 1.9 MG/DL (1.8-2.4) Total Bilirubin 0.5 MG/DL (0.2-1.0) Direct Bilirubin 0.2 MG/DL (0.0-0.3) Aspartate Amino Transf (AST/SGOT) 16 U/L (15-37) Alanine Aminotransferase (ALT/SGPT) 8 U/L (12-78) L Alkaline Phosphatase 106 U/L (46-116) Total Protein 8.5 G/DL (6.4-8.2) H Albumin 1.6 G/DL (3.4-5.0) L BOBBY BURNETTE Feb 25, 2017 19:19
[2017-02-25 20:00] VITALS: BP 138/76
[2017-02-25] MEDS ORDERED: Levemir Flexpen SUBQ SCH (21:00)
[2017-02-25] MEDS: Atorvastatin 20mg tab NG SCH (21:00)
[2017-02-26] VITALS: BP 125/85
[2017-02-26] MEDS: dilTIAZem HCl 90mg tab NG SCH
[2017-02-26] MEDS: NovoLOG Insulin Flexpen SUBQ SCH
[2017-02-26 01:36] VITALS: BP 145/76
[2017-02-26] MEDS: Metoprolol 5mg/5ml Inj IVP PRN (01:36)
[2017-02-26] MEDS ORDERED: Sterile Water Irrig 1000ml IRRIG ONE (01:49)
--- NOTE | 2017-02-27 14:49 | Discharge Summary ---
Discharge Summary Hospital Course Date of Admission Feb 18, 2017 at 02:26 Date of Discharge Feb 26, 2017 at 01:50 Admitting Diagnosis A-fib with rvr HPI Rafiq Cox is a 66 year old male who was admitted on Feb 18, 2017 at 02: 26 for A-Fib With Rapid Ventricular Rate, Lethargy Hospital Course [id number] Discharge Discharge Disposition Patient was discharged to [facility] Discharge Diagnoses: Radha Matias NP Feb 27, 2017 14:49
--- NOTE | 2017-02-28 02:15 | Discharge Summary 2 SIG ---
DATE OF ADMISSION: 02/18/2017 DATE OF DISCHARGE: 02/26/2017 CONSULTANTS: 1. Matheus Laws M.D. 2. Karen Pettit M.D. 3. Kasi Perea D.P.M. 4. Josee Guevara M.D. 5. Tonny Noguera M.D. 6. Murray Chi M.D. 7. Jose Arroyo M.D. BRIEF HOSPITAL COURSE: The patient is a 66-year-old male, with history of atrial fibrillation, pacemaker, diabetes, and hypertension, who was admitted to [facility] on 02/11/2017 to 02/17/2017 for diabetic foot ulcer and [facility]. He was brought back to [facility] for altered level of consciousness. On arrival to the prison, the patient was noted to be lethargic and not oriented. He was then taken back to emergency room where on evaluation, he was found to be in atrial fibrillation with rapid ventricular response. He was given Cardizem x2 with slight improvement, however, heart rate went back to 150s. He was given metoprolol and was admitted for atrial fibrillation with rapid response. He was admitted to intensive care unit. He was resumed on cefepime. He was followed by Dr. Perea. No pedal surgery was planned, pending vascular procedure. The patient has a gangrenous left foot and with critical peripheral artery disease. The patient had not been compliant with medications as he spits them out and heart rate is not controlled with diltiazem alone. He needs to have beta-jammie. He underwent psychiatric evaluation. He was diagnosed with schizoaffective bipolar type and was given Depakote 500 mg via NG-tube. He was started on Namenda 5 mg daily. Intravenous cardaic meds was eventually discontinued and was switched to p.o. The patient was assessed to have low risk and was cleared to undergo angiogram with possible amputation as long as the patient is on beta-jammie and Cardizem. He was supposed to have angiogram done at [facility], however, procedure was canceled as the patient was readmitted to the hospital. He was continued on IV heparin and was given wound care. The patient had two witnessed episodes resembling seizure activity not clear if he had urinary incontinence. There was no history of previous seizure disorder. He was given Keppra [address] of the brain done showed no acute intracranial bleed mass effect, or edema with mild atrophy and nonspecific white matter hypoattenuation due to chronic small vessel disease. He was continued on wound care. Depakote was eventually increased to 500 mg q.12 hours via NG tube. He was eventually discharged to [facility]. FINAL DIAGNOSES: 1. Gangrene on the left foot. 2. Critical peripheral artery disease. 3. Diabetes mellitus. 4. Permanent atrial fibrillator. 5. Sick sinus syndrome with single chamber permanent pacemaker. 6. Hypertension. 7. Medication noncompliance. 8. Probably transient seizure episode. 9. Acute toxic metabolic encephalopathy. 10. Acute on chronic renal failure. 11. Diabetes with diabetic nephropathy. 12. Diabetic foot ulcer present on admission. DISPOSITION: The patient was discharged to [facility]. Pako Barreto D.O. I have been assigned to dictate discharge summary on this account and I was not involved in the patient's management. Radha Matias N.P. DR: FRANCES JOB#: [id number] CC: ALYSIA
== END 2017-02-26 01:50 | DRG 308 ==
LOC: EDBD 22:55 → EMR 23:12 → 2E 02-18 02:26 → EDBEDREQ 02-18 03:15 → ICU 02-18 06:30 → 2E 02-20 05:36
DX: I48.2 Chronic atrial fibrillation (principal); G92 Toxic encephalopathy; N17.9 Acute kidney failure, unspecified; E11.52 Type 2 diabetes mellitus with diabetic peripheral angiopathy with gangrene; F20.0 Paranoid schizophrenia; E11.21 Type 2 diabetes mellitus with diabetic nephropathy; E11.621 Type 2 diabetes mellitus with foot ulcer; E11.22 Type 2 diabetes mellitus with diabetic chronic kidney disease; N18.9 Chronic kidney disease, unspecified; Z95.0 Presence of cardiac pacemaker; Z91.14 Patient's other noncompliance with medication regimen; R56.9 Unspecified convulsions; Z88.6 Allergy status to analgesic agent; L97.529 Non-pressure chronic ulcer of other part of left foot with unspecified severity; F03.90 Unspecified dementia, unspecified severity, without behavioral disturbance, psychotic disturbance, mood disturbance, and anxiety
CPT/HCPCS: 36415; 70450; 71045; 74018; 80048; 80053; 80061; 80076; 80164; 81001; 82550; 82962; 83036; 83735; 83880; 84100; 84300; 84443; 84484; 84550; 85025; 85610; 85730; 86140; 93005; 94760; J1815; J8499; S5561